=== PATIENT | female | born 1940 | race Caucasian/White ===

== ENCOUNTER 2020-02-19 08:42 | Inpatient (IN) | payer MEDICARE ==
[~2020-02-19] VITALS: Ht 165.1 cm; Wt 80.9 kg
[~2020-02-19 08:42] MED LIST: ALLO300T PO; BUDE0.5A3 NEB; BUPR150T15 PO; CLON-77 PO; FORM20VI IH; FURO-68 PO; FURO-69 PO; INDO75CA3 PO; PHEN37.599 PO; POTA20TA12 PO; POTA25TA4 PO; PRED20TA PO
[2020-02-19] MEDS ORDERED: IV NORMAL SALINE 1000ML BAG 1,000 ML IV ONE ×2 (09:30→11:45)
[2020-02-19] MEDS ORDERED: ONDANSETRON PF 4 MG/2 ML VIAL. IV ONE (09:30)
[2020-02-19] MEDS ORDERED: fentaNYL PF VIAL 100 MCG/2 ML VIAL IV ONE (09:30)
[2020-02-19 09:33] LABS: BILIRUBIN,URINE NEGATIVE (NEG); CLARITY,URINE CLEAR; COLOR,URINE YELLOW; NITRITE,URINE NEGATIVE (NEG); PH,URINE 6.5 (<5.0-8.0); PROTEIN,URINE 100 mg/dL (NEG-TRACE)
[2020-02-19 09:45] LABS: BASO % 0 % (0-3); EOS % 0 % (0-3); HEMATOCRIT 34.2 % (36.0-47.0); HEMOGLOBIN 11.1 g/dL (12.0-15.5); LYMPH # 0.9 x10^3/uL (1.0-4.8); LYMPH % 6 % (24-48); MEAN CORPUSCULAR HEMOGLOBIN 27 pg (25-35); MEAN CORPUSCULAR HGB CONC 33 g/dL (31-37); MEAN CORPUSCULAR VOLUME 84 fL (79-100); MONO # 1.1 x10^3/uL (0.0-1.1); MONO % 7 % (0-9); NEUT # 14.4 x10^3/uL (1.8-7.7); NEUT % 87 % (31-73); PLATELET COUNT 301 x10^3/uL (140-400); RED BLOOD COUNT 4.05 x10^6/uL (3.50-5.40); RED CELL DISTRIBUTION WIDTH 14.9 % (11.5-14.5); WHITE BLOOD COUNT 16.4 x10^3/uL (4.0-11.0)
[2020-02-19 09:54] LABS: BACTERIA,URINE FEW /HPF (0-FEW); RBC,URINE >40 /HPF (0-2); SQUAMOUS EPITHELIAL CELL,UR MOD /LPF
[2020-02-19 09:57] LABS: CALCIUM 9.1 mg/dL (8.5-10.1); GFR 53.6; POTASSIUM 3.5 mmol/L (3.5-5.1)
[2020-02-19 10:05] LABS: ALBUMIN 2.6 g/dL (3.4-5.0); ALBUMIN/GLOBULIN RATIO 0.5 (1.0-1.7); TOTAL BILIRUBIN 0.5 mg/dL (0.2-1.0); TOTAL PROTEIN 7.4 g/dL (6.4-8.2)
[2020-02-19] MEDS ORDERED: IOHEXOL 300 MG/ML 100ML VIAL. IV ONE (10:30)
[2020-02-19] MEDS ORDERED: CONTRAST GIVEN. MC PRN (10:30)
[2020-02-19 10:57] LABS: % LYMPHS 13 % (24-48); % MONOS 6 % (0-10); % SEGS 81 % (35-66); PLT ESTIMATE ADEQUATE (ADEQUATE)
--- NOTE | 2020-02-19 11:12 | RAD ---
PQRS Compliance Statement: One or more of the following individualized dose reduction techniques were utilized for this examination: 1. Automated exposure control 2. Adjustment of the mA and/or kV according to patient size 3. Use of iterative reconstruction technique CT abdomen/pelvis with contrast 02/19/2020 9:24 AM INDICATION: Abdominal pain COMPARISON: CT abdomen/pelvis 10/12/2013 TECHNIQUE: Multiple axial CT images of the abdomen and pelvis were obtained after the intravenous administration of 60 mL Omnipaque 300. Coronal and sagittal reformats are provided. FINDINGS: There is a 5 mm subpleural nodule at the medial left lung base (series 2, image 10). Patchy interstitial changes at the right lung base and inferior lingula may represent subsegmental atelectasis versus scarring. Heart size is within normal limits. Trace pericardial fluid may be physiologic. Coronary vascular calculations are present. Liver, spleen and pancreas are normal in appearance. Mild prominence of main pancreatic duct measuring up to 2 to 3 mm. Cholelithiasis. Indeterminate bilateral adrenal nodules are present. Left adrenal nodule measures 2.3 x 2.0 cm. Right adrenal nodule measures 1.4 x 0.9 cm. Infrarenal abdominal aortic aneurysm is identified with measurements of 4.5 x 4.4 cm. Noncalcified eccentric plaque is identified measuring 14 mm in thickness. No pathologically enlarged lymph nodes are identified in the abdomen and pelvis. Surgical clips are identified in the right groin. Kidneys are normal in appearance. No suspicious renal mass. Simple renal cortical cysts are identified in the right kidney measuring up to 10 mm. No hydronephrosis. No calculi are identified kidneys, ureters or urinary bladder. Inflammatory changes are identified involving the mid to distal sigmoid colon in a region of moderate diverticulosis. Findings are suggestive of diverticulitis. There is a peridiverticular fluid collection containing gas measuring 3.4 x 3.1 cm. This collection is identified between the left superolateral aspect of the urinary bladder, along the left lateral margin of the uterus communicating with the bowel. Peridiverticular abscess is primary consideration. Early fistula formation is possible. No gas is identified within the urinary bladder. Gas is noted within the vagina, nonspecific. This fusion of L5-S1. No suspicious osseous abnormality is identified. Appendix is normal in appearance. IMPRESSION: 1. Diverticulitis of the mid to distal sigmoid colon without peridiverticular abscess measuring 3.4 x 3.1 cm. No definite fistula to the bladder, uterus or vagina is noted. There is gas identified within the vagina which is nonspecific. Close follow-up is recommended. 2. Bilateral adrenal masses, indeterminate. Left adrenal mass measures 2.3 x 2.0 cm. Findings favor benign etiology given stability since 10/12/2013. 3. Infrarenal abdominal aortic aneurysm measuring 4.5 x 4.4 cm. Dense calcified and noncalcified atheromatous plaque is identified. Infrarenal abdominal aorta previously measured 2.8 x 2.6 cm on 10/12/2013. Electronically signed by: Ivory Peña MD (02/19/2020 11:09 AM) [facility]
[2020-02-19] MEDS ORDERED: cefTRIAXone IV Push 1 GM VIAL. IVP ONE ×2 (11:15→11:30)
--- NOTE | 2020-02-19 11:28 | PHYS DOC ---
Past Medical History Past Medical History: COPD, Diverticulitis, Other Additional Past Medical Histor: ulcers Past Surgical History: Other Additional Past Surgical Histo: right leg stent Smoking Status: Current Every Day Smoker Alcohol Use: None General Adult EDM: Chief Complaint: ABDOMINAL PAIN HPI: HPI: 79-year-old female presents with 2-day history of progressive abdominal pain. She feels like her abdomen is bloated. She states the pain is diffuse in nature. She denies any fever chills or sweats. She has had no nausea but she states the pain now is severe and unrelenting. She denies any dysuria or gross hematuria. She says she has had a history of diverticulitis in the past. [] Review of Systems: Review of Systems: Constitutional: Denies fever or chills. [] Eyes: Denies change in visual acuity. [] HENT: Denies nasal congestion or sore throat. [] Respiratory: Denies cough or shortness of breath. [] Cardiovascular: Denies chest pain or edema. [] GI: Per HPI [] : Denies dysuria. [] Musculoskeletal: Denies back pain or joint pain. [] Integument: Denies rash. [] Neurologic: Denies headache, focal weakness or sensory changes. [] Endocrine: Denies polyuria or polydipsia. [] Lymphatic: Denies swollen glands. [] Psychiatric: Denies depression or anxiety. [] Heart Score: Risk Factors: Risk Factors: DM, Current or recent (<one month) smoker, HTN, HLP, family history of CAD, obesity. Risk Scores: Score 0 - 3: 2.5% MACE over next 6 weeks - Discharge Home Score 4 - 6: 20.3% MACE over next 6 weeks - Admit for Clinical Observation Score 7 - 10: 72.7% MACE over next 6 weeks - Early Invasive Strategies Current Medications: Current Medications Medications (Trade) Dose Ordered Sig/Viola Start Time Stop Time Status Last Admin Dose Admin Ceftriaxone Sodium (Rocephin) 1 gm 1X ONCE 02/19/20 11:15 02/19/20 11:16 DC 02/19/20 11:14 1 GM Fentanyl Citrate (Fentanyl 2ml Vial) 50 mcg 1X ONCE 02/19/20 09:30 02/19/20 09:31 DC 02/19/20 09:50 50 MCG Info (CONTRAST GIVEN -- Rx MONITORING) 1 each PRN DAILY PRN 02/19/20 10:30 02/21/20 10:29 Iohexol (Omnipaque 300 Mg/ml) 75 ml 1X ONCE 02/19/20 10:30 02/19/20 10:31 DC 02/19/20 10:46 75 ML Ondansetron HCl (Zofran) 4 mg 1X ONCE 02/19/20 09:30 02/19/20 09:31 DC 02/19/20 09:49 4 MG Sodium Chloride 1,000 ml @ 1,000 mls/hr 1X ONCE 02/19/20 09:30 02/19/20 10:29 DC 02/19/20 09:48 1,000 MLS/HR Allergies: Allergies: Allergies Coded Allergies Type Severity Reaction Last Updated Verified No Known Drug Allergies 10/12/13 No Physical Exam: PE: Constitutional: Well developed, well nourished, moderate distress, non-toxic appearance. [] HENT: Normocephalic, atraumatic, bilateral external ears normal, oropharynx moist, no oral exudates, nose normal. [] Eyes: PERRLA, EOMI, conjunctiva normal, no discharge. [] Neck: Normal range of motion, no tenderness, supple, no stridor. [] Cardiovascular:Heart rate regular rhythm, no murmur [] Lungs & Thorax: Bilateral breath sounds clear to auscultation [] Abdomen: Bowel sounds normal, soft, no tenderness, no masses, no pulsatile mass es. [] Skin: Warm, dry, no erythema, no rash. [] Back: No tenderness, no CVA tenderness. [] Extremities: No tenderness, no cyanosis, no clubbing, ROM intact, no edema. [] Neurologic: Alert and oriented X 3, normal motor function, normal sensory function, no focal deficits noted. [] Psychologic: Anxious [] Current Patient Data: Labs: Laboratory Tests Test 02/19/20 09:25 02/19/20 09:30 Urine Color Yellow Urine Clarity Clear Urine pH 6.5 (<5.0-8.0) Urine Specific [place] 1.010 (1.000-1.030) Urine Protein 100 mg/dL (NEG-TRACE) Urine Glucose (UA) Negative mg/dL (NEG) Urine Ketones (Stick) Negative mg/dL (NEG) Urine Blood Large (NEG) Urine Nitrite Negative (NEG) Urine Bilirubin Negative (NEG) Urine Urobilinogen Dipstick 1.0 mg/dL (0.2 mg/dL) Urine Leukocyte Esterase Trace (NEG) Urine RBC >40 /HPF (0-2) Urine WBC 5-10 /HPF (0-4) Urine Squamous Epithelial Cells Mod /LPF Urine Bacteria Few /HPF (0-FEW) White Blood Count 16.4 x10^3/uL (4.0-11.0) H Red Blood Count 4.05 x10^6/uL (3.50-5.40) Hemoglobin 11.1 g/dL (12.0-15.5) L Hematocrit 34.2 % (36.0-47.0) L Mean Corpuscular Volume 84 fL (79-100) Mean Corpuscular Hemoglobin 27 pg (25-35) Mean Corpuscular Hemoglobin Concent 33 g/dL (31-37) Red Cell Distribution Width 14.9 % (11.5-14.5) H Platelet Count 301 x10^3/uL (140-400) Neutrophils (%) (Auto) 87 % (31-73) H Lymphocytes (%) (Auto) 6 % (24-48) L Monocytes (%) (Auto) 7 % (0-9) Eosinophils (%) (Auto) 0 % (0-3) Basophils (%) (Auto) 0 % (0-3) Neutrophils # (Auto) 14.4 x10^3/uL (1.8-7.7) H Lymphocytes # (Auto) 0.9 x10^3/uL (1.0-4.8) L Monocytes # (Auto) 1.1 x10^3/uL (0.0-1.1) Eosinophils # (Auto) 0.0 x10^3/uL (0.0-0.7) Basophils # (Auto) 0.0 x10^3/uL (0.0-0.2) Segmented Neutrophils % 81 % (35-66) H Lymphocytes % 13 % (24-48) L Monocytes % 6 % (0-10) Platelet Estimate Adequate (ADEQUATE) Sodium Level 135 mmol/L (136-145) L Potassium Level 3.5 mmol/L (3.5-5.1) Chloride Level 94 mmol/L (98-107) L Carbon Dioxide Level 33 mmol/L (21-32) H Anion Gap 8 (6-14) Blood Urea Nitrogen 11 mg/dL (7-20) Creatinine 1.0 mg/dL (0.6-1.0) Estimated GFR (Cockcroft-Gault) 53.6 BUN/Creatinine Ratio 11 (6-20) Glucose Level 94 mg/dL (70-99) Lactic Acid Level 0.8 mmol/L (0.4-2.0) Calcium Level 9.1 mg/dL (8.5-10.1) Total Bilirubin 0.5 mg/dL (0.2-1.0) Aspartate Amino Transferase (AST) 21 U/L (15-37) Alanine Aminotransferase (ALT) 19 U/L (14-59) Alkaline Phosphatase 107 U/L (46-116) Troponin I Quantitative < 0.017 ng/mL (0.000-0.055) Total Protein 7.4 g/dL (6.4-8.2) Albumin 2.6 g/dL (3.4-5.0) L Albumin/Globulin Ratio 0.5 (1.0-1.7) L Lipase 129 U/L (73-393) Laboratory Tests 02/19/20 09:30 Laboratory Tests 02/19/20 09:30 Vital Signs: Vital Signs Date Time Temp Pulse Resp B/P (MAP) Pulse Ox O2 Delivery O2 Flow Rate FiO2 02/19/20 09:50 20 95 Nasal Cannula 4.0 02/19/20 09:16 98.7 88 121/73 (89) 98.7 EKG: EKG: [] Radiology/Procedures: Radiology/Procedures: [REASON: abdominal pain PROCEDURE: CT ABD PELV W/ IV CONTRST ONLY PQRS Compliance Statement: One or more of the following individualized dose reduction techniques were utilized for this examination: 1. Automated exposure control 2. Adjustment of the mA and/or kV according to patient size 3. Use of iterative reconstruction technique CT abdomen/pelvis with contrast 02/19/2020 9:24 AM INDICATION: Abdominal pain COMPARISON: CT abdomen/pelvis 10/12/2013 TECHNIQUE: Multiple axial CT images of the abdomen and pelvis were obtained after the intravenous administration of 60 mL Omnipaque 300. Coronal and sagittal reformats are provided. FINDINGS: There is a 5 mm subpleural nodule at the medial left lung base (series 2, image 10). Patchy interstitial changes at the right lung base and inferior lingula may represent subsegmental atelectasis versus scarring. Heart size is within normal limits. Trace pericardial fluid may be physiologic. Coronary vascular calculations are present. Liver, spleen and pancreas are normal in appearance. Mild prominence of main pancreatic duct measuring up to 2 to 3 mm. Cholelithiasis. Indeterminate bilateral adrenal nodules are present. Left adrenal nodule measures 2.3 x 2.0 cm. Right adrenal nodule measures 1.4 x 0.9 cm. Infrarenal abdominal aortic aneurysm is identified with measurements of 4.5 x 4.4 cm. Noncalcified eccentric plaque is identified measuring 14 mm in thickness. No pathologically enlarged lymph nodes are identified in the abdomen and pelvis. Surgical clips are identified in the right groin. Kidneys are normal in appearance. No suspicious renal mass. Simple renal cortical cysts are identified in the right kidney measuring up to 10 mm. No hydronephrosis. No calculi are identified kidneys, ureters or urinary bladder. Inflammatory changes are identified involving the mid to distal sigmoid colon in a region of moderate diverticulosis. Findings are suggestive of diverticulitis. There is a peridiverticular fluid collection containing gas measuring 3.4 x 3.1 cm. This collection is identified between the left superolateral aspect of the urinary bladder, along the left lateral margin of the uterus communicating with the bowel. Peridiverticular abscess is primary consideration. Early fistula formation is possible. No gas is identified within the urinary bladder. Gas is noted within the vagina, nonspecific. This fusion of L5-S1. No suspicious osseous abnormality is identified. Appendix is normal in appearance. IMPRESSION: 1. Diverticulitis of the mid to distal sigmoid colon without peridiverticular abscess measuring 3.4 x 3.1 cm. No definite fistula to the bladder, uterus or vagina is noted. There is gas identified within the vagina which is nonspecific. Close follow-up is recommended. 2. Bilateral adrenal masses, indeterminate. Left adrenal mass measures 2.3 x 2.0 cm. Findings favor benign etiology given stability since 10/12/2013. 3. Infrarenal abdominal aortic aneurysm measuring 4.5 x 4.4 cm. Dense calcified and noncalcified atheromatous plaque is identified. Infrarenal abdominal aorta previously measured 2.8 x 2.6 cm on 10/12/2013.] Course & Med Decision Making: Course & Med Decision Making Pertinent Labs and Imaging studies reviewed. (See chart for details) [ED course: Evaluation reveals a 79-year-old female with abdominal pain. Her CT scan showed diverticulitis. Her urine also showed mild infection. She was given 2 g of ceftriaxone and 500 mg of Flagyl during her stay in the department. She was also given IV fentanyl IV normal saline and Zofran with improvement in her pain. Of note, her infrarenal abdominal aortic aneurysm has increased in size and is at the current threshold for intervention. Patient will need IV antibiotics and IV pain medicine in the hospital.] Dragon Disclaimer: Dragon Disclaimer: This electronic medical record was generated, in whole or in part, using a voice recognition dictation system. Departure Departure Impression: Primary Impression: Acute diverticulitis Additional Impression: Abdominal aortic aneurysm (AAA) 3.0 cm to 5.0 cm in diameter in female Disposition: 09 ADMITTED INPATIENT Admitting Physician: BILL Condition: STABLE Referrals: NON,STAFF (PCP) Justicifation of Admission Dx: Justifications for Admission: Justification of Admission Dx: Yes Comments: Acute diverticulitis JOHNNY CHANG DO Feb 19, 2020 11:28
[2020-02-19] MEDS: ENOXAPARIN 40 MG/0.4 ML SYRINGE. SQ SCH (12:06)
[2020-02-19] MEDS: clonazePAM 0.5 MG TABLET PO SCH (12:06)
[2020-02-19] MEDS: fentaNYL PF VIAL 100 MCG/2 ML VIAL IVP PRN ×4 (14:14→23:16)
[2020-02-19] MEDS ORDERED: NICOTINE POLACRILEX 2MG GUM PACKAGE of 12. BC PRN (15:15)
[2020-02-19] MEDS: NICOTINE 7MG PATCH. TD SCH (15:31)
[2020-02-19 15:45] VITALS: BP 118/57
--- NOTE | 2020-02-19 16:55 | PDOC1 ---
History and Physical Date of Admission: Date of Admission DATE: 02/19/20 TIME: 16:42 Chief Complaint: Chief Complain: Abdominal pain History of Present Illness: HPI: This is a 79-year-old female with past medical history of COPD, diverticulitis, longtime smoker who presents to the ED with 10-day worsening of her abdominal pain. Patient states that the abdominal pain is all over 10 out of 10, aching in quality, originally started about a month and a half ago but has worsened in the last 10 days. The pain radiates all over her abdomen. She states that she does have bowel movements every day and does not have any extreme straining. Denies fevers, chills, chest pain, shortness of breath, diarrhea, bloody stools, dysuria. Patient states that she has had history of diverticulitis in the past. Past Medical/Surgical History: PMH/PSH: Past Medical History: COPD, Diverticulitis Past Surgical History: right leg stent? Allergies: Allergies: Coded Allergies: No Known Drug Allergies (Unverified , 10/12/13) Family History: Family History: None Social History: Social History: Smoking Status: Half a pack smoker for 40 years Denies alcohol and drug abuse Current Medications: Current Medications Current Medications Fentanyl Citrate (Fentanyl 2ml Vial) 50 mcg 1X ONCE IV Last administered on 02/19/20at 09:50; Start 02/19/20 at 09:30; Stop 02/19/20 at 09:31; Status DC Ondansetron HCl (Zofran) 4 mg 1X ONCE IV Last administered on 02/19/20at 09:49; Start 02/19/20 at 09:30; Stop 02/19/20 at 09:31; Status DC Sodium Chloride 1,000 ml @ 1,000 mls/hr 1X ONCE IV Last administered on 02/19/20at 09:48; Start 02/19/20 at 09:30; Stop 02/19/20 at 10:29; Status DC Iohexol (Omnipaque 300 Mg/ml) 75 ml 1X ONCE IV Last administered on 02/19/20at 10:46; Start 02/19/20 at 10:30; Stop 02/19/20 at 10:31; Status DC Info (CONTRAST GIVEN -- Rx MONITORING) 1 each PRN DAILY PRN MC SEE COMMENTS; Start 02/19/20 at 10:30; Stop 02/21/20 at 10:29 Ceftriaxone Sodium (Rocephin) 1 gm 1X ONCE IVP Last administered on 02/19/20at 11:14; Start 02/19/20 at 11:15; Stop 02/19/20 at 11:16; Status DC Ceftriaxone Sodium (Rocephin) 1 gm 1X ONCE IVP Last administered on 02/19/20at 12:01; Start 02/19/20 at 11:30; Stop 02/19/20 at 11:31; Status DC Metronidazole 100 ml @ 100 mls/hr Q8HRS IV ; Start 02/19/20 at 22:00 Metronidazole 100 ml @ 100 mls/hr 1X ONCE IV Last administered on 02/19/20at 12:06; Start 02/19/20 at 11:30; Stop 02/19/20 at 12:29; Status DC Ceftriaxone Sodium (Rocephin) 1 gm Q24H IVP ; Start 02/20/20 at 12:00 Enoxaparin Sodium (Lovenox 40mg Syringe) 40 mg Q24H SQ Last administered on 02/19/20at 12:06; Start 02/19/20 at 12:00 Sodium Chloride 1,000 ml @ 100 mls/hr 1X ONCE IV Last administered on 02/19/20at 11:45; Start 02/19/20 at 11:45; Stop 02/19/20 at 21:44 Clonazepam (KlonoPIN) 0.5 mg DAILY PO Last administered on 02/19/20at 12:06; Start 02/19/20 at 12:00 Fentanyl Citrate (Fentanyl 2ml Vial) 50 mcg PRN Q2HR PRN IVP PAIN Last administered on 02/19/20at 14:14; Start 02/19/20 at 14:00 Nicotine Polacrilex (Nicorette Gum) 1 each PRN Q1HR PRN BC SMOKING CESSATION; Start 02/19/20 at 15:15 Nicotine (Nicoderm Cq 7mg) 1 patch DAILY TD Last administered on 02/19/20at 15:31; Start 02/19/20 at 15:15 Active Scripts Active Reported Potassium Chloride 20 Meq Tab.er.prt 1 Tab PO DAILY Lasix (Furosemide) 40 Mg Tablet 1 Tab PO DAILY Prednisone 20 Mg Tablet 1 Tab PO DAILY Perforomist (Formoterol Fumarate) 20 Mcg/2 Ml Vial.neb 20 Mcg IH Pulmicort (Budesonide) 0.5 Mg/2 Ml Ampul.neb 1 Vial NEB BID Clonazepam (Clonazepam) 0.5 Mg Tablet 0.5 Mg PO DAILY Allopurinol 300 Mg Tablet 300 Mg PO DAILY Adipex-P (Phentermine Hcl) 37.5 Mg Capsule 18.75 Mg PO DAILY ROS: Review of Systems Review of System REVIEW OF SYSTEMS: GENERAL: Denies weakness SKIN: No bruising, hair changes or rashes. EYES: No blurred, double or loss of vision. NOSE AND THROAT: No history of nosebleeds, hoarseness or sore throat. HEART: No history of palpitations, chest pain or shortness of breath on exertion. LUNGS: Denies cough, hemoptysis, wheezing or shortness of breath. GASTROINTESTINAL: Denies changes in appetite, nausea, vomiting, diarrhea or constipation. GENITOURINARY: No history of frequency, urgency, hesitancy or nocturia. NEUROLOGIC: Denies history of numbness, tingling, or tremor. PSYCHIATRIC: No history of panic, anxiety or depression. ENDOCRINE: No history of heat or cold intolerance, polyuria or polydipsia. EXTREMITIES: Denies joint pain, pain on walking or stiffness. Physical Exam: Vital Signs: Vital Signs Date Time Temp Pulse Resp B/P (MAP) Pulse Ox O2 Delivery O2 Flow Rate FiO2 02/19/20 14:45 92 Nasal Cannula 4.0 02/19/20 13:44 86 136/74 (94) 02/19/20 11:44 20 02/19/20 09:16 98.7 98.7 Physcial Exam: GEN: No apparent distress. Alert and oriented HEENT: Normal cephalic, atraumatic, external auditory canals are patent EYES: Extraocular muscles are intact, pupil are equally round and reactive to light and accommodation MUSCULOSKELETAL: Well developed , well nourished, good range of motion ENDOCRINE: No thyromegaly was palpated LYMPHATICS: No cervical chain or axillary nodes were noted HEMATOPOIETIC: No bruising NECK: Supple, no JVD, no thyromegaly was noted LUNGS: Clear to auscultation in all lung delgado without rhonchi or wheezing HEART: RRR, S!, S2 present. Peripheral pulses intact, no obvious murmurs noted ABDOMEN: Soft, nontender. Positive bowel sounds, no organomegaly, normal bowel sounds EXTREMITIES: Without clubbing, cyanosis, or edema. Pedal pulses intact. Negative Homans sign NEUROLOGIC: Normal speech and tone. A&O x 3, moves all extremities, no obvious focal deficits PSYCHIATRIC: Normal affect, normal mood. Stable SKIN: No ulcerations or rashes, good skin turgor, no jaundice VASCULAR: Good capillary refill, neurovascular bundle appears to be intact Labs: Labs: Laboratory Tests Test 02/19/20 09:25 02/19/20 09:30 Urine Color Yellow Urine Clarity Clear Urine pH 6.5 (<5.0-8.0) Urine Specific [place] 1.010 (1.000-1.030) Urine Protein 100 mg/dL (NEG-TRACE) Urine Glucose (UA) Negative mg/dL (NEG) Urine Ketones (Stick) Negative mg/dL (NEG) Urine Blood Large (NEG) Urine Nitrite Negative (NEG) Urine Bilirubin Negative (NEG) Urine Urobilinogen Dipstick 1.0 mg/dL (0.2 mg/dL) Urine Leukocyte Esterase Trace (NEG) Urine RBC >40 /HPF (0-2) Urine WBC 5-10 /HPF (0-4) Urine Squamous Epithelial Cells Mod /LPF Urine Bacteria Few /HPF (0-FEW) White Blood Count 16.4 x10^3/uL (4.0-11.0) Red Blood Count 4.05 x10^6/uL (3.50-5.40) Hemoglobin 11.1 g/dL (12.0-15.5) Hematocrit 34.2 % (36.0-47.0) Mean Corpuscular Volume 84 fL (79-100) Mean Corpuscular Hemoglobin 27 pg (25-35) Mean Corpuscular Hemoglobin Concent 33 g/dL (31-37) Red Cell Distribution Width 14.9 % (11.5-14.5) Platelet Count 301 x10^3/uL (140-400) Neutrophils (%) (Auto) 87 % (31-73) Lymphocytes (%) (Auto) 6 % (24-48) Monocytes (%) (Auto) 7 % (0-9) Eosinophils (%) (Auto) 0 % (0-3) Basophils (%) (Auto) 0 % (0-3) Neutrophils # (Auto) 14.4 x10^3/uL (1.8-7.7) Lymphocytes # (Auto) 0.9 x10^3/uL (1.0-4.8) Monocytes # (Auto) 1.1 x10^3/uL (0.0-1.1) Eosinophils # (Auto) 0.0 x10^3/uL (0.0-0.7) Basophils # (Auto) 0.0 x10^3/uL (0.0-0.2) Segmented Neutrophils % 81 % (35-66) Lymphocytes % 13 % (24-48) Monocytes % 6 % (0-10) Platelet Estimate Adequate (ADEQUATE) Sodium Level 135 mmol/L (136-145) Potassium Level 3.5 mmol/L (3.5-5.1) Chloride Level 94 mmol/L (98-107) Carbon Dioxide Level 33 mmol/L (21-32) Anion Gap 8 (6-14) Blood Urea Nitrogen 11 mg/dL (7-20) Creatinine 1.0 mg/dL (0.6-1.0) Estimated GFR (Cockcroft-Gault) 53.6 BUN/Creatinine Ratio 11 (6-20) Glucose Level 94 mg/dL (70-99) Lactic Acid Level 0.8 mmol/L (0.4-2.0) Calcium Level 9.1 mg/dL (8.5-10.1) Total Bilirubin 0.5 mg/dL (0.2-1.0) Aspartate Amino Transf (AST/SGOT) 21 U/L (15-37) Alanine Aminotransferase (ALT/SGPT) 19 U/L (14-59) Alkaline Phosphatase 107 U/L (46-116) Troponin I Quantitative < 0.017 ng/mL (0.000-0.055) Total Protein 7.4 g/dL (6.4-8.2) Albumin 2.6 g/dL (3.4-5.0) Albumin/Globulin Ratio 0.5 (1.0-1.7) Lipase 129 U/L (73-393) Laboratory Tests Test 02/19/20 09:25 02/19/20 09:30 Urine Color Yellow Urine Clarity Clear Urine pH 6.5 (<5.0-8.0) Urine Specific [place] 1.010 (1.000-1.030) Urine Protein 100 mg/dL (NEG-TRACE) Urine Glucose (UA) Negative mg/dL (NEG) Urine Ketones (Stick) Negative mg/dL (NEG) Urine Blood Large (NEG) Urine Nitrite Negative (NEG) Urine Bilirubin Negative (NEG) Urine Urobilinogen Dipstick 1.0 mg/dL (0.2 mg/dL) Urine Leukocyte Esterase Trace (NEG) Urine RBC >40 /HPF (0-2) Urine WBC 5-10 /HPF (0-4) Urine Squamous Epithelial Cells Mod /LPF Urine Bacteria Few /HPF (0-FEW) White Blood Count 16.4 x10^3/uL (4.0-11.0) Red Blood Count 4.05 x10^6/uL (3.50-5.40) Hemoglobin 11.1 g/dL (12.0-15.5) Hematocrit 34.2 % (36.0-47.0) Mean Corpuscular Volume 84 fL (79-100) Mean Corpuscular Hemoglobin 27 pg (25-35) Mean Corpuscular Hemoglobin Concent 33 g/dL (31-37) Red Cell Distribution Width 14.9 % (11.5-14.5) Platelet Count 301 x10^3/uL (140-400) Neutrophils (%) (Auto) 87 % (31-73) Lymphocytes (%) (Auto) 6 % (24-48) Monocytes (%) (Auto) 7 % (0-9) Eosinophils (%) (Auto) 0 % (0-3) Basophils (%) (Auto) 0 % (0-3) Neutrophils # (Auto) 14.4 x10^3/uL (1.8-7.7) Lymphocytes # (Auto) 0.9 x10^3/uL (1.0-4.8) Monocytes # (Auto) 1.1 x10^3/uL (0.0-1.1) Eosinophils # (Auto) 0.0 x10^3/uL (0.0-0.7) Basophils # (Auto) 0.0 x10^3/uL (0.0-0.2) Segmented Neutrophils % 81 % (35-66) Lymphocytes % 13 % (24-48) Monocytes % 6 % (0-10) Platelet Estimate Adequate (ADEQUATE) Sodium Level 135 mmol/L (136-145) Potassium Level 3.5 mmol/L (3.5-5.1) Chloride Level 94 mmol/L (98-107) Carbon Dioxide Level 33 mmol/L (21-32) Anion Gap 8 (6-14) Blood Urea Nitrogen 11 mg/dL (7-20) Creatinine 1.0 mg/dL (0.6-1.0) Estimated GFR (Cockcroft-Gault) 53.6 BUN/Creatinine Ratio 11 (6-20) Glucose Level 94 mg/dL (70-99) Lactic Acid Level 0.8 mmol/L (0.4-2.0) Calcium Level 9.1 mg/dL (8.5-10.1) Total Bilirubin 0.5 mg/dL (0.2-1.0) Aspartate Amino Transf (AST/SGOT) 21 U/L (15-37) Alanine Aminotransferase (ALT/SGPT) 19 U/L (14-59) Alkaline Phosphatase 107 U/L (46-116) Troponin I Quantitative < 0.017 ng/mL (0.000-0.055) Total Protein 7.4 g/dL (6.4-8.2) Albumin 2.6 g/dL (3.4-5.0) Albumin/Globulin Ratio 0.5 (1.0-1.7) Lipase 129 U/L (73-393) Images: Images CT ABD/pelvis : Impression: 1. Diverticulitis of the mid to distal sigmoid colon without peridiverticular abscess measuring 3.4 x 3.1 cm. No definite fistula to the bladder, uterus or vagina is noted. There is gas identified within the vagina which is nonspecific. Close follow-up is recommended. 2. Bilateral adrenal masses, indeterminate. Left adrenal mass measures 2.3 x 2.0 cm. Findings favor benign etiology given stability since 10/12/2013. 3. Infrarenal abdominal aortic aneurysm measuring 4.5 x 4.4 cm. Dense calcified and noncalcified atheromatous plaque is identified. Infrarenal abdominal aorta previously measured 2.8 x 2.6 cm on 10/12/2013. Assessment/Plan Assessment/Plan Sepsis due to sigmoid diverticulitis Abdominal pain secondary to acute sigmoid diverticulitis COPD Tobacco abuse Acute electrolyte derangements Severe malnutrition Admit to medicine Clear liquid diet for tonight Serial abdominal exams Continue IV fluids Continue IV ceftriaxone and Flagyl Consider surgical consult if clinical picture worsens Lovenox for DVT prophylaxis Full code Discussed with RN Dispo: Home Justicifation of Admission Dx: Justifications for Admission: Justification of Admission Dx: Yes Sepsis: Infection ANA POZO MD Feb 19, 2020 16:55
[2020-02-19] MEDS ORDERED: ASPI-630 PO (17:11)
[2020-02-19] MEDS ORDERED: POLY17PO29 PO (17:11)
[2020-02-19] MEDS ORDERED: MULT-496 PO (17:11)
[2020-02-19] MEDS ORDERED: OMEG100021 PO (17:11)
[2020-02-19 19:17] VITALS: BP 108/51
[2020-02-19 22:36] VITALS: BP 135/60
[2020-02-20 02:52] VITALS: BP 131/59
[2020-02-20] MEDS: fentaNYL PF VIAL 100 MCG/2 ML VIAL IVP PRN ×6 (03:59→20:10)
[2020-02-20 07:00] VITALS: BP 121/73
[2020-02-20] MEDS: clonazePAM 0.5 MG TABLET PO SCH (08:33)
[2020-02-20] MEDS: NICOTINE 7MG PATCH. TD SCH (08:33)
--- NOTE | 2020-02-20 10:35 | PDOC ---
PROGRESS NOTES History of Present Illness History of Present Illness Impression: 1. Diverticulitis of the mid to distal sigmoid colon peridiverticular abscess measuring 3.4 x 3.1 cm. No definite fistula to the bladder, uterus or vagina is noted. There is gas identified within the vagina which is nonspecific. Close follow-up is recommended. peridiverticular abscess measuring 3.4 x 3.1 cm 2. Bilateral adrenal masses, indeterminate. Left adrenal mass measures 2.3 x 2.0 cm. Findings favor benign etiology given stability since 10/12/2013. 3. Infrarenal abdominal aortic aneurysm measuring 4.5 x 4.4 cm. Dense calcified and noncalcified atheromatous plaque is identified. Infrarenal abdominal aorta previously measured 2.8 x 2.6 cm on 10/12/2013. Assessment/Plan Assessment/Plan Sepsis due to sigmoid diverticulitis peridiverticular abscess measuring 3.4 x 3.1 cm Abdominal pain secondary to acute sigmoid diverticulitis COPD Tobacco abuse Acute electrolyte derangements Severe protein-caloric malnutrition plan Admit to medicine Clear liquid diet Serial abdominal exams Continue IV fluids Continue IV ceftriaxone and Flagyl surgical consult Lovenox for DVT prophylaxis Full code Discussed with RN id consult GI CONSULT GEN SURGERY CONSULT d/w RN Justicifation of Admission Dx: Justicifation of Admission Dx: Justifications for Admission: Justification of Admission Dx: Yes Sepsis: Infection Vitals Vitals Vital Signs Date Time Temp Pulse Resp B/P (MAP) Pulse Ox O2 Delivery O2 Flow Rate FiO2 02/20/20 07:58 93 Nasal Cannula 5.0 02/20/20 07:00 98.1 87 18 121/73 (89) 98.1 Physical Exam Lungs: Other Labs LABS PQRS Compliance Statement: One or more of the following individualized dose reduction techniques were utilized for this examination: 1. Automated exposure control 2. Adjustment of the mA and/or kV according to patient size 3. Use of iterative reconstruction technique CT abdomen/pelvis with contrast 02/19/2020 9:24 AM INDICATION: Abdominal pain COMPARISON: CT abdomen/pelvis 10/12/2013 TECHNIQUE: Multiple axial CT images of the abdomen and pelvis were obtained after the intravenous administration of 60 mL Omnipaque 300. Coronal and sagittal reformats are provided. FINDINGS: There is a 5 mm subpleural nodule at the medial left lung base (series 2, image 10). Patchy interstitial changes at the right lung base and inferior lingula may represent subsegmental atelectasis versus scarring. Heart size is within normal limits. Trace pericardial fluid may be physiologic. Coronary vascular calculations are present. Liver, spleen and pancreas are normal in appearance. Mild prominence of main pancreatic duct measuring up to 2 to 3 mm. Cholelithiasis. Indeterminate bilateral adrenal nodules are present. Left adrenal nodule measures 2.3 x 2.0 cm. Right adrenal nodule measures 1.4 x 0.9 cm. Infrarenal abdominal aortic aneurysm is identified with measurements of 4.5 x 4.4 cm. Noncalcified eccentric plaque is identified measuring 14 mm in thickness. No pathologically enlarged lymph nodes are identified in the abdomen and pelvis. Surgical clips are identified in the right groin. Kidneys are normal in appearance. No suspicious renal mass. Simple renal cortical cysts are identified in the right kidney measuring up to 10 mm. No hydronephrosis. No calculi are identified kidneys, ureters or urinary bladder. Inflammatory changes are identified involving the mid to distal sigmoid colon in a region of moderate diverticulosis. Findings are suggestive of diverticulitis. There is a peridiverticular fluid collection containing gas measuring 3.4 x 3.1 cm. This collection is identified between the left superolateral aspect of the urinary bladder, along the left lateral margin of the uterus communicating with the bowel. Peridiverticular abscess is primary consideration. Early fistula formation is possible. No gas is identified within the urinary bladder. Gas is noted within the vagina, nonspecific. This fusion of L5-S1. No suspicious osseous abnormality is identified. Appendix is normal in appearance. IMPRESSION: 1. Diverticulitis of the mid to distal sigmoid colon without peridiverticular abscess measuring 3.4 x 3.1 cm. No definite fistula to the bladder, uterus or vagina is noted. There is gas identified within the vagina which is nonspecific. Close follow-up is recommended. 2. Bilateral adrenal masses, indeterminate. Left adrenal mass measures 2.3 x 2.0 cm. Findings favor benign etiology given stability since 10/12/2013. 3. Infrarenal abdominal aortic aneurysm measuring 4.5 x 4.4 cm. Dense calcified and noncalcified atheromatous plaque is identified. Infrarenal abdominal aorta previously measured 2.8 x 2.6 cm on 10/12/2013. Electronically signed by: Ivory Peña MD (02/19/2020 11:09 AM) [facility] Assessment and Plan Assessmemt and Plan Problems Medical Problems: (1) Abdominal aortic aneurysm (AAA) 3.0 cm to 5.0 cm in diameter in female Status: Acute (2) Acute diverticulitis Status: Acute Comment Review of Relevant I have reviewed the following items mayra (where applicable) has been applied. Labs Laboratory Tests Test 02/19/20 09:25 02/19/20 09:30 Urine Color Yellow Urine Clarity Clear Urine pH 6.5 (<5.0-8.0) Urine Specific [place] 1.010 (1.000-1.030) Urine Protein 100 mg/dL (NEG-TRACE) Urine Glucose (UA) Negative mg/dL (NEG) Urine Ketones (Stick) Negative mg/dL (NEG) Urine Blood Large (NEG) Urine Nitrite Negative (NEG) Urine Bilirubin Negative (NEG) Urine Urobilinogen Dipstick 1.0 mg/dL (0.2 mg/dL) Urine Leukocyte Esterase Trace (NEG) Urine RBC >40 /HPF (0-2) Urine WBC 5-10 /HPF (0-4) Urine Squamous Epithelial Cells Mod /LPF Urine Bacteria Few /HPF (0-FEW) White Blood Count 16.4 x10^3/uL (4.0-11.0) Red Blood Count 4.05 x10^6/uL (3.50-5.40) Hemoglobin 11.1 g/dL (12.0-15.5) Hematocrit 34.2 % (36.0-47.0) Mean Corpuscular Volume 84 fL (79-100) Mean Corpuscular Hemoglobin 27 pg (25-35) Mean Corpuscular Hemoglobin Concent 33 g/dL (31-37) Red Cell Distribution Width 14.9 % (11.5-14.5) Platelet Count 301 x10^3/uL (140-400) Neutrophils (%) (Auto) 87 % (31-73) Lymphocytes (%) (Auto) 6 % (24-48) Monocytes (%) (Auto) 7 % (0-9) Eosinophils (%) (Auto) 0 % (0-3) Basophils (%) (Auto) 0 % (0-3) Neutrophils # (Auto) 14.4 x10^3/uL (1.8-7.7) Lymphocytes # (Auto) 0.9 x10^3/uL (1.0-4.8) Monocytes # (Auto) 1.1 x10^3/uL (0.0-1.1) Eosinophils # (Auto) 0.0 x10^3/uL (0.0-0.7) Basophils # (Auto) 0.0 x10^3/uL (0.0-0.2) Segmented Neutrophils % 81 % (35-66) Lymphocytes % 13 % (24-48) Monocytes % 6 % (0-10) Platelet Estimate Adequate (ADEQUATE) Sodium Level 135 mmol/L (136-145) Potassium Level 3.5 mmol/L (3.5-5.1) Chloride Level 94 mmol/L (98-107) Carbon Dioxide Level 33 mmol/L (21-32) Anion Gap 8 (6-14) Blood Urea Nitrogen 11 mg/dL (7-20) Creatinine 1.0 mg/dL (0.6-1.0) Estimated GFR (Cockcroft-Gault) 53.6 BUN/Creatinine Ratio 11 (6-20) Glucose Level 94 mg/dL (70-99) Lactic Acid Level 0.8 mmol/L (0.4-2.0) Calcium Level 9.1 mg/dL (8.5-10.1) Total Bilirubin 0.5 mg/dL (0.2-1.0) Aspartate Amino Transf (AST/SGOT) 21 U/L (15-37) Alanine Aminotransferase (ALT/SGPT) 19 U/L (14-59) Alkaline Phosphatase 107 U/L (46-116) Troponin I Quantitative < 0.017 ng/mL (0.000-0.055) Total Protein 7.4 g/dL (6.4-8.2) Albumin 2.6 g/dL (3.4-5.0) Albumin/Globulin Ratio 0.5 (1.0-1.7) Lipase 129 U/L (73-393) Microbiology 02/19/20 Blood Culture - Preliminary, Resulted NO GROWTH AFTER 1 DAY Medications Current Medications Fentanyl Citrate (Fentanyl 2ml Vial) 50 mcg 1X ONCE IV Last administered on 02/19/20at 09:50; Start 02/19/20 at 09:30; Stop 02/19/20 at 09:31; Status DC Ondansetron HCl (Zofran) 4 mg 1X ONCE IV Last administered on 02/19/20at 09:49; Start 02/19/20 at 09:30; Stop 02/19/20 at 09:31; Status DC Sodium Chloride 1,000 ml @ 1,000 mls/hr 1X ONCE IV Last administered on 02/19/20at 09:48; Start 02/19/20 at 09:30; Stop 02/19/20 at 10:29; Status DC Iohexol (Omnipaque 300 Mg/ml) 75 ml 1X ONCE IV Last administered on 02/19/20at 10:46; Start 02/19/20 at 10:30; Stop 02/19/20 at 10:31; Status DC Info (CONTRAST GIVEN -- Rx MONITORING) 1 each PRN DAILY PRN MC SEE COMMENTS; Start 02/19/20 at 10:30; Stop 02/21/20 at 10:29 Ceftriaxone Sodium (Rocephin) 1 gm 1X ONCE IVP Last administered on 02/19/20at 11:14; Start 02/19/20 at 11:15; Stop 02/19/20 at 11:16; Status DC Ceftriaxone Sodium (Rocephin) 1 gm 1X ONCE IVP Last administered on 02/19/20at 12:01; Start 02/19/20 at 11:30; Stop 02/19/20 at 11:31; Status DC Metronidazole 100 ml @ 100 mls/hr Q8HRS IV Last administered on 02/20/20at 06:00; Start 02/19/20 at 22:00 Metronidazole 100 ml @ 100 mls/hr 1X ONCE IV Last administered on 02/19/20at 12:06; Start 02/19/20 at 11:30; Stop 02/19/20 at 12:29; Status DC Ceftriaxone Sodium (Rocephin) 1 gm Q24H IVP ; Start 02/20/20 at 12:00 Enoxaparin Sodium (Lovenox 40mg Syringe) 40 mg Q24H SQ Last administered on 02/19/20at 12:06; Start 02/19/20 at 12:00 Sodium Chloride 1,000 ml @ 100 mls/hr 1X ONCE IV Last administered on 02/19/20at 11:45; Start 02/19/20 at 11:45; Stop 02/19/20 at 21:44; Status DC Clonazepam (KlonoPIN) 0.5 mg DAILY PO Last administered on 02/20/20at 08:33; Start 02/19/20 at 12:00 Fentanyl Citrate (Fentanyl 2ml Vial) 50 mcg PRN Q2HR PRN IVP PAIN Last administered on 02/20/20at 07:28; Start 02/19/20 at 14:00 Nicotine Polacrilex (Nicorette Gum) 1 each PRN Q1HR PRN BC SMOKING CESSATION; Start 02/19/20 at 15:15 Nicotine (Nicoderm Cq 7mg) 1 patch DAILY TD Last administered on 02/20/20at 08:33; Start 02/19/20 at 15:15 Lactobacillus Rhamnosus (Culturelle) 1 cap BID PO ; Start 02/20/20 at 10:15 Active Scripts Active Reported Miralax (Polyethylene Glycol 3350) 17 Gm Powd.pack 1 Packet PO DAILY 2 Days dissolve in water Fish Oil 1,000 mg Softgel ([place]-3/Dha/Epa/Fish Oil) 1,000 Mg Capsule 1,000 Mg PO DAILY Aspirin 81 Mg Tab.chew 1 Tab PO DAILY Daily Value (Multivitamin) 1 Each Tablet 1 Tab PO DAILY 30 Days Perforomist (Formoterol Fumarate) 20 Mcg/2 Ml Vial.neb 20 Mcg IH Pulmicort (Budesonide) 0.5 Mg/2 Ml Ampul.neb 1 Vial NEB BID Clonazepam (Clonazepam) 0.5 Mg Tablet 0.5 Mg PO DAILY Vitals/I & O Vital Sign - Last 24 Hours 02/19/20 02/19/20 02/19/20 02/19/20 10:44 11:16 11:44 12:14 Pulse 90 82 88 80 Resp 20 20 20 B/P (MAP) 119/57 (77) 112/53 (72) 113/72 (86) 127/66 (86) Pulse Ox 94 95 94 97 O2 Delivery Nasal Cannula Nasal Cannula O2 Flow Rate 4.0 02/19/20 02/19/20 02/19/20 02/19/20 12:44 13:14 13:44 14:45 Pulse 88 94 86 B/P (MAP) 126/57 (80) 128/56 (80) 136/74 (94) Pulse Ox 95 95 92 92 O2 Delivery Nasal Cannula Nasal Cannula Nasal Cannula Nasal Cannula O2 Flow Rate 4.0 4.0 4.0 4.0 02/19/20 02/19/20 02/19/20 02/19/20 14:45 15:45 17:44 18:10 Temp 98.5 98.5 Pulse 96 Resp 22 B/P (MAP) 118/57 (77) Pulse Ox 90 90 90 O2 Delivery Nasal Cannula Nasal Cannula Nasal Cannula Nasal Cannula O2 Flow Rate 4.0 4.0 4.0 4.0 02/19/20 02/19/20 02/19/20 02/19/20 19:17 19:19 19:49 20:30 Temp 98.1 98.1 Pulse 96 Resp 20 20 20 B/P (MAP) 108/51 (70) Pulse Ox 90 O2 Delivery Nasal Cannula Nasal Cannula Nasal Cannula Nasal Cannula O2 Flow Rate 4.0 4.0 5.0 5.0 02/19/20 02/19/20 02/20/20 02/20/20 22:36 23:16 00:10 02:52 Temp 97.3 97.9 97.3 97.9 Pulse 104 105 Resp 20 20 20 18 B/P (MAP) 135/60 (85) 131/59 (83) Pulse Ox 92 94 93 O2 Delivery Nasal Cannula Nasal Cannula Nasal Cannula Nasal Cannula O2 Flow Rate 5.0 5.0 5.0 5.0 02/20/20 02/20/20 02/20/20 02/20/20 03:59 04:47 07:00 07:28 Temp 98.1 98.1 Pulse 87 Resp 20 20 18 B/P (MAP) 121/73 (89) Pulse Ox 92 93 91 93 O2 Delivery Nasal Cannula Nasal Cannula Nasal Cannula Nasal Cannula O2 Flow Rate 5.0 5.0 5.0 5.0 02/20/20 07:58 Pulse Ox 93 O2 Delivery Nasal Cannula O2 Flow Rate 5.0 Intake and Output 02/19/20 02/19/20 02/20/20 15:00 23:00 07:00 Intake Total 1000 ml 1000 ml Output Total 300 ml 1025 ml Balance 1000 ml -300 ml -25 ml Justicifation of Admission Dx: Justifications for Admission: Justification of Admission Dx: Yes Sepsis: Infection JAZMIN ESCALANTE MD 19, 2020 10:35
[2020-02-20 11:00] VITALS: BP 119/47
[2020-02-20] MEDS: LACTOBACILLUS RHAMNOSUS GG 1 CAPSULE. PO SCH ×2 (11:52→20:09)
[2020-02-20] MEDS ORDERED: cefTRIAXone IV Push 1 GM VIAL. IVP SCH (12:00)
--- NOTE | 2020-02-20 12:24 | PDOC ---
Infectious Disease Note Vital Sign Vital Signs Vital Signs Date Time Temp Pulse Resp B/P (MAP) Pulse Ox O2 Delivery O2 Flow Rate FiO2 02/20/20 11:53 93 Nasal Cannula 5.0 02/20/20 07:00 98.1 87 18 121/73 (89) 98.1 Labs Micro Microbiology 02/19/20 Blood Culture - Preliminary, Resulted NO GROWTH AFTER 1 DAY Objective Assessment pt seen, consult dictated Plan Plan of Care / MUKESH RAMIREZ MD Feb 20, 2020 12:24
--- NOTE | 2020-02-20 12:56 | CONS ---
DATE OF CONSULTATION: 02/20/2020 REQUESTING PHYSICIAN: Steven Madsen MD REASON FOR CONSULTATION: Diverticulitis with perforation. HISTORY OF PRESENT ILLNESS: This is a 79-year-old female with lower abdominal pain that has been going on for almost a month. The patient went to her primary care doctor and some blood work was done, but then it continued and then she did have decided to come in. The patient denies any fever, denies any problem urinating other than she feels like she is not getting enough urine. Denies any burning. Also, denies any chest pain, shortness of breath. Denies any headache or visual symptoms. PAST MEDICAL HISTORY: Positive for congestive heart failure, coronary artery disease, peripheral vascular disease, stenting in the right leg done, gastroesophageal reflux disease, diverticulosis, anxiety disorder, diabetes. SOCIAL HISTORY: Positive for smoking. No alcohol use or drug use. ALLERGIES: No known drug allergies. CURRENT MEDICATIONS: The patient is on Rocephin and Flagyl. REVIEW OF SYSTEMS: As per HPI, all other systems reviewed and are negative. PHYSICAL EXAMINATION: GENERAL: Alert, oriented female, not in distress. VITAL SIGNS: Stable, afebrile. HEENT: Both pupils are round and reacting. No conjunctival lesion, no lesion in the mouth. NECK: Supple, no JVP, no lymphadenopathy. LUNGS: Clear. HEART: S1, S2 regular. ABDOMEN: Benign. EXTREMITIES: No edema, cyanosis. SKIN: Unremarkable. NEUROLOGIC: The patient is neurologically alert, awake and appropriate. No focal neurologic deficit. LABORATORY DATA: White count is 16.4. BUN and creatinine is normal. Urinalysis showed more than 40 rbc's, 5-10 wbc's. Blood cultures so far negative. Abdominal CT showed diverticulitis of the mid to distal sigmoid colon with peridiverticular abscess measuring 3.4 x 3.1 cm. I think it is a type 0 to say without no definite fistula seen. There is gas identified within the vagina, bilateral adrenal masses and there is aortic aneurysm. IMPRESSION: 1. Diverticulitis with diverticular abscess. 2. Leukocytosis. 3. Obesity. 4. Chronic obstructive pulmonary disease. 5. Coronary artery disease. 6. Anxiety disorder. RECOMMENDATIONS: Change antibiotics to Zosyn, supportive care. Surgery to see the patient and possibly Radiology to drain the abscess if feasible. We will continue to follow. Thank you very much, Dr. Madsen, for giving me the opportunity to participate in this patient's care. MUKESH RAMIREZ MD DR: NADIRA/donavon JOB#: [id number] / [id number]
[2020-02-20] MEDS ORDERED: ALBUTEROL SULFATE 2.5 MG/3 ML NEBU. NEB PRN (13:00)
[2020-02-20] MEDS: POLYETHYLENE GLYCOL 3350 17 GM PACKET. PO SCH (14:00)
[2020-02-20] MEDS: ENOXAPARIN 40 MG/0.4 ML SYRINGE. SQ SCH (14:04)
--- NOTE | 2020-02-20 14:13 | RAD ---
CHEST AP ONLY 02/20/2020 12:54 PM INDICATION: Hypoxia COMPARISON: 11/11/2014 TECHNIQUE: Portable frontal view of the chest is provided. FINDINGS: The cardiomediastinal silhouette is similar in appearance. Surgical clips identified in the left axilla. Mild pulmonary vascular congestion. Trace of pleural effusion. Right lung is otherwise clear. No pneumothorax. No suspicious osseous abnormality. IMPRESSION: Mild interstitial edema with left trace pleural effusion. Constellation of findings could be associated with congestive heart failure. Interstitial pneumonitis may have similar appearance. Electronically signed by: Ivory Peña MD (02/20/2020 2:11 PM) [facility]
--- NOTE | 2020-02-20 14:21 | PDOC2 ---
CONSULT Date of Consult Date of Consult DATE: 02/20/20 TIME: 14:19 Reason for Consult Reason for Consult: LLQ abdominal pain/diverticular abscess Past Medical History Cardiovascular: CAD, CHF, HTN, Other Pulmonary: COPD GI: GERD Psych: Anxiety, Depression Musculoskeletal: Osteoarthritis Rheumatologic: Gout Past Surgical History Past Surgical History: Other Family History Family History: Diabetes, Heart Disease Current Problem List Problem List Problems Medical Problems: (1) Abdominal aortic aneurysm (AAA) 3.0 cm to 5.0 cm in diameter in female Status: Acute (2) Acute diverticulitis Status: Acute Current Medications Current Medications Current Medications Fentanyl Citrate (Fentanyl 2ml Vial) 50 mcg 1X ONCE IV Last administered on 02/19/20at 09:50; Start 02/19/20 at 09:30; Stop 02/19/20 at 09:31; Status DC Ondansetron HCl (Zofran) 4 mg 1X ONCE IV Last administered on 02/19/20at 09:49; Start 02/19/20 at 09:30; Stop 02/19/20 at 09:31; Status DC Sodium Chloride 1,000 ml @ 1,000 mls/hr 1X ONCE IV Last administered on 02/19/20at 09:48; Start 02/19/20 at 09:30; Stop 02/19/20 at 10:29; Status DC Iohexol (Omnipaque 300 Mg/ml) 75 ml 1X ONCE IV Last administered on 02/19/20at 10:46; Start 02/19/20 at 10:30; Stop 02/19/20 at 10:31; Status DC Info (CONTRAST GIVEN -- Rx MONITORING) 1 each PRN DAILY PRN MC SEE COMMENTS; Start 02/19/20 at 10:30; Stop 02/21/20 at 10:29 Ceftriaxone Sodium (Rocephin) 1 gm 1X ONCE IVP Last administered on 02/19/20at 11:14; Start 02/19/20 at 11:15; Stop 02/19/20 at 11:16; Status DC Ceftriaxone Sodium (Rocephin) 1 gm 1X ONCE IVP Last administered on 02/19/20at 12:01; Start 02/19/20 at 11:30; Stop 02/19/20 at 11:31; Status DC Metronidazole 100 ml @ 100 mls/hr Q8HRS IV Last administered on 02/20/20at 06:00; Start 02/19/20 at 22:00; Stop 02/20/20 at 12:24; Status DC Metronidazole 100 ml @ 100 mls/hr 1X ONCE IV Last administered on 02/19/20at 12:06; Start 02/19/20 at 11:30; Stop 02/19/20 at 12:29; Status DC Ceftriaxone Sodium (Rocephin) 1 gm Q24H IVP Last administered on 02/20/20at 11:52; Start 02/20/20 at 12:00; Stop 02/20/20 at 12:24; Status DC Enoxaparin Sodium (Lovenox 40mg Syringe) 40 mg Q24H SQ Last administered on 02/20/20at 14:04; Start 02/19/20 at 12:00 Sodium Chloride 1,000 ml @ 100 mls/hr 1X ONCE IV Last administered on 02/19/20at 11:45; Start 02/19/20 at 11:45; Stop 02/19/20 at 21:44; Status DC Clonazepam (KlonoPIN) 0.5 mg DAILY PO Last administered on 02/20/20at 08:33; Start 02/19/20 at 12:00 Fentanyl Citrate (Fentanyl 2ml Vial) 50 mcg PRN Q2HR PRN IVP PAIN Last administered on 02/20/20at 11:53; Start 02/19/20 at 14:00 Nicotine Polacrilex (Nicorette Gum) 1 each PRN Q1HR PRN BC SMOKING CESSATION; Start 02/19/20 at 15:15 Nicotine (Nicoderm Cq 7mg) 1 patch DAILY TD Last administered on 02/20/20at 08:33; Start 02/19/20 at 15:15 Lactobacillus Rhamnosus (Culturelle) 1 cap BID PO Last administered on 02/20/20at 11:52; Start 02/20/20 at 10:15 Piperacillin Sod/ Tazobactam Sod 3.375 gm/Sodium Chloride 50 ml @ 100 mls/hr Q6HRS IV ; Start 02/20/20 at 18:00 Aspirin (Aspirin Chewable) 81 mg DAILY PO ; Start 02/20/20 at 14:00 Budesonide (Pulmicort) 0.5 mg BID NEB ; Start 02/20/20 at 21:00 Polyethylene Glycol (miraLAX PACKET) 17 gm DAILY PO ; Start 02/20/20 at 14:00 Multivitamins (Thera M Plus) 1 tab DAILY PO ; Start 02/20/20 at 14:00 Fish Oil (Fish Oil) 1,000 mg DAILY PO ; Start 02/20/20 at 14:00 Albuterol Sulfate (Ventolin Neb Soln) 2.5 mg PRN Q4HRS PRN NEB SHORTNESS OF BREATH; Start 02/20/20 at 13:00 Active Scripts Active Reported Miralax (Polyethylene Glycol 3350) 17 Gm Powd.pack 1 Packet PO DAILY 2 Days dissolve in water Fish Oil 1,000 mg Softgel ([place]-3/Dha/Epa/Fish Oil) 1,000 Mg Capsule 1,000 Mg PO DAILY Aspirin 81 Mg Tab.chew 1 Tab PO DAILY Daily Value (Multivitamin) 1 Each Tablet 1 Tab PO DAILY 30 Days Perforomist (Formoterol Fumarate) 20 Mcg/2 Ml Vial.neb 20 Mcg IH Pulmicort (Budesonide) 0.5 Mg/2 Ml Ampul.neb 1 Vial NEB BID Clonazepam (Clonazepam) 0.5 Mg Tablet 0.5 Mg PO DAILY Allergies Allergies: Coded Allergies: No Known Drug Allergies (Unverified , 10/12/13) Vitals VITALS Vital Signs Date Time Temp Pulse Resp B/P (MAP) Pulse Ox O2 Delivery O2 Flow Rate FiO2 02/20/20 12:20 93 Nasal Cannula 5.0 02/20/20 11:00 97.8 57 18 119/47 (71) 97.8 Labs Labs Laboratory Tests Test 02/19/20 09:25 02/19/20 09:30 Urine Color Yellow Urine Clarity Clear Urine pH 6.5 (<5.0-8.0) Urine Specific Ennice 1.010 (1.000-1.030) Urine Protein 100 mg/dL (NEG-TRACE) Urine Glucose (UA) Negative mg/dL (NEG) Urine Ketones (Stick) Negative mg/dL (NEG) Urine Blood Large (NEG) Urine Nitrite Negative (NEG) Urine Bilirubin Negative (NEG) Urine Urobilinogen Dipstick 1.0 mg/dL (0.2 mg/dL) Urine Leukocyte Esterase Trace (NEG) Urine RBC >40 /HPF (0-2) Urine WBC 5-10 /HPF (0-4) Urine Squamous Epithelial Cells Mod /LPF Urine Bacteria Few /HPF (0-FEW) White Blood Count 16.4 x10^3/uL (4.0-11.0) Red Blood Count 4.05 x10^6/uL (3.50-5.40) Hemoglobin 11.1 g/dL (12.0-15.5) Hematocrit 34.2 % (36.0-47.0) Mean Corpuscular Volume 84 fL (79-100) Mean Corpuscular Hemoglobin 27 pg (25-35) Mean Corpuscular Hemoglobin Concent 33 g/dL (31-37) Red Cell Distribution Width 14.9 % (11.5-14.5) Platelet Count 301 x10^3/uL (140-400) Neutrophils (%) (Auto) 87 % (31-73) Lymphocytes (%) (Auto) 6 % (24-48) Monocytes (%) (Auto) 7 % (0-9) Eosinophils (%) (Auto) 0 % (0-3) Basophils (%) (Auto) 0 % (0-3) Neutrophils # (Auto) 14.4 x10^3/uL (1.8-7.7) Lymphocytes # (Auto) 0.9 x10^3/uL (1.0-4.8) Monocytes # (Auto) 1.1 x10^3/uL (0.0-1.1) Eosinophils # (Auto) 0.0 x10^3/uL (0.0-0.7) Basophils # (Auto) 0.0 x10^3/uL (0.0-0.2) Segmented Neutrophils % 81 % (35-66) Lymphocytes % 13 % (24-48) Monocytes % 6 % (0-10) Platelet Estimate Adequate (ADEQUATE) Sodium Level 135 mmol/L (136-145) Potassium Level 3.5 mmol/L (3.5-5.1) Chloride Level 94 mmol/L (98-107) Carbon Dioxide Level 33 mmol/L (21-32) Anion Gap 8 (6-14) Blood Urea Nitrogen 11 mg/dL (7-20) Creatinine 1.0 mg/dL (0.6-1.0) Estimated GFR (Cockcroft-Gault) 53.6 BUN/Creatinine Ratio 11 (6-20) Glucose Level 94 mg/dL (70-99) Lactic Acid Level 0.8 mmol/L (0.4-2.0) Calcium Level 9.1 mg/dL (8.5-10.1) Total Bilirubin 0.5 mg/dL (0.2-1.0) Aspartate Amino Transf (AST/SGOT) 21 U/L (15-37) Alanine Aminotransferase (ALT/SGPT) 19 U/L (14-59) Alkaline Phosphatase 107 U/L (46-116) Troponin I Quantitative < 0.017 ng/mL (0.000-0.055) Total Protein 7.4 g/dL (6.4-8.2) Albumin 2.6 g/dL (3.4-5.0) Albumin/Globulin Ratio 0.5 (1.0-1.7) Lipase 129 U/L (73-393) Assessment/Plan Assessment/Plan LLQ abdominal pain- most likely secondary to diverticualr abscess. Plan antibiotics surgery /radiology ocnsults for possible drainage Full note dictated LE BRYANT MD Feb 20, 2020 14:21
--- NOTE | 2020-02-20 14:37 | CONS ---
DATE OF CONSULTATION: GASTROINTESTINAL CONSULTATION REASON FOR CONSULTATION: Diverticulitis with abscess. REFERRING PHYSICIAN: Ana Carlson MD HISTORY OF PRESENT ILLNESS: A 79-year-old female with past medical history significant for tobaccoism, COPD, diverticular disease, possible peripheral vascular disease, is admitted with a 10-day course of abdominal pain. The patient states the discomfort was unrelenting. It was associated with some perineal and some blood pressure and subsequent imaging has revealed an abscess of diverticulum. With continued issues, GI consultation is requested. PAST MEDICAL HISTORY: COPD, diverticulitis, tobaccoism and peripheral vascular disease. ALLERGIES: None. MEDICATIONS: Include budesonide, piperacillin, fish oil, multivitamins, aspirin, albuterol, nicotine, fentanyl, clonazepam, Lovenox. SOCIAL HISTORY: She is a smoker and she is . FAMILY HISTORY: Noncontributory. PAST SURGICAL HISTORY: Otherwise, unremarkable. REVIEW OF SYSTEMS: Per records. PHYSICAL EXAMINATION: GENERAL: Reveals a pale female who is in mild distress. VITAL SIGNS: Temperature is 97.8, pulse 57, respiratory rate 18, blood pressure is 119/47 on 5 liters of oxygen. HEENT: Normocephalic, atraumatic head. Pupils and extraocular movements are not tested. Sclerae anicteric. NECK: Supple. LUNGS: Reveal decreased breath sounds with poor expiratory movement. CARDIOVASCULAR: S1, S2 without S3, S4 or appreciable murmur. ABDOMEN: Reveals hypoactive bowel sounds with left lower quadrant tenderness to deep palpation. EXTREMITIES: No cyanosis, clubbing or edema. LABORATORY STUDIES: Hemoglobin 11.2, hematocrit 34.0, white count 16.4, platelet count is 301,000, 87 neutrophils, 6 lymphocytes. Sodium 135, potassium 3.5, bicarbonate is 33, BUN 11, creatinine 1.0, glucose is 94. Lactic acid 0.8, calcium is 9.1, total bilirubin is 0.5, AST of 21, ALT of 18, alkaline phosphatase of 107, total protein 7.4, albumin 2.8, lipase 129. CT scan reveals the abscess measuring 3.4 x 3.1 cm, bilateral adrenal adnexal masses as well and an infrarenal abdominal aortic aneurysm measuring 4.5 x 4.4 cm. IMPRESSION AND RECOMMENDATIONS: Abdominal pain, most likely secondary to diverticular abscess. We will recommend antibiotics, gut rest. ID, surgical and IR consult for possible drainage. The patient is at increased risk with her COPD. LE BRYANT MD DR: YOANA/donavon JOB#: [id number] / [id number] ANA Dial MD
[2020-02-20 15:00] VITALS: BP 131/39
[2020-02-20] MEDS: OMEGA-3 FATTY ACIDS/FISH OIL 1,000 MG CAPSULE. PO SCH (15:29)
[2020-02-20] MEDS: MULTIVITAMIN with MINERAL TABLET. PO SCH (15:29)
[2020-02-20] MEDS: ASPIRIN CHEWABLE 81 MG TABLET. PO SCH (15:29)
[2020-02-20] MEDS: PIPERACILLIN/TAZOBACTAM 3.375 GM in IV NORMAL SALINE 50ML 50 ML IV SCH ×2 (17:46→23:47)
[2020-02-20 19:29] VITALS: BP 104/51
[2020-02-20] MEDS: BUDESONIDE 0.5 MG/2 ML NEBU. NEB SCH (21:12)
[2020-02-20 22:50] VITALS: BP 123/57
[2020-02-21 03:16] VITALS: BP 90/7
[2020-02-21] MEDS: fentaNYL PF VIAL 100 MCG/2 ML VIAL IVP PRN ×3 (04:21→13:25)
[2020-02-21] MEDS: PIPERACILLIN/TAZOBACTAM 3.375 GM in IV NORMAL SALINE 50ML 50 ML IV SCH ×4 (04:54→23:38)
[2020-02-21 06:53] LABS: BASO % 0 % (0-3); EOS % 0 % (0-3); HEMATOCRIT 27.3 % (36.0-47.0); HEMOGLOBIN 8.7 g/dL (12.0-15.5); LYMPH # 0.5 x10^3/uL (1.0-4.8); LYMPH % 5 % (24-48); MEAN CORPUSCULAR HEMOGLOBIN 28 pg (25-35); MEAN CORPUSCULAR HGB CONC 32 g/dL (31-37); MEAN CORPUSCULAR VOLUME 86 fL (79-100); MONO # 0.7 x10^3/uL (0.0-1.1); MONO % 7 % (0-9); NEUT # 9.9 x10^3/uL (1.8-7.7); NEUT % 89 % (31-73); PLATELET COUNT 209 x10^3/uL (140-400); RED BLOOD COUNT 3.18 x10^6/uL (3.50-5.40); RED CELL DISTRIBUTION WIDTH 15.1 % (11.5-14.5); WHITE BLOOD COUNT 11.1 x10^3/uL (4.0-11.0)
[2020-02-21 07:00] VITALS: BP 125/59
[2020-02-21 07:04] LABS: ALBUMIN 1.6 g/dL (3.4-5.0); ALBUMIN/GLOBULIN RATIO 0.3 (1.0-1.7); CALCIUM 6.3 mg/dL (8.5-10.1); CREATININE 1.5 mg/dL (0.6-1.0); GFR 33.6; TOTAL BILIRUBIN 0.3 mg/dL (0.2-1.0); TOTAL PROTEIN 6.4 g/dL (6.4-8.2)
[2020-02-21 07:27] LABS: POTASSIUM 2.3 mmol/L (3.5-5.1)
--- NOTE | 2020-02-21 07:53 | PDOC ---
PROGRESS NOTES History of Present Illness History of Present Illness Impression: 1. Diverticulitis of the mid to distal sigmoid colon peridiverticular abscess measuring 3.4 x 3.1 cm. No definite fistula to the bladder, uterus or vagina is noted. There is gas identified within the vagina which is nonspecific. Close follow-up is recommended. peridiverticular abscess measuring 3.4 x 3.1 cm 2. Bilateral adrenal masses, indeterminate. Left adrenal mass measures 2.3 x 2.0 cm. Findings favor benign etiology given stability since 10/12/2013. 3. Infrarenal abdominal aortic aneurysm measuring 4.5 x 4.4 cm. Dense calcified and noncalcified atheromatous plaque is identified. Infrarenal abdominal aorta previously measured 2.8 x 2.6 cm on 10/12/2013. IMPRESSION Assessment/Plan Sepsis due to sigmoid diverticulitis peridiverticular abscess measuring 3.4 x 3.1 cm Abdominal pain secondary to acute sigmoid diverticulitis COPD Tobacco abuse Acute electrolyte derangements Severe protein-caloric malnutrition SEVERE HYPERNATREMIA, HYPOKALEMIA, 02/20 plan Admit to medicine Clear liquid diet Serial abdominal exams Continue IV fluids Continue IV ceftriaxone and Flagyl surgical consult Lovenox for DVT prophylaxis Full code Discussed with RN id consult GI FOLLOWING Continue Zosyn, General surgery following send stool for cults, c diff pcr NEPHROLOGY CONSULT HYPOTONIC SALINE IV K IR for drainage neither collection is amendable to percutaneous drainage due to overlying structures. No IR intervention is recommended at current. TIME 38 MIN PT EXAM, CHART REVIEW, > 50% OF TIME SPENT WITH EXAM, CHART REVIEW, PT CARE COORDINATION Justicifation of Admission Dx: Justicifation of Admission Dx: Justifications for Admission: Justification of Admission Dx: Yes Sepsis: Infection Vitals Vitals Vital Signs Date Time Temp Pulse Resp B/P (MAP) Pulse Ox O2 Delivery O2 Flow Rate FiO2 02/21/20 07:00 98.5 78 24 125/59 (81) 93 Nasal Cannula 2.0 98.5 Physical Exam General: Alert, Oriented X3, Cooperative, No acute distress Heart: Regular rate, Normal S1, Normal S2 Lungs: Other Abdomen: Normal bowel sounds, No hepatosplenomegaly Extremities: No cyanosis, No edema Skin: No significant lesion Labs LABS Laboratory Tests Test 02/21/20 05:20 White Blood Count 11.1 x10^3/uL (4.0-11.0) Red Blood Count 3.18 x10^6/uL (3.50-5.40) Hemoglobin 8.7 g/dL (12.0-15.5) Hematocrit 27.3 % (36.0-47.0) Mean Corpuscular Volume 86 fL (79-100) Mean Corpuscular Hemoglobin 28 pg (25-35) Mean Corpuscular Hemoglobin Concent 32 g/dL (31-37) Red Cell Distribution Width 15.1 % (11.5-14.5) Platelet Count 209 x10^3/uL (140-400) Neutrophils (%) (Auto) 89 % (31-73) Lymphocytes (%) (Auto) 5 % (24-48) Monocytes (%) (Auto) 7 % (0-9) Eosinophils (%) (Auto) 0 % (0-3) Basophils (%) (Auto) 0 % (0-3) Neutrophils # (Auto) 9.9 x10^3/uL (1.8-7.7) Lymphocytes # (Auto) 0.5 x10^3/uL (1.0-4.8) Monocytes # (Auto) 0.7 x10^3/uL (0.0-1.1) Eosinophils # (Auto) 0.0 x10^3/uL (0.0-0.7) Basophils # (Auto) 0.0 x10^3/uL (0.0-0.2) Sodium Level 169 mmol/L (136-145) Potassium Level 2.3 mmol/L (3.5-5.1) Chloride Level 107 mmol/L (98-107) Carbon Dioxide Level 26 mmol/L (21-32) Anion Gap 36 (6-14) Blood Urea Nitrogen 4 mg/dL (7-20) Creatinine 1.5 mg/dL (0.6-1.0) Estimated GFR (Cockcroft-Gault) 33.6 BUN/Creatinine Ratio 3 (6-20) Glucose Level 78 mg/dL (70-99) Calcium Level 6.3 mg/dL (8.5-10.1) Total Bilirubin 0.3 mg/dL (0.2-1.0) Aspartate Amino Transf (AST/SGOT) 15 U/L (15-37) Alanine Aminotransferase (ALT/SGPT) 13 U/L (14-59) Alkaline Phosphatase 62 U/L (46-116) Total Protein 6.4 g/dL (6.4-8.2) Albumin 1.6 g/dL (3.4-5.0) Albumin/Globulin Ratio 0.3 (1.0-1.7) Assessment and Plan Assessmemt and Plan Problems Medical Problems: (1) Abdominal aortic aneurysm (AAA) 3.0 cm to 5.0 cm in diameter in female Status: Acute (2) Acute diverticulitis Status: Acute Comment Review of Relevant I have reviewed the following items mayra (where applicable) has been applied. Labs Laboratory Tests Test 02/19/20 09:25 02/19/20 09:30 02/21/20 05:20 Urine Color Yellow Urine Clarity Clear Urine pH 6.5 (<5.0-8.0) Urine Specific [place] 1.010 (1.000-1.030) Urine Protein 100 mg/dL (NEG-TRACE) Urine Glucose (UA) Negative mg/dL (NEG) Urine Ketones (Stick) Negative mg/dL (NEG) Urine Blood Large (NEG) Urine Nitrite Negative (NEG) Urine Bilirubin Negative (NEG) Urine Urobilinogen Dipstick 1.0 mg/dL (0.2 mg/dL) Urine Leukocyte Esterase Trace (NEG) Urine RBC >40 /HPF (0-2) Urine WBC 5-10 /HPF (0-4) Urine Squamous Epithelial Cells Mod /LPF Urine Bacteria Few /HPF (0-FEW) White Blood Count 16.4 x10^3/uL (4.0-11.0) 11.1 x10^3/uL (4.0-11.0) Red Blood Count 4.05 x10^6/uL (3.50-5.40) 3.18 x10^6/uL (3.50-5.40) Hemoglobin 11.1 g/dL (12.0-15.5) 8.7 g/dL (12.0-15.5) Hematocrit 34.2 % (36.0-47.0) 27.3 % (36.0-47.0) Mean Corpuscular Volume 84 fL (79-100) 86 fL (79-100) Mean Corpuscular Hemoglobin 27 pg (25-35) 28 pg (25-35) Mean Corpuscular Hemoglobin Concent 33 g/dL (31-37) 32 g/dL (31-37) Red Cell Distribution Width 14.9 % (11.5-14.5) 15.1 % (11.5-14.5) Platelet Count 301 x10^3/uL (140-400) 209 x10^3/uL (140-400) Neutrophils (%) (Auto) 87 % (31-73) 89 % (31-73) Lymphocytes (%) (Auto) 6 % (24-48) 5 % (24-48) Monocytes (%) (Auto) 7 % (0-9) 7 % (0-9) Eosinophils (%) (Auto) 0 % (0-3) 0 % (0-3) Basophils (%) (Auto) 0 % (0-3) 0 % (0-3) Neutrophils # (Auto) 14.4 x10^3/uL (1.8-7.7) 9.9 x10^3/uL (1.8-7.7) Lymphocytes # (Auto) 0.9 x10^3/uL (1.0-4.8) 0.5 x10^3/uL (1.0-4.8) Monocytes # (Auto) 1.1 x10^3/uL (0.0-1.1) 0.7 x10^3/uL (0.0-1.1) Eosinophils # (Auto) 0.0 x10^3/uL (0.0-0.7) 0.0 x10^3/uL (0.0-0.7) Basophils # (Auto) 0.0 x10^3/uL (0.0-0.2) 0.0 x10^3/uL (0.0-0.2) Segmented Neutrophils % 81 % (35-66) Lymphocytes % 13 % (24-48) Monocytes % 6 % (0-10) Platelet Estimate Adequate (ADEQUATE) Sodium Level 135 mmol/L (136-145) 169 mmol/L (136-145) Potassium Level 3.5 mmol/L (3.5-5.1) 2.3 mmol/L (3.5-5.1) Chloride Level 94 mmol/L (98-107) 107 mmol/L (98-107) Carbon Dioxide Level 33 mmol/L (21-32) 26 mmol/L (21-32) Anion Gap 8 (6-14) 36 (6-14) Blood Urea Nitrogen 11 mg/dL (7-20) 4 mg/dL (7-20) Creatinine 1.0 mg/dL (0.6-1.0) 1.5 mg/dL (0.6-1.0) Estimated GFR (Cockcroft-Gault) 53.6 33.6 BUN/Creatinine Ratio 11 (6-20) 3 (6-20) Glucose Level 94 mg/dL (70-99) 78 mg/dL (70-99) Lactic Acid Level 0.8 mmol/L (0.4-2.0) Calcium Level 9.1 mg/dL (8.5-10.1) 6.3 mg/dL (8.5-10.1) Total Bilirubin 0.5 mg/dL (0.2-1.0) 0.3 mg/dL (0.2-1.0) Aspartate Amino Transf (AST/SGOT) 21 U/L (15-37) 15 U/L (15-37) Alanine Aminotransferase (ALT/SGPT) 19 U/L (14-59) 13 U/L (14-59) Alkaline Phosphatase 107 U/L (46-116) 62 U/L (46-116) Troponin I Quantitative < 0.017 ng/mL (0.000-0.055) Total Protein 7.4 g/dL (6.4-8.2) 6.4 g/dL (6.4-8.2) Albumin 2.6 g/dL (3.4-5.0) 1.6 g/dL (3.4-5.0) Albumin/Globulin Ratio 0.5 (1.0-1.7) 0.3 (1.0-1.7) Lipase 129 U/L (73-393) Laboratory Tests Test 02/21/20 05:20 White Blood Count 11.1 x10^3/uL (4.0-11.0) Red Blood Count 3.18 x10^6/uL (3.50-5.40) Hemoglobin 8.7 g/dL (12.0-15.5) Hematocrit 27.3 % (36.0-47.0) Mean Corpuscular Volume 86 fL (79-100) Mean Corpuscular Hemoglobin 28 pg (25-35) Mean Corpuscular Hemoglobin Concent 32 g/dL (31-37) Red Cell Distribution Width 15.1 % (11.5-14.5) Platelet Count 209 x10^3/uL (140-400) Neutrophils (%) (Auto) 89 % (31-73) Lymphocytes (%) (Auto) 5 % (24-48) Monocytes (%) (Auto) 7 % (0-9) Eosinophils (%) (Auto) 0 % (0-3) Basophils (%) (Auto) 0 % (0-3) Neutrophils # (Auto) 9.9 x10^3/uL (1.8-7.7) Lymphocytes # (Auto) 0.5 x10^3/uL (1.0-4.8) Monocytes # (Auto) 0.7 x10^3/uL (0.0-1.1) Eosinophils # (Auto) 0.0 x10^3/uL (0.0-0.7) Basophils # (Auto) 0.0 x10^3/uL (0.0-0.2) Sodium Level 169 mmol/L (136-145) Potassium Level 2.3 mmol/L (3.5-5.1) Chloride Level 107 mmol/L (98-107) Carbon Dioxide Level 26 mmol/L (21-32) Anion Gap 36 (6-14) Blood Urea Nitrogen 4 mg/dL (7-20) Creatinine 1.5 mg/dL (0.6-1.0) Estimated GFR (Cockcroft-Gault) 33.6 BUN/Creatinine Ratio 3 (6-20) Glucose Level 78 mg/dL (70-99) Calcium Level 6.3 mg/dL (8.5-10.1) Total Bilirubin 0.3 mg/dL (0.2-1.0) Aspartate Amino Transf (AST/SGOT) 15 U/L (15-37) Alanine Aminotransferase (ALT/SGPT) 13 U/L (14-59) Alkaline Phosphatase 62 U/L (46-116) Total Protein 6.4 g/dL (6.4-8.2) Albumin 1.6 g/dL (3.4-5.0) Albumin/Globulin Ratio 0.3 (1.0-1.7) Microbiology 02/19/20 Blood Culture - Preliminary, Resulted NO GROWTH AFTER 1 DAY Medications Current Medications Fentanyl Citrate (Fentanyl 2ml Vial) 50 mcg 1X ONCE IV Last administered on 02/19/20at 09:50; Start 02/19/20 at 09:30; Stop 02/19/20 at 09:31; Status DC Ondansetron HCl (Zofran) 4 mg 1X ONCE IV Last administered on 02/19/20at 09:49; Start 02/19/20 at 09:30; Stop 02/19/20 at 09:31; Status DC Sodium Chloride 1,000 ml @ 1,000 mls/hr 1X ONCE IV Last administered on 02/19/20at 09:48; Start 02/19/20 at 09:30; Stop 02/19/20 at 10:29; Status DC Iohexol (Omnipaque 300 Mg/ml) 75 ml 1X ONCE IV Last administered on 02/19/20at 10:46; Start 02/19/20 at 10:30; Stop 02/19/20 at 10:31; Status DC Info (CONTRAST GIVEN -- Rx MONITORING) 1 each PRN DAILY PRN MC SEE COMMENTS; Start 02/19/20 at 10:30; Stop 02/21/20 at 10:29 Ceftriaxone Sodium (Rocephin) 1 gm 1X ONCE IVP Last administered on 02/19/20at 11:14; Start 02/19/20 at 11:15; Stop 02/19/20 at 11:16; Status DC Ceftriaxone Sodium (Rocephin) 1 gm 1X ONCE IVP Last administered on 02/19/20at 12:01; Start 02/19/20 at 11:30; Stop 02/19/20 at 11:31; Status DC Metronidazole 100 ml @ 100 mls/hr Q8HRS IV Last administered on 02/20/20at 06:00; Start 02/19/20 at 22:00; Stop 02/20/20 at 12:24; Status DC Metronidazole 100 ml @ 100 mls/hr 1X ONCE IV Last administered on 02/19/20at 12:06; Start 02/19/20 at 11:30; Stop 02/19/20 at 12:29; Status DC Ceftriaxone Sodium (Rocephin) 1 gm Q24H IVP Last administered on 02/20/20at 11:52; Start 02/20/20 at 12:00; Stop 02/20/20 at 12:24; Status DC Enoxaparin Sodium (Lovenox 40mg Syringe) 40 mg Q24H SQ Last administered on 02/20/20at 14:04; Start 02/19/20 at 12:00 Sodium Chloride 1,000 ml @ 100 mls/hr 1X ONCE IV Last administered on 02/19/20at 11:45; Start 02/19/20 at 11:45; Stop 02/19/20 at 21:44; Status DC Clonazepam (KlonoPIN) 0.5 mg DAILY PO Last administered on 02/20/20at 08:33; Start 02/19/20 at 12:00 Fentanyl Citrate (Fentanyl 2ml Vial) 50 mcg PRN Q2HR PRN IVP PAIN Last administered on 02/21/20at 04:21; Start 02/19/20 at 14:00 Nicotine Polacrilex (Nicorette Gum) 1 each PRN Q1HR PRN BC SMOKING CESSATION; Start 02/19/20 at 15:15 Nicotine (Nicoderm Cq 7mg) 1 patch DAILY TD Last administered on 02/20/20at 08:33; Start 02/19/20 at 15:15 Lactobacillus Rhamnosus (Culturelle) 1 cap BID PO Last administered on 02/20/20at 20:09; Start 02/20/20 at 10:15 Piperacillin Sod/ Tazobactam Sod 3.375 gm/Sodium Chloride 50 ml @ 100 mls/hr Q6HRS IV Last administered on 02/21/20at 04:54; Start 02/20/20 at 18:00 Aspirin (Aspirin Chewable) 81 mg DAILY PO Last administered on 02/20/20at 15:29; Start 02/20/20 at 14:00 Budesonide (Pulmicort) 0.5 mg BID NEB Last administered on 02/20/20at 21:12; Start 02/20/20 at 21:00 Polyethylene Glycol (miraLAX PACKET) 17 gm DAILY PO ; Start 02/20/20 at 14:00 Multivitamins (Thera M Plus) 1 tab DAILY PO Last administered on 02/20/20at 15:29; Start 02/20/20 at 14:00 Fish Oil (Fish Oil) 1,000 mg DAILY PO Last administered on 02/20/20at 15:29; Start 02/20/20 at 14:00 Albuterol Sulfate (Ventolin Neb Soln) 2.5 mg PRN Q4HRS PRN NEB SHORTNESS OF BREATH; Start 02/20/20 at 13:00 Potassium Chloride/Water 100 ml @ 50 mls/hr 1X ONCE IV ; Start 02/21/20 at 08:00; Stop 02/21/20 at 09:59 Potassium Chloride/Water 100 ml @ 100 mls/hr Q1H IV ; Start 02/21/20 at 10:00; Stop 02/21/20 at 10:59 Active Scripts Active Reported Miralax (Polyethylene Glycol 3350) 17 Gm Powd.pack 1 Packet PO DAILY 2 Days dissolve in water Fish Oil 1,000 mg Softgel ([place]-3/Dha/Epa/Fish Oil) 1,000 Mg Capsule 1,000 Mg PO DAILY Aspirin 81 Mg Tab.chew 1 Tab PO DAILY Daily Value (Multivitamin) 1 Each Tablet 1 Tab PO DAILY 30 Days Perforomist (Formoterol Fumarate) 20 Mcg/2 Ml Vial.neb 20 Mcg IH Pulmicort (Budesonide) 0.5 Mg/2 Ml Ampul.neb 1 Vial NEB BID Clonazepam (Clonazepam) 0.5 Mg Tablet 0.5 Mg PO DAILY Vitals/I & O Vital Sign - Last 24 Hours 02/20/20 02/20/20 02/20/20 02/20/20 07:58 08:10 11:00 11:53 Temp 97.8 97.8 Pulse 57 Resp 18 B/P (MAP) 119/47 (71) Pulse Ox 93 95 93 O2 Delivery Nasal Cannula Nasal Cannula Nasal Cannula Nasal Cannula O2 Flow Rate 5.0 5.0 5.0 5.0 02/20/20 02/20/20 02/20/20 02/20/20 12:20 15:00 15:30 16:00 Temp 97.8 97.8 Pulse 89 Resp 20 B/P (MAP) 131/39 (69) Pulse Ox 93 93 93 93 O2 Delivery Nasal Cannula Nasal Cannula Nasal Cannula Nasal Cannula O2 Flow Rate 5.0 5.0 5.0 5.0 02/20/20 02/20/20 02/20/20 02/20/20 18:10 18:14 18:44 19:29 Temp 98.3 98.3 Pulse 86 Resp 20 B/P (MAP) 104/51 (68) Pulse Ox 95 93 93 94 O2 Delivery Nasal Cannula Nasal Cannula Nasal Cannula Nasal Cannula O2 Flow Rate 4.0 5.0 5.0 4.0 02/20/20 02/20/20 02/20/20 02/20/20 19:35 20:10 20:40 21:16 Resp 20 20 Pulse Ox 94 94 O2 Delivery Nasal Cannula Nasal Cannula Nasal Cannula O2 Flow Rate 4.0 4.0 4.0 02/20/20 02/21/20 02/21/20 02/21/20 22:50 03:16 04:21 04:37 Temp 99.5 98.9 99.5 98.9 Pulse 108 94 Resp 24 18 20 20 B/P (MAP) 123/57 (79) 90/7 (34) Pulse Ox 94 90 90 90 O2 Delivery Nasal Cannula Nasal Cannula Nasal Cannula Nasal Cannula O2 Flow Rate 2.0 4.0 4.0 4.0 02/21/20 07:00 Temp 98.5 98.5 Pulse 78 Resp 24 B/P (MAP) 125/59 (81) Pulse Ox 93 O2 Delivery Nasal Cannula O2 Flow Rate 2.0 Intake and Output 02/20/20 02/20/20 02/21/20 15:00 23:00 07:00 Intake Total 600 ml 920 ml 400 ml Output Total 105 ml 450 ml Balance 600 ml 815 ml -50 ml Justicifation of Admission Dx: Justifications for Admission: Justification of Admission Dx: Yes Sepsis: Infection JAZMIN ESCALANTE MD Feb 21, 2020 07:53
[2020-02-21] MEDS ORDERED: POTASSIUM CHLORIDE 20MEQ 100 ML IV ONE (08:00)
[2020-02-21] MEDS: BUDESONIDE 0.5 MG/2 ML NEBU. NEB SCH ×2 (08:01→20:57)
[2020-02-21] MEDS: NICOTINE 7MG PATCH. TD SCH (08:06)
[2020-02-21] MEDS ORDERED: SODIUM CHLORIDE IV SCH (08:30)
[2020-02-21] MEDS ORDERED: STERILE WATER IV SCH (08:30)
[2020-02-21] MEDS: POLYETHYLENE GLYCOL 3350 17 GM PACKET. PO SCH (09:00)
[2020-02-21] MEDS: MULTIVITAMIN with MINERAL TABLET. PO SCH (09:00)
[2020-02-21] MEDS: ASPIRIN CHEWABLE 81 MG TABLET. PO SCH (09:00)
[2020-02-21] MEDS: LACTOBACILLUS RHAMNOSUS GG 1 CAPSULE. PO SCH ×2 (09:00→20:31)
[2020-02-21] MEDS: clonazePAM 0.5 MG TABLET PO SCH (09:00)
[2020-02-21] MEDS: OMEGA-3 FATTY ACIDS/FISH OIL 1,000 MG CAPSULE. PO SCH (09:00)
--- NOTE | 2020-02-21 09:07 | PDOC2 ---
[facility] 02/21/20 0907: CONSULT Date of Consult Date of Consult DATE: 02/21/20 TIME: 08:58 Reason for Consult Reason for Consult: Diverticulitis Referring Physician Referring Physician: Dr Burns Identification/Chief Complaint Chief Complaint abdominal pain Source Source: Chart review, Patient History of Present Illness Reason for Visit: 1 month history of abdominal pain, worsening over the course of time. The last 2 weeks the pain is become, severe, diffuse and not improving. Some diarrhea. Low appetite. No nausea/vomiting. Denies burning/blood in urine. However does report decrease urine output. States she believes hx of diverticulitis in past, denies any surgical needs Past Medical History Cardiovascular: CAD, CHF, HTN, Other Pulmonary: COPD GI: GERD Psych: Anxiety, Depression Musculoskeletal: Osteoarthritis Rheumatologic: Gout Past Surgical History Past Surgical History: No pertinent history Family History Family History: Diabetes, Heart Disease Social History <1 pack per day ALCOHOL: none Drugs: None Lives: with Family Current Problem List Problem List Problems Medical Problems: (1) Abdominal aortic aneurysm (AAA) 3.0 cm to 5.0 cm in diameter in female Status: Acute (2) Acute diverticulitis Status: Acute Current Medications Current Medications Current Medications Fentanyl Citrate (Fentanyl 2ml Vial) 50 mcg 1X ONCE IV Last administered on 02/19/20at 09:50; Start 02/19/20 at 09:30; Stop 02/19/20 at 09:31; Status DC Ondansetron HCl (Zofran) 4 mg 1X ONCE IV Last administered on 02/19/20at 09:49; Start 02/19/20 at 09:30; Stop 02/19/20 at 09:31; Status DC Sodium Chloride 1,000 ml @ 1,000 mls/hr 1X ONCE IV Last administered on 02/19/20at 09:48; Start 02/19/20 at 09:30; Stop 02/19/20 at 10:29; Status DC Iohexol (Omnipaque 300 Mg/ml) 75 ml 1X ONCE IV Last administered on 02/19/20at 10:46; Start 02/19/20 at 10:30; Stop 02/19/20 at 10:31; Status DC Info (CONTRAST GIVEN -- Rx MONITORING) 1 each PRN DAILY PRN MC SEE COMMENTS; Start 02/19/20 at 10:30; Stop 02/21/20 at 10:29 Ceftriaxone Sodium (Rocephin) 1 gm 1X ONCE IVP Last administered on 02/19/20at 11:14; Start 02/19/20 at 11:15; Stop 02/19/20 at 11:16; Status DC Ceftriaxone Sodium (Rocephin) 1 gm 1X ONCE IVP Last administered on 02/19/20at 12:01; Start 02/19/20 at 11:30; Stop 02/19/20 at 11:31; Status DC Metronidazole 100 ml @ 100 mls/hr Q8HRS IV Last administered on 02/20/20at 06:00; Start 02/19/20 at 22:00; Stop 02/20/20 at 12:24; Status DC Metronidazole 100 ml @ 100 mls/hr 1X ONCE IV Last administered on 02/19/20at 12:06; Start 02/19/20 at 11:30; Stop 02/19/20 at 12:29; Status DC Ceftriaxone Sodium (Rocephin) 1 gm Q24H IVP Last administered on 02/20/20at 11:52; Start 02/20/20 at 12:00; Stop 02/20/20 at 12:24; Status DC Enoxaparin Sodium (Lovenox 40mg Syringe) 40 mg Q24H SQ Last administered on 02/20/20at 14:04; Start 02/19/20 at 12:00 Sodium Chloride 1,000 ml @ 100 mls/hr 1X ONCE IV Last administered on 02/19/20at 11:45; Start 02/19/20 at 11:45; Stop 02/19/20 at 21:44; Status DC Clonazepam (KlonoPIN) 0.5 mg DAILY PO Last administered on 02/20/20at 08:33; Start 02/19/20 at 12:00 Fentanyl Citrate (Fentanyl 2ml Vial) 50 mcg PRN Q2HR PRN IVP PAIN Last administered on 02/21/20at 04:21; Start 02/19/20 at 14:00 Nicotine Polacrilex (Nicorette Gum) 1 each PRN Q1HR PRN BC SMOKING CESSATION; Start 02/19/20 at 15:15 Nicotine (Nicoderm Cq 7mg) 1 patch DAILY TD Last administered on 02/21/20at 08:06; Start 02/19/20 at 15:15 Lactobacillus Rhamnosus (Culturelle) 1 cap BID PO Last administered on 02/20/20at 20:09; Start 02/20/20 at 10:15 Piperacillin Sod/ Tazobactam Sod 3.375 gm/Sodium Chloride 50 ml @ 100 mls/hr Q6HRS IV Last administered on 02/21/20at 04:54; Start 02/20/20 at 18:00 Aspirin (Aspirin Chewable) 81 mg DAILY PO Last administered on 02/20/20at 15:29; Start 02/20/20 at 14:00 Budesonide (Pulmicort) 0.5 mg BID NEB Last administered on 02/21/20at 08:01; Start 02/20/20 at 21:00 Polyethylene Glycol (miraLAX PACKET) 17 gm DAILY PO ; Start 02/20/20 at 14:00 Multivitamins (Thera M Plus) 1 tab DAILY PO Last administered on 02/20/20at 15:29; Start 02/20/20 at 14:00 Fish Oil (Fish Oil) 1,000 mg DAILY PO Last administered on 02/20/20at 15:29; Start 02/20/20 at 14:00 Albuterol Sulfate (Ventolin Neb Soln) 2.5 mg PRN Q4HRS PRN NEB SHORTNESS OF BREATH; Start 02/20/20 at 13:00 Potassium Chloride/Water 100 ml @ 50 mls/hr 1X ONCE IV Last administered on 02/21/20at 08:05; Start 02/21/20 at 08:00; Stop 02/21/20 at 09:59 Potassium Chloride/Water 100 ml @ 100 mls/hr Q1H IV ; Start 02/21/20 at 10:00; Stop 02/21/20 at 10:59 Sodium Chloride 38.5 meq/Sterile Water 1,009.625 ml @ 75 mls/hr [id number] IV Last administered on 02/21/20at 08:54; Start 02/21/20 at 08:30 Active Scripts Active Reported Miralax (Polyethylene Glycol 3350) 17 Gm Powd.pack 1 Packet PO DAILY 2 Days dissolve in water Fish Oil 1,000 mg Softgel ([place]-3/Dha/Epa/Fish Oil) 1,000 Mg Capsule 1,000 Mg PO DAILY Aspirin 81 Mg Tab.chew 1 Tab PO DAILY Daily Value (Multivitamin) 1 Each Tablet 1 Tab PO DAILY 30 Days Perforomist (Formoterol Fumarate) 20 Mcg/2 Ml Vial.neb 20 Mcg IH Pulmicort (Budesonide) 0.5 Mg/2 Ml Ampul.neb 1 Vial NEB BID Clonazepam (Clonazepam) 0.5 Mg Tablet 0.5 Mg PO DAILY Allergies Allergies: Coded Allergies: No Known Drug Allergies (Unverified , 10/12/13) ROS General: YES: Fatigue, Malaise; No: Chills PSYCHOLOGICAL ROS: No: Anxiety, Depression Eyes: No Blurry vision, No Double vision HEENT: No: Heacaches, Sore Throat Hematological and Lymphatic: No: Bleeding Problems, Blood Clots Respiratory: YES: Shortness of breath (chronic issues ); No: Cough Cardiovascular: No Chest Pain, No Palpitations Gastrointestinal: Yes Other (see hpi) Genitourinary: No Dysuria, No Hematuria Musculoskeletal: Yes Muscular Weakness; No Joint Pain Neurological: No Confusion, No Impaired Coord/balance Skin: No Pruritus, No Rash Physical Exam General: Alert, Cooperative, No acute distress HEENT: Atraumatic, PERRLA Lungs: Other (diminished, requiring 02) Heart: Regular rate, Normal S1, Normal S2 Abdomen: Soft, Other (mild ttp llq, no guarding or peritoneal signs ) Extremities: No clubbing, No cyanosis Skin: No rashes, No breakdown Neuro: Normal speech, Sensation intact Psych/Mental Status: Mental status NL, Mood NL MUSCULOSKELETAL: No deformity, No swelling Vitals VITALS Vital Signs Date Time Temp Pulse Resp B/P (MAP) Pulse Ox O2 Delivery O2 Flow Rate FiO2 02/21/20 08:01 96 Nasal Cannula 4.0 02/21/20 07:00 98.5 78 24 125/59 (81) 98.5 Labs Labs Laboratory Tests Test 02/19/20 09:25 02/19/20 09:30 02/21/20 05:20 Urine Color Yellow Urine Clarity Clear Urine pH 6.5 (<5.0-8.0) Urine Specific [place] 1.010 (1.000-1.030) Urine Protein 100 mg/dL (NEG-TRACE) Urine Glucose (UA) Negative mg/dL (NEG) Urine Ketones (Stick) Negative mg/dL (NEG) Urine Blood Large (NEG) Urine Nitrite Negative (NEG) Urine Bilirubin Negative (NEG) Urine Urobilinogen Dipstick 1.0 mg/dL (0.2 mg/dL) Urine Leukocyte Esterase Trace (NEG) Urine RBC >40 /HPF (0-2) Urine WBC 5-10 /HPF (0-4) Urine Squamous Epithelial Cells Mod /LPF Urine Bacteria Few /HPF (0-FEW) White Blood Count 16.4 x10^3/uL (4.0-11.0) 11.1 x10^3/uL (4.0-11.0) Red Blood Count 4.05 x10^6/uL (3.50-5.40) 3.18 x10^6/uL (3.50-5.40) Hemoglobin 11.1 g/dL (12.0-15.5) 8.7 g/dL (12.0-15.5) Hematocrit 34.2 % (36.0-47.0) 27.3 % (36.0-47.0) Mean Corpuscular Volume 84 fL (79-100) 86 fL (79-100) Mean Corpuscular Hemoglobin 27 pg (25-35) 28 pg (25-35) Mean Corpuscular Hemoglobin Concent 33 g/dL (31-37) 32 g/dL (31-37) Red Cell Distribution Width 14.9 % (11.5-14.5) 15.1 % (11.5-14.5) Platelet Count 301 x10^3/uL (140-400) 209 x10^3/uL (140-400) Neutrophils (%) (Auto) 87 % (31-73) 89 % (31-73) Lymphocytes (%) (Auto) 6 % (24-48) 5 % (24-48) Monocytes (%) (Auto) 7 % (0-9) 7 % (0-9) Eosinophils (%) (Auto) 0 % (0-3) 0 % (0-3) Basophils (%) (Auto) 0 % (0-3) 0 % (0-3) Neutrophils # (Auto) 14.4 x10^3/uL (1.8-7.7) 9.9 x10^3/uL (1.8-7.7) Lymphocytes # (Auto) 0.9 x10^3/uL (1.0-4.8) 0.5 x10^3/uL (1.0-4.8) Monocytes # (Auto) 1.1 x10^3/uL (0.0-1.1) 0.7 x10^3/uL (0.0-1.1) Eosinophils # (Auto) 0.0 x10^3/uL (0.0-0.7) 0.0 x10^3/uL (0.0-0.7) Basophils # (Auto) 0.0 x10^3/uL (0.0-0.2) 0.0 x10^3/uL (0.0-0.2) Segmented Neutrophils % 81 % (35-66) Lymphocytes % 13 % (24-48) Monocytes % 6 % (0-10) Platelet Estimate Adequate (ADEQUATE) Sodium Level 135 mmol/L (136-145) 169 mmol/L (136-145) Potassium Level 3.5 mmol/L (3.5-5.1) 2.3 mmol/L (3.5-5.1) Chloride Level 94 mmol/L (98-107) 107 mmol/L (98-107) Carbon Dioxide Level 33 mmol/L (21-32) 26 mmol/L (21-32) Anion Gap 8 (6-14) 36 (6-14) Blood Urea Nitrogen 11 mg/dL (7-20) 4 mg/dL (7-20) Creatinine 1.0 mg/dL (0.6-1.0) 1.5 mg/dL (0.6-1.0) Estimated GFR (Cockcroft-Gault) 53.6 33.6 BUN/Creatinine Ratio 11 (6-20) 3 (6-20) Glucose Level 94 mg/dL (70-99) 78 mg/dL (70-99) Lactic Acid Level 0.8 mmol/L (0.4-2.0) Calcium Level 9.1 mg/dL (8.5-10.1) 6.3 mg/dL (8.5-10.1) Total Bilirubin 0.5 mg/dL (0.2-1.0) 0.3 mg/dL (0.2-1.0) Aspartate Amino Transf (AST/SGOT) 21 U/L (15-37) 15 U/L (15-37) Alanine Aminotransferase (ALT/SGPT) 19 U/L (14-59) 13 U/L (14-59) Alkaline Phosphatase 107 U/L (46-116) 62 U/L (46-116) Troponin I Quantitative < 0.017 ng/mL (0.000-0.055) Total Protein 7.4 g/dL (6.4-8.2) 6.4 g/dL (6.4-8.2) Albumin 2.6 g/dL (3.4-5.0) 1.6 g/dL (3.4-5.0) Albumin/Globulin Ratio 0.5 (1.0-1.7) 0.3 (1.0-1.7) Lipase 129 U/L (73-393) Laboratory Tests Test 02/21/20 05:20 White Blood Count 11.1 x10^3/uL (4.0-11.0) Red Blood Count 3.18 x10^6/uL (3.50-5.40) Hemoglobin 8.7 g/dL (12.0-15.5) Hematocrit 27.3 % (36.0-47.0) Mean Corpuscular Volume 86 fL (79-100) Mean Corpuscular Hemoglobin 28 pg (25-35) Mean Corpuscular Hemoglobin Concent 32 g/dL (31-37) Red Cell Distribution Width 15.1 % (11.5-14.5) Platelet Count 209 x10^3/uL (140-400) Neutrophils (%) (Auto) 89 % (31-73) Lymphocytes (%) (Auto) 5 % (24-48) Monocytes (%) (Auto) 7 % (0-9) Eosinophils (%) (Auto) 0 % (0-3) Basophils (%) (Auto) 0 % (0-3) Neutrophils # (Auto) 9.9 x10^3/uL (1.8-7.7) Lymphocytes # (Auto) 0.5 x10^3/uL (1.0-4.8) Monocytes # (Auto) 0.7 x10^3/uL (0.0-1.1) Eosinophils # (Auto) 0.0 x10^3/uL (0.0-0.7) Basophils # (Auto) 0.0 x10^3/uL (0.0-0.2) Sodium Level 169 mmol/L (136-145) Potassium Level 2.3 mmol/L (3.5-5.1) Chloride Level 107 mmol/L (98-107) Carbon Dioxide Level 26 mmol/L (21-32) Anion Gap 36 (6-14) Blood Urea Nitrogen 4 mg/dL (7-20) Creatinine 1.5 mg/dL (0.6-1.0) Estimated GFR (Cockcroft-Gault) 33.6 BUN/Creatinine Ratio 3 (6-20) Glucose Level 78 mg/dL (70-99) Calcium Level 6.3 mg/dL (8.5-10.1) Total Bilirubin 0.3 mg/dL (0.2-1.0) Aspartate Amino Transf (AST/SGOT) 15 U/L (15-37) Alanine Aminotransferase (ALT/SGPT) 13 U/L (14-59) Alkaline Phosphatase 62 U/L (46-116) Total Protein 6.4 g/dL (6.4-8.2) Albumin 1.6 g/dL (3.4-5.0) Albumin/Globulin Ratio 0.3 (1.0-1.7) Assessment/Plan Assessment/Plan diverticulitis with abscess will ask IR to eval if possible to perc drain--d/w Dr Munoz--unable to perc drain--will continue abx, bowel rest, repeat CT in a few days LE GUALLPA MD 02/21/20 1107: CONSULT Assessment/Plan Assessment/Plan Reviewed, discussed with Dr Munoz; plan as above, abx, prob FU CT in a few d ays to assess response ALLIE BENITES APRN Feb 21, 2020 09:07 LE GUALLPA MD Feb 21, 2020 11:07
--- NOTE | 2020-02-21 09:30 | PDOC ---
Infectious Disease Note Subjective: Subjective Pt complains of abdo pain and leg pain, latter chronic no n/v has diarrhea no f/c Vital Signs: Vital Signs Vital Signs Date Time Temp Pulse Resp B/P (MAP) Pulse Ox O2 Delivery O2 Flow Rate FiO2 02/21/20 09:03 96 Nasal Cannula 4.0 02/21/20 07:00 98.5 78 24 125/59 (81) 98.5 Physical Exam: PHYSICAL EXAM General alert oriented x3 no acute distress HEENT: Both pupils are round and reacting. No conjunctival lesion, no lesion in the mouth. NECK: Supple, no JVP, no lymphadenopathy. LUNGS: Clear. HEART: S1, S2 regular. ABDOMEN: Soft bowel sounds present mildly distended mild tenderness present on deep palpation EXTREMITIES: No edema, cyanosis. SKIN: Unremarkable. NEUROLOGIC: No focal neurologic deficit. Medications: Inpatient Meds: Current Medications Medications (Trade) Dose Ordered Sig/Viola Start Time Stop Time Status Last Admin Dose Admin Albuterol Sulfate (Ventolin Neb Soln) 2.5 mg PRN Q4HRS PRN 02/20/20 13:00 Aspirin (Aspirin Chewable) 81 mg DAILY 02/20/20 14:00 02/20/20 15:29 81 MG Budesonide (Pulmicort) 0.5 mg BID 02/20/20 21:00 02/21/20 08:01 0.5 MG Ceftriaxone Sodium (Rocephin) 1 gm Q24H 02/20/20 12:00 02/20/20 12:24 DC 02/20/20 11:52 1 GM Clonazepam (KlonoPIN) 0.5 mg DAILY 02/19/20 12:00 02/20/20 08:33 0.5 MG Enoxaparin Sodium (Lovenox 40mg Syringe) 40 mg Q24H 02/19/20 12:00 02/20/20 14:04 40 MG Fentanyl Citrate (Fentanyl 2ml Vial) 50 mcg PRN Q2HR PRN 02/19/20 14:00 02/21/20 09:03 50 MCG Fish Oil (Fish Oil) 1,000 mg DAILY 02/20/20 14:00 02/20/20 15:29 1,000 MG Info (CONTRAST GIVEN -- Rx MONITORING) 1 each PRN DAILY PRN 02/19/20 10:30 02/21/20 10:29 Iohexol (Omnipaque 300 Mg/ml) 75 ml 1X ONCE 02/19/20 10:30 02/19/20 10:31 DC 02/19/20 10:46 75 ML Lactobacillus Rhamnosus (Culturelle) 1 cap BID 02/20/20 10:15 02/20/20 20:09 1 CAP Metronidazole 100 ml @ 100 mls/hr 1X ONCE 02/19/20 11:30 02/19/20 12:29 DC 02/19/20 12:06 100 MLS/HR Multivitamins (Thera M Plus) 1 tab DAILY 02/20/20 14:00 02/20/20 15:29 1 TAB Nicotine (Nicoderm Cq 7mg) 1 patch DAILY 02/19/20 15:15 02/21/20 08:06 1 PATCH Nicotine Polacrilex (Nicorette Gum) 1 each PRN Q1HR PRN 02/19/20 15:15 Ondansetron HCl (Zofran) 4 mg 1X ONCE 02/19/20 09:30 02/19/20 09:31 DC 02/19/20 09:49 4 MG Piperacillin Sod/ Tazobactam Sod 3.375 gm/Sodium Chloride 50 ml @ 100 mls/hr Q6HRS 02/20/20 18:00 02/21/20 04:54 100 MLS/HR Polyethylene Glycol (miraLAX PACKET) 17 gm DAILY 02/20/20 14:00 Potassium Chloride/Water 100 ml @ 100 mls/hr Q1H 02/21/20 10:00 02/21/20 10:59 Sodium Chloride 38.5 meq/Sterile Water 1,009.625 ml @ 75 mls/hr [id number] 02/21/20 08:30 02/21/20 08:54 75 MLS/HR Labs: Lab Laboratory Tests Test 02/21/20 05:20 White Blood Count 11.1 x10^3/uL (4.0-11.0) Red Blood Count 3.18 x10^6/uL (3.50-5.40) Hemoglobin 8.7 g/dL (12.0-15.5) Hematocrit 27.3 % (36.0-47.0) Mean Corpuscular Volume 86 fL (79-100) Mean Corpuscular Hemoglobin 28 pg (25-35) Mean Corpuscular Hemoglobin Concent 32 g/dL (31-37) Red Cell Distribution Width 15.1 % (11.5-14.5) Platelet Count 209 x10^3/uL (140-400) Neutrophils (%) (Auto) 89 % (31-73) Lymphocytes (%) (Auto) 5 % (24-48) Monocytes (%) (Auto) 7 % (0-9) Eosinophils (%) (Auto) 0 % (0-3) Basophils (%) (Auto) 0 % (0-3) Neutrophils # (Auto) 9.9 x10^3/uL (1.8-7.7) Lymphocytes # (Auto) 0.5 x10^3/uL (1.0-4.8) Monocytes # (Auto) 0.7 x10^3/uL (0.0-1.1) Eosinophils # (Auto) 0.0 x10^3/uL (0.0-0.7) Basophils # (Auto) 0.0 x10^3/uL (0.0-0.2) Sodium Level 169 mmol/L (136-145) Potassium Level 2.3 mmol/L (3.5-5.1) Chloride Level 107 mmol/L (98-107) Carbon Dioxide Level 26 mmol/L (21-32) Anion Gap 36 (6-14) Blood Urea Nitrogen 4 mg/dL (7-20) Creatinine 1.5 mg/dL (0.6-1.0) Estimated GFR (Cockcroft-Gault) 33.6 BUN/Creatinine Ratio 3 (6-20) Glucose Level 78 mg/dL (70-99) Calcium Level 6.3 mg/dL (8.5-10.1) Total Bilirubin 0.3 mg/dL (0.2-1.0) Aspartate Amino Transf (AST/SGOT) 15 U/L (15-37) Alanine Aminotransferase (ALT/SGPT) 13 U/L (14-59) Alkaline Phosphatase 62 U/L (46-116) Total Protein 6.4 g/dL (6.4-8.2) Albumin 1.6 g/dL (3.4-5.0) Albumin/Globulin Ratio 0.3 (1.0-1.7) Objective: Assessment: 1. Diverticulitis with diverticular abscess. 2. Leukocytosis. 3. Obesity. 4. Chronic obstructive pulmonary disease. 5. Coronary artery disease. 6. Anxiety disorder. Plan: Plan of Care Continue Zosyn, supportive care. General surgery following send stool for cults, c diff pcr Awaiting IR for drainage Sent fluid for cultures Follow-up labs and cultures d/w ALISSA Cochran MD Feb 21, 2020 09:30
--- NOTE | 2020-02-21 09:38 | PDOC ---
Provider Note Provider Note IR CT Reviewed. There are at least 2 small diverticular abscesses in the pelvis. One measuring approximately 3 cm between the bladder and uterus. a smaller adjacent to the rectosigmoid colon. Other punctate areas of air are seen. Unfortunately neither collection is amendable to percutaneous drainage due to overlying structures. No IR intervention is recommended at current. Justicifation of Admission Dx: Justifications for Admission: Justification of Admission Dx: Yes Sepsis: Infection REGINALOD GLOVER MD Feb 21, 2020 09:38
[2020-02-21] MEDS ORDERED: POTASSIUM CHLORIDE 10MEQ 100 ML IV SCH (10:00)
[2020-02-21 10:39] VITALS: BP 138/49
[2020-02-21] MEDS: ENOXAPARIN 40 MG/0.4 ML SYRINGE. SQ SCH (11:32)
--- NOTE | 2020-02-21 12:12 | PDOC ---
Subjective: Subjective: Doesn't feel good. Pain all over abdomen but mostly left-sided. Objective: Objective: D/w nurse - wonders about resuming clears, says sending stool sample w/ watery diarrhea. Reviewed IR note - There are at least 2 small diverticular abscesses in the pelvis. One measuring approximately 3 cm between the bladder and uterus. a smaller adjacent to the rectosigmoid colon. Other punctate areas of air are seen. Unfortunately neither collection is amendable to percutaneous drainage due to overlying structures. No IR intervention is recommended at current. Vital Signs: Vital Signs Date Time Temp Pulse Resp B/P (MAP) Pulse Ox O2 Delivery O2 Flow Rate FiO2 02/21/20 10:39 97.7 87 24 138/49 (78) 94 Nasal Cannula 2.0 97.7 Labs: Laboratory Tests Test 02/21/20 05:20 White Blood Count 11.1 x10^3/uL Red Blood Count 3.18 x10^6/uL Hemoglobin 8.7 g/dL Hematocrit 27.3 % Mean Corpuscular Volume 86 fL Mean Corpuscular Hemoglobin 28 pg Mean Corpuscular Hemoglobin Concent 32 g/dL Red Cell Distribution Width 15.1 % Platelet Count 209 x10^3/uL Neutrophils (%) (Auto) 89 % Lymphocytes (%) (Auto) 5 % Monocytes (%) (Auto) 7 % Eosinophils (%) (Auto) 0 % Basophils (%) (Auto) 0 % Neutrophils # (Auto) 9.9 x10^3/uL Lymphocytes # (Auto) 0.5 x10^3/uL Monocytes # (Auto) 0.7 x10^3/uL Eosinophils # (Auto) 0.0 x10^3/uL Basophils # (Auto) 0.0 x10^3/uL Sodium Level 169 mmol/L Potassium Level 2.3 mmol/L Chloride Level 107 mmol/L Carbon Dioxide Level 26 mmol/L Anion Gap 36 Blood Urea Nitrogen 4 mg/dL Creatinine 1.5 mg/dL Estimated GFR (Cockcroft-Gault) 33.6 BUN/Creatinine Ratio 3 Glucose Level 78 mg/dL Calcium Level 6.3 mg/dL Total Bilirubin 0.3 mg/dL Aspartate Amino Transf (AST/SGOT) 15 U/L Alanine Aminotransferase (ALT/SGPT) 13 U/L Alkaline Phosphatase 62 U/L Total Protein 6.4 g/dL Albumin 1.6 g/dL Albumin/Globulin Ratio 0.3 BLOOD CULTURE Preliminary NO GROWTH AFTER 2 DAYS URINE CULTURE Final Final Three or more organisms isolated. Results consistent with colonization or contamination during the collection process. Recollection recommended using a method to minimize contamination. An ID and Sensitivity will be performed when one organism is predominant and a likely pathogen on 02/21/20 at 0924 Imaging: CT A/P IMPRESSION: 1. Diverticulitis of the mid to distal sigmoid colon without peridiverticular abscess measuring 3.4 x 3.1 cm. No definite fistula to the bladder, uterus or vagina is noted. There is gas identified within thevagina which is nonspecific. Close follow-up is recommended. 2. Bilateral adrenal masses, indeterminate. Left adrenal mass measures 2.3x 2.0 cm. Findings favor benign etiology given stability since 10/12/2013. 3. Infrarenal abdominal aortic aneurysm measuring 4.5 x 4.4 cm. Dense calcified and noncalcified atheromatous plaque is identified. Infrarenal abdominal aorta previously measured 2.8 x 2.6 cm on 10/12/2013. PE: GEN: uncomfortable LUNGS: clear, NC 2L HEART: RRR ABD: distended, left-sided and periumbilical discomfort NEURO/PSYCH: A & O 3 A/P: Diverticulitis w/ abscesses Anemia ESTER, hypernatremia, hypokalemia - per primary -- Plans for bowel rest w/ interval CT in a few days. Continue per surgery and ID. Anemia parameters for completeness, empiric acid-safety instructor, await stool tests. Justicifation of Admission Dx: Justifications for Admission: Justification of Admission Dx: Yes Sepsis: Infection ANASTASIA MAHER Feb 21, 2020 12:12
--- NOTE | 2020-02-21 13:04 | NUR ---
SS following for discharge planning. SS reviewed pt chart and discussed with pt RN. Pt is from home and is currently requiring oxygen. Per RN, pt has abscess and is on IV Zosyn. SS will continue to follow for discharge planning.
[2020-02-21] MEDS: PANTOPRAZOLE IV PUSH 40 MG VIAL. IVP SCH (13:32)
[2020-02-21 14:45] VITALS: BP 133/56
--- NOTE | 2020-02-21 15:09 | PDOC2 ---
CONSULT Date of Consult Date of Consult DATE: 02/21/20 TIME: 15:04 Reason for Consult Reason for Consult: ESTER AND ELECTROLYTE PROBLEMS Referring Physician Referring Physician: SÁNCHEZ Identification/Chief Complaint Chief Complaint ABD PAIN Source Source: Chart review, Patient History of Present Illness Reason for Visit: THIS IS A 79 YR OLD WITH ABD PAIN FOR ABOUT A MONTH. NOTED TO HAVE PELVIC DIVERTICULAR ABSCESS. HAS NOT BEEN EATING OR DRINKING WELL. ON ADMIT CR OF 1.5 WITH NA OF 139 AND K OF 2.3. NO CKD REPORTED. DENIED ANY HX. NO NEPHROTOXINS NOTED HEMODYNAMICALLY SHE IS STABLE CURRENLTY. UNABLE TO EAT AT THIS TIME Past Medical History Cardiovascular: CAD, CHF, HTN, Other Pulmonary: COPD GI: GERD Psych: Anxiety, Depression Musculoskeletal: Osteoarthritis Rheumatologic: Gout Renal/: No pertinent hx Past Surgical History Past Surgical History: No pertinent history Family History Family History: Diabetes, Heart Disease Social History <1 pack per day ALCOHOL: none Drugs: None Lives: with Family Current Problem List Problem List Problems Medical Problems: (1) Abdominal aortic aneurysm (AAA) 3.0 cm to 5.0 cm in diameter in female Status: Acute (2) Acute diverticulitis Status: Acute Current Medications Current Medications Current Medications Fentanyl Citrate (Fentanyl 2ml Vial) 50 mcg 1X ONCE IV Last administered on 02/19/20at 09:50; Start 02/19/20 at 09:30; Stop 02/19/20 at 09:31; Status DC Ondansetron HCl (Zofran) 4 mg 1X ONCE IV Last administered on 02/19/20at 09:49; Start 02/19/20 at 09:30; Stop 02/19/20 at 09:31; Status DC Sodium Chloride 1,000 ml @ 1,000 mls/hr 1X ONCE IV Last administered on 02/19/20at 09:48; Start 02/19/20 at 09:30; Stop 02/19/20 at 10:29; Status DC Iohexol (Omnipaque 300 Mg/ml) 75 ml 1X ONCE IV Last administered on 02/19/20at 10:46; Start 02/19/20 at 10:30; Stop 02/19/20 at 10:31; Status DC Info (CONTRAST GIVEN -- Rx MONITORING) 1 each PRN DAILY PRN MC SEE COMMENTS; Start 02/19/20 at 10:30; Stop 02/21/20 at 10:29; Status DC Ceftriaxone Sodium (Rocephin) 1 gm 1X ONCE IVP Last administered on 02/19/20at 11:14; Start 02/19/20 at 11:15; Stop 02/19/20 at 11:16; Status DC Ceftriaxone Sodium (Rocephin) 1 gm 1X ONCE IVP Last administered on 02/19/20at 12:01; Start 02/19/20 at 11:30; Stop 02/19/20 at 11:31; Status DC Metronidazole 100 ml @ 100 mls/hr Q8HRS IV Last administered on 02/20/20at 06:00; Start 02/19/20 at 22:00; Stop 02/20/20 at 12:24; Status DC Metronidazole 100 ml @ 100 mls/hr 1X ONCE IV Last administered on 02/19/20at 12:06; Start 02/19/20 at 11:30; Stop 02/19/20 at 12:29; Status DC Ceftriaxone Sodium (Rocephin) 1 gm Q24H IVP Last administered on 02/20/20at 11:52; Start 02/20/20 at 12:00; Stop 02/20/20 at 12:24; Status DC Enoxaparin Sodium (Lovenox 40mg Syringe) 40 mg Q24H SQ Last administered on 02/21/20at 11:32; Start 02/19/20 at 12:00 Sodium Chloride 1,000 ml @ 100 mls/hr 1X ONCE IV Last administered on 02/19/20at 11:45; Start 02/19/20 at 11:45; Stop 02/19/20 at 21:44; Status DC Clonazepam (KlonoPIN) 0.5 mg DAILY PO Last administered on 02/20/20at 08:33; Start 02/19/20 at 12:00 Fentanyl Citrate (Fentanyl 2ml Vial) 50 mcg PRN Q2HR PRN IVP PAIN Last administered on 02/21/20at 13:25; Start 02/19/20 at 14:00 Nicotine Polacrilex (Nicorette Gum) 1 each PRN Q1HR PRN BC SMOKING CESSATION; Start 02/19/20 at 15:15 Nicotine (Nicoderm Cq 7mg) 1 patch DAILY TD Last administered on 02/21/20at 08:06; Start 02/19/20 at 15:15 Lactobacillus Rhamnosus (Culturelle) 1 cap BID PO Last administered on 02/20/20at 20:09; Start 02/20/20 at 10:15 Piperacillin Sod/ Tazobactam Sod 3.375 gm/Sodium Chloride 50 ml @ 100 mls/hr Q6HRS IV Last administered on 02/21/20at 13:32; Start 02/20/20 at 18:00 Aspirin (Aspirin Chewable) 81 mg DAILY PO Last administered on 02/20/20at 15:29; Start 02/20/20 at 14:00 Budesonide (Pulmicort) 0.5 mg BID NEB Last administered on 02/21/20 08:01; S tart 02/20/20 at 21:00 Polyethylene Glycol (miraLAX PACKET) 17 gm DAILY PO ; Start 02/20/20 at 14:00 Multivitamins (Thera M Plus) 1 tab DAILY PO Last administered on 02/20/20at 15:29; Start 02/20/20 at 14:00 Fish Oil (Fish Oil) 1,000 mg DAILY PO Last administered on 02/20/20at 15:29; Start 02/20/20 at 14:00 Albuterol Sulfate (Ventolin Neb Soln) 2.5 mg PRN Q4HRS PRN NEB SHORTNESS OF BREATH; Start 02/20/20 at 13:00 Potassium Chloride/Water 100 ml @ 50 mls/hr 1X ONCE IV Last administered on 02/21/20at 08:05; Start 02/21/20 at 08:00; Stop 02/21/20 at 09:59; Status DC Potassium Chloride/Water 100 ml @ 100 mls/hr Q1H IV Last administered on 02/21/20at 11:34; Start 02/21/20 at 10:00; Stop 02/21/20 at 10:59; Status DC Sodium Chloride 38.5 meq/Sterile Water 1,009.625 ml @ 75 mls/hr [id number] IV Last administered on 02/21/20at 08:54; Start 02/21/20 at 08:30 Pantoprazole Sodium (PROTONIX VIAL for IV PUSH) 40 mg DAILYAC IVP Last administered on 02/21/20at 13:32; Start 02/21/20 at 12:30 Hydromorphone HCl (Dilaudid) 0.75 mg PRN Q4HRS PRN IVP PAIN; Start 02/21/20 at 13:30 Active Scripts Active Reported Miralax (Polyethylene Glycol 3350) 17 Gm Powd.pack 1 Packet PO DAILY 2 Days dissolve in water Fish Oil 1,000 mg Softgel (Garden-3/Dha/Epa/Fish Oil) 1,000 Mg Capsule 1,000 Mg PO DAILY Aspirin 81 Mg Tab.chew 1 Tab PO DAILY Daily Value (Multivitamin) 1 Each Tablet 1 Tab PO DAILY 30 Days Perforomist (Formoterol Fumarate) 20 Mcg/2 Ml Vial.neb 20 Mcg IH Pulmicort (Budesonide) 0.5 Mg/2 Ml Ampul.neb 1 Vial NEB BID Clonazepam (Clonazepam) 0.5 Mg Tablet 0.5 Mg PO DAILY Allergies Allergies: Coded Allergies: No Known Drug Allergies (Unverified , 10/12/13) ROS General: YES: Fatigue, Malaise, Appetite PSYCHOLOGICAL ROS: YES: Anxiety Eyes: Yes Decreased vision HEENT: YES: [place] ALLERGY AND IMMUNOLOGY: YES: Seasonal Allergies Respiratory: YES: Cough Gastrointestinal: Yes Nausea, Yes Vomiting, Yes Abdominal Pain Genitourinary: YES Incontinence Musculoskeletal: Yes Muscular Weakness Neurological: Yes Weakness Skin: Yes Dry Skin Physical Exam General: Alert, Oriented X3, Cooperative, No acute distress HEENT: Atraumatic Lungs: Clear to auscultation Heart: Regular rate Abdomen: Normal bowel sounds, Other (DIFFUSELY TENDER LQ) Extremities: No clubbing Skin: No rashes, No breakdown Neuro: Normal speech MUSCULOSKELETAL: No joint tenderness, No deformity Vitals VITALS Vital Signs Date Time Temp Pulse Resp B/P (MAP) Pulse Ox O2 Delivery O2 Flow Rate FiO2 02/21/20 14:45 97.8 89 24 133/56 (81) 97 Nasal Cannula 2.0 97.8 Labs Labs Laboratory Tests Test 02/21/20 05:20 White Blood Count 11.1 x10^3/uL (4.0-11.0) Red Blood Count 3.18 x10^6/uL (3.50-5.40) Hemoglobin 8.7 g/dL (12.0-15.5) Hematocrit 27.3 % (36.0-47.0) Mean Corpuscular Volume 86 fL (79-100) Mean Corpuscular Hemoglobin 28 pg (25-35) Mean Corpuscular Hemoglobin Concent 32 g/dL (31-37) Red Cell Distribution Width 15.1 % (11.5-14.5) Platelet Count 209 x10^3/uL (140-400) Neutrophils (%) (Auto) 89 % (31-73) Lymphocytes (%) (Auto) 5 % (24-48) Monocytes (%) (Auto) 7 % (0-9) Eosinophils (%) (Auto) 0 % (0-3) Basophils (%) (Auto) 0 % (0-3) Neutrophils # (Auto) 9.9 x10^3/uL (1.8-7.7) Lymphocytes # (Auto) 0.5 x10^3/uL (1.0-4.8) Monocytes # (Auto) 0.7 x10^3/uL (0.0-1.1) Eosinophils # (Auto) 0.0 x10^3/uL (0.0-0.7) Basophils # (Auto) 0.0 x10^3/uL (0.0-0.2) Sodium Level 169 mmol/L (136-145) Potassium Level 2.3 mmol/L (3.5-5.1) Chloride Level 107 mmol/L (98-107) Carbon Dioxide Level 26 mmol/L (21-32) Anion Gap 36 (6-14) Blood Urea Nitrogen 4 mg/dL (7-20) Creatinine 1.5 mg/dL (0.6-1.0) Estimated GFR (Cockcroft-Gault) 33.6 BUN/Creatinine Ratio 3 (6-20) Glucose Level 78 mg/dL (70-99) Calcium Level 6.3 mg/dL (8.5-10.1) Iron Level 13 ug/dL (50-170) Total Iron Binding Capacity 121 ug/dL (250-450) Iron Saturation 11 % (15-34) Total Bilirubin 0.3 mg/dL (0.2-1.0) Aspartate Amino Transf (AST/SGOT) 15 U/L (15-37) Alanine Aminotransferase (ALT/SGPT) 13 U/L (14-59) Alkaline Phosphatase 62 U/L (46-116) Total Protein 6.4 g/dL (6.4-8.2) Albumin 1.6 g/dL (3.4-5.0) Albumin/Globulin Ratio 0.3 (1.0-1.7) Laboratory Tests Test 02/21/20 05:20 White Blood Count 11.1 x10^3/uL (4.0-11.0) Red Blood Count 3.18 x10^6/uL (3.50-5.40) Hemoglobin 8.7 g/dL (12.0-15.5) Hematocrit 27.3 % (36.0-47.0) Mean Corpuscular Volume 86 fL (79-100) Mean Corpuscular Hemoglobin 28 pg (25-35) Mean Corpuscular Hemoglobin Concent 32 g/dL (31-37) Red Cell Distribution Width 15.1 % (11.5-14.5) Platelet Count 209 x10^3/uL (140-400) Neutrophils (%) (Auto) 89 % (31-73) Lymphocytes (%) (Auto) 5 % (24-48) Monocytes (%) (Auto) 7 % (0-9) Eosinophils (%) (Auto) 0 % (0-3) Basophils (%) (Auto) 0 % (0-3) Neutrophils # (Auto) 9.9 x10^3/uL (1.8-7.7) Lymphocytes # (Auto) 0.5 x10^3/uL (1.0-4.8) Monocytes # (Auto) 0.7 x10^3/uL (0.0-1.1) Eosinophils # (Auto) 0.0 x10^3/uL (0.0-0.7) Basophils # (Auto) 0.0 x10^3/uL (0.0-0.2) Sodium Level 169 mmol/L (136-145) Potassium Level 2.3 mmol/L (3.5-5.1) Chloride Level 107 mmol/L (98-107) Carbon Dioxide Level 26 mmol/L (21-32) Anion Gap 36 (6-14) Blood Urea Nitrogen 4 mg/dL (7-20) Creatinine 1.5 mg/dL (0.6-1.0) Estimated GFR (Cockcroft-Gault) 33.6 BUN/Creatinine Ratio 3 (6-20) Glucose Level 78 mg/dL (70-99) Calcium Level 6.3 mg/dL (8.5-10.1) Iron Level 13 ug/dL (50-170) Total Iron Binding Capacity 121 ug/dL (250-450) Iron Saturation 11 % (15-34) Total Bilirubin 0.3 mg/dL (0.2-1.0) Aspartate Amino Transf (AST/SGOT) 15 U/L (15-37) Alanine Aminotransferase (ALT/SGPT) 13 U/L (14-59) Alkaline Phosphatase 62 U/L (46-116) Total Protein 6.4 g/dL (6.4-8.2) Albumin 1.6 g/dL (3.4-5.0) Albumin/Globulin Ratio 0.3 (1.0-1.7) Assessment/Plan Assessment/Plan IMP DEHYDRATION ESTER LOW K HYPERNATREMIA DIVERTICULAR ABSCESS PLAN HYDRATION REPLACE K PROCALAMINE FOR NOW ANTIBIOTICS WILL FOLLOW HERSON RODRIGUEZ MD Feb 21, 2020 15:08
[2020-02-21] MEDS: AMINO AC 3%/ELECTROLYTE/GLYCER 1,000 ML IV SCH (16:28)
[2020-02-21] MEDS: HYDROmorphone 2 MG/ML VIAL IVP PRN ×2 (16:29→22:45)
[2020-02-21 19:15] LABS: CALCIUM 9.2 mg/dL (8.5-10.1); CREATININE 1.1 mg/dL (0.6-1.0); POTASSIUM 3.5 mmol/L (3.5-5.1)
[2020-02-21 19:25] VITALS: BP 124/56
[2020-02-21 23:10] VITALS: BP 139/56
[2020-02-22] MEDS: fentaNYL PF VIAL 100 MCG/2 ML VIAL IVP PRN ×3 (02:15→21:03)
[2020-02-22 03:45] VITALS: BP 95/47
[2020-02-22] MEDS: HYDROmorphone 2 MG/ML VIAL IVP PRN (04:35)
--- NOTE | 2020-02-22 04:44 | EKG ---
[facility] [address] [place] [id number] Test Date: 2020-02-19 Test Time: 09:18:50 Pat Name: ANDREW GARCIA Department: Room: Gender: F Protection Consultant: : 1940 Requested By: JOHNNY CHANG Order Number: [id number] Reading MD: Measurements Intervals Dawson Rate: 93 P: IN: QRS: 51 QRSD: 80 T: 50 QT: 320 QTc: 400 Interpretive Statements IRREGULAR RHYTHM, NO P-WAVE FOUND VENTRICULAR PREMATURE COMPLEX(ES) ABNORMAL ECG RI6.01 No previous ECG available for comparison
[2020-02-22] MEDS: AMINO AC 3%/ELECTROLYTE/GLYCER 1,000 ML IV SCH ×2 (05:30→13:30)
[2020-02-22] MEDS: PIPERACILLIN/TAZOBACTAM 3.375 GM in IV NORMAL SALINE 50ML 50 ML IV SCH ×4 (05:30→23:49)
[2020-02-22 07:00] VITALS: BP 116/40
[2020-02-22] MEDS: PANTOPRAZOLE IV PUSH 40 MG VIAL. IVP SCH (07:30)
[2020-02-22] MEDS: ASPIRIN CHEWABLE 81 MG TABLET. PO SCH (07:57)
[2020-02-22] MEDS: LACTOBACILLUS RHAMNOSUS GG 1 CAPSULE. PO SCH ×2 (07:57→21:00)
[2020-02-22] MEDS: MULTIVITAMIN with MINERAL TABLET. PO SCH (07:58)
[2020-02-22] MEDS: POLYETHYLENE GLYCOL 3350 17 GM PACKET. PO SCH (07:58)
[2020-02-22] MEDS: OMEGA-3 FATTY ACIDS/FISH OIL 1,000 MG CAPSULE. PO SCH (07:58)
[2020-02-22] MEDS: clonazePAM 0.5 MG TABLET PO SCH (07:58)
[2020-02-22] MEDS: BUDESONIDE 0.5 MG/2 ML NEBU. NEB SCH ×2 (07:59→19:25)
[2020-02-22] MEDS: NICOTINE 7MG PATCH. TD SCH (08:05)
[2020-02-22 08:09] LABS: BASO % 0 % (0-3); EOS % 0 % (0-3); HEMATOCRIT 33.8 % (36.0-47.0); HEMOGLOBIN 10.6 g/dL (12.0-15.5); LYMPH # 0.8 x10^3/uL (1.0-4.8); LYMPH % 8 % (24-48); MEAN CORPUSCULAR HEMOGLOBIN 27 pg (25-35); MEAN CORPUSCULAR HGB CONC 31 g/dL (31-37); MEAN CORPUSCULAR VOLUME 87 fL (79-100); MONO # 0.6 x10^3/uL (0.0-1.1); MONO % 7 % (0-9); NEUT # 8.2 x10^3/uL (1.8-7.7); NEUT % 85 % (31-73); PLATELET COUNT 275 x10^3/uL (140-400); RED CELL DISTRIBUTION WIDTH 15.8 % (11.5-14.5); WHITE BLOOD COUNT 9.7 x10^3/uL (4.0-11.0)
--- NOTE | 2020-02-22 08:14 | PDOC ---
PROGRESS NOTES History of Present Illness History of Present Illness Impression: 1. Diverticulitis of the mid to distal sigmoid colon peridiverticular abscess measuring 3.4 x 3.1 cm. No definite fistula to the bladder, uterus or vagina is noted. There is gas identified within the vagina which is nonspecific. Close follow-up is recommended. peridiverticular abscess measuring 3.4 x 3.1 cm 2. Bilateral adrenal masses, indeterminate. Left adrenal mass measures 2.3 x 2.0 cm. Findings favor benign etiology given stability since 10/12/2013. 3. Infrarenal abdominal aortic aneurysm measuring 4.5 x 4.4 cm. Dense calcified and noncalcified atheromatous plaque is identified. Infrarenal abdominal aorta previously measured 2.8 x 2.6 cm on 10/12/2013. IMPRESSION pvd Sepsis due to sigmoid diverticulitis peridiverticular abscess measuring 3.4 x 3.1 cm Abdominal pain secondary to acute sigmoid diverticulitis COPD Tobacco abuse Acute electrolyte derangements Severe protein-caloric malnutrition SEVERE HYPERNATREMIA, HYPOKALEMIA, 02/20 plan Admit to medicine Clear liquid diet Serial abdominal exams Continue IV fluids Continue IV ceftriaxone and Flagyl surgical consult Lovenox for DVT prophylaxis Full code Discussed with RN id consult GI FOLLOWING Continue Zosyn, General surgery following send stool for cults, c diff pcr NEPHROLOGY CONSULT HYPOTONIC SALINE IV K IR for drainage neither collection is amendable to percutaneous drainage due to overlying structures. No IR intervention is recommended at current. TIME CONSULT DR GLOVER pic ct angiography of lower ext D/W DR GLOVER BY PHONE 02/21 38 MIN PT EXAM, CHART REVIEW, > 50% OF TIME SPENT WITH EXAM, CHART REVIEW, PT CARE COORDINATION Justicifation of Admission Dx: Justicifation of Admission Dx: Justifications for Admission: Justification of Admission Dx: Yes Sepsis: Infection Vitals Vitals Vital Signs Date Time Temp Pulse Resp B/P (MAP) Pulse Ox O2 Delivery O2 Flow Rate FiO2 02/22/20 08:00 95 Nasal Cannula 4.0 02/22/20 05:00 16 02/22/20 03:45 97.9 85 95/47 (63) 97.9 Physical Exam Physical Exam General alert oriented x3 no acute distress HEENT: Both pupils are round and reacting. No conjunctival lesion, no lesion in the mouth. NECK: Supple, no JVP, no lymphadenopathy. LUNGS: Clear. HEART: S1, S2 regular. ABDOMEN: Soft bowel sounds present mildly distended mild tenderness present on deep palpation EXTREMITIES: No edema, cyanosis. SKIN: Unremarkable. NEUROLOGIC: No focal neurologic deficit. General: Alert, Oriented X3, Cooperative, No acute distress Heart: Regular rate Lungs: Clear, Other Abdomen: Normal bowel sounds, No tenderness, Other (DIFFUSELY TENDER LQ) Extremities: No clubbing Skin: No rashes, No breakdown Labs LABS Laboratory Tests Test 02/21/20 12:15 02/21/20 18:25 02/22/20 07:30 Stool Campylobacter PCR Negative (NEGATIVE) Stool E. coli Shiga Toxins (PCR) Negative (NEGATIVE) Stool Salmonella PCR Negative (NEGATIVE) Stool Shigella PCR Negative (NEGATIVE) Sodium Level 147 mmol/L (136-145) Potassium Level 3.5 mmol/L (3.5-5.1) Chloride Level 106 mmol/L (98-107) Carbon Dioxide Level 30 mmol/L (21-32) Anion Gap 11 (6-14) Blood Urea Nitrogen 6 mg/dL (7-20) Creatinine 1.1 mg/dL (0.6-1.0) Estimated GFR (Cockcroft-Gault) 48.0 Glucose Level 76 mg/dL (70-99) Calcium Level 9.2 mg/dL (8.5-10.1) White Blood Count 9.7 x10^3/uL (4.0-11.0) Red Blood Count 3.90 x10^6/uL (3.50-5.40) Hemoglobin 10.6 g/dL (12.0-15.5) Hematocrit 33.8 % (36.0-47.0) Mean Corpuscular Volume 87 fL (79-100) Mean Corpuscular Hemoglobin 27 pg (25-35) Mean Corpuscular Hemoglobin Concent 31 g/dL (31-37) Red Cell Distribution Width 15.8 % (11.5-14.5) Platelet Count 275 x10^3/uL (140-400) Neutrophils (%) (Auto) 85 % (31-73) Lymphocytes (%) (Auto) 8 % (24-48) Monocytes (%) (Auto) 7 % (0-9) Eosinophils (%) (Auto) 0 % (0-3) Basophils (%) (Auto) 0 % (0-3) Neutrophils # (Auto) 8.2 x10^3/uL (1.8-7.7) Lymphocytes # (Auto) 0.8 x10^3/uL (1.0-4.8) Monocytes # (Auto) 0.6 x10^3/uL (0.0-1.1) Eosinophils # (Auto) 0.0 x10^3/uL (0.0-0.7) Basophils # (Auto) 0.0 x10^3/uL (0.0-0.2) Assessment and Plan Assessmemt and Plan Problems Medical Problems: (1) Abdominal aortic aneurysm (AAA) 3.0 cm to 5.0 cm in diameter in female Status: Acute (2) Acute diverticulitis Status: Acute Comment Review of Relevant I have reviewed the following items mayra (where applicable) has been applied. Labs Laboratory Tests Test 02/21/20 05:20 02/21/20 12:15 02/21/20 18:25 02/22/20 07:30 White Blood Count 11.1 x10^3/uL (4.0-11.0) 9.7 x10^3/uL (4.0-11.0) Red Blood Count 3.18 x10^6/uL (3.50-5.40) 3.90 x10^6/uL (3.50-5.40) Hemoglobin 8.7 g/dL (12.0-15.5) 10.6 g/dL (12.0-15.5) Hematocrit 27.3 % (36.0-47.0) 33.8 % (36.0-47.0) Mean Corpuscular Volume 86 fL (79-100) 87 fL (79-100) Mean Corpuscular Hemoglobin 28 pg (25-35) 27 pg (25-35) Mean Corpuscular Hemoglobin Concent 32 g/dL (31-37) 31 g/dL (31-37) Red Cell Distribution Width 15.1 % (11.5-14.5) 15.8 % (11.5-14.5) Platelet Count 209 x10^3/uL (140-400) 275 x10^3/uL (140-400) Neutrophils (%) (Auto) 89 % (31-73) 85 % (31-73) Lymphocytes (%) (Auto) 5 % (24-48) 8 % (24-48) Monocytes (%) (Auto) 7 % (0-9) 7 % (0-9) Eosinophils (%) (Auto) 0 % (0-3) 0 % (0-3) Basophils (%) (Auto) 0 % (0-3) 0 % (0-3) Neutrophils # (Auto) 9.9 x10^3/uL (1.8-7.7) 8.2 x10^3/uL (1.8-7.7) Lymphocytes # (Auto) 0.5 x10^3/uL (1.0-4.8) 0.8 x10^3/uL (1.0-4.8) Monocytes # (Auto) 0.7 x10^3/uL (0.0-1.1) 0.6 x10^3/uL (0.0-1.1) Eosinophils # (Auto) 0.0 x10^3/uL (0.0-0.7) 0.0 x10^3/uL (0.0-0.7) Basophils # (Auto) 0.0 x10^3/uL (0.0-0.2) 0.0 x10^3/uL (0.0-0.2) Sodium Level 169 mmol/L (136-145) 147 mmol/L (136-145) Potassium Level 2.3 mmol/L (3.5-5.1) 3.5 mmol/L (3.5-5.1) Chloride Level 107 mmol/L (98-107) 106 mmol/L (98-107) Carbon Dioxide Level 26 mmol/L (21-32) 30 mmol/L (21-32) Anion Gap 36 (6-14) 11 (6-14) Blood Urea Nitrogen 4 mg/dL (7-20) 6 mg/dL (7-20) Creatinine 1.5 mg/dL (0.6-1.0) 1.1 mg/dL (0.6-1.0) Estimated GFR (Cockcroft-Gault) 33.6 48.0 BUN/Creatinine Ratio 3 (6-20) Glucose Level 78 mg/dL (70-99) 76 mg/dL (70-99) Calcium Level 6.3 mg/dL (8.5-10.1) 9.2 mg/dL (8.5-10.1) Iron Level 13 ug/dL (50-170) Total Iron Binding Capacity 121 ug/dL (250-450) Iron Saturation 11 % (15-34) Total Bilirubin 0.3 mg/dL (0.2-1.0) Aspartate Amino Transf (AST/SGOT) 15 U/L (15-37) Alanine Aminotransferase (ALT/SGPT) 13 U/L (14-59) Alkaline Phosphatase 62 U/L (46-116) Total Protein 6.4 g/dL (6.4-8.2) Albumin 1.6 g/dL (3.4-5.0) Albumin/Globulin Ratio 0.3 (1.0-1.7) Stool Campylobacter PCR Negative (NEGATIVE) Stool E. coli Shiga Toxins (PCR) Negative (NEGATIVE) Stool Salmonella PCR Negative (NEGATIVE) Stool Shigella PCR Negative (NEGATIVE) Laboratory Tests Test 02/21/20 12:15 02/21/20 18:25 02/22/20 07:30 Stool Campylobacter PCR Negative (NEGATIVE) Stool E. coli Shiga Toxins (PCR) Negative (NEGATIVE) Stool Salmonella PCR Negative (NEGATIVE) Stool Shigella PCR Negative (NEGATIVE) Sodium Level 147 mmol/L (136-145) Potassium Level 3.5 mmol/L (3.5-5.1) Chloride Level 106 mmol/L (98-107) Carbon Dioxide Level 30 mmol/L (21-32) Anion Gap 11 (6-14) Blood Urea Nitrogen 6 mg/dL (7-20) Creatinine 1.1 mg/dL (0.6-1.0) Estimated GFR (Cockcroft-Gault) 48.0 Glucose Level 76 mg/dL (70-99) Calcium Level 9.2 mg/dL (8.5-10.1) White Blood Count 9.7 x10^3/uL (4.0-11.0) Red Blood Count 3.90 x10^6/uL (3.50-5.40) Hemoglobin 10.6 g/dL (12.0-15.5) Hematocrit 33.8 % (36.0-47.0) Mean Corpuscular Volume 87 fL (79-100) Mean Corpuscular Hemoglobin 27 pg (25-35) Mean Corpuscular Hemoglobin Concent 31 g/dL (31-37) Red Cell Distribution Width 15.8 % (11.5-14.5) Platelet Count 275 x10^3/uL (140-400) Neutrophils (%) (Auto) 85 % (31-73) Lymphocytes (%) (Auto) 8 % (24-48) Monocytes (%) (Auto) 7 % (0-9) Eosinophils (%) (Auto) 0 % (0-3) Basophils (%) (Auto) 0 % (0-3) Neutrophils # (Auto) 8.2 x10^3/uL (1.8-7.7) Lymphocytes # (Auto) 0.8 x10^3/uL (1.0-4.8) Monocytes # (Auto) 0.6 x10^3/uL (0.0-1.1) Eosinophils # (Auto) 0.0 x10^3/uL (0.0-0.7) Basophils # (Auto) 0.0 x10^3/uL (0.0-0.2) Microbiology 02/19/20 Urine Culture - Final, Complete 02/19/20 Blood Culture - Preliminary, Resulted NO GROWTH AFTER 2 DAYS Medications Current Medications Fentanyl Citrate (Fentanyl 2ml Vial) 50 mcg 1X ONCE IV Last administered on 02/19/20at 09:50; Start 02/19/20 at 09:30; Stop 02/19/20 at 09:31; Status DC Ondansetron HCl (Zofran) 4 mg 1X ONCE IV Last administered on 02/19/20at 09:49; Start 02/19/20 at 09:30; Stop 02/19/20 at 09:31; Status DC Sodium Chloride 1,000 ml @ 1,000 mls/hr 1X ONCE IV Last administered on 02/19/20at 09:48; Start 02/19/20 at 09:30; Stop 02/19/20 at 10:29; Status DC Iohexol (Omnipaque 300 Mg/ml) 75 ml 1X ONCE IV Last administered on 02/19/20at 10:46; Start 02/19/20 at 10:30; Stop 02/19/20 at 10:31; Status DC Info (CONTRAST GIVEN -- Rx MONITORING) 1 each PRN DAILY PRN MC SEE COMMENTS; Start 02/19/20 at 10:30; Stop 02/21/20 at 10:29; Status DC Ceftriaxone Sodium (Rocephin) 1 gm 1X ONCE IVP Last administered on 02/19/20at 11:14; Start 02/19/20 at 11:15; Stop 02/19/20 at 11:16; Status DC Ceftriaxone Sodium (Rocephin) 1 gm 1X ONCE IVP Last administered on 02/19/20at 12:01; Start 02/19/20 at 11:30; Stop 02/19/20 at 11:31; Status DC Metronidazole 100 ml @ 100 mls/hr Q8HRS IV Last administered on 02/20/20at 06:00; Start 02/19/20 at 22:00; Stop 02/20/20 at 12:24; Status DC Metronidazole 100 ml @ 100 mls/hr 1X ONCE IV Last administered on 02/19/20at 12:06; Start 02/19/20 at 11:30; Stop 02/19/20 at 12:29; Status DC Ceftriaxone Sodium (Rocephin) 1 gm Q24H IVP Last administered on 02/20/20at 11:52; Start 02/20/20 at 12:00; Stop 02/20/20 at 12:24; Status DC Enoxaparin Sodium (Lovenox 40mg Syringe) 40 mg Q24H SQ Last administered on 02/21/20at 11:32; Start 02/19/20 at 12:00 Sodium Chloride 1,000 ml @ 100 mls/hr 1X ONCE IV Last administered on 02/19/20at 11:45; Start 02/19/20 at 11:45; Stop 02/19/20 at 21:44; Status DC Clonazepam (KlonoPIN) 0.5 mg DAILY PO Last administered on 02/20/20at 08:33; Start 02/19/20 at 12:00 Fentanyl Citrate (Fentanyl 2ml Vial) 50 mcg PRN Q2HR PRN IVP PAIN Last administered on 02/22/20at 02:15; Start 02/19/20 at 14:00 Nicotine Polacrilex (Nicorette Gum) 1 each PRN Q1HR PRN BC SMOKING CESSATION; Start 02/19/20 at 15:15 Nicotine (Nicoderm Cq 7mg) 1 patch DAILY TD Last administered on 02/22/20at 08:05; Start 02/19/20 at 15:15 Lactobacillus Rhamnosus (Culturelle) 1 cap BID PO Last administered on 02/20/20at 20:09; Start 02/20/20 at 10:15 Piperacillin Sod/ Tazobactam Sod 3.375 gm/Sodium Chloride 50 ml @ 100 mls/hr Q6HRS IV Last administered on 02/22/20at 05:30; Start 02/20/20 at 18:00 Aspirin (Aspirin Chewable) 81 mg DAILY PO Last administered on 02/20/20at 15:29; Start 02/20/20 at 14:00 Budesonide (Pulmicort) 0.5 mg BID NEB Last administered on 02/22/20at 07:59; Start 02/20/20 at 21:00 Polyethylene Glycol (miraLAX PACKET) 17 gm DAILY PO ; Start 02/20/20 at 14:00 Multivitamins (Thera M Plus) 1 tab DAILY PO Last administered on 02/20/20at 15:29; Start 02/20/20 at 14:00 Fish Oil (Fish Oil) 1,000 mg DAILY PO Last administered on 02/20/20at 15:29; Start 02/20/20 at 14:00 Albuterol Sulfate (Ventolin Neb Soln) 2.5 mg PRN Q4HRS PRN NEB SHORTNESS OF BREATH; Start 02/20/20 at 13:00 Potassium Chloride/Water 100 ml @ 50 mls/hr 1X ONCE IV Last administered on 02/21/20at 08:05; Start 02/21/20 at 08:00; Stop 02/21/20 at 09:59; Status DC Potassium Chloride/Water 100 ml @ 100 mls/hr Q1H IV Last administered on 02/21/20at 11:34; Start 02/21/20 at 10:00; Stop 02/21/20 at 10:59; Status DC Sodium Chloride 38.5 meq/Sterile Water 1,009.625 ml @ 75 mls/hr [id number] IV Last administered on 02/21/20at 08:54; Start 02/21/20 at 08:30; Stop 02/21/20 at 15:21; Status DC Pantoprazole Sodium (PROTONIX VIAL for IV PUSH) 40 mg DAILYAC IVP Last administered on 02/21/20at 13:32; Start 02/21/20 at 12:30 Hydromorphone HCl (Dilaudid) 0.75 mg PRN Q4HRS PRN IVP PAIN Last administered on 02/22/20at 04:35; Start 02/21/20 at 13:30 Amino Acids/ Glycerin/ Electrolytes 1,000 ml @ 80 mls/hr [id number] IV Last administered on 02/22/20at 05:30; Start 02/21/20 at 16:00 Active Scripts Active Reported Miralax (Polyethylene Glycol 3350) 17 Gm Powd.pack 1 Packet PO DAILY 2 Days dissolve in water Fish Oil 1,000 mg Softgel (Twining-3/Dha/Epa/Fish Oil) 1,000 Mg Capsule 1,000 Mg PO DAILY Aspirin 81 Mg Tab.chew 1 Tab PO DAILY Daily Value (Multivitamin) 1 Each Tablet 1 Tab PO DAILY 30 Days Perforomist (Formoterol Fumarate) 20 Mcg/2 Ml Vial.neb 20 Mcg IH Pulmicort (Budesonide) 0.5 Mg/2 Ml Ampul.neb 1 Vial NEB BID Clonazepam (Clonazepam) 0.5 Mg Tablet 0.5 Mg PO DAILY Vitals/I & O Vital Sign - Last 24 Hours 02/21/20 02/21/20 02/21/20 02/21/20 08:20 09:03 09:30 10:39 Temp 97.7 97.7 Pulse 87 Resp 24 B/P (MAP) 138/49 (78) Pulse Ox 96 94 94 O2 Delivery Nasal Cannula Nasal Cannula Nasal Cannula Nasal Cannula O2 Flow Rate 4.0 4.0 2.0 2.0 02/21/20 02/21/20 02/21/20 02/21/20 13:25 14:45 19:15 19:25 Temp 97.8 97.7 97.8 97.7 Pulse 89 101 Resp 24 22 B/P (MAP) 133/56 (81) 124/56 (78) Pulse Ox 94 97 96 O2 Delivery Nasal Cannula Nasal Cannula Nasal Cannula Nasal Cannula O2 Flow Rate 4.0 2.0 4.0 2.0 02/21/20 02/21/20 02/21/20 02/21/20 20:58 22:45 23:10 23:15 Temp 97.8 97.8 Pulse 98 Resp 16 20 16 B/P (MAP) 139/56 (83) Pulse Ox 94 94 94 O2 Delivery Nasal Cannula Nasal Cannula Nasal Cannula Nasal Cannula O2 Flow Rate 4.0 4.0 2.0 4.0 02/22/20 02/22/20 02/22/20 02/22/20 02:15 02:45 03:45 04:35 Temp 97.9 97.9 Pulse 85 Resp 19 16 20 17 B/P (MAP) 95/47 (63) Pulse Ox 94 93 O2 Delivery Nasal Cannula Nasal Cannula Nasal Cannula Nasal Cannula O2 Flow Rate 4.0 2.0 4.0 02/22/20 02/22/20 05:00 08:00 Resp 16 Pulse Ox 93 95 O2 Delivery Nasal Cannula Nasal Cannula O2 Flow Rate 4.0 4.0 Intake and Output 02/21/20 02/21/20 02/22/20 15:00 23:00 07:00 Intake Total 0 ml 110 ml 1160 ml Output Total 200 ml 500 ml Balance 0 ml -90 ml 660 ml Justicifation of Admission Dx: Justifications for Admission: Justification of Admission Dx: Yes Sepsis: Infection JAZMIN ESCALANTE MD Feb 22, 2020 08:14
[2020-02-22 08:29] LABS: ALBUMIN 2.3 g/dL (3.4-5.0); ALBUMIN/GLOBULIN RATIO 0.5 (1.0-1.7); CALCIUM 9.3 mg/dL (8.5-10.1); GFR 53.6; POTASSIUM 3.5 mmol/L (3.5-5.1); TOTAL BILIRUBIN 0.3 mg/dL (0.2-1.0); TOTAL PROTEIN 6.9 g/dL (6.4-8.2)
[2020-02-22 08:32] LABS: MAGNESIUM 2.1 mg/dL (1.8-2.4); PHOSPHORUS 4.9 mg/dL (2.6-4.7)
--- NOTE | 2020-02-22 09:19 | PDOC ---
Infectious Disease Note Subjective: Subjective Patient states feels a little better Abdominal pain has improved somewhat no n/v Small liquid stool no f/c Vital Signs: Vital Signs Vital Signs Date Time Temp Pulse Resp B/P (MAP) Pulse Ox O2 Delivery O2 Flow Rate FiO2 02/22/20 08:00 95 Nasal Cannula 4.0 02/22/20 07:00 98.6 79 16 116/40 (65) 98.6 Physical Exam: PHYSICAL EXAM General alert oriented x3 no acute distress HEENT: Both pupils are round and reacting. No conjunctival lesion, no lesion in the mouth. NECK: Supple, no JVP, no lymphadenopathy. LUNGS: Clear. HEART: S1, S2 regular. ABDOMEN: Soft bowel sounds present mildly distended mild tenderness present on deep palpation EXTREMITIES: No edema, cyanosis. SKIN: Unremarkable. NEUROLOGIC: No focal neurologic deficit. Medications: Inpatient Meds: Current Medications Medications (Trade) Dose Ordered Sig/Viola Start Time Stop Time Status Last Admin Dose Admin Albuterol Sulfate (Ventolin Neb Soln) 2.5 mg PRN Q4HRS PRN 02/20/20 13:00 Amino Acids/ Glycerin/ Electrolytes 1,000 ml @ 80 mls/hr [id number] 02/21/20 16:00 02/22/20 05:30 80 MLS/HR Aspirin (Aspirin Chewable) 81 mg DAILY 02/20/20 14:00 02/20/20 15:29 81 MG Budesonide (Pulmicort) 0.5 mg BID 02/20/20 21:00 02/22/20 07:59 0.5 MG Ceftriaxone Sodium (Rocephin) 1 gm Q24H 02/20/20 12:00 02/20/20 12:24 DC 02/20/20 11:52 1 GM Clonazepam (KlonoPIN) 0.5 mg DAILY 02/19/20 12:00 02/20/20 08:33 0.5 MG Enoxaparin Sodium (Lovenox 40mg Syringe) 40 mg Q24H 02/19/20 12:00 02/21/20 11:32 40 MG Fentanyl Citrate (Fentanyl 2ml Vial) 50 mcg PRN Q2HR PRN 02/19/20 14:00 02/22/20 02:15 50 MCG Fish Oil (Fish Oil) 1,000 mg DAILY 02/20/20 14:00 02/20/20 15:29 1,000 MG Hydromorphone HCl (Dilaudid) 0.75 mg PRN Q4HRS PRN 02/21/20 13:30 02/22/20 04:35 0.75 MG Info (CONTRAST GIVEN -- Rx MONITORING) 1 each PRN DAILY PRN 02/19/20 10:30 02/21/20 10:29 DC Iohexol (Omnipaque 300 Mg/ml) 75 ml 1X ONCE 02/19/20 10:30 02/19/20 10:31 DC 02/19/20 10:46 75 ML Lactobacillus Rhamnosus (Culturelle) 1 cap BID 02/20/20 10:15 02/20/20 20:09 1 CAP Metronidazole 100 ml @ 100 mls/hr 1X ONCE 02/19/20 11:30 02/19/20 12:29 DC 02/19/20 12:06 100 MLS/HR Multivitamins (Thera M Plus) 1 tab DAILY 02/20/20 14:00 02/20/20 15:29 1 TAB Nicotine (Nicoderm Cq 7mg) 1 patch DAILY 02/19/20 15:15 02/22/20 08:05 1 PATCH Nicotine Polacrilex (Nicorette Gum) 1 each PRN Q1HR PRN 02/19/20 15:15 Ondansetron HCl (Zofran) 4 mg 1X ONCE 02/19/20 09:30 02/19/20 09:31 DC 02/19/20 09:49 4 MG Pantoprazole Sodium (PROTONIX VIAL for IV PUSH) 40 mg DAILYAC 02/21/20 12:30 02/21/20 13:32 40 MG Piperacillin Sod/ Tazobactam Sod 3.375 gm/Sodium Chloride 50 ml @ 100 mls/hr Q6HRS 02/20/20 18:00 02/22/20 05:30 100 MLS/HR Polyethylene Glycol (miraLAX PACKET) 17 gm DAILY 02/20/20 14:00 Potassium Chloride/Water 100 ml @ 100 mls/hr Q1H 02/21/20 10:00 02/21/20 10:59 DC 02/21/20 11:34 100 MLS/HR Sodium Chloride 38.5 meq/Sterile Water 1,009.625 ml @ 75 mls/hr [id number] 02/21/20 08:30 02/21/20 15:21 DC 02/21/20 08:54 75 MLS/HR Labs: Lab Laboratory Tests Test 02/21/20 12:15 02/21/20 18:25 02/22/20 07:30 Stool Campylobacter PCR Negative (NEGATIVE) Stool E. coli Shiga Toxins (PCR) Negative (NEGATIVE) Stool Salmonella PCR Negative (NEGATIVE) Stool Shigella PCR Negative (NEGATIVE) Sodium Level 147 mmol/L (136-145) 149 mmol/L (136-145) Potassium Level 3.5 mmol/L (3.5-5.1) 3.5 mmol/L (3.5-5.1) Chloride Level 106 mmol/L (98-107) 108 mmol/L (98-107) Carbon Dioxide Level 30 mmol/L (21-32) 35 mmol/L (21-32) Anion Gap 11 (6-14) 6 (6-14) Blood Urea Nitrogen 6 mg/dL (7-20) 9 mg/dL (7-20) Creatinine 1.1 mg/dL (0.6-1.0) 1.0 mg/dL (0.6-1.0) Estimated GFR (Cockcroft-Gault) 48.0 53.6 Glucose Level 76 mg/dL (70-99) 100 mg/dL (70-99) Calcium Level 9.2 mg/dL (8.5-10.1) 9.3 mg/dL (8.5-10.1) White Blood Count 9.7 x10^3/uL (4.0-11.0) Red Blood Count 3.90 x10^6/uL (3.50-5.40) Hemoglobin 10.6 g/dL (12.0-15.5) Hematocrit 33.8 % (36.0-47.0) Mean Corpuscular Volume 87 fL (79-100) Mean Corpuscular Hemoglobin 27 pg (25-35) Mean Corpuscular Hemoglobin Concent 31 g/dL (31-37) Red Cell Distribution Width 15.8 % (11.5-14.5) Platelet Count 275 x10^3/uL (140-400) Neutrophils (%) (Auto) 85 % (31-73) Lymphocytes (%) (Auto) 8 % (24-48) Monocytes (%) (Auto) 7 % (0-9) Eosinophils (%) (Auto) 0 % (0-3) Basophils (%) (Auto) 0 % (0-3) Neutrophils # (Auto) 8.2 x10^3/uL (1.8-7.7) Lymphocytes # (Auto) 0.8 x10^3/uL (1.0-4.8) Monocytes # (Auto) 0.6 x10^3/uL (0.0-1.1) Eosinophils # (Auto) 0.0 x10^3/uL (0.0-0.7) Basophils # (Auto) 0.0 x10^3/uL (0.0-0.2) BUN/Creatinine Ratio 9 (6-20) Phosphorus Level 4.9 mg/dL (2.6-4.7) Magnesium Level 2.1 mg/dL (1.8-2.4) Total Bilirubin 0.3 mg/dL (0.2-1.0) Aspartate Amino Transf (AST/SGOT) 15 U/L (15-37) Alanine Aminotransferase (ALT/SGPT) 15 U/L (14-59) Alkaline Phosphatase 89 U/L (46-116) Total Protein 6.9 g/dL (6.4-8.2) Albumin 2.3 g/dL (3.4-5.0) Albumin/Globulin Ratio 0.5 (1.0-1.7) Objective: Assessment: 1. Diverticulitis with diverticular abscess. GI panel negative 2. Leukocytosis. 3. Obesity. 4. Chronic obstructive pulmonary disease. 5. Coronary artery disease. 6. Anxiety disorder. Plan: Plan of Care Continue Zosyn, supportive care. General surgery following send stool for cults, c diff pcr Per IR intra-abdominal fluid collection is not amendable to percutaneous drainage due to overlying structures Follow-up labs and cultures d/w ALISSA Cochran MD Feb 22, 2020 09:19
--- NOTE | 2020-02-22 09:41 | PDOC ---
Subjective: Subjective: Getting up to use restroom - nurse says diarrhea ongoing. Maybe a little less pain. Objective: Vital Signs: Vital Signs Date Time Temp Pulse Resp B/P (MAP) Pulse Ox O2 Delivery O2 Flow Rate FiO2 02/22/20 08:00 95 Nasal Cannula 4.0 02/22/20 07:00 98.6 79 16 116/40 (65) 98.6 Labs: Laboratory Tests Test 02/21/20 12:15 02/21/20 18:25 02/22/20 07:30 Stool Campylobacter PCR Negative Stool E. coli Shiga Toxins (PCR) Negative Stool Salmonella PCR Negative Stool Shigella PCR Negative Sodium Level 147 mmol/L 149 mmol/L Potassium Level 3.5 mmol/L 3.5 mmol/L Chloride Level 106 mmol/L 108 mmol/L Carbon Dioxide Level 30 mmol/L 35 mmol/L Anion Gap 11 6 Blood Urea Nitrogen 6 mg/dL 9 mg/dL Creatinine 1.1 mg/dL 1.0 mg/dL Estimated GFR (Cockcroft-Gault) 48.0 53.6 Glucose Level 76 mg/dL 100 mg/dL Calcium Level 9.2 mg/dL 9.3 mg/dL White Blood Count 9.7 x10^3/uL Red Blood Count 3.90 x10^6/uL Hemoglobin 10.6 g/dL Hematocrit 33.8 % Mean Corpuscular Volume 87 fL Mean Corpuscular Hemoglobin 27 pg Mean Corpuscular Hemoglobin Concent 31 g/dL Red Cell Distribution Width 15.8 % Platelet Count 275 x10^3/uL Neutrophils (%) (Auto) 85 % Lymphocytes (%) (Auto) 8 % Monocytes (%) (Auto) 7 % Eosinophils (%) (Auto) 0 % Basophils (%) (Auto) 0 % Neutrophils # (Auto) 8.2 x10^3/uL Lymphocytes # (Auto) 0.8 x10^3/uL Monocytes # (Auto) 0.6 x10^3/uL Eosinophils # (Auto) 0.0 x10^3/uL Basophils # (Auto) 0.0 x10^3/uL BUN/Creatinine Ratio 9 Phosphorus Level 4.9 mg/dL Magnesium Level 2.1 mg/dL Total Bilirubin 0.3 mg/dL Aspartate Amino Transf (AST/SGOT) 15 U/L Alanine Aminotransferase (ALT/SGPT) 15 U/L Alkaline Phosphatase 89 U/L Total Protein 6.9 g/dL Albumin 2.3 g/dL Albumin/Globulin Ratio 0.5 FECAL WBC,GRAM STAIN Final WBCS MANY PE: GEN: NAD LUNGS: NC 4L HEART: RR ABD: some distention NEURO/PSYCH: A & O 3 A/P: Diverticulitis w/ abscesses - ID and surgery following, IR drain not an option Diarrhea - stool tests as above, C Diff pending -- Continue support. Justicifation of Admission Dx: Justifications for Admission: Justification of Admission Dx: Yes Sepsis: Infection ANASTASIA MAHER Feb 22, 2020 09:41
[2020-02-22] MEDS ORDERED: LIDOCAINE WITH 8.4% SOD BICARB 3 ML DISP.SYRIN. ONE ×2 (10:32→11:50)
[2020-02-22 11:00] VITALS: BP 127/71
[2020-02-22] MEDS ORDERED: LIDOCAINE WITH 8.4% SOD BICARB 3 ML DISP.SYRIN. INJ ONE (11:15)
--- NOTE | 2020-02-22 11:32 | PDOC ---
Renal-Progress Notes Subjective Notes Notes NO NEW COMPLAINTS History of Present Illness Hx of present illness STABLE Vitals Vitals Vital Signs Date Time Temp Pulse Resp B/P (MAP) Pulse Ox O2 Delivery O2 Flow Rate FiO2 02/22/20 08:00 95 Nasal Cannula 4.0 02/22/20 07:00 98.6 79 16 116/40 (65) 98.6 Weight Weight [ ] I.O. Intake and Output Intake and Output 02/22/20 07:00 Intake Total 1270 ml Output Total 700 ml Balance 570 ml Intake Oral 120 ml IV Total 1150 ml Output Urine Total 200 ml Urine/Stool Mix 500 ml # Voids 4 # Bowel Movements 8 Labs Labs Laboratory Tests Test 02/21/20 12:15 02/21/20 18:25 02/22/20 07:30 Stool Campylobacter PCR Negative (NEGATIVE) Stool E. coli Shiga Toxins (PCR) Negative (NEGATIVE) Stool Salmonella PCR Negative (NEGATIVE) Stool Shigella PCR Negative (NEGATIVE) Sodium Level 147 mmol/L (136-145) 149 mmol/L (136-145) Potassium Level 3.5 mmol/L (3.5-5.1) 3.5 mmol/L (3.5-5.1) Chloride Level 106 mmol/L (98-107) 108 mmol/L (98-107) Carbon Dioxide Level 30 mmol/L (21-32) 35 mmol/L (21-32) Anion Gap 11 (6-14) 6 (6-14) Blood Urea Nitrogen 6 mg/dL (7-20) 9 mg/dL (7-20) Creatinine 1.1 mg/dL (0.6-1.0) 1.0 mg/dL (0.6-1.0) Estimated GFR (Cockcroft-Gault) 48.0 53.6 Glucose Level 76 mg/dL (70-99) 100 mg/dL (70-99) Calcium Level 9.2 mg/dL (8.5-10.1) 9.3 mg/dL (8.5-10.1) White Blood Count 9.7 x10^3/uL (4.0-11.0) Red Blood Count 3.90 x10^6/uL (3.50-5.40) Hemoglobin 10.6 g/dL (12.0-15.5) Hematocrit 33.8 % (36.0-47.0) Mean Corpuscular Volume 87 fL (79-100) Mean Corpuscular Hemoglobin 27 pg (25-35) Mean Corpuscular Hemoglobin Concent 31 g/dL (31-37) Red Cell Distribution Width 15.8 % (11.5-14.5) Platelet Count 275 x10^3/uL (140-400) Neutrophils (%) (Auto) 85 % (31-73) Lymphocytes (%) (Auto) 8 % (24-48) Monocytes (%) (Auto) 7 % (0-9) Eosinophils (%) (Auto) 0 % (0-3) Basophils (%) (Auto) 0 % (0-3) Neutrophils # (Auto) 8.2 x10^3/uL (1.8-7.7) Lymphocytes # (Auto) 0.8 x10^3/uL (1.0-4.8) Monocytes # (Auto) 0.6 x10^3/uL (0.0-1.1) Eosinophils # (Auto) 0.0 x10^3/uL (0.0-0.7) Basophils # (Auto) 0.0 x10^3/uL (0.0-0.2) BUN/Creatinine Ratio 9 (6-20) Phosphorus Level 4.9 mg/dL (2.6-4.7) Magnesium Level 2.1 mg/dL (1.8-2.4) Total Bilirubin 0.3 mg/dL (0.2-1.0) Aspartate Amino Transf (AST/SGOT) 15 U/L (15-37) Alanine Aminotransferase (ALT/SGPT) 15 U/L (14-59) Alkaline Phosphatase 89 U/L (46-116) Total Protein 6.9 g/dL (6.4-8.2) Albumin 2.3 g/dL (3.4-5.0) Albumin/Globulin Ratio 0.5 (1.0-1.7) Micro Micro Microbiology 02/21/20 Fecal Leukocyte Stain - Final, Complete 02/19/20 Urine Culture - Final, Complete 02/19/20 Blood Culture - Preliminary, Resulted NO GROWTH AFTER 3 DAYS Review of Systems Constitutional: yes: weakness, alert, oriented Ears/Nose/Throat: Yes: no symptom reported Eyes: Yes: no symptom reported Pulmonary: Yes no symptom reported Cardiovascular: Yes no symptom reported Gastrointestional: Yes: nausea Genitourinary: Yes: no symptom reported Musculoskeletal: Yes: muscle stiffness Skin: Yes no symptom reported Psychiatric/Neurological: Yes: no symptom reported Endocrine: Yes: no symptom reported Physical Exam General Appearance: no apparent distress Skin: warm Heart: S1S2 Abdomen: soft Genitourinary: bladder flat Neurology: alert Musculoskeletal: Osteoarthritis Assessment Assessment IMP DEHYDRATION ESTER - IMPROVING LOW K-BETTER HYPERNATREMIA-IMPROVING DIVERTICULAR ABSCESS PLAN HYDRATION REPLACE K PROCALAMINE FOR NOW ANTIBIOTICS WILL FOLLOW HERSON RODRIGUEZ MD Feb 22, 2020 11:32
--- NOTE | 2020-02-22 11:35 | PDOC ---
ALLIE BENITES BRIMMING MACHINE OPERATOR 02/22/20 1135: SURGICAL PROGRESS NOTE Subjective down for PICC c diff pending wbc normal will FU on pt Vital Signs Vital Signs Date Time Temp Pulse Resp B/P (MAP) Pulse Ox O2 Delivery O2 Flow Rate FiO2 02/22/20 08:00 95 Nasal Cannula 4.0 02/22/20 07:00 98.6 79 16 116/40 (65) 98.6 I&O Intake and Output 02/22/20 07:00 Intake Total 1270 ml Output Total 700 ml Balance 570 ml Intake Oral 120 ml IV Total 1150 ml Output Urine Total 200 ml Urine/Stool Mix 500 ml # Voids 4 # Bowel Movements 8 Labs Laboratory Tests Test 02/21/20 05:20 02/21/20 12:15 02/21/20 18:25 02/22/20 07:30 White Blood Count 11.1 x10^3/uL (4.0-11.0) 9.7 x10^3/uL (4.0-11.0) Red Blood Count 3.18 x10^6/uL (3.50-5.40) 3.90 x10^6/uL (3.50-5.40) Hemoglobin 8.7 g/dL (12.0-15.5) 10.6 g/dL (12.0-15.5) Hematocrit 27.3 % (36.0-47.0) 33.8 % (36.0-47.0) Mean Corpuscular Volume 86 fL (79-100) 87 fL (79-100) Mean Corpuscular Hemoglobin 28 pg (25-35) 27 pg (25-35) Mean Corpuscular Hemoglobin Concent 32 g/dL (31-37) 31 g/dL (31-37) Red Cell Distribution Width 15.1 % (11.5-14.5) 15.8 % (11.5-14.5) Platelet Count 209 x10^3/uL (140-400) 275 x10^3/uL (140-400) Neutrophils (%) (Auto) 89 % (31-73) 85 % (31-73) Lymphocytes (%) (Auto) 5 % (24-48) 8 % (24-48) Monocytes (%) (Auto) 7 % (0-9) 7 % (0-9) Eosinophils (%) (Auto) 0 % (0-3) 0 % (0-3) Basophils (%) (Auto) 0 % (0-3) 0 % (0-3) Neutrophils # (Auto) 9.9 x10^3/uL (1.8-7.7) 8.2 x10^3/uL (1.8-7.7) Lymphocytes # (Auto) 0.5 x10^3/uL (1.0-4.8) 0.8 x10^3/uL (1.0-4.8) Monocytes # (Auto) 0.7 x10^3/uL (0.0-1.1) 0.6 x10^3/uL (0.0-1.1) Eosinophils # (Auto) 0.0 x10^3/uL (0.0-0.7) 0.0 x10^3/uL (0.0-0.7) Basophils # (Auto) 0.0 x10^3/uL (0.0-0.2) 0.0 x10^3/uL (0.0-0.2) Sodium Level 169 mmol/L (136-145) 147 mmol/L (136-145) 149 mmol/L (136-145) Potassium Level 2.3 mmol/L (3.5-5.1) 3.5 mmol/L (3.5-5.1) 3.5 mmol/L (3.5-5.1) Chloride Level 107 mmol/L (98-107) 106 mmol/L (98-107) 108 mmol/L (98-107) Carbon Dioxide Level 26 mmol/L (21-32) 30 mmol/L (21-32) 35 mmol/L (21-32) Anion Gap 36 (6-14) 11 (6-14) 6 (6-14) Blood Urea Nitrogen 4 mg/dL (7-20) 6 mg/dL (7-20) 9 mg/dL (7-20) Creatinine 1.5 mg/dL (0.6-1.0) 1.1 mg/dL (0.6-1.0) 1.0 mg/dL (0.6-1.0) Estimated GFR (Cockcroft-Gault) 33.6 48.0 53.6 BUN/Creatinine Ratio 3 (6-20) 9 (6-20) Glucose Level 78 mg/dL (70-99) 76 mg/dL (70-99) 100 mg/dL (70-99) Calcium Level 6.3 mg/dL (8.5-10.1) 9.2 mg/dL (8.5-10.1) 9.3 mg/dL (8.5-10.1) Iron Level 13 ug/dL (50-170) Total Iron Binding Capacity 121 ug/dL (250-450) Iron Saturation 11 % (15-34) Total Bilirubin 0.3 mg/dL (0.2-1.0) 0.3 mg/dL (0.2-1.0) Aspartate Amino Transf (AST/SGOT) 15 U/L (15-37) 15 U/L (15-37) Alanine Aminotransferase (ALT/SGPT) 13 U/L (14-59) 15 U/L (14-59) Alkaline Phosphatase 62 U/L (46-116) 89 U/L (46-116) Total Protein 6.4 g/dL (6.4-8.2) 6.9 g/dL (6.4-8.2) Albumin 1.6 g/dL (3.4-5.0) 2.3 g/dL (3.4-5.0) Albumin/Globulin Ratio 0.3 (1.0-1.7) 0.5 (1.0-1.7) Vitamin B12 Level 1599 pg/mL (247-911) Stool Campylobacter PCR Negative (NEGATIVE) Stool E. coli Shiga Toxins (PCR) Negative (NEGATIVE) Stool Salmonella PCR Negative (NEGATIVE) Stool Shigella PCR Negative (NEGATIVE) Phosphorus Level 4.9 mg/dL (2.6-4.7) Magnesium Level 2.1 mg/dL (1.8-2.4) Laboratory Tests Test 02/21/20 12:15 02/21/20 18:25 02/22/20 07:30 Stool Campylobacter PCR Negative (NEGATIVE) Stool E. coli Shiga Toxins (PCR) Negative (NEGATIVE) Stool Salmonella PCR Negative (NEGATIVE) Stool Shigella PCR Negative (NEGATIVE) Sodium Level 147 mmol/L (136-145) 149 mmol/L (136-145) Potassium Level 3.5 mmol/L (3.5-5.1) 3.5 mmol/L (3.5-5.1) Chloride Level 106 mmol/L (98-107) 108 mmol/L (98-107) Carbon Dioxide Level 30 mmol/L (21-32) 35 mmol/L (21-32) Anion Gap 11 (6-14) 6 (6-14) Blood Urea Nitrogen 6 mg/dL (7-20) 9 mg/dL (7-20) Creatinine 1.1 mg/dL (0.6-1.0) 1.0 mg/dL (0.6-1.0) Estimated GFR (Cockcroft-Gault) 48.0 53.6 Glucose Level 76 mg/dL (70-99) 100 mg/dL (70-99) Calcium Level 9.2 mg/dL (8.5-10.1) 9.3 mg/dL (8.5-10.1) White Blood Count 9.7 x10^3/uL (4.0-11.0) Red Blood Count 3.90 x10^6/uL (3.50-5.40) Hemoglobin 10.6 g/dL (12.0-15.5) Hematocrit 33.8 % (36.0-47.0) Mean Corpuscular Volume 87 fL (79-100) Mean Corpuscular Hemoglobin 27 pg (25-35) Mean Corpuscular Hemoglobin Concent 31 g/dL (31-37) Red Cell Distribution Width 15.8 % (11.5-14.5) Platelet Count 275 x10^3/uL (140-400) Neutrophils (%) (Auto) 85 % (31-73) Lymphocytes (%) (Auto) 8 % (24-48) Monocytes (%) (Auto) 7 % (0-9) Eosinophils (%) (Auto) 0 % (0-3) Basophils (%) (Auto) 0 % (0-3) Neutrophils # (Auto) 8.2 x10^3/uL (1.8-7.7) Lymphocytes # (Auto) 0.8 x10^3/uL (1.0-4.8) Monocytes # (Auto) 0.6 x10^3/uL (0.0-1.1) Eosinophils # (Auto) 0.0 x10^3/uL (0.0-0.7) Basophils # (Auto) 0.0 x10^3/uL (0.0-0.2) BUN/Creatinine Ratio 9 (6-20) Phosphorus Level 4.9 mg/dL (2.6-4.7) Magnesium Level 2.1 mg/dL (1.8-2.4) Total Bilirubin 0.3 mg/dL (0.2-1.0) Aspartate Amino Transf (AST/SGOT) 15 U/L (15-37) Alanine Aminotransferase (ALT/SGPT) 15 U/L (14-59) Alkaline Phosphatase 89 U/L (46-116) Total Protein 6.9 g/dL (6.4-8.2) Albumin 2.3 g/dL (3.4-5.0) Albumin/Globulin Ratio 0.5 (1.0-1.7) Problem List Problems Medical Problems: (1) Abdominal aortic aneurysm (AAA) 3.0 cm to 5.0 cm in diameter in female Status: Acute (2) Acute diverticulitis Status: Acute Justicifation of Admission Dx: Justifications for Admission: Justification of Admission Dx: Yes Sepsis: Infection LE GUALLPA MD 02/22/20 1249: SURGICAL PROGRESS NOTE Assessment/Plan Agree with above ALLIE BENITES BRIMMING MACHINE OPERATOR Feb 22, 2020 11:35 LE GUALLPA MD Feb 22, 2020 12:49
--- NOTE | 2020-02-22 11:49 | PDOC ---
Provider Note Provider Note IR NOTE Picc line placed, per request. During procedure patient noted severe RLE pain, which sounds like ischemic rest pain, resolved with hanging RLE over the edge of the bed. This is chronic. She has Hx of fem-pop bypass on the right. Recent CT abd/pel shows 4.[address] from 2013 shows ectasia to 2.9 cm. A brief exam of the foot shows blue discoloration of 2-5 right toes, and relative coolness with respect to contralateral side. I could not palpate a pulse. No acute neuro or motor issues, per patient. Given AAA may be source of emboli, ie blue toe syndrome, and in this female patient with enlarging AAA she may be candidate for repair. The status of her RLE fem pop bypass is unknown. Will order CTA w/runoff for further eval. Recommend vascular surgical consultation. Justicifation of Admission Dx: Justifications for Admission: Justification of Admission Dx: Yes Sepsis: Infection REGINALDO GLOVER MD Feb 22, 2020 11:49
[2020-02-22] MEDS ORDERED: IOHEXOL 350 MG/ML 100 ML VIAL. IV ONE (12:15)
[2020-02-22] MEDS ORDERED: CONTRAST GIVEN. MC PRN (12:30)
--- NOTE | 2020-02-22 13:27 | RAD ---
Exam: Fluoroscopic and ultrasound guided right percutaneous inserted central venous catheter placement 02/22/2020 11:23 AM .Indication: MULTIPLE ABX Technique: Informed oral and written consent were obtained. The right upper extremity was prepped and draped using sterile barrier technique. All elements of maximal sterile barrier technique including the use of a cap, mask, sterile gown, sterile gloves, large sterile sheet, appropriate hand hygiene, and 2% chlorhexidine for cutaneous antisepsis (or acceptable alternative antiseptic per current guidelines) were followed for this procedure.. Real-time ultrasound demonstrated a patent right basilic vein which was prepped and draped in usual sterile fashion. 1% lidocaine used for local anesthesia. Using real-time ultrasound guidance the access needle percutaneously punctured the selected right basilic vein. Reference ultrasound images were saved to the medical record. A guidewire was advanced through the needle to the cavoatrial junction, and a peel-away sheath placed. The catheter was cut to length and inserted through the peel-away sheath such that its tip is at the cavoatrial junction. The wire and sheath were removed, and the catheter secured in place, and a sterile dressing was applied. Catheter was found to flush and aspirate normally. No immediate complications are identified. FLUORO TIME 0.3 minutes DOSE AREA PRODUCT: 1 Gycm2 Impression: Ultrasound and fluoroscopically guided placement of a right upper extremity PICC line.
--- NOTE | 2020-02-22 14:49 | RAD ---
EXAM: CTA abdomen, pelvis and lower extremities with and without contrast. HISTORY: Cold right lower extremity, blue toes, abdominal aortic aneurysm, right femoral-popliteal bypass. TECHNIQUE: CTA of the abdomen, pelvis and lower extremity as well as performed before and after the intravenous administration of iodinated contrast. Three-dimensional reconstructions were also performed. One or more of the following individualized dose reduction techniques were utilized for this examination: 1. Automated exposure control. 2. Adjustment of the mA and/or kV according to patient size. 3. Use of iterative reconstruction technique. COMPARISON: 02/19/2020. FINDINGS: Bone windows reveal no suspicious lesions. 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 There is mild atelectasis or scarring in the bases. There are atherosclerotic calcifications of the coronary arteries. A 2.4 x 2.2 cm nodule in the left adrenal gland is indeterminate by CT criteria but stable chronically. A small right adrenal nodule is less well seen currently in the setting of motion artifact. There is mild to moderate cortical scarring along the right kidney. The left kidney is unremarkable. The liver, gallbladder, spleen and kidneys are unremarkable. A small fluid collection superior to the uterine fundus along the posterior dome of the bladder contains gas and is consistent with an abscess. It measures 2.7 x 2.4 cm and is not clearly changed. There is mild stranding within the surrounding fat. The sigmoid colon there is mild wall thickening and moderate diverticulosis. There is extensive gas within the bladder. The appendix is not inflamed. There is no small bowel obstruction. There are no pathologically enlarged lymph nodes. There are moderate atherosclerotic calcifications at the origins of the celiac axis and superior mesenteric artery with only mild luminal narrowing. The inferior mesenteric artery is patent. There are 2 left renal arteries. There are moderate atherosclerotic calcifications throughout the renal arteries bilaterally with only mild luminal narrowing. An infrarenal abdominal aortic aneurysm measures 4.2 x 4.2 cm. The right common iliac artery is ectatic at 1.7 cm. The left measures 1.4 cm. There is no stenosis bilaterally. Both external iliac arteries are mildly diseased without significant stenosis. The internal iliac systems are moderately diseased without significant stenosis. The common femoral arteries are mildly diseased bilaterally but patent. A right femoral-popliteal bypass graft is patent. The right [place] superficial femoral artery is occluded. The left superficial femoral artery is also occluded. The right popliteal artery is moderately stenotic proximally but patent more distally. The left popliteal artery reconstitutes in its midportion. The anterior tibial arteries are patent bilaterally and supply the dorsalis pedis arteries. The left tibioperoneal trunk occludes just done its origin. The left posterior tibial and peroneal arteries reconstitute and remain patent to the ankle. The right posterior tibial artery occludes proximally and faintly reconstitutes distally. The right peroneal artery occludes in its midportion and reconstitutes more distally. IMPRESSION: 1. Occlusion of both superficial femoral arteries. A right common femoral to popliteal artery graft is patent. The right popliteal artery is moderately stenotic proximally but patent more distally. The left popliteal artery reconstitutes in its midportion. 2. The anterior tibial arteries are the main runoff vessel bilaterally. The posterior tibial and peroneal arteries occlude proximally bilaterally, with distal reconstitution on the left greater than right. 3. 4.2 cm infrarenal abdominal aortic aneurysm. 1.7 cm right common iliac aneurysm. 4. Stable 2.7 cm fluid collection along the dome of the bladder consistent with a small diverticular abscess. 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 5. Chronically stable bilateral adrenal nodules are most likely benign adenomas. Electronically signed by: Susan Burrell MD (02/22/2020 2:46 PM) [id number]
[2020-02-22] MEDS: ENOXAPARIN 40 MG/0.4 ML SYRINGE. SQ SCH (14:53)
--- NOTE | 2020-02-22 14:58 | NUR ---
SS following up with discharge planning. SS reviewed pt chart and discussed with pt RN. Pt currently requiring oxygen. Pt on IV Zosyn and PPN. Pt had PICC placed today. SS will continue to follow for discharge planning.
[2020-02-22 15:00] VITALS: BP 115/41
--- NOTE | 2020-02-22 16:09 | PDOC2 ---
CONSULT Date of Consult Date of Consult DATE: 02/22/20 TIME: 16:01 Reason for Consult Reason for Consult: Right third, fourth, and fifth toe cyanosis History of Present Illness Reason for Visit: Is a 79-year-old female who is well-known to the vascular surgery service who underwent a right femoral to below-knee popliteal artery bypass by Dr. Liang in the past. Patient continues to smoke a half a pack per day despite severe advanced COPD. She was admitted for management of a sigmoid colon microperforation from diverticulitis. She underwent a PICC line placement today. We were called due to concern of discoloration of her toes and pain in her foot. When I discussed this with her, she has no significant pain at rest. She does have claudication symptoms which is chronic however she does not ambulate a significant distance due to her advanced COPD. Patient has a known infrarenal abdominal aortic aneurysm. Past Medical History Cardiovascular: CAD, CHF, HTN, Other Pulmonary: COPD GI: GERD Psych: Anxiety, Depression Musculoskeletal: Osteoarthritis Rheumatologic: Gout Renal/: No pertinent hx Past Surgical History Past Surgical History: Other (Right femoral to below-knee popliteal artery bypass), No pertinent history Family History Family History: Coronary Artery Disease, Diabetes, Heart Disease Social History <1 pack per day ALCOHOL: none Drugs: None Lives: with Family Current Problem List Problem List Problems Medical Problems: (1) Abdominal aortic aneurysm (AAA) 3.0 cm to 5.0 cm in diameter in female Status: Acute (2) Acute diverticulitis Status: Acute Current Medications Current Medications Current Medications Fentanyl Citrate (Fentanyl 2ml Vial) 50 mcg 1X ONCE IV Last administered on 02/19/20at 09:50; Start 02/19/20 at 09:30; Stop 02/19/20 at 09:31; Status DC Ondansetron HCl (Zofran) 4 mg 1X ONCE IV Last administered on 02/19/20at 09:49; Start 02/19/20 at 09:30; Stop 02/19/20 at 09:31; Status DC Sodium Chloride 1,000 ml @ 1,000 mls/hr 1X ONCE IV Last administered on 02/19/20at 09:48; Start 02/19/20 at 09:30; Stop 02/19/20 at 10:29; Status DC Iohexol (Omnipaque 300 Mg/ml) 75 ml 1X ONCE IV Last administered on 02/19/20at 10:46; Start 02/19/20 at 10:30; Stop 02/19/20 at 10:31; Status DC Info (CONTRAST GIVEN -- Rx MONITORING) 1 each PRN DAILY PRN MC SEE COMMENTS; Start 02/19/20 at 10:30; Stop 02/21/20 at 10:29; Status DC Ceftriaxone Sodium (Rocephin) 1 gm 1X ONCE IVP Last administered on 02/19/20at 11:14; Start 02/19/20 at 11:15; Stop 02/19/20 at 11:16; Status DC Ceftriaxone Sodium (Rocephin) 1 gm 1X ONCE IVP Last administered on 02/19/20at 12:01; Start 02/19/20 at 11:30; Stop 02/19/20 at 11:31; Status DC Metronidazole 100 ml @ 100 mls/hr Q8HRS IV Last administered on 02/20/20at 06:00; Start 02/19/20 at 22:00; Stop 02/20/20 at 12:24; Status DC Metronidazole 100 ml @ 100 mls/hr 1X ONCE IV Last administered on 02/19/20at 12:06; Start 02/19/20 at 11:30; Stop 02/19/20 at 12:29; Status DC Ceftriaxone Sodium (Rocephin) 1 gm Q24H IVP Last administered on 02/20/20at 11:52; Start 02/20/20 at 12:00; Stop 02/20/20 at 12:24; Status DC Enoxaparin Sodium (Lovenox 40mg Syringe) 40 mg Q24H SQ Last administered on 02/22/20at 14:53; Start 02/19/20 at 12:00 Sodium Chloride 1,000 ml @ 100 mls/hr 1X ONCE IV Last administered on 02/19/20at 11:45; Start 02/19/20 at 11:45; Stop 02/19/20 at 21:44; Status DC Clonazepam (KlonoPIN) 0.5 mg DAILY PO Last administered on 02/20/20at 08:33; Start 02/19/20 at 12:00 Fentanyl Citrate (Fentanyl 2ml Vial) 50 mcg PRN Q2HR PRN IVP PAIN Last administered on 02/22/20at 13:51; Start 02/19/20 at 14:00 Nicotine Polacrilex (Nicorette Gum) 1 each PRN Q1HR PRN BC SMOKING CESSATION; Start 02/19/20 at 15:15 Nicotine (Nicoderm Cq 7mg) 1 patch DAILY TD Last administered on 02/22/20at 08:05; Start 02/19/20 at 15:15 Lactobacillus Rhamnosus (Culturelle) 1 cap BID PO Last administered on 02/20/20at 20:09; Start 02/20/20 at 10:15 Piperacillin Sod/ Tazobactam Sod 3.375 gm/Sodium Chloride 50 ml @ 100 mls/hr Q6HRS IV Last administered on 02/22/20 13:56; Start 02/20/20 at 18:00 Aspirin (Aspirin Chewable) 81 mg DAILY PO Last administered on 02/20/20at 15:29; Start 02/20/20 at 14:00 Budesonide (Pulmicort) 0.5 mg BID NEB Last administered on 02/22/20at 07:59; Start 02/20/20 at 21:00 Polyethylene Glycol (miraLAX PACKET) 17 gm DAILY PO ; Start 02/20/20 at 14:00 Multivitamins (Thera M Plus) 1 tab DAILY PO Last administered on 02/20/20at 15:29; Start 02/20/20 at 14:00 Fish Oil (Fish Oil) 1,000 mg DAILY PO Last administered on 02/20/20at 15:29; Start 02/20/20 at 14:00 Albuterol Sulfate (Ventolin Neb Soln) 2.5 mg PRN Q4HRS PRN NEB SHORTNESS OF BREATH; Start 02/20/20 at 13:00 Potassium Chloride/Water 100 ml @ 50 mls/hr 1X ONCE IV Last administered on 02/21/20at 08:05; Start 02/21/20 at 08:00; Stop 02/21/20 at 09:59; Status DC Potassium Chloride/Water 100 ml @ 100 mls/hr Q1H IV Last administered on 02/21/20at 11:34; Start 02/21/20 at 10:00; Stop 02/21/20 at 10:59; Status DC Sodium Chloride 38.5 meq/Sterile Water 1,009.625 ml @ 75 mls/hr [id number] IV Last administered on 02/21/20at 08:54; Start 02/21/20 at 08:30; Stop 02/21/20 at 15:21; Status DC Pantoprazole Sodium (PROTONIX VIAL for IV PUSH) 40 mg DAILYAC IVP Last administered on 02/21/20at 13:32; Start 02/21/20 at 12:30 Hydromorphone HCl (Dilaudid) 0.75 mg PRN Q4HRS PRN IVP PAIN Last administered on 02/22/20at 04:35; Start 02/21/20 at 13:30 Amino Acids/ Glycerin/ Electrolytes 1,000 ml @ 80 mls/hr [id number] IV Last administered on 02/22/20at 13:30; Start 02/21/20 at 16:00 Lidocaine HCl (Buffered Lidocaine 1%) 3 ml STK-MED ONCE .ROUTE ; Start 02/22/20 at 10:32; Stop 02/22/20 at 10:32; Status DC Lidocaine HCl (Buffered Lidocaine 1%) 3 ml 1X ONCE INJ Last administered on 02/22/20at 11:17; Start 02/22/20 at 11:15; Stop 02/22/20 at 11:16; Status DC Lidocaine HCl (Buffered Lidocaine 1%) 3 ml STK-MED ONCE .ROUTE ; Start 02/22/20 at 11:50; Stop 02/22/20 at 11:51; Status DC Iohexol (Omnipaque 350 Mg/ml) 90 ml 1X ONCE IV Last administered on 02/22/20at 12:15; Start 02/22/20 at 12:15; Stop 02/22/20 at 12:16; Status DC Info (CONTRAST GIVEN -- Rx MONITORING) 1 each PRN DAILY PRN MC SEE COMMENTS; Start 02/22/20 at 12:30; Stop 02/24/20 at 12:29 Active Scripts Active Reported Miralax (Polyethylene Glycol 3350) 17 Gm Powd.pack 1 Packet PO DAILY 2 Days dissolve in water Fish Oil 1,000 mg Softgel ([place]-3/Dha/Epa/Fish Oil) 1,000 Mg Capsule 1,000 Mg PO DAILY Aspirin 81 Mg Tab.chew 1 Tab PO DAILY Daily Value (Multivitamin) 1 Each Tablet 1 Tab PO DAILY 30 Days Perforomist (Formoterol Fumarate) 20 Mcg/2 Ml Vial.neb 20 Mcg IH Pulmicort (Budesonide) 0.5 Mg/2 Ml Ampul.neb 1 Vial NEB BID Clonazepam (Clonazepam) 0.5 Mg Tablet 0.5 Mg PO DAILY Allergies Allergies: Coded Allergies: No Known Drug Allergies (Unverified , 10/12/13) ROS Respiratory: YES: Cough, Shortness of breath, SOB with excertion Gastrointestinal: Yes Abdominal Pain Physical Exam General: Alert, Oriented X3, Cooperative HEENT: PERRLA, EOMI, Mucous membr. moist/pink Lungs: Normal air movement, Other (Coarse upper respiratory breath sounds with diminished lung sounds diffusely) Heart: Normal S1, Normal S2 Abdomen: Soft, Other (Mild left lower quadrant abdominal tenderness, no peritoneal signs) Extremities: Other (Palpable bypass graft pulse in the right lower extremity at the level of the knee, intact dorsalis pedis Doppler signal on the right, monophasic posterior tibial Doppler signal on the left,) Skin: Other (Mild cyanosis of the plantar surface of the right second, third, fourth, and fifth toes without tissue loss) Neuro: Normal speech, Strength at 5/5 X4 ext, Sensation intact, Cranial nerves 3-12 NL Psych/Mental Status: Mental status NL, Mood NL MUSCULOSKELETAL: No muscular tenderness noted, Full range of motion without pain Vitals VITALS Vital Signs Date Time Temp Pulse Resp B/P (MAP) Pulse Ox O2 Delivery O2 Flow Rate FiO2 02/22/20 15:00 97.4 18 115/41 (65) 96 Nasal Cannula 4.0 97.4 02/22/20 14:21 20 Labs Labs Laboratory Tests Test 02/21/20 05:20 02/21/20 12:15 02/21/20 18:25 02/22/20 07:30 White Blood Count 11.1 x10^3/uL (4.0-11.0) 9.7 x10^3/uL (4.0-11.0) Red Blood Count 3.18 x10^6/uL (3.50-5.40) 3.90 x10^6/uL (3.50-5.40) Hemoglobin 8.7 g/dL (12.0-15.5) 10.6 g/dL (12.0-15.5) Hematocrit 27.3 % (36.0-47.0) 33.8 % (36.0-47.0) Mean Corpuscular Volume 86 fL (79-100) 87 fL (79-100) Mean Corpuscular Hemoglobin 28 pg (25-35) 27 pg (25-35) Mean Corpuscular Hemoglobin Concent 32 g/dL (31-37) 31 g/dL (31-37) Red Cell Distribution Width 15.1 % (11.5-14.5) 15.8 % (11.5-14.5) Platelet Count 209 x10^3/uL (140-400) 275 x10^3/uL (140-400) Neutrophils (%) (Auto) 89 % (31-73) 85 % (31-73) Lymphocytes (%) (Auto) 5 % (24-48) 8 % (24-48) Monocytes (%) (Auto) 7 % (0-9) 7 % (0-9) Eosinophils (%) (Auto) 0 % (0-3) 0 % (0-3) Basophils (%) (Auto) 0 % (0-3) 0 % (0-3) Neutrophils # (Auto) 9.9 x10^3/uL (1.8-7.7) 8.2 x10^3/uL (1.8-7.7) Lymphocytes # (Auto) 0.5 x10^3/uL (1.0-4.8) 0.8 x10^3/uL (1.0-4.8) Monocytes # (Auto) 0.7 x10^3/uL (0.0-1.1) 0.6 x10^3/uL (0.0-1.1) Eosinophils # (Auto) 0.0 x10^3/uL (0.0-0.7) 0.0 x10^3/uL (0.0-0.7) Basophils # (Auto) 0.0 x10^3/uL (0.0-0.2) 0.0 x10^3/uL (0.0-0.2) Sodium Level 169 mmol/L (136-145) 147 mmol/L (136-145) 149 mmol/L (136-145) Potassium Level 2.3 mmol/L (3.5-5.1) 3.5 mmol/L (3.5-5.1) 3.5 mmol/L (3.5-5.1) Chloride Level 107 mmol/L (98-107) 106 mmol/L (98-107) 108 mmol/L (98-107) Carbon Dioxide Level 26 mmol/L (21-32) 30 mmol/L (21-32) 35 mmol/L (21-32) Anion Gap 36 (6-14) 11 (6-14) 6 (6-14) Blood Urea Nitrogen 4 mg/dL (7-20) 6 mg/dL (7-20) 9 mg/dL (7-20) Creatinine 1.5 mg/dL (0.6-1.0) 1.1 mg/dL (0.6-1.0) 1.0 mg/dL (0.6-1.0) Estimated GFR (Cockcroft-Gault) 33.6 48.0 53.6 BUN/Creatinine Ratio 3 (6-20) 9 (6-20) Glucose Level 78 mg/dL (70-99) 76 mg/dL (70-99) 100 mg/dL (70-99) Calcium Level 6.3 mg/dL (8.5-10.1) 9.2 mg/dL (8.5-10.1) 9.3 mg/dL (8.5-10.1) Iron Level 13 ug/dL (50-170) Total Iron Binding Capacity 121 ug/dL (250-450) Iron Saturation 11 % (15-34) Total Bilirubin 0.3 mg/dL (0.2-1.0) 0.3 mg/dL (0.2-1.0) Aspartate Amino Transf (AST/SGOT) 15 U/L (15-37) 15 U/L (15-37) Alanine Aminotransferase (ALT/SGPT) 13 U/L (14-59) 15 U/L (14-59) Alkaline Phosphatase 62 U/L (46-116) 89 U/L (46-116) Total Protein 6.4 g/dL (6.4-8.2) 6.9 g/dL (6.4-8.2) Albumin 1.6 g/dL (3.4-5.0) 2.3 g/dL (3.4-5.0) Albumin/Globulin Ratio 0.3 (1.0-1.7) 0.5 (1.0-1.7) Vitamin B12 Level 1599 pg/mL (247-911) Stool Campylobacter PCR Negative (NEGATIVE) Stool E. coli Shiga Toxins (PCR) Negative (NEGATIVE) Stool Salmonella PCR Negative (NEGATIVE) Stool Shigella PCR Negative (NEGATIVE) Phosphorus Level 4.9 mg/dL (2.6-4.7) Magnesium Level 2.1 mg/dL (1.8-2.4) Laboratory Tests Test 02/21/20 18:25 02/22/20 07:30 Sodium Level 147 mmol/L (136-145) 149 mmol/L (136-145) Potassium Level 3.5 mmol/L (3.5-5.1) 3.5 mmol/L (3.5-5.1) Chloride Level 106 mmol/L (98-107) 108 mmol/L (98-107) Carbon Dioxide Level 30 mmol/L (21-32) 35 mmol/L (21-32) Anion Gap 11 (6-14) 6 (6-14) Blood Urea Nitrogen 6 mg/dL (7-20) 9 mg/dL (7-20) Creatinine 1.1 mg/dL (0.6-1.0) 1.0 mg/dL (0.6-1.0) Estimated GFR (Cockcroft-Gault) 48.0 53.6 Glucose Level 76 mg/dL (70-99) 100 mg/dL (70-99) Calcium Level 9.2 mg/dL (8.5-10.1) 9.3 mg/dL (8.5-10.1) White Blood Count 9.7 x10^3/uL (4.0-11.0) Red Blood Count 3.90 x10^6/uL (3.50-5.40) Hemoglobin 10.6 g/dL (12.0-15.5) Hematocrit 33.8 % (36.0-47.0) Mean Corpuscular Volume 87 fL (79-100) Mean Corpuscular Hemoglobin 27 pg (25-35) Mean Corpuscular Hemoglobin Concent 31 g/dL (31-37) Red Cell Distribution Width 15.8 % (11.5-14.5) Platelet Count 275 x10^3/uL (140-400) Neutrophils (%) (Auto) 85 % (31-73) Lymphocytes (%) (Auto) 8 % (24-48) Monocytes (%) (Auto) 7 % (0-9) Eosinophils (%) (Auto) 0 % (0-3) Basophils (%) (Auto) 0 % (0-3) Neutrophils # (Auto) 8.2 x10^3/uL (1.8-7.7) Lymphocytes # (Auto) 0.8 x10^3/uL (1.0-4.8) Monocytes # (Auto) 0.6 x10^3/uL (0.0-1.1) Eosinophils # (Auto) 0.0 x10^3/uL (0.0-0.7) Basophils # (Auto) 0.0 x10^3/uL (0.0-0.2) BUN/Creatinine Ratio 9 (6-20) Phosphorus Level 4.9 mg/dL (2.6-4.7) Magnesium Level 2.1 mg/dL (1.8-2.4) Total Bilirubin 0.3 mg/dL (0.2-1.0) Aspartate Amino Transf (AST/SGOT) 15 U/L (15-37) Alanine Aminotransferase (ALT/SGPT) 15 U/L (14-59) Alkaline Phosphatase 89 U/L (46-116) Total Protein 6.9 g/dL (6.4-8.2) Albumin 2.3 g/dL (3.4-5.0) Albumin/Globulin Ratio 0.5 (1.0-1.7) Assessment/Plan Assessment/Plan Advanced peripheral arterial disease--patient's right lower extremity bypass graft is patent. She does have a high-grade stenosis at the distal anastomosis based on the CT angiogram that I reviewed today. I discussed the case with Dr. vega who also reviewed the images. I recommended an angiogram and consideration of balloon angioplasty of the distal anastomosis to maintain bypass graft patency. She is chronically collateralized on the left and having no symptoms of rest pain in either lower extremity. The patient is agreeable to this plan. She will be n.p.o. after midnight tonight for the procedure tomorrow. 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 She clearly is very unrealistic in regards to her health and abe ecially smoking cessation. She understands that if she continues to smoke, she is at markedly high risk of limb loss, heart attack, stroke, aneurysm rupture and expansion and . Asymptomatic infrarenal abdominal aortic aneurysm--patient's aneurysm measures 4.2 cm and is stable. There is no active treatment indicated for her aneurysm at this time. It is not related to the patient's abdominal pain. Van Hernandez DO, FACS, RPVI VAN HERNANDEZ DO Feb 22, 2020 16:09
[2020-02-22 19:00] VITALS: BP 138/72
[2020-02-22 23:00] VITALS: BP 135/64
[2020-02-23] MEDS: fentaNYL PF VIAL 100 MCG/2 ML VIAL IVP PRN ×2 (00:17→17:06)
[2020-02-23] MEDS: AMINO AC 3%/ELECTROLYTE/GLYCER 1,000 ML IV SCH ×2 (02:23→16:40)
[2020-02-23 02:34] VITALS: BP 139/88
[2020-02-23 04:48] LABS: CALCIUM 9.6 mg/dL (8.5-10.1); GFR 53.6; MAGNESIUM 2.1 mg/dL (1.8-2.4); POTASSIUM 3.2 mmol/L (3.5-5.1)
[2020-02-23] MEDS: PIPERACILLIN/TAZOBACTAM 3.375 GM in IV NORMAL SALINE 50ML 50 ML IV SCH ×4 (05:08→23:13)
[2020-02-23 07:00] VITALS: BP 142/49
[2020-02-23] MEDS: BUDESONIDE 0.5 MG/2 ML NEBU. NEB SCH ×2 (07:48→20:04)
[2020-02-23] MEDS: LACTOBACILLUS RHAMNOSUS GG 1 CAPSULE. PO SCH ×2 (09:00→21:00)
[2020-02-23] MEDS: POLYETHYLENE GLYCOL 3350 17 GM PACKET. PO SCH (09:00)
[2020-02-23] MEDS: clonazePAM 0.5 MG TABLET PO SCH (09:00)
[2020-02-23] MEDS: OMEGA-3 FATTY ACIDS/FISH OIL 1,000 MG CAPSULE. PO SCH (09:00)
[2020-02-23] MEDS: ASPIRIN CHEWABLE 81 MG TABLET. PO SCH (09:00)
[2020-02-23] MEDS: MULTIVITAMIN with MINERAL TABLET. PO SCH (09:00)
--- NOTE | 2020-02-23 09:12 | PDOC ---
PROGRESS NOTES Chief Complaint Chief Complaint Impression: 1. Diverticulitis of the mid to distal sigmoid colon peridiverticular abscess measuring 3.4 x 3.1 cm. No definite fistula to the bladder, uterus or vagina is noted. There is gas identified within the vagina which is nonspecific. Close follow-up is recommended. peridiverticular abscess measuring 3.4 x 3.1 cm 2. Bilateral adrenal masses, indeterminate. Left adrenal mass measures 2.3 x 2.0 cm. Findings favor benign etiology given stability since 10/12/2013. 3. Infrarenal abdominal aortic aneurysm measuring 4.5 x 4.4 cm. Dense calcified and noncalcified atheromatous plaque is identified. Infrarenal abdominal aorta previously measured 2.8 x 2.6 cm on 10/12/2013 pvd Sepsis due to sigmoid diverticulitis resolved peridiverticular abscess measuring 3.4 x 3.1 cm Abdominal pain secondary to acute sigmoid diverticulitis COPD Tobacco abuse Acute electrolyte derangements Severe protein-caloric malnutrition SEVERE HYPERNATREMIA, HYPOKALEMIA, 02/20 Right third, fourth, and fifth toe cyanosis Advanced peripheral arterial disease--patient's right lower extremity bypass graft is patent. She does have a high-grade stenosis at the distal anastomosis based on the CT angiogram plan Angiogram with stent placement today NPO Serial abdominal exams Continue IV fluids adn prolcalamine surgical consult greatly appreciated Lovenox for DVT prophylaxis Full code Discussed with RN id consult GI FOLLOWING Continue Zosyn, General surgery following send stool for cults, c diff pcr NEPHROLOGY CONSULT HYPOTONIC SALINE IV K IR for drainage neither collection is amendable to percutaneous drainage due to overlying structures. No IR intervention is recommended at current. TIME picc ct angiography of lower ext D/W DR GLOVER BY PHONE 02/21 History of Present Illness History of Present Illness Patient wanting water at the present time. Patient is going to go for an angiogram later in the day currently n.p.o. No acute events reported overnight, case discussed with nursing staff patient in no acute distress no complaints during my visit Vitals Vitals Vital Signs Date Time Temp Pulse Resp B/P (MAP) Pulse Ox O2 Delivery O2 Flow Rate FiO2 02/23/20 07:49 96 Nasal Cannula 4.0 02/23/20 02:34 98.1 77 20 139/88 (105) 98.1 Physical Exam Physical Exam General alert oriented x3 no acute distress HEENT: Both pupils are round and reacting. No conjunctival lesion, no lesion in the mouth. NECK: Supple, no JVP, no lymphadenopathy. LUNGS: Clear. HEART: S1, S2 regular. ABDOMEN: Soft bowel sounds present mildly distended mild tenderness present on deep palpation EXTREMITIES: No edema, cyanosis. SKIN: Unremarkable. NEUROLOGIC: No focal neurologic deficit. General: Alert, Oriented X3, Cooperative Heart: Normal S1, Normal S2 Lungs: Clear, Other Abdomen: Soft, Other (Mild left lower quadrant abdominal tenderness, no peritoneal signs) Extremities: Other (Palpable bypass graft pulse in the right lower extremity at the level of the knee, intact dorsalis pedis Doppler signal on the right, monophasic posterior tibial Doppler signal on the left,) Skin: Other (Mild cyanosis of the plantar surface of the right second, third, fourth, and fifth toes without tissue loss) Labs LABS Laboratory Tests Test 02/23/20 04:25 Sodium Level 155 mmol/L (136-145) Potassium Level 3.2 mmol/L (3.5-5.1) Chloride Level 113 mmol/L (98-107) Carbon Dioxide Level 35 mmol/L (21-32) Anion Gap 7 (6-14) Blood Urea Nitrogen 10 mg/dL (7-20) Creatinine 1.0 mg/dL (0.6-1.0) Estimated GFR (Cockcroft-Gault) 53.6 Glucose Level 115 mg/dL (70-99) Calcium Level 9.6 mg/dL (8.5-10.1) Magnesium Level 2.1 mg/dL (1.8-2.4) Assessment and Plan Assessmemt and Plan Problems Medical Problems: (1) Abdominal aortic aneurysm (AAA) 3.0 cm to 5.0 cm in diameter in female Status: Acute (2) Acute diverticulitis Status: Acute Comment Review of Relevant I have reviewed the following items mayra (where applicable) has been applied. Labs Laboratory Tests Test 02/21/20 12:15 02/21/20 18:25 02/22/20 07:30 02/23/20 04:25 Stool Campylobacter PCR Negative (NEGATIVE) Stool E. coli Shiga Toxins (PCR) Negative (NEGATIVE) Stool Salmonella PCR Negative (NEGATIVE) Stool Shigella PCR Negative (NEGATIVE) Sodium Level 147 mmol/L (136-145) 149 mmol/L (136-145) 155 mmol/L (136-145) Potassium Level 3.5 mmol/L (3.5-5.1) 3.5 mmol/L (3.5-5.1) 3.2 mmol/L (3.5-5.1) Chloride Level 106 mmol/L (98-107) 108 mmol/L (98-107) 113 mmol/L (98-107) Carbon Dioxide Level 30 mmol/L (21-32) 35 mmol/L (21-32) 35 mmol/L (21-32) Anion Gap 11 (6-14) 6 (6-14) 7 (6-14) Blood Urea Nitrogen 6 mg/dL (7-20) 9 mg/dL (7-20) 10 mg/dL (7-20) Creatinine 1.1 mg/dL (0.6-1.0) 1.0 mg/dL (0.6-1.0) 1.0 mg/dL (0.6-1.0) Estimated GFR (Cockcroft-Gault) 48.0 53.6 53.6 Glucose Level 76 mg/dL (70-99) 100 mg/dL (70-99) 115 mg/dL (70-99) Calcium Level 9.2 mg/dL (8.5-10.1) 9.3 mg/dL (8.5-10.1) 9.6 mg/dL (8.5-10.1) White Blood Count 9.7 x10^3/uL (4.0-11.0) Red Blood Count 3.90 x10^6/uL (3.50-5.40) Hemoglobin 10.6 g/dL (12.0-15.5) Hematocrit 33.8 % (36.0-47.0) Mean Corpuscular Volume 87 fL (79-100) Mean Corpuscular Hemoglobin 27 pg (25-35) Mean Corpuscular Hemoglobin Concent 31 g/dL (31-37) Red Cell Distribution Width 15.8 % (11.5-14.5) Platelet Count 275 x10^3/uL (140-400) Neutrophils (%) (Auto) 85 % (31-73) Lymphocytes (%) (Auto) 8 % (24-48) Monocytes (%) (Auto) 7 % (0-9) Eosinophils (%) (Auto) 0 % (0-3) Basophils (%) (Auto) 0 % (0-3) Neutrophils # (Auto) 8.2 x10^3/uL (1.8-7.7) Lymphocytes # (Auto) 0.8 x10^3/uL (1.0-4.8) Monocytes # (Auto) 0.6 x10^3/uL (0.0-1.1) Eosinophils # (Auto) 0.0 x10^3/uL (0.0-0.7) Basophils # (Auto) 0.0 x10^3/uL (0.0-0.2) BUN/Creatinine Ratio 9 (6-20) Phosphorus Level 4.9 mg/dL (2.6-4.7) Magnesium Level 2.1 mg/dL (1.8-2.4) 2.1 mg/dL (1.8-2.4) Total Bilirubin 0.3 mg/dL (0.2-1.0) Aspartate Amino Transf (AST/SGOT) 15 U/L (15-37) Alanine Aminotransferase (ALT/SGPT) 15 U/L (14-59) Alkaline Phosphatase 89 U/L (46-116) Total Protein 6.9 g/dL (6.4-8.2) Albumin 2.3 g/dL (3.4-5.0) Albumin/Globulin Ratio 0.5 (1.0-1.7) Laboratory Tests Test 02/23/20 04:25 Sodium Level 155 mmol/L (136-145) Potassium Level 3.2 mmol/L (3.5-5.1) Chloride Level 113 mmol/L (98-107) Carbon Dioxide Level 35 mmol/L (21-32) Anion Gap 7 (6-14) Blood Urea Nitrogen 10 mg/dL (7-20) Creatinine 1.0 mg/dL (0.6-1.0) Estimated GFR (Cockcroft-Gault) 53.6 Glucose Level 115 mg/dL (70-99) Calcium Level 9.6 mg/dL (8.5-10.1) Magnesium Level 2.1 mg/dL (1.8-2.4) Microbiology 02/21/20 Fecal Leukocyte Stain - Final, Complete 02/19/20 Urine Culture - Final, Complete 02/19/20 Blood Culture - Preliminary, Resulted NO GROWTH AFTER 3 DAYS Medications Current Medications Fentanyl Citrate (Fentanyl 2ml Vial) 50 mcg 1X ONCE IV Last administered on 02/19/20at 09:50; Start 02/19/20 at 09:30; Stop 02/19/20 at 09:31; Status DC Ondansetron HCl (Zofran) 4 mg 1X ONCE IV Last administered on 02/19/20at 09:49; Start 02/19/20 at 09:30; Stop 02/19/20 at 09:31; Status DC Sodium Chloride 1,000 ml @ 1,000 mls/hr 1X ONCE IV Last administered on 02/19/20at 09:48; Start 02/19/20 at 09:30; Stop 02/19/20 at 10:29; Status DC Iohexol (Omnipaque 300 Mg/ml) 75 ml 1X ONCE IV Last administered on 02/19/20at 10:46; Start 02/19/20 at 10:30; Stop 02/19/20 at 10:31; Status DC Info (CONTRAST GIVEN -- Rx MONITORING) 1 each PRN DAILY PRN MC SEE COMMENTS; Start 02/19/20 at 10:30; Stop 02/21/20 at 10:29; Status DC Ceftriaxone Sodium (Rocephin) 1 gm 1X ONCE IVP Last administered on 02/19/20at 11:14; Start 02/19/20 at 11:15; Stop 02/19/20 at 11:16; Status DC Ceftriaxone Sodium (Rocephin) 1 gm 1X ONCE IVP Last administered on 02/19/20at 12:01; Start 02/19/20 at 11:30; Stop 02/19/20 at 11:31; Status DC Metronidazole 100 ml @ 100 mls/hr Q8HRS IV Last administered on 02/20/20at 06:00; Start 02/19/20 at 22:00; Stop 02/20/20 at 12:24; Status DC Metronidazole 100 ml @ 100 mls/hr 1X ONCE IV Last administered on 02/19/20at 12:06; Start 02/19/20 at 11:30; Stop 02/19/20 at 12:29; Status DC Ceftriaxone Sodium (Rocephin) 1 gm Q24H IVP Last administered on 02/20/20at 11:52; Start 02/20/20 at 12:00; Stop 02/20/20 at 12:24; Status DC Enoxaparin Sodium (Lovenox 40mg Syringe) 40 mg Q24H SQ Last administered on 02/22/20at 14:53; Start 02/19/20 at 12:00 Sodium Chloride 1,000 ml @ 100 mls/hr 1X ONCE IV Last administered on 02/19/20at 11:45; Start 02/19/20 at 11:45; Stop 02/19/20 at 21:44; Status DC Clonazepam (KlonoPIN) 0.5 mg DAILY PO Last administered on 02/20/20at 08:33; Start 02/19/20 at 12:00 Fentanyl Citrate (Fentanyl 2ml Vial) 50 mcg PRN Q2HR PRN IVP PAIN, 1ST CHOICE Last administered on 02/23/20at 00:17; Start 02/19/20 at 14:00 Nicotine Polacrilex (Nicorette Gum) 1 each PRN Q1HR PRN BC SMOKING CESSATION; Start 02/19/20 at 15:15 Nicotine (Nicoderm Cq 7mg) 1 patch DAILY TD Last administered on 02/22/20at 08:05; Start 02/19/20 at 15:15 Lactobacillus Rhamnosus (Culturelle) 1 cap BID PO Last administered on 02/20/20at 20:09; Start 02/20/20 at 10:15 Piperacillin Sod/ Tazobactam Sod 3.375 gm/Sodium Chloride 50 ml @ 100 mls/hr Q6HRS IV Last administered on 02/23/20at 05:08; Start 02/20/20 at 18:00 Aspirin (Aspirin Chewable) 81 mg DAILY PO Last administered on 02/20/20at 15:29; Start 02/20/20 at 14:00 Budesonide (Pulmicort) 0.5 mg BID NEB Last administered on 02/23/20at 07:48; Start 02/20/20 at 21:00 Polyethylene Glycol (miraLAX PACKET) 17 gm DAILY PO ; Start 02/20/20 at 14:00 Multivitamins (Thera M Plus) 1 tab DAILY PO Last administered on 02/20/20 15:29; Start 02/20/20 at 14:00 Fish Oil (Fish Oil) 1,000 mg DAILY PO Last administered on 02/20/20at 15:29; Start 02/20/20 at 14:00 Albuterol Sulfate (Ventolin Neb Soln) 2.5 mg PRN Q4HRS PRN NEB SHORTNESS OF BREATH; Start 02/20/20 at 13:00 Potassium Chloride/Water 100 ml @ 50 mls/hr 1X ONCE IV Last administered on 02/21/20at 08:05; Start 02/21/20 at 08:00; Stop 02/21/20 at 09:59; Status DC Potassium Chloride/Water 100 ml @ 100 mls/hr Q1H IV Last administered on 02/21/20 11:34; Start 02/21/20 at 10:00; Stop 02/21/20 at 10:59; Status DC Sodium Chloride 38.5 meq/Sterile Water 1,009.625 ml @ 75 mls/hr [id number] IV Last administered on 02/21/20at 08:54; Start 02/21/20 at 08:30; Stop 02/21/20 at 15:21; Status DC Pantoprazole Sodium (PROTONIX VIAL for IV PUSH) 40 mg DAILYAC IVP Last administered on 02/21/20 13:32; Start 02/21/20 at 12:30 Hydromorphone HCl (Dilaudid) 0.75 mg PRN Q4HRS PRN IVP PAIN, 2ND CHOICE Last administered on 02/22/20at 04:35; Start 02/21/20 at 13:30 Amino Acids/ Glycerin/ Electrolytes 1,000 ml @ 80 mls/hr [id number] IV Last administered on 02/23/20at 02:23; Start 02/21/20 at 16:00 Lidocaine HCl (Buffered Lidocaine 1%) 3 ml STK-MED ONCE .ROUTE ; Start 02/22/20 at 10:32; Stop 02/22/20 at 10:32; Status DC Lidocaine HCl (Buffered Lidocaine 1%) 3 ml 1X ONCE INJ Last administered on 02/22/20at 11:17; Start 02/22/20 at 11:15; Stop 02/22/20 at 11:16; Status DC Lidocaine HCl (Buffered Lidocaine 1%) 3 ml STK-MED ONCE .ROUTE ; Start 02/22/20 at 11:50; Stop 02/22/20 at 11:51; Status DC Iohexol (Omnipaque 350 Mg/ml) 90 ml 1X ONCE IV Last administered on 02/22/20at 12:15; Start 02/22/20 at 12:15; Stop 02/22/20 at 12:16; Status DC Info (CONTRAST GIVEN -- Rx MONITORING) 1 each PRN DAILY PRN MC SEE COMMENTS; Start 02/22/20 at 12:30; Stop 02/24/20 at 12:29 Active Scripts Active Reported Miralax (Polyethylene Glycol 3350) 17 Gm Powd.pack 1 Packet PO DAILY 2 Days dissolve in water Fish Oil 1,000 mg Softgel ([place]-3/Dha/Epa/Fish Oil) 1,000 Mg Capsule 1,000 Mg PO DAILY Aspirin 81 Mg Tab.chew 1 Tab PO DAILY Daily Value (Multivitamin) 1 Each Tablet 1 Tab PO DAILY 30 Days Perforomist (Formoterol Fumarate) 20 Mcg/2 Ml Vial.neb 20 Mcg IH Pulmicort (Budesonide) 0.5 Mg/2 Ml Ampul.neb 1 Vial NEB BID Clonazepam (Clonazepam) 0.5 Mg Tablet 0.5 Mg PO DAILY Vitals/I & O Vital Sign - Last 24 Hours 02/22/20 02/22/20 02/22/20 02/22/20 11:00 13:51 14:21 15:00 Temp 97.4 97.4 97.4 97.4 Pulse 90 18 Resp 18 20 20 B/P (MAP) 127/71 (89) 115/41 (65) Pulse Ox 96 96 96 96 O2 Delivery Nasal Cannula Nasal Cannula Nasal Cannula Nasal Cannula O2 Flow Rate 4.0 4.0 4.0 4.0 02/22/20 02/22/20 02/22/20 02/22/20 19:00 19:25 20:00 21:03 Temp 97.6 97.6 Pulse 101 Resp 20 B/P (MAP) 138/72 (94) Pulse Ox 92 93 93 O2 Delivery Nasal Cannula Nasal Cannula Nasal Cannula Nasal Cannula O2 Flow Rate 4.0 4.0 4.0 4.0 02/22/20 02/22/20 02/23/20 02/23/20 21:33 23:00 00:17 00:47 Temp 97.5 97.5 Pulse 94 Resp 18 18 20 20 B/P (MAP) 135/64 (87) Pulse Ox 93 96 96 96 O2 Delivery Nasal Cannula Nasal Cannula Nasal Cannula Nasal Cannula O2 Flow Rate 4.0 4.0 4.0 4.0 02/23/20 02/23/20 02:34 07:49 Temp 98.1 98.1 Pulse 77 Resp 20 B/P (MAP) 139/88 (105) Pulse Ox 95 96 O2 Delivery Nasal Cannula Nasal Cannula O2 Flow Rate 4.0 4.0 Intake and Output 02/22/20 02/22/20 02/23/20 15:00 23:00 07:00 Intake Total 800 ml 0 ml 1050 ml Output Total 120 ml 600 ml 1100 ml Balance 680 ml -600 ml -50 ml Justicifation of Admission Dx: Justifications for Admission: Justification of Admission Dx: Yes Sepsis: Infection CHAYA RUBIO MD Feb 23, 2020 09:12
[2020-02-23] MEDS: PANTOPRAZOLE IV PUSH 40 MG VIAL. IVP SCH (09:43)
[2020-02-23] MEDS: NICOTINE 7MG PATCH. TD SCH (09:44)
--- NOTE | 2020-02-23 09:56 | PDOC ---
Subjective: Subjective: Thirsty. Seems forgetful, maybe confused. Less abdominal pain. I asked about foot - she doesn't say much. Objective: Objective: Several calls from nurse yesterday - somehow had a tray of clear liquids delivered for lunch, repeatedly asked to eat/drink - Dr. Burns recommends NPO w/ green mouth swabs, previous surgery recs for bowel rest. Reviewed chart and d/w nurse - plans for angiogram today. Vital Signs: Vital Signs Date Time Temp Pulse Resp B/P (MAP) Pulse Ox O2 Delivery O2 Flow Rate FiO2 02/23/20 07:49 96 Nasal Cannula 4.0 02/23/20 02:34 98.1 77 20 139/88 (105) 98.1 Labs: Laboratory Tests Test 02/23/20 04:25 Sodium Level 155 mmol/L Potassium Level 3.2 mmol/L Chloride Level 113 mmol/L Carbon Dioxide Level 35 mmol/L Anion Gap 7 Blood Urea Nitrogen 10 mg/dL Creatinine 1.0 mg/dL Estimated GFR (Cockcroft-Gault) 53.6 Glucose Level 115 mg/dL Calcium Level 9.6 mg/dL Magnesium Level 2.1 mg/dL PE: GEN: NAD in chair w/ mouth swabs LUNGS: diminished 4L NC HEART: RRR ABD: NABS, ?less distended, seems non-tender today EXTREM: mild cyanosis right toes NEURO/PSYCH: A & O 3 A/P: Diverticulitis w/ abscesses Hypernatremia Diarrhea - stool cx neg, C Diff pending PAD, AAA -- Await angiogram. She doesn't seem to grasp rationale behind NPO recs, defer to surgery. Justicifation of Admission Dx: Justifications for Admission: Justification of Admission Dx: Yes Sepsis: Infection ANASTASIA MAHER Feb 23, 2020 09:56
--- NOTE | 2020-02-23 09:58 | PDOC ---
Infectious Disease Note Subjective: Subjective Patient states feels a little better Abdominal pain has improved somewhat no n/v/f Continues to have leg pain Vital Signs: Vital Signs Vital Signs Date Time Temp Pulse Resp B/P (MAP) Pulse Ox O2 Delivery O2 Flow Rate FiO2 02/23/20 07:49 96 Nasal Cannula 4.0 02/23/20 02:34 98.1 77 20 139/88 (105) 98.1 Physical Exam: PHYSICAL EXAM General alert oriented x3 no acute distress HEENT: Both pupils are round and reacting. No conjunctival lesion, no lesion in the mouth. NECK: Supple, no JVP, no lymphadenopathy. LUNGS: Clear. HEART: S1, S2 regular. ABDOMEN: Soft bowel sounds present mildly distended mild tenderness present on deep palpation EXTREMITIES: No edema, cyanosis. Dry skin SKIN: Unremarkable. NEUROLOGIC: No focal neurologic deficit. Medications: Inpatient Meds: Current Medications Medications (Trade) Dose Ordered Sig/Viola Start Time Stop Time Status Last Admin Dose Admin Albuterol Sulfate (Ventolin Neb Soln) 2.5 mg PRN Q4HRS PRN 02/20/20 13:00 Amino Acids/ Glycerin/ Electrolytes 1,000 ml @ 80 mls/hr [id number] 02/21/20 16:00 02/23/20 02:23 80 MLS/HR Aspirin (Aspirin Chewable) 81 mg DAILY 02/20/20 14:00 02/20/20 15:29 81 MG Budesonide (Pulmicort) 0.5 mg BID 02/20/20 21:00 02/23/20 07:48 0.5 MG Ceftriaxone Sodium (Rocephin) 1 gm Q24H 02/20/20 12:00 02/20/20 12:24 DC 02/20/20 11:52 1 GM Clonazepam (KlonoPIN) 0.5 mg DAILY 02/19/20 12:00 02/20/20 08:33 0.5 MG Enoxaparin Sodium (Lovenox 40mg Syringe) 40 mg Q24H 02/19/20 12:00 02/22/20 14:53 40 MG Fentanyl Citrate (Fentanyl 2ml Vial) 50 mcg PRN Q2HR PRN 02/19/20 14:00 02/23/20 00:17 50 MCG Fish Oil (Fish Oil) 1,000 mg DAILY 02/20/20 14:00 02/20/20 15:29 1,000 MG Hydromorphone HCl (Dilaudid) 0.75 mg PRN Q4HRS PRN 02/21/20 13:30 02/22/20 04:35 0.75 MG Info (CONTRAST GIVEN -- Rx MONITORING) 1 each PRN DAILY PRN 02/22/20 12:30 02/24/20 12:29 Iohexol (Omnipaque 300 Mg/ml) 75 ml 1X ONCE 02/19/20 10:30 02/19/20 10:31 DC 02/19/20 10:46 75 ML Iohexol (Omnipaque 350 Mg/ml) 90 ml 1X ONCE 02/22/20 12:15 02/22/20 12:16 DC 02/22/20 12:15 90 ML Lactobacillus Rhamnosus (Culturelle) 1 cap BID 02/20/20 10:15 02/20/20 20:09 1 CAP Lidocaine HCl (Buffered Lidocaine 1%) 3 ml STK-MED ONCE 02/22/20 11:50 02/22/20 11:51 DC Metronidazole 100 ml @ 100 mls/hr 1X ONCE 02/19/20 11:30 02/19/20 12:29 DC 02/19/20 12:06 100 MLS/HR Multivitamins (Thera M Plus) 1 tab DAILY 02/20/20 14:00 02/20/20 15:29 1 TAB Nicotine (Nicoderm Cq 7mg) 1 patch DAILY 02/19/20 15:15 02/23/20 09:44 1 PATCH Nicotine Polacrilex (Nicorette Gum) 1 each PRN Q1HR PRN 02/19/20 15:15 Ondansetron HCl (Zofran) 4 mg 1X ONCE 02/19/20 09:30 02/19/20 09:31 DC 02/19/20 09:49 4 MG Pantoprazole Sodium (PROTONIX VIAL for IV PUSH) 40 mg DAILYAC 02/21/20 12:30 02/23/20 09:43 40 MG Piperacillin Sod/ Tazobactam Sod 3.375 gm/Sodium Chloride 50 ml @ 100 mls/hr Q6HRS 02/20/20 18:00 02/23/20 05:08 100 MLS/HR Polyethylene Glycol (miraLAX PACKET) 17 gm DAILY 02/20/20 14:00 7/22/20 09:56 DC Potassium Chloride/Water 100 ml @ 100 mls/hr Q1H 02/21/20 10:00 02/21/20 10:59 DC 02/21/20 11:34 100 MLS/HR Sodium Chloride 38.5 meq/Sterile Water 1,009.625 ml @ 75 mls/hr [id number] 02/21/20 08:30 02/21/20 15:21 DC 02/21/20 08:54 75 MLS/HR Labs: Lab Laboratory Tests Test 02/23/20 04:25 Sodium Level 155 mmol/L (136-145) Potassium Level 3.2 mmol/L (3.5-5.1) Chloride Level 113 mmol/L (98-107) Carbon Dioxide Level 35 mmol/L (21-32) Anion Gap 7 (6-14) Blood Urea Nitrogen 10 mg/dL (7-20) Creatinine 1.0 mg/dL (0.6-1.0) Estimated GFR (Cockcroft-Gault) 53.6 Glucose Level 115 mg/dL (70-99) Calcium Level 9.6 mg/dL (8.5-10.1) Magnesium Level 2.1 mg/dL (1.8-2.4) Objective: Assessment: 1. Diverticulitis with diverticular abscess.not amenable per IR for drainage GI panel negative 2. Leukocytosis. 3. Obesity. 4. Chronic obstructive pulmonary disease. 5. Coronary artery disease. 6. Severe PAD 7. 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 Plan: Plan of Care Continue Zosyn, supportive care. Vascular and general surgery following Follow-up labs and cultures d/w ALISSA Cochran MD Feb 23, 2020 09:58
[2020-02-23 11:00] VITALS: BP 173/62
--- NOTE | 2020-02-23 11:14 | PDOC ---
Renal-Progress Notes Subjective Notes Notes NO NEW COMPLAINTS History of Present Illness Hx of present illness STABLE Vitals Vitals Vital Signs Date Time Temp Pulse Resp B/P (MAP) Pulse Ox O2 Delivery O2 Flow Rate FiO2 02/23/20 07:49 96 Nasal Cannula 4.0 02/23/20 07:00 97.5 86 18 142/49 (80) 97.5 Weight Weight [ ] I.O. Intake and Output Intake and Output 02/23/20 07:00 Intake Total 1850 ml Output Total 1820 ml Balance 30 ml Intake Oral 750 ml IV Total 1100 ml Output Urine Total 1820 ml # Bowel Movements 2 Labs Labs Laboratory Tests Test 02/23/20 04:25 Sodium Level 155 mmol/L (136-145) Potassium Level 3.2 mmol/L (3.5-5.1) Chloride Level 113 mmol/L (98-107) Carbon Dioxide Level 35 mmol/L (21-32) Anion Gap 7 (6-14) Blood Urea Nitrogen 10 mg/dL (7-20) Creatinine 1.0 mg/dL (0.6-1.0) Estimated GFR (Cockcroft-Gault) 53.6 Glucose Level 115 mg/dL (70-99) Calcium Level 9.6 mg/dL (8.5-10.1) Magnesium Level 2.1 mg/dL (1.8-2.4) Micro Micro Microbiology 02/21/20 Fecal Leukocyte Stain - Final, Complete 02/19/20 Urine Culture - Final, Complete 02/19/20 Blood Culture - Preliminary, Resulted NO GROWTH AFTER 4 DAYS Review of Systems Constitutional: yes: weakness, alert, oriented Ears/Nose/Throat: Yes: no symptom reported Eyes: Yes: no symptom reported Pulmonary: Yes no symptom reported Cardiovascular: Yes no symptom reported Gastrointestional: Yes: nausea Genitourinary: Yes: no symptom reported Musculoskeletal: Yes: muscle stiffness Skin: Yes no symptom reported Psychiatric/Neurological: Yes: no symptom reported Endocrine: Yes: no symptom reported Physical Exam General Appearance: no apparent distress Skin: warm Heart: S1S2 Abdomen: soft Genitourinary: bladder flat Neurology: alert Musculoskeletal: Osteoarthritis Assessment Assessment IMP DEHYDRATION ESTER - IMPROVING LOW K-BETTER HYPERNATREMIA-IMPROVING DIVERTICULAR ABSCESS PLAN HYDRATION REPLACE K PROCALAMINE FOR NOW ANTIBIOTICS WILL FOLLOW HERSON RODRIGUEZ MD Feb 23, 2020 11:14
--- NOTE | 2020-02-23 11:19 | PDOC ---
PROGRESS NOTES Subjective Subjective the pain has improved some Objective Objective Vital Signs Date Time Temp Pulse Resp B/P (MAP) Pulse Ox O2 Delivery O2 Flow Rate FiO2 02/23/20 07:49 96 Nasal Cannula 4.0 02/23/20 07:00 97.5 86 18 142/49 (80) 97.5 Intake and Output 02/23/20 07:00 Intake Total 1850 ml Output Total 1820 ml Balance 30 ml Intake Oral 750 ml IV Total 1100 ml Output Urine Total 1820 ml # Bowel Movements 2 Physical Exam Abdomen: Soft (mildly tender LLQ) Heart: Regular rate General: Alert, Oriented X3 HEENT: Atraumatic Neuro: Normal speech Assessment Assessment Problems Medical Problems: (1) Abdominal aortic aneurysm (AAA) 3.0 cm to 5.0 cm in diameter in female Status: Acute (2) Acute diverticulitis Status: Acute Plan Plan of Care Diverticular abscess, ?vesicular fistula; continue abx/bowel rest; vascular following; no surgical plans at this time Comment Review of Relevant I have reviewed the following items mayra (where applicable) has been applied. Labs Laboratory Tests Test 02/21/20 12:15 02/21/20 18:25 02/22/20 07:30 02/23/20 04:25 Stool Campylobacter PCR Negative (NEGATIVE) Stool E. coli Shiga Toxins (PCR) Negative (NEGATIVE) Stool Salmonella PCR Negative (NEGATIVE) Stool Shigella PCR Negative (NEGATIVE) Sodium Level 147 mmol/L (136-145) 149 mmol/L (136-145) 155 mmol/L (136-145) Potassium Level 3.5 mmol/L (3.5-5.1) 3.5 mmol/L (3.5-5.1) 3.2 mmol/L (3.5-5.1) Chloride Level 106 mmol/L (98-107) 108 mmol/L (98-107) 113 mmol/L (98-107) Carbon Dioxide Level 30 mmol/L (21-32) 35 mmol/L (21-32) 35 mmol/L (21-32) Anion Gap 11 (6-14) 6 (6-14) 7 (6-14) Blood Urea Nitrogen 6 mg/dL (7-20) 9 mg/dL (7-20) 10 mg/dL (7-20) Creatinine 1.1 mg/dL (0.6-1.0) 1.0 mg/dL (0.6-1.0) 1.0 mg/dL (0.6-1.0) Estimated GFR (Cockcroft-Gault) 48.0 53.6 53.6 Glucose Level 76 mg/dL (70-99) 100 mg/dL (70-99) 115 mg/dL (70-99) Calcium Level 9.2 mg/dL (8.5-10.1) 9.3 mg/dL (8.5-10.1) 9.6 mg/dL (8.5-10.1) White Blood Count 9.7 x10^3/uL (4.0-11.0) Red Blood Count 3.90 x10^6/uL (3.50-5.40) Hemoglobin 10.6 g/dL (12.0-15.5) Hematocrit 33.8 % (36.0-47.0) Mean Corpuscular Volume 87 fL (79-100) Mean Corpuscular Hemoglobin 27 pg (25-35) Mean Corpuscular Hemoglobin Concent 31 g/dL (31-37) Red Cell Distribution Width 15.8 % (11.5-14.5) Platelet Count 275 x10^3/uL (140-400) Neutrophils (%) (Auto) 85 % (31-73) Lymphocytes (%) (Auto) 8 % (24-48) Monocytes (%) (Auto) 7 % (0-9) Eosinophils (%) (Auto) 0 % (0-3) Basophils (%) (Auto) 0 % (0-3) Neutrophils # (Auto) 8.2 x10^3/uL (1.8-7.7) Lymphocytes # (Auto) 0.8 x10^3/uL (1.0-4.8) Monocytes # (Auto) 0.6 x10^3/uL (0.0-1.1) Eosinophils # (Auto) 0.0 x10^3/uL (0.0-0.7) Basophils # (Auto) 0.0 x10^3/uL (0.0-0.2) BUN/Creatinine Ratio 9 (6-20) Phosphorus Level 4.9 mg/dL (2.6-4.7) Magnesium Level 2.1 mg/dL (1.8-2.4) 2.1 mg/dL (1.8-2.4) Total Bilirubin 0.3 mg/dL (0.2-1.0) Aspartate Amino Transf (AST/SGOT) 15 U/L (15-37) Alanine Aminotransferase (ALT/SGPT) 15 U/L (14-59) Alkaline Phosphatase 89 U/L (46-116) Total Protein 6.9 g/dL (6.4-8.2) Albumin 2.3 g/dL (3.4-5.0) Albumin/Globulin Ratio 0.5 (1.0-1.7) Laboratory Tests Test 02/23/20 04:25 Sodium Level 155 mmol/L (136-145) Potassium Level 3.2 mmol/L (3.5-5.1) Chloride Level 113 mmol/L (98-107) Carbon Dioxide Level 35 mmol/L (21-32) Anion Gap 7 (6-14) Blood Urea Nitrogen 10 mg/dL (7-20) Creatinine 1.0 mg/dL (0.6-1.0) Estimated GFR (Cockcroft-Gault) 53.6 Glucose Level 115 mg/dL (70-99) Calcium Level 9.6 mg/dL (8.5-10.1) Magnesium Level 2.1 mg/dL (1.8-2.4) Microbiology 02/21/20 Fecal Leukocyte Stain - Final, Complete 02/19/20 Urine Culture - Final, Complete 02/19/20 Blood Culture - Preliminary, Resulted NO GROWTH AFTER 4 DAYS Medications Current Medications Fentanyl Citrate (Fentanyl 2ml Vial) 50 mcg 1X ONCE IV Last administered on 02/19/20at 09:50; Start 02/19/20 at 09:30; Stop 02/19/20 at 09:31; Status DC Ondansetron HCl (Zofran) 4 mg 1X ONCE IV Last administered on 02/19/20at 09:49; Start 02/19/20 at 09:30; Stop 02/19/20 at 09:31; Status DC Sodium Chloride 1,000 ml @ 1,000 mls/hr 1X ONCE IV Last administered on 02/19/20at 09:48; Start 02/19/20 at 09:30; Stop 02/19/20 at 10:29; Status DC Iohexol (Omnipaque 300 Mg/ml) 75 ml 1X ONCE IV Last administered on 02/19/20at 10:46; Start 02/19/20 at 10:30; Stop 02/19/20 at 10:31; Status DC Info (CONTRAST GIVEN -- Rx MONITORING) 1 each PRN DAILY PRN MC SEE COMMENTS; Start 02/19/20 at 10:30; Stop 02/21/20 at 10:29; Status DC Ceftriaxone Sodium (Rocephin) 1 gm 1X ONCE IVP Last administered on 02/19/20at 11:14; Start 02/19/20 at 11:15; Stop 02/19/20 at 11:16; Status DC Ceftriaxone Sodium (Rocephin) 1 gm 1X ONCE IVP Last administered on 02/19/20at 12:01; Start 02/19/20 at 11:30; Stop 02/19/20 at 11:31; Status DC Metronidazole 100 ml @ 100 mls/hr Q8HRS IV Last administered on 02/20/20at 06:00; Start 02/19/20 at 22:00; Stop 02/20/20 at 12:24; Status DC Metronidazole 100 ml @ 100 mls/hr 1X ONCE IV Last administered on 02/19/20at 12:06; Start 02/19/20 at 11:30; Stop 02/19/20 at 12:29; Status DC Ceftriaxone Sodium (Rocephin) 1 gm Q24H IVP Last administered on 02/20/20at 11:52; Start 02/20/20 at 12:00; Stop 02/20/20 at 12:24; Status DC Enoxaparin Sodium (Lovenox 40mg Syringe) 40 mg Q24H SQ Last administered on 02/22/20at 14:53; Start 02/19/20 at 12:00 Sodium Chloride 1,000 ml @ 100 mls/hr 1X ONCE IV Last administered on 02/19/20at 11:45; Start 02/19/20 at 11:45; Stop 02/19/20 at 21:44; Status DC Clonazepam (KlonoPIN) 0.5 mg DAILY PO Last administered on 02/20/20at 08:33; Start 02/19/20 at 12:00 Fentanyl Citrate (Fentanyl 2ml Vial) 50 mcg PRN Q2HR PRN IVP PAIN, 1ST CHOICE Last administered on 02/23/20at 00:17; Start 02/19/20 at 14:00 Nicotine Polacrilex (Nicorette Gum) 1 each PRN Q1HR PRN BC SMOKING CESSATION; Start 02/19/20 at 15:15 Nicotine (Nicoderm Cq 7mg) 1 patch DAILY TD Last administered on 02/23/20at 09:44; Start 02/19/20 at 15:15 Lactobacillus Rhamnosus (Culturelle) 1 cap BID PO Last administered on 02/20/20at 20:09; Start 02/20/20 at 10:15 Piperacillin Sod/ Tazobactam Sod 3.375 gm/Sodium Chloride 50 ml @ 100 mls/hr Q6HRS IV Last administered on 02/23/20at 05:08; Start 02/20/20 at 18:00 Aspirin (Aspirin Chewable) 81 mg DAILY PO Last administered on 02/20/20at 15:29; Start 02/20/20 at 14:00 Budesonide (Pulmicort) 0.5 mg BID NEB Last administered on 02/23/20at 07:48; Start 02/20/20 at 21:00 Polyethylene Glycol (miraLAX PACKET) 17 gm DAILY PO ; Start 02/20/20 at 14:00; Stop 02/23/20 at 09:56; Status DC Multivitamins (Thera M Plus) 1 tab DAILY PO Last administered on 02/20/20at 15:29; Start 02/20/20 at 14:00 Fish Oil (Fish Oil) 1,000 mg DAILY PO Last administered on 02/20/20at 15:29; Start 02/20/20 at 14:00 Albuterol Sulfate (Ventolin Neb Soln) 2.5 mg PRN Q4HRS PRN NEB SHORTNESS OF BREATH; Start 02/20/20 at 13:00 Potassium Chloride/Water 100 ml @ 50 mls/hr 1X ONCE IV Last administered on 02/21/20at 08:05; Start 02/21/20 at 08:00; Stop 02/21/20 at 09:59; Status DC Potassium Chloride/Water 100 ml @ 100 mls/hr Q1H IV Last administered on 02/21/20at 11:34; Start 02/21/20 at 10:00; Stop 02/21/20 at 10:59; Status DC Sodium Chloride 38.5 meq/Sterile Water 1,009.625 ml @ 75 mls/hr [id number] IV Last administered on 02/21/20at 08:54; Start 02/21/20 at 08:30; Stop 02/21/20 at 15:21; Status DC Pantoprazole Sodium (PROTONIX VIAL for IV PUSH) 40 mg DAILYAC IVP Last administered on 02/23/20at 09:43; Start 02/21/20 at 12:30 Hydromorphone HCl (Dilaudid) 0.75 mg PRN Q4HRS PRN IVP PAIN, 2ND CHOICE Last administered on 02/22/20at 04:35; Start 02/21/20 at 13:30 Amino Acids/ Glycerin/ Electrolytes 1,000 ml @ 80 mls/hr [id number] IV Last administered on 02/23/20at 02:23; Start 02/21/20 at 16:00 Lidocaine HCl (Buffered Lidocaine 1%) 3 ml STK-MED ONCE .ROUTE ; Start 02/22/20 at 10:32; Stop 02/22/20 at 10:32; Status DC Lidocaine HCl (Buffered Lidocaine 1%) 3 ml 1X ONCE INJ Last administered on 02/22/20at 11:17; Start 02/22/20 at 11:15; Stop 02/22/20 at 11:16; Status DC Lidocaine HCl (Buffered Lidocaine 1%) 3 ml STK-MED ONCE .ROUTE ; Start 02/22/20 at 11:50; Stop 02/22/20 at 11:51; Status DC Iohexol (Omnipaque 350 Mg/ml) 90 ml 1X ONCE IV Last administered on 02/22/20at 12:15; Start 02/22/20 at 12:15; Stop 02/22/20 at 12:16; Status DC Info (CONTRAST GIVEN -- Rx MONITORING) 1 each PRN DAILY PRN MC SEE COMMENTS; Start 02/22/20 at 12:30; Stop 02/24/20 at 12:29 Active Scripts Active Reported Miralax (Polyethylene Glycol 3350) 17 Gm Powd.pack 1 Packet PO DAILY 2 Days dissolve in water Fish Oil 1,000 mg Softgel ([place]-3/Dha/Epa/Fish Oil) 1,000 Mg Capsule 1,000 Mg PO DAILY Aspirin 81 Mg Tab.chew 1 Tab PO DAILY Daily Value (Multivitamin) 1 Each Tablet 1 Tab PO DAILY 30 Days Perforomist (Formoterol Fumarate) 20 Mcg/2 Ml Vial.neb 20 Mcg IH Pulmicort (Budesonide) 0.5 Mg/2 Ml Ampul.neb 1 Vial NEB BID Clonazepam (Clonazepam) 0.5 Mg Tablet 0.5 Mg PO DAILY Vitals/I & O Vital Sign - Last 24 Hours 02/22/20 02/22/20 02/22/20 02/22/20 13:51 14:21 15:00 19:00 Temp 97.4 97.6 97.4 97.6 Pulse 18 101 Resp 20 20 B/P (MAP) 115/41 (65) 138/72 (94) Pulse Ox 96 96 96 92 O2 Delivery Nasal Cannula Nasal Cannula Nasal Cannula Nasal Cannula O2 Flow Rate 4.0 4.0 4.0 4.0 02/22/20 02/22/20 02/22/20 02/22/20 19:25 20:00 21:03 21:33 Resp 20 18 Pulse Ox 93 93 93 O2 Delivery Nasal Cannula Nasal Cannula Nasal Cannula Nasal Cannula O2 Flow Rate 4.0 4.0 4.0 4.0 02/22/20 02/23/20 02/23/20 02/23/20 23:00 00:17 00:47 02:34 Temp 97.5 98.1 97.5 98.1 Pulse 94 77 Resp 18 20 20 20 B/P (MAP) 135/64 (87) 139/88 (105) Pulse Ox 96 96 96 95 O2 Delivery Nasal Cannula Nasal Cannula Nasal Cannula Nasal Cannula O2 Flow Rate 4.0 4.0 4.0 4.0 02/23/20 02/23/20 07:00 07:49 Temp 97.5 97.5 Pulse 86 Resp 18 B/P (MAP) 142/49 (80) Pulse Ox 91 96 O2 Delivery Nasal Cannula Nasal Cannula O2 Flow Rate 4.0 4.0 Intake and Output 02/22/20 02/22/20 02/23/20 15:00 23:00 07:00 Intake Total 800 ml 0 ml 1050 ml Output Total 120 ml 600 ml 1100 ml Balance 680 ml -600 ml -50 ml Justicifation of Admission Dx: Justifications for Admission: Justification of Admission Dx: Yes Sepsis: Infection LE GUALLPA MD Feb 23, 2020 11:18
[2020-02-23] MEDS: POTASSIUM CHLORIDE 20MEQ 100 ML IV SCH ×2 (12:04→13:22)
[2020-02-23] MEDS: ENOXAPARIN 40 MG/0.4 ML SYRINGE. SQ SCH (12:05)
--- NOTE | 2020-02-23 13:47 | NUR ---
SS following up with discharge planning. SS reviewed pt chart and discussed with pt RN. Pt is currently requiring oxygen and on IV Zosyn. Per RN, pt has occlusion of femoral arteries. Procedure scheduled tomorrow, 02/24/2020, with IR. SS will continue to follow for discharge planning.
--- NOTE | 2020-02-23 14:13 | PDOC ---
PROGRESS NOTES Subjective Subjective Patient seen and examined in room, complains she is "thirsty". Denies any foot pain Objective Objective Vital Signs Date Time Temp Pulse Resp B/P (MAP) Pulse Ox O2 Delivery O2 Flow Rate FiO2 02/23/20 11:00 97.5 94 16 173/62 (99) 98 Room Air 97.5 02/23/20 08:15 4.0 Intake and Output 02/23/20 07:00 Intake Total 1850 ml Output Total 1820 ml Balance 30 ml Intake Oral 750 ml IV Total 1100 ml Output Urine Total 1820 ml # Bowel Movements 2 Physical Exam Physical Exam Awake and alert HRR Non-labored respirations Right foot with mild dusky appearance involving plantar surface of toes and foot. Assessment Assessment Problems Medical Problems: (1) Abdominal aortic aneurysm (AAA) 3.0 cm to 5.0 cm in diameter in female Status: Acute (2) Acute diverticulitis Status: Acute Plan Plan of Care Advanced peripheral arterial disease--patient's right lower extremity bypass graft is patent. She does have a high-grade stenosis at the distal anastomosis based on the CT angiogram. CT reviewed by Dr. Fernández, recommend an angiogram and consideration of balloon angioplasty of the distal anastomosis to maintain bypass graft patency. She is chronically collateralized on the left and having no symptoms of rest pain in either lower extremity. The patient is agreeable to this plan. She will be n.p.o. after midnight tonight for the procedure tomorrow. 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 She clearly is very unrealistic in regards to her health and especially smoking cessation. She understands that if she continues to smoke, she is at markedly high risk of limb loss, heart attack, stroke, aneurysm rupture and expansion and . Asymptomatic infrarenal abdominal aortic aneurysm--patient's aneurysm measures 4.2 cm and is stable. There is no active treatment indicated for her aneurysm at this time. It is not related to the patient's abdominal pain. Comment Review of Relevant I have reviewed the following items mayra (where applicable) has been applied. Labs Laboratory Tests Test 02/21/20 18:25 02/22/20 07:30 02/23/20 04:25 Sodium Level 147 mmol/L (136-145) 149 mmol/L (136-145) 155 mmol/L (136-145) Potassium Level 3.5 mmol/L (3.5-5.1) 3.5 mmol/L (3.5-5.1) 3.2 mmol/L (3.5-5.1) Chloride Level 106 mmol/L (98-107) 108 mmol/L (98-107) 113 mmol/L (98-107) Carbon Dioxide Level 30 mmol/L (21-32) 35 mmol/L (21-32) 35 mmol/L (21-32) Anion Gap 11 (6-14) 6 (6-14) 7 (6-14) Blood Urea Nitrogen 6 mg/dL (7-20) 9 mg/dL (7-20) 10 mg/dL (7-20) Creatinine 1.1 mg/dL (0.6-1.0) 1.0 mg/dL (0.6-1.0) 1.0 mg/dL (0.6-1.0) Estimated GFR (Cockcroft-Gault) 48.0 53.6 53.6 Glucose Level 76 mg/dL (70-99) 100 mg/dL (70-99) 115 mg/dL (70-99) Calcium Level 9.2 mg/dL (8.5-10.1) 9.3 mg/dL (8.5-10.1) 9.6 mg/dL (8.5-10.1) White Blood Count 9.7 x10^3/uL (4.0-11.0) Red Blood Count 3.90 x10^6/uL (3.50-5.40) Hemoglobin 10.6 g/dL (12.0-15.5) Hematocrit 33.8 % (36.0-47.0) Mean Corpuscular Volume 87 fL (79-100) Mean Corpuscular Hemoglobin 27 pg (25-35) Mean Corpuscular Hemoglobin Concent 31 g/dL (31-37) Red Cell Distribution Width 15.8 % (11.5-14.5) Platelet Count 275 x10^3/uL (140-400) Neutrophils (%) (Auto) 85 % (31-73) Lymphocytes (%) (Auto) 8 % (24-48) Monocytes (%) (Auto) 7 % (0-9) Eosinophils (%) (Auto) 0 % (0-3) Basophils (%) (Auto) 0 % (0-3) Neutrophils # (Auto) 8.2 x10^3/uL (1.8-7.7) Lymphocytes # (Auto) 0.8 x10^3/uL (1.0-4.8) Monocytes # (Auto) 0.6 x10^3/uL (0.0-1.1) Eosinophils # (Auto) 0.0 x10^3/uL (0.0-0.7) Basophils # (Auto) 0.0 x10^3/uL (0.0-0.2) BUN/Creatinine Ratio 9 (6-20) Phosphorus Level 4.9 mg/dL (2.6-4.7) Magnesium Level 2.1 mg/dL (1.8-2.4) 2.1 mg/dL (1.8-2.4) Total Bilirubin 0.3 mg/dL (0.2-1.0) Aspartate Amino Transf (AST/SGOT) 15 U/L (15-37) Alanine Aminotransferase (ALT/SGPT) 15 U/L (14-59) Alkaline Phosphatase 89 U/L (46-116) Total Protein 6.9 g/dL (6.4-8.2) Albumin 2.3 g/dL (3.4-5.0) Albumin/Globulin Ratio 0.5 (1.0-1.7) Laboratory Tests Test 02/23/20 04:25 Sodium Level 155 mmol/L (136-145) Potassium Level 3.2 mmol/L (3.5-5.1) Chloride Level 113 mmol/L (98-107) Carbon Dioxide Level 35 mmol/L (21-32) Anion Gap 7 (6-14) Blood Urea Nitrogen 10 mg/dL (7-20) Creatinine 1.0 mg/dL (0.6-1.0) Estimated GFR (Cockcroft-Gault) 53.6 Glucose Level 115 mg/dL (70-99) Calcium Level 9.6 mg/dL (8.5-10.1) Magnesium Level 2.1 mg/dL (1.8-2.4) Microbiology 02/21/20 Fecal Leukocyte Stain - Final, Complete 02/19/20 Urine Culture - Final, Complete 02/19/20 Blood Culture - Preliminary, Resulted NO GROWTH AFTER 4 DAYS Medications Current Medications Fentanyl Citrate (Fentanyl 2ml Vial) 50 mcg 1X ONCE IV Last administered on 02/19/20at 09:50; Start 02/19/20 at 09:30; Stop 02/19/20 at 09:31; Status DC Ondansetron HCl (Zofran) 4 mg 1X ONCE IV Last administered on 02/19/20at 09:49; Start 02/19/20 at 09:30; Stop 02/19/20 at 09:31; Status DC Sodium Chloride 1,000 ml @ 1,000 mls/hr 1X ONCE IV Last administered on 02/19/20at 09:48; Start 02/19/20 at 09:30; Stop 02/19/20 at 10:29; Status DC Iohexol (Omnipaque 300 Mg/ml) 75 ml 1X ONCE IV Last administered on 02/19/20at 10:46; Start 02/19/20 at 10:30; Stop 02/19/20 at 10:31; Status DC Info (CONTRAST GIVEN -- Rx MONITORING) 1 each PRN DAILY PRN MC SEE COMMENTS; Start 02/19/20 at 10:30; Stop 02/21/20 at 10:29; Status DC Ceftriaxone Sodium (Rocephin) 1 gm 1X ONCE IVP Last administered on 02/19/20at 11:14; Start 02/19/20 at 11:15; Stop 02/19/20 at 11:16; Status DC Ceftriaxone Sodium (Rocephin) 1 gm 1X ONCE IVP Last administered on 02/19/20at 12:01; Start 02/19/20 at 11:30; Stop 02/19/20 at 11:31; Status DC Metronidazole 100 ml @ 100 mls/hr Q8HRS IV Last administered on 02/20/20at 06:00; Start 02/19/20 at 22:00; Stop 02/20/20 at 12:24; Status DC Metronidazole 100 ml @ 100 mls/hr 1X ONCE IV Last administered on 02/19/20at 12:06; Start 02/19/20 at 11:30; Stop 02/19/20 at 12:29; Status DC Ceftriaxone Sodium (Rocephin) 1 gm Q24H IVP Last administered on 02/20/20at 11:52; Start 02/20/20 at 12:00; Stop 02/20/20 at 12:24; Status DC Enoxaparin Sodium (Lovenox 40mg Syringe) 40 mg Q24H SQ Last administered on 02/23/20at 12:05; Start 02/19/20 at 12:00 Sodium Chloride 1,000 ml @ 100 mls/hr 1X ONCE IV Last administered on 02/19/20at 11:45; Start 02/19/20 at 11:45; Stop 02/19/20 at 21:44; Status DC Clonazepam (KlonoPIN) 0.5 mg DAILY PO Last administered on 02/20/20at 08:33; Start 02/19/20 at 12:00 Fentanyl Citrate (Fentanyl 2ml Vial) 50 mcg PRN Q2HR PRN IVP PAIN, 1ST CHOICE Last administered on 02/23/20at 00:17; Start 02/19/20 at 14:00 Nicotine Polacrilex (Nicorette Gum) 1 each PRN Q1HR PRN BC SMOKING CESSATION; Start 02/19/20 at 15:15 Nicotine (Nicoderm Cq 7mg) 1 patch DAILY TD Last administered on 02/23/20at 09:44; Start 02/19/20 at 15:15 Lactobacillus Rhamnosus (Culturelle) 1 cap BID PO Last administered on 02/20/20at 20:09; Start 02/20/20 at 10:15 Piperacillin Sod/ Tazobactam Sod 3.375 gm/Sodium Chloride 50 ml @ 100 mls/hr Q6HRS IV Last administered on 02/23/20at 12:03; Start 02/20/20 at 18:00 Aspirin (Aspirin Chewable) 81 mg DAILY PO Last administered on 02/20/20at 15:29; Start 02/20/20 at 14:00 Budesonide (Pulmicort) 0.5 mg BID NEB Last administered on 02/23/20at 07:48; Start 02/20/20 at 21:00 Polyethylene Glycol (miraLAX PACKET) 17 gm DAILY PO ; Start 02/20/20 at 14:00; Stop 02/23/20 at 09:56; Status DC Multivitamins (Thera M Plus) 1 tab DAILY PO Last administered on 02/20/20at 15:29; Start 02/20/20 at 14:00 Fish Oil (Fish Oil) 1,000 mg DAILY PO Last administered on 02/20/20at 15:29; Start 02/20/20 at 14:00 Albuterol Sulfate (Ventolin Neb Soln) 2.5 mg PRN Q4HRS PRN NEB SHORTNESS OF BREATH; Start 02/20/20 at 13:00 Potassium Chloride/Water 100 ml @ 50 mls/hr 1X ONCE IV Last administered on 02/21/20at 08:05; Start 02/21/20 at 08:00; Stop 02/21/20 at 09:59; Status DC Potassium Chloride/Water 100 ml @ 100 mls/hr Q1H IV Last administered on 02/21/20at 11:34; Start 02/21/20 at 10:00; Stop 02/21/20 at 10:59; Status DC Sodium Chloride 38.5 meq/Sterile Water 1,009.625 ml @ 75 mls/hr [id number] IV Last administered on 02/21/20at 08:54; Start 02/21/20 at 08:30; Stop 02/21/20 at 15:21; Status DC Pantoprazole Sodium (PROTONIX VIAL for IV PUSH) 40 mg DAILYAC IVP Last administered on 02/23/20at 09:43; Start 02/21/20 at 12:30 Hydromorphone HCl (Dilaudid) 0.75 mg PRN Q4HRS PRN IVP PAIN, 2ND CHOICE Last administered on 02/22/20at 04:35; Start 02/21/20 at 13:30 Amino Acids/ Glycerin/ Electrolytes 1,000 ml @ 100 mls/hr Q10H IV Last administered on 02/23/20at 02:23; Start 02/21/20 at 16:00 Lidocaine HCl (Buffered Lidocaine 1%) 3 ml STK-MED ONCE .ROUTE ; Start 02/22/20 at 10:32; Stop 02/22/20 at 10:32; Status DC Lidocaine HCl (Buffered Lidocaine 1%) 3 ml 1X ONCE INJ Last administered on 02/22/20at 11:17; Start 02/22/20 at 11:15; Stop 02/22/20 at 11:16; Status DC Lidocaine HCl (Buffered Lidocaine 1%) 3 ml STK-MED ONCE .ROUTE ; Start 02/22/20 at 11:50; Stop 02/22/20 at 11:51; Status DC Iohexol (Omnipaque 350 Mg/ml) 90 ml 1X ONCE IV Last administered on 02/22/20at 12:15; Start 02/22/20 at 12:15; Stop 02/22/20 at 12:16; Status DC Info (CONTRAST GIVEN -- Rx MONITORING) 1 each PRN DAILY PRN MC SEE COMMENTS; Start 02/22/20 at 12:30; Stop 02/24/20 at 12:29 Potassium Chloride/Water 100 ml @ 100 mls/hr Q1H IV Last administered on 02/23/20at 13:22; Start 02/23/20 at 11:30; Stop 02/23/20 at 13:29; Status DC Active Scripts Active Reported Miralax (Polyethylene Glycol 3350) 17 Gm Powd.pack 1 Packet PO DAILY 2 Days dissolve in water Fish Oil 1,000 mg Softgel ([place]-3/Dha/Epa/Fish Oil) 1,000 Mg Capsule 1,000 Mg PO DAILY Aspirin 81 Mg Tab.chew 1 Tab PO DAILY Daily Value (Multivitamin) 1 Each Tablet 1 Tab PO DAILY 30 Days Perforomist (Formoterol Fumarate) 20 Mcg/2 Ml Vial.neb 20 Mcg IH Pulmicort (Budesonide) 0.5 Mg/2 Ml Ampul.neb 1 Vial NEB BID Clonazepam (Clonazepam) 0.5 Mg Tablet 0.5 Mg PO DAILY Vitals/I & O Vital Sign - Last 24 Hours 02/22/20 02/22/20 02/22/20 02/22/20 14:21 15:00 19:00 19:25 Temp 97.4 97.6 97.4 97.6 Pulse 18 101 Resp 20 B/P (MAP) 115/41 (65) 138/72 (94) Pulse Ox 96 96 92 93 O2 Delivery Nasal Cannula Nasal Cannula Nasal Cannula Nasal Cannula O2 Flow Rate 4.0 4.0 4.0 4.0 02/22/20 02/22/20 02/22/20 02/22/20 20:00 21:03 21:33 23:00 Temp 97.5 97.5 Pulse 94 Resp 20 18 18 B/P (MAP) 135/64 (87) Pulse Ox 93 93 96 O2 Delivery Nasal Cannula Nasal Cannula Nasal Cannula Nasal Cannula O2 Flow Rate 4.0 4.0 4.0 4.0 02/23/20 02/23/20 02/23/20 02/23/20 00:17 00:47 02:34 07:00 Temp 98.1 97.5 98.1 97.5 Pulse 77 86 Resp 18 B/P (MAP) 139/88 (105) 142/49 (80) Pulse Ox 96 96 95 91 O2 Delivery Nasal Cannula Nasal Cannula Nasal Cannula Nasal Cannula O2 Flow Rate 4.0 4.0 4.0 4.0 02/23/20 02/23/20 02/23/20 07:49 08:15 11:00 Temp 97.5 97.5 Pulse 94 Resp 16 B/P (MAP) 173/62 (99) Pulse Ox 96 98 O2 Delivery Nasal Cannula Nasal Cannula Room Air O2 Flow Rate 4.0 4.0 Intake and Output 02/22/20 02/22/20 02/23/20 15:00 23:00 07:00 Intake Total 800 ml 0 ml 1050 ml Output Total 120 ml 600 ml 1100 ml Balance 680 ml -600 ml -50 ml Justicifation of Admission Dx: Justifications for Admission: Justification of Admission Dx: Yes Sepsis: Infection [facility] Feb 23, 2020 14:13
[2020-02-23 14:24] LABS: PROTHROMBIN TIME PATIENT 15.4 SEC (11.7-14.0)
[2020-02-23 15:00] VITALS: BP 174/67
[2020-02-23 19:00] VITALS: BP 176/86
--- NOTE | 2020-02-23 19:22 | NUR ---
Sitting in chair. Very upset she can not have "something to drink". Does not understand the need to rest bowl. States she is "just going to go home". Argues that "the doctor said I could drink". Orders in place for strict NPO. Continue to give patient moistened mouth swabs. Also instructed to use call light prior to ambulating as she is a fall risk. Patient is non-compliant with instructions. Bed alarm and chair alarms in place. Call light is at hand.
[2020-02-23 23:00] VITALS: BP 165/95
[2020-02-24] MEDS: AMINO AC 3%/ELECTROLYTE/GLYCER 1,000 ML IV SCH ×3 (01:56→23:17)
[2020-02-24 03:34] VITALS: BP 186/84
[2020-02-24] MEDS: PIPERACILLIN/TAZOBACTAM 3.375 GM in IV NORMAL SALINE 50ML 50 ML IV SCH ×4 (05:03→23:17)
[2020-02-24 06:13] LABS: CALCIUM 9.5 mg/dL (8.5-10.1); GFR 53.6; MAGNESIUM 2.1 mg/dL (1.8-2.4); POTASSIUM 3.5 mmol/L (3.5-5.1)
[2020-02-24 07:00] VITALS: BP 153/87
[2020-02-24] MEDS: BUDESONIDE 0.5 MG/2 ML NEBU. NEB SCH ×2 (07:20→20:28)
--- NOTE | 2020-02-24 07:49 | NUR ---
IP: Pt is C.diff + requiring contact plus precautions using brown sign.
[2020-02-24] MEDS: ASPIRIN CHEWABLE 81 MG TABLET. PO SCH (07:54)
[2020-02-24] MEDS: MULTIVITAMIN with MINERAL TABLET. PO SCH (07:55)
[2020-02-24] MEDS: OMEGA-3 FATTY ACIDS/FISH OIL 1,000 MG CAPSULE. PO SCH (07:55)
[2020-02-24] MEDS: LACTOBACILLUS RHAMNOSUS GG 1 CAPSULE. PO SCH ×2 (07:55→21:26)
[2020-02-24] MEDS: clonazePAM 0.5 MG TABLET PO SCH (07:55)
[2020-02-24] MEDS: PANTOPRAZOLE IV PUSH 40 MG VIAL. IVP SCH (09:02)
[2020-02-24] MEDS: NICOTINE 7MG PATCH. TD SCH (09:04)
[2020-02-24] MEDS: IV DEXTROSE 5 %-0.2 % NACL 1,000 ML IV SCH ×2 (09:05→16:02)
--- NOTE | 2020-02-24 09:09 | PDOC ---
Infectious Disease Note Subjective: Subjective Patient is requesting for water Abdominal pain comes and goes mainly in llq no n/v/f Vital Signs: Vital Signs Vital Signs Date Time Temp Pulse Resp B/P (MAP) Pulse Ox O2 Delivery O2 Flow Rate FiO2 02/24/20 07:21 Nasal Cannula 4.0 02/24/20 07:00 97.9 101 19 153/87 (109) 91 97.9 Physical Exam: PHYSICAL EXAM General alert oriented x3 no acute distress HEENT: Both pupils are round and reacting. No conjunctival lesion, no lesion in the mouth. NECK: Supple, no JVP, no lymphadenopathy. LUNGS: Clear. HEART: S1, S2 regular. ABDOMEN: Soft bowel sounds present mildly distended mild tenderness present on deep palpation EXTREMITIES: No edema, cyanosis. Dry skin SKIN: Unremarkable. NEUROLOGIC: No focal neurologic deficit. Medications: Inpatient Meds: Current Medications Medications (Trade) Dose Ordered Sig/Viola Start Time Stop Time Status Last Admin Dose Admin Albuterol Sulfate (Ventolin Neb Soln) 2.5 mg PRN Q4HRS PRN 02/20/20 13:00 Amino Acids/ Glycerin/ Electrolytes 1,000 ml @ 100 mls/hr Q10H 02/21/20 16:00 02/24/20 01:56 100 MLS/HR Aspirin (Aspirin Chewable) 81 mg DAILY 02/20/20 14:00 02/20/20 15:29 81 MG Budesonide (Pulmicort) 0.5 mg BID 02/20/20 21:00 02/24/20 07:20 0.5 MG Ceftriaxone Sodium (Rocephin) 1 gm Q24H 02/20/20 12:00 02/20/20 12:24 DC 02/20/20 11:52 1 GM Clonazepam (KlonoPIN) 0.5 mg DAILY 02/19/20 12:00 02/20/20 08:33 0.5 MG Dextrose/Sodium Chloride 1,000 ml @ 125 mls/hr Q8H 02/24/20 06:45 02/24/20 09:05 125 MLS/HR Enoxaparin Sodium (Lovenox 40mg Syringe) 40 mg Q24H 02/19/20 12:00 02/23/20 12:05 40 MG Fentanyl Citrate (Fentanyl 2ml Vial) 50 mcg PRN Q2HR PRN 02/19/20 14:00 02/23/20 17:06 50 MCG Fish Oil (Fish Oil) 1,000 mg DAILY 02/20/20 14:00 02/20/20 15:29 1,000 MG Hydromorphone HCl (Dilaudid) 0.75 mg PRN Q4HRS PRN 02/21/20 13:30 02/22/20 04:35 0.75 MG Info (CONTRAST GIVEN -- Rx MONITORING) 1 each PRN DAILY PRN 02/22/20 12:30 02/24/20 12:29 Iohexol (Omnipaque 300 Mg/ml) 75 ml 1X ONCE 02/19/20 10:30 02/19/20 10:31 DC 02/19/20 10:46 75 ML Iohexol (Omnipaque 350 Mg/ml) 90 ml 1X ONCE 02/22/20 12:15 02/22/20 12:16 DC 02/22/20 12:15 90 ML Lactobacillus Rhamnosus (Culturelle) 1 cap BID 02/20/20 10:15 02/20/20 20:09 1 CAP Lidocaine HCl (Buffered Lidocaine 1%) 3 ml STK-MED ONCE 02/22/20 11:50 02/22/20 11:51 DC Metronidazole 100 ml @ 100 mls/hr 1X ONCE 02/19/20 11:30 02/19/20 12:29 DC 02/19/20 12:06 100 MLS/HR Multivitamins (Thera M Plus) 1 tab DAILY 02/20/20 14:00 02/20/20 15:29 1 TAB Nicotine (Nicoderm Cq 7mg) 1 patch DAILY 02/19/20 15:15 02/24/20 09:04 1 PATCH Nicotine Polacrilex (Nicorette Gum) 1 each PRN Q1HR PRN 02/19/20 15:15 Ondansetron HCl (Zofran) 4 mg 1X ONCE 02/19/20 09:30 02/19/20 09:31 DC 02/19/20 09:49 4 MG Pantoprazole Sodium (PROTONIX VIAL for IV PUSH) 40 mg DAILYAC 02/21/20 12:30 02/24/20 09:02 40 MG Piperacillin Sod/ Tazobactam Sod 3.375 gm/Sodium Chloride 50 ml @ 100 mls/hr Q6HRS 02/20/20 18:00 02/24/20 05:03 100 MLS/HR Polyethylene Glycol (miraLAX PACKET) 17 gm DAILY 02/20/20 14:00 02/23/20 09:56 DC Potassium Chloride/Water 100 ml @ 100 mls/hr Q1H 02/23/20 11:30 02/23/20 13:29 DC 02/23/20 13:22 100 MLS/HR Sodium Chloride 38.5 meq/Sterile Water 1,009.625 ml @ 75 mls/hr [id number] 02/21/20 08:30 02/21/20 15:21 DC 02/21/20 08:54 75 MLS/HR Labs: Lab Laboratory Tests Test 02/23/20 14:06 02/24/20 05:30 Prothrombin Time 15.4 SEC (11.7-14.0) Prothromb Time International Ratio 1.3 (0.8-1.1) Activated Partial Thromboplast Time 30 SEC (24-38) Sodium Level 161 mmol/L (136-145) Potassium Level 3.5 mmol/L (3.5-5.1) Chloride Level 119 mmol/L (98-107) Carbon Dioxide Level 37 mmol/L (21-32) Anion Gap 5 (6-14) Blood Urea Nitrogen 14 mg/dL (7-20) Creatinine 1.0 mg/dL (0.6-1.0) Estimated GFR (Cockcroft-Gault) 53.6 Glucose Level 114 mg/dL (70-99) Calcium Level 9.5 mg/dL (8.5-10.1) Magnesium Level 2.1 mg/dL (1.8-2.4) Objective: Assessment: 1. Diverticulitis with diverticular abscess.not amenable per IR for drainage GI panel negative 2. Leukocytosis. 3. Obesity. 4. Chronic obstructive pulmonary disease. 5. Coronary artery disease. 6. Severe PAD 7. Hypernatremia 8. 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 Plan: Plan of Care Continue Zosyn, awaiting angiogram this am supportive care. Vascular and general surgery following Follow-up labs and cultures d/w ALISSA Cochran MD Feb 24, 2020 09:09
[2020-02-24 10:27] VITALS: BP 145/82
--- NOTE | 2020-02-24 11:02 | PDOC ---
Subjective: Subjective: Abdomen and feet hurt. Diarrhea ongoing. Thirsty, doesn't understand why she can't have water. Says the hospital told her she'd be better off at home. Tells me I'm "hostile" and asks if I have relationship problems. Nurse present for our discussion. Objective: Objective: Again received calls from nurse yesterday re: diet. Again advised NPO as also advised by surgery. On PPN. RLE angio ordered for tomorrow. Vital Signs: Vital Signs Date Time Temp Pulse Resp B/P (MAP) Pulse Ox O2 Delivery O2 Flow Rate FiO2 02/24/20 10:27 98.0 104 19 145/82 (103) 92 Nasal Cannula 4.0 98.0 Labs: Laboratory Tests Test 02/23/20 14:06 02/24/20 05:30 Prothrombin Time 15.4 SEC Prothromb Time International Ratio 1.3 Activated Partial Thromboplast Time 30 SEC Sodium Level 161 mmol/L Potassium Level 3.5 mmol/L Chloride Level 119 mmol/L Carbon Dioxide Level 37 mmol/L Anion Gap 5 Blood Urea Nitrogen 14 mg/dL Creatinine 1.0 mg/dL Estimated GFR (Cockcroft-Gault) 53.6 Glucose Level 114 mg/dL Calcium Level 9.5 mg/dL Magnesium Level 2.1 mg/dL BLOOD CULTURE Final NO GROWTH AFTER 5 DAYS Imaging: CTA 02/21 IMPRESSION: 1. Occlusion of both superficial femoral arteries. A right common femoral to popliteal artery graft is patent. The right popliteal artery is moderately stenotic proximally but patent more distally. The left popliteal artery reconstitutes in its midportion. 2. The anterior tibial arteries are the main runoff vessel bilaterally. The posterior tibial and peroneal arteries occlude proximally bilaterally,with distal reconstitution on the left greater than right. 3. 4.2 cm infrarenal abdominal aortic aneurysm. 1.7 cm right common iliac aneurysm. 4. Stable 2.7 cm fluid collection along the dome of the bladder consistent with a small diverticular abscess. 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 5. Chronically stable bilateral adrenal nodules are most likely benign adenomas. PE: GEN: up in chair LUNGS: diminished HEART: mildly tachycardic ABD: soft NEURO/PSYCH: A & O 3, not too friendly today A/P: Diverticulitis w/ abscesses, ?colovesical fistula C Diff PAD, AAA -- Significant time spent throughout admission w/ patient and nurses re: demands to drink. ID following... ?needs PO vanco w/ +C Diff - will d/w Dr. Burns. Justicifation of Admission Dx: Justifications for Admission: Justification of Admission Dx: Yes Sepsis: Infection ANASTASIA MAHER Feb 24, 2020 11:02
[2020-02-24] MEDS: ENOXAPARIN 40 MG/0.4 ML SYRINGE. SQ SCH (11:09)
[2020-02-24] MEDS: fentaNYL PF VIAL 100 MCG/2 ML VIAL IVP PRN (11:11)
--- NOTE | 2020-02-24 11:27 | NUR ---
SS following up with discharge planning. SS reviewed pt chart and discussed with pt RN. Pt is currently requiring oxygen. Pt on PPN and IV Zosyn. CDIFF positive. Pt having Angiogram today. SS will continue to follow for discharge planning.
--- NOTE | 2020-02-24 11:57 | PDOC ---
Renal-Progress Notes Subjective Notes Notes NO NEW COMPLAINTS History of Present Illness Hx of present illness NO CHANGE Vitals Vitals Vital Signs Date Time Temp Pulse Resp B/P (MAP) Pulse Ox O2 Delivery O2 Flow Rate FiO2 02/24/20 11:11 18 Nasal Cannula 4.0 02/24/20 10:27 98.0 104 145/82 (103) 92 98.0 Weight Weight [ ] I.O. Intake and Output Intake and Output 02/24/20 07:00 Intake Total 1100 ml Output Total 2300 ml Balance -1200 ml Intake Oral 0 ml IV Total 1100 ml Output Urine Total 1700 ml Urine/Stool Mix 600 ml # Bowel Movements 3 Labs Labs Laboratory Tests Test 02/23/20 14:06 02/24/20 05:30 Prothrombin Time 15.4 SEC (11.7-14.0) Prothromb Time International Ratio 1.3 (0.8-1.1) Activated Partial Thromboplast Time 30 SEC (24-38) Sodium Level 161 mmol/L (136-145) Potassium Level 3.5 mmol/L (3.5-5.1) Chloride Level 119 mmol/L (98-107) Carbon Dioxide Level 37 mmol/L (21-32) Anion Gap 5 (6-14) Blood Urea Nitrogen 14 mg/dL (7-20) Creatinine 1.0 mg/dL (0.6-1.0) Estimated GFR (Cockcroft-Gault) 53.6 Glucose Level 114 mg/dL (70-99) Calcium Level 9.5 mg/dL (8.5-10.1) Magnesium Level 2.1 mg/dL (1.8-2.4) Micro Micro Microbiology 02/21/20 Fecal Leukocyte Stain - Final, Complete 02/19/20 Urine Culture - Final, Complete 02/19/20 Blood Culture - Final, Complete NO GROWTH AFTER 5 DAYS Review of Systems Constitutional: yes: weakness, alert, oriented Ears/Nose/Throat: Yes: no symptom reported Eyes: Yes: no symptom reported Pulmonary: Yes no symptom reported Cardiovascular: Yes no symptom reported Gastrointestional: Yes: nausea Genitourinary: Yes: no symptom reported Musculoskeletal: Yes: muscle stiffness Skin: Yes no symptom reported Psychiatric/Neurological: Yes: no symptom reported Endocrine: Yes: no symptom reported Physical Exam General Appearance: no apparent distress Skin: warm Heart: S1S2 Abdomen: soft Genitourinary: bladder flat Neurology: alert Musculoskeletal: Osteoarthritis Assessment Assessment IMP DEHYDRATION ESTER - IMPROVING LOW K-BETTER HYPERNATREMIA DIVERTICULAR ABSCESS PLAN HYDRATION WITH D5W REPLACE K PROCALAMINE FOR NOW ANTIBIOTICS WILL FOLLOW HERSON RODRIGUEZ MD Feb 24, 2020 11:57
[2020-02-24] MEDS: VANCOMYCIN 125 MG/2.5 ML ORAL SOLUTION. PO SCH ×3 (13:48→21:26)
--- NOTE | 2020-02-24 14:03 | PDOC ---
ALLIE BENITES CRAWLER DRAGLINE OPERATOR 02/24/20 1403: SURGICAL PROGRESS NOTE Subjective some abdominal pain no emesis Vital Signs Vital Signs Date Time Temp Pulse Resp B/P (MAP) Pulse Ox O2 Delivery O2 Flow Rate FiO2 02/24/20 11:41 18 Nasal Cannula 4.0 02/24/20 10:27 98.0 104 145/82 (103) 92 98.0 I&O Intake and Output 02/24/20 07:00 Intake Total 1100 ml Output Total 2300 ml Balance -1200 ml Intake Oral 0 ml IV Total 1100 ml Output Urine Total 1700 ml Urine/Stool Mix 600 ml # Bowel Movements 3 General: Alert, Oriented X3, Cooperative Abdomen: Soft, Other (ttp right abomen ) Labs Laboratory Tests Test 02/23/20 04:25 02/23/20 14:06 02/24/20 05:30 Sodium Level 155 mmol/L (136-145) 161 mmol/L (136-145) Potassium Level 3.2 mmol/L (3.5-5.1) 3.5 mmol/L (3.5-5.1) Chloride Level 113 mmol/L (98-107) 119 mmol/L (98-107) Carbon Dioxide Level 35 mmol/L (21-32) 37 mmol/L (21-32) Anion Gap 7 (6-14) 5 (6-14) Blood Urea Nitrogen 10 mg/dL (7-20) 14 mg/dL (7-20) Creatinine 1.0 mg/dL (0.6-1.0) 1.0 mg/dL (0.6-1.0) Estimated GFR (Cockcroft-Gault) 53.6 53.6 Glucose Level 115 mg/dL (70-99) 114 mg/dL (70-99) Calcium Level 9.6 mg/dL (8.5-10.1) 9.5 mg/dL (8.5-10.1) Magnesium Level 2.1 mg/dL (1.8-2.4) 2.1 mg/dL (1.8-2.4) Prothrombin Time 15.4 SEC (11.7-14.0) Prothromb Time International Ratio 1.3 (0.8-1.1) Activated Partial Thromboplast Time 30 SEC (24-38) Laboratory Tests Test 02/23/20 14:06 02/24/20 05:30 Prothrombin Time 15.4 SEC (11.7-14.0) Prothromb Time International Ratio 1.3 (0.8-1.1) Activated Partial Thromboplast Time 30 SEC (24-38) Sodium Level 161 mmol/L (136-145) Potassium Level 3.5 mmol/L (3.5-5.1) Chloride Level 119 mmol/L (98-107) Carbon Dioxide Level 37 mmol/L (21-32) Anion Gap 5 (6-14) Blood Urea Nitrogen 14 mg/dL (7-20) Creatinine 1.0 mg/dL (0.6-1.0) Estimated GFR (Cockcroft-Gault) 53.6 Glucose Level 114 mg/dL (70-99) Calcium Level 9.5 mg/dL (8.5-10.1) Magnesium Level 2.1 mg/dL (1.8-2.4) Problem List Problems Medical Problems: (1) Abdominal aortic aneurysm (AAA) 3.0 cm to 5.0 cm in diameter in female Status: Acute (2) Acute diverticulitis Status: Acute Assessment/Plan can trial clears cdiff treatment tic/abscess treatment, possible fistula Justicifation of Admission Dx: Justifications for Admission: Justification of Admission Dx: Yes Sepsis: Infection LE GUALLPA MD 02/24/20 1650: SURGICAL PROGRESS NOTE Assessment/Plan Will try some clears; cdiff now noted; recommend abx treatment at this time; if fistula present would ultimately need surgery combined with urology; however would want to complete Cdiff tx prior ALLIE BENITES APRN Feb 24, 2020 14:03 LE GUALLPA MD Feb 24, 2020 16:50
--- NOTE | 2020-02-24 14:13 | PDOC ---
PROGRESS NOTES Chief Complaint Chief Complaint Impression: 1. Diverticulitis of the mid to distal sigmoid colon peridiverticular abscess measuring 3.4 x 3.1 cm. No definite fistula to the bladder, uterus or vagina is noted. There is gas identified within the vagina which is nonspecific. Close follow-up is recommended. peridiverticular abscess measuring 3.4 x 3.1 cm 2. Bilateral adrenal masses, indeterminate. Left adrenal mass measures 2.3 x 2.0 cm. Findings favor benign etiology given stability since 10/12/2013. 3. Infrarenal abdominal aortic aneurysm measuring 4.5 x 4.4 cm. Dense calcified and noncalcified atheromatous plaque is identified. Infrarenal abdominal aorta previously measured 2.8 x 2.6 cm on 10/12/2013 pvd Sepsis due to sigmoid diverticulitis resolved peridiverticular abscess measuring 3.4 x 3.1 cm Abdominal pain secondary to acute sigmoid diverticulitis COPD Tobacco abuse Acute electrolyte derangements Severe protein-caloric malnutrition SEVERE HYPERNATREMIA secondary to dehydration HYPOKALEMIA, 02/20 Right third, fourth, and fifth toe cyanosis Advanced peripheral arterial disease--patient's right lower extremity bypass graft is patent. She does have a high-grade stenosis at the distal anastomosis based on the CT angiogram plan Angiogram with stent placement today NPO we will request evaluation by our instructor adjunct surgical technician hopefully get approved for clear liquid diet. Patient seems to be about 5 L behind D5 quarter normal saline will be started on the patient in order to address her hyper natremia Labs in the a.m. Serial abdominal exams Continue IV fluids adn prolcalamine surgical consult greatly appreciated Lovenox for DVT prophylaxis Full code Discussed with RN id consult GI FOLLOWING Continue Zosyn, General surgery following send stool for cults, c diff pcr NEPHROLOGY CONSULT HYPOTONIC SALINE IV K IR for drainage neither collection is amendable to percutaneous drainage due to overlying structures. No IR intervention is recommended at current. TIME picc ct angiography of lower ext D/W DR GLOVER BY PHONE 02/21 History of Present Illness History of Present Illness Patient wanting water at the present time. Patient is going to go for an angiogram later in the day currently n.p.o. No acute events reported overnight, case discussed with nursing staff patient in no acute distress no complaints during my visit Vitals Vitals Vital Signs Date Time Temp Pulse Resp B/P (MAP) Pulse Ox O2 Delivery O2 Flow Rate FiO2 02/24/20 11:41 18 Nasal Cannula 4.0 02/24/20 10:27 98.0 104 145/82 (103) 92 98.0 Physical Exam Physical Exam General alert oriented x3 no acute distress HEENT: Both pupils are round and reacting. No conjunctival lesion, no lesion in the mouth. NECK: Supple, no JVP, no lymphadenopathy. LUNGS: Clear. HEART: S1, S2 regular. ABDOMEN: Soft bowel sounds present mildly distended mild tenderness present on deep palpation EXTREMITIES: No edema, cyanosis. Dry skin SKIN: Unremarkable. NEUROLOGIC: No focal neurologic deficit. General: Alert, Oriented X3, Cooperative Heart: Regular rate Lungs: Clear, Other Abdomen: Soft, Other (ttp right abomen ) Extremities: Other (Palpable bypass graft pulse in the right lower extremity at the level of the knee, intact dorsalis pedis Doppler signal on the right, monophasic posterior tibial Doppler signal on the left,) Skin: Other (Mild cyanosis of the plantar surface of the right second, third, fourth, and fifth toes without tissue loss) Labs LABS Laboratory Tests Test 02/24/20 05:30 Sodium Level 161 mmol/L (136-145) Potassium Level 3.5 mmol/L (3.5-5.1) Chloride Level 119 mmol/L (98-107) Carbon Dioxide Level 37 mmol/L (21-32) Anion Gap 5 (6-14) Blood Urea Nitrogen 14 mg/dL (7-20) Creatinine 1.0 mg/dL (0.6-1.0) Estimated GFR (Cockcroft-Gault) 53.6 Glucose Level 114 mg/dL (70-99) Calcium Level 9.5 mg/dL (8.5-10.1) Magnesium Level 2.1 mg/dL (1.8-2.4) Assessment and Plan Assessmemt and Plan Problems Medical Problems: (1) Abdominal aortic aneurysm (AAA) 3.0 cm to 5.0 cm in diameter in female Status: Acute (2) Acute diverticulitis Status: Acute Comment Review of Relevant I have reviewed the following items mayra (where applicable) has been applied. Labs Laboratory Tests Test 02/23/20 04:25 02/23/20 14:06 02/24/20 05:30 Sodium Level 155 mmol/L (136-145) 161 mmol/L (136-145) Potassium Level 3.2 mmol/L (3.5-5.1) 3.5 mmol/L (3.5-5.1) Chloride Level 113 mmol/L (98-107) 119 mmol/L (98-107) Carbon Dioxide Level 35 mmol/L (21-32) 37 mmol/L (21-32) Anion Gap 7 (6-14) 5 (6-14) Blood Urea Nitrogen 10 mg/dL (7-20) 14 mg/dL (7-20) Creatinine 1.0 mg/dL (0.6-1.0) 1.0 mg/dL (0.6-1.0) Estimated GFR (Cockcroft-Gault) 53.6 53.6 Glucose Level 115 mg/dL (70-99) 114 mg/dL (70-99) Calcium Level 9.6 mg/dL (8.5-10.1) 9.5 mg/dL (8.5-10.1) Magnesium Level 2.1 mg/dL (1.8-2.4) 2.1 mg/dL (1.8-2.4) Prothrombin Time 15.4 SEC (11.7-14.0) Prothromb Time International Ratio 1.3 (0.8-1.1) Activated Partial Thromboplast Time 30 SEC (24-38) Laboratory Tests Test 02/24/20 05:30 Sodium Level 161 mmol/L (136-145) Potassium Level 3.5 mmol/L (3.5-5.1) Chloride Level 119 mmol/L (98-107) Carbon Dioxide Level 37 mmol/L (21-32) Anion Gap 5 (6-14) Blood Urea Nitrogen 14 mg/dL (7-20) Creatinine 1.0 mg/dL (0.6-1.0) Estimated GFR (Cockcroft-Gault) 53.6 Glucose Level 114 mg/dL (70-99) Calcium Level 9.5 mg/dL (8.5-10.1) Magnesium Level 2.1 mg/dL (1.8-2.4) Microbiology 02/21/20 Fecal Leukocyte Stain - Final, Complete 02/19/20 Urine Culture - Final, Complete 02/19/20 Blood Culture - Final, Complete NO GROWTH AFTER 5 DAYS Medications Current Medications Fentanyl Citrate (Fentanyl 2ml Vial) 50 mcg 1X ONCE IV Last administered on 02/19/20at 09:50; Start 02/19/20 at 09:30; Stop 02/19/20 at 09:31; Status DC Ondansetron HCl (Zofran) 4 mg 1X ONCE IV Last administered on 02/19/20at 09:49; Start 02/19/20 at 09:30; Stop 02/19/20 at 09:31; Status DC Sodium Chloride 1,000 ml @ 1,000 mls/hr 1X ONCE IV Last administered on 02/19/20at 09:48; Start 02/19/20 at 09:30; Stop 02/19/20 at 10:29; Status DC Iohexol (Omnipaque 300 Mg/ml) 75 ml 1X ONCE IV Last administered on 02/19/20at 10:46; Start 02/19/20 at 10:30; Stop 02/19/20 at 10:31; Status DC Info (CONTRAST GIVEN -- Rx MONITORING) 1 each PRN DAILY PRN MC SEE COMMENTS; Start 02/19/20 at 10:30; Stop 02/21/20 at 10:29; Status DC Ceftriaxone Sodium (Rocephin) 1 gm 1X ONCE IVP Last administered on 02/19/20at 11:14; Start 02/19/20 at 11:15; Stop 02/19/20 at 11:16; Status DC Ceftriaxone Sodium (Rocephin) 1 gm 1X ONCE IVP Last administered on 02/19/20at 12:01; Start 02/19/20 at 11:30; Stop 02/19/20 at 11:31; Status DC Metronidazole 100 ml @ 100 mls/hr Q8HRS IV Last administered on 02/20/20at 06:00; Start 02/19/20 at 22:00; Stop 02/20/20 at 12:24; Status DC Metronidazole 100 ml @ 100 mls/hr 1X ONCE IV Last administered on 02/19/20at 12:06; Start 02/19/20 at 11:30; Stop 02/19/20 at 12:29; Status DC Ceftriaxone Sodium (Rocephin) 1 gm Q24H IVP Last administered on 02/20/20 11:52; Start 02/20/20 at 12:00; Stop 02/20/20 at 12:24; Status DC Enoxaparin Sodium (Lovenox 40mg Syringe) 40 mg Q24H SQ Last administered on 02/23/20at 12:05; Start 02/19/20 at 12:00 Sodium Chloride 1,000 ml @ 100 mls/hr 1X ONCE IV Last administered on 02/19/20at 11:45; Start 02/19/20 at 11:45; Stop 02/19/20 at 21:44; Status DC Clonazepam (KlonoPIN) 0.5 mg DAILY PO Last administered on 02/20/20at 08:33; Start 02/19/20 at 12:00 Fentanyl Citrate (Fentanyl 2ml Vial) 50 mcg PRN Q2HR PRN IVP PAIN, 1ST CHOICE Last administered on 02/24/20at 11:11; Start 02/19/20 at 14:00 Nicotine Polacrilex (Nicorette Gum) 1 each PRN Q1HR PRN BC SMOKING CESSATION; Start 02/19/20 at 15:15 Nicotine (Nicoderm Cq 7mg) 1 patch DAILY TD Last administered on 02/24/20 09:04; Start 02/19/20 at 15:15 Lactobacillus Rhamnosus (Culturelle) 1 cap BID PO Last administered on 02/20/20at 20:09; Start 02/20/20 at 10:15 Piperacillin Sod/ Tazobactam Sod 3.375 gm/Sodium Chloride 50 ml @ 100 mls/hr Q6HRS IV Last administered on 02/24/20at 11:11; Start 02/20/20 at 18:00 Aspirin (Aspirin Chewable) 81 mg DAILY PO Last administered on 02/20/20at 15:29; Start 02/20/20 at 14:00 Budesonide (Pulmicort) 0.5 mg BID NEB Last administered on 02/24/20at 07:20; Start 02/20/20 at 21:00 Polyethylene Glycol (miraLAX PACKET) 17 gm DAILY PO ; Start 02/20/20 at 14:00; Stop 02/23/20 at 09:56; Status DC Multivitamins (Thera M Plus) 1 tab DAILY PO Last administered on 02/20/20at 15:29; Start 02/20/20 at 14:00 Fish Oil (Fish Oil) 1,000 mg DAILY PO Last administered on 02/20/20at 15:29; Start 02/20/20 at 14:00 Albuterol Sulfate (Ventolin Neb Soln) 2.5 mg PRN Q4HRS PRN NEB SHORTNESS OF BREATH; Start 02/20/20 at 13:00 Potassium Chloride/Water 100 ml @ 50 mls/hr 1X ONCE IV Last administered on 02/21/20at 08:05; Start 02/21/20 at 08:00; Stop 02/21/20 at 09:59; Status DC Potassium Chloride/Water 100 ml @ 100 mls/hr Q1H IV Last administered on 02/21/20 11:34; Start 02/21/20 at 10:00; Stop 02/21/20 at 10:59; Status DC Sodium Chloride 38.5 meq/Sterile Water 1,009.625 ml @ 75 mls/hr [id number] IV Last administered on 02/21/20at 08:54; Start 02/21/20 at 08:30; Stop 02/21/20 at 15:21; Status DC Pantoprazole Sodium (PROTONIX VIAL for IV PUSH) 40 mg DAILYAC IVP Last administered on 02/24/20 09:02; Start 02/21/20 at 12:30 Hydromorphone HCl (Dilaudid) 0.75 mg PRN Q4HRS PRN IVP PAIN, 2ND CHOICE Last administered on 02/22/20at 04:35; Start 02/21/20 at 13:30 Amino Acids/ Glycerin/ Electrolytes 1,000 ml @ 100 mls/hr Q10H IV Last administered on 02/24/20at 11:09; Start 02/21/20 at 16:00 Lidocaine HCl (Buffered Lidocaine 1%) 3 ml STK-MED ONCE .ROUTE ; Start 02/22/20 at 10:32; Stop 02/22/20 at 10:32; Status DC Lidocaine HCl (Buffered Lidocaine 1%) 3 ml 1X ONCE INJ Last administered on 02/22/20at 11:17; Start 02/22/20 at 11:15; Stop 02/22/20 at 11:16; Status DC Lidocaine HCl (Buffered Lidocaine 1%) 3 ml STK-MED ONCE .ROUTE ; Start 02/22/20 at 11:50; Stop 02/22/20 at 11:51; Status DC Iohexol (Omnipaque 350 Mg/ml) 90 ml 1X ONCE IV Last administered on 02/22/20at 12:15; Start 02/22/20 at 12:15; Stop 02/22/20 at 12:16; Status DC Info (CONTRAST GIVEN -- Rx MONITORING) 1 each PRN DAILY PRN MC SEE COMMENTS; Start 02/22/20 at 12:30; Stop 02/24/20 at 12:29; Status DC Potassium Chloride/Water 100 ml @ 100 mls/hr Q1H IV Last administered on 02/23/20at 13:22; Start 02/23/20 at 11:30; Stop 02/23/20 at 13:29; Status DC Dextrose/Sodium Chloride 1,000 ml @ 125 mls/hr Q8H IV Last administered on 02/24/20at 09:05; Start 02/24/20 at 06:45 Vancomycin HCl (Vancomycin Oral Solution) 125 mg [id number] PO Last administered on 02/24/20at 13:48; Start 02/24/20 at 13:00 Active Scripts Active Reported Miralax (Polyethylene Glycol 3350) 17 Gm Powd.pack 1 Packet PO DAILY 2 Days dissolve in water Fish Oil 1,000 mg Softgel (Kathryn-3/Dha/Epa/Fish Oil) 1,000 Mg Capsule 1,000 Mg PO DAILY Aspirin 81 Mg Tab.chew 1 Tab PO DAILY Daily Value (Multivitamin) 1 Each Tablet 1 Tab PO DAILY 30 Days Perforomist (Formoterol Fumarate) 20 Mcg/2 Ml Vial.neb 20 Mcg IH Pulmicort (Budesonide) 0.5 Mg/2 Ml Ampul.neb 1 Vial NEB BID Clonazepam (Clonazepam) 0.5 Mg Tablet 0.5 Mg PO DAILY Vitals/I & O Vital Sign - Last 24 Hours 02/23/20 02/23/20 02/23/20 02/23/20 15:00 17:06 17:39 19:00 Temp 96.4 97.4 96.4 97.4 Pulse 92 75 Resp 16 16 18 B/P (MAP) 174/67 (102) 176/86 (116) Pulse Ox 88 95 O2 Delivery Nasal Cannula Nasal Cannula Room Air Nasal Cannula O2 Flow Rate 4.0 4.0 4.0 4.0 02/23/20 02/23/20 02/23/20 02/24/20 19:57 20:05 23:00 03:34 Temp 97.5 97.5 97.5 97.5 Pulse 99 96 Resp 20 B/P (MAP) 165/95 (118) 186/84 (118) Pulse Ox 96 95 O2 Delivery Nasal Cannula Nasal Cannula Nasal Cannula Nasal Cannula O2 Flow Rate 4.0 4.0 4.0 4.0 02/24/20 02/24/20 02/24/20 02/24/20 07:00 07:21 08:30 10:27 Temp 97.9 98.0 97.9 98.0 Pulse 101 104 Resp B/P (MAP) 153/87 (109) 145/82 (103) Pulse Ox 91 92 O2 Delivery Nasal Cannula Nasal Cannula Nasal Cannula Nasal Cannula O2 Flow Rate 4.0 4.0 4.0 4.0 02/24/20 02/24/20 11:11 11:41 Resp 18 18 O2 Delivery Nasal Cannula Nasal Cannula O2 Flow Rate 4.0 4.0 Intake and Output 02/23/20 02/23/20 02/24/20 15:00 23:00 07:00 Intake Total 0 ml 1100 ml Output Total 350 ml 1050 ml 900 ml Balance -350 ml -1050 ml 200 ml Justicifation of Admission Dx: Justifications for Admission: Justification of Admission Dx: Yes Sepsis: Infection CHAYA RUBIO MD Feb 24, 2020 14:13
[2020-02-24 14:34] VITALS: BP 135/72
[2020-02-24 19:00] VITALS: BP 142/63
[2020-02-24 23:30] VITALS: BP 135/64
[2020-02-25] VITALS (13 sets, daily range): BP systolic 110–170; BP diastolic 46–78
[2020-02-25] MEDS: IV DEXTROSE 5 %-0.2 % NACL 1,000 ML IV SCH ×4 (00:10→23:18)
[2020-02-25] MEDS: PIPERACILLIN/TAZOBACTAM 3.375 GM in IV NORMAL SALINE 50ML 50 ML IV SCH ×4 (05:05→23:17)
[2020-02-25 06:51] LABS: CALCIUM 8.8 mg/dL (8.5-10.1); CREATININE 1.1 mg/dL (0.6-1.0); POTASSIUM 3.6 mmol/L (3.5-5.1)
[2020-02-25] MEDS: VANCOMYCIN 125 MG/2.5 ML ORAL SOLUTION. PO SCH ×4 (07:24→20:59)
[2020-02-25] MEDS ORDERED: fentaNYL PF VIAL 100 MCG/2 ML VIAL ONE ×2 (08:01→09:50)
[2020-02-25] MEDS ORDERED: MIDAZOLAM HCL/PF 2 MG/2 ML VIAL. ONE ×2 (08:01→09:50)
[2020-02-25] MEDS ORDERED: HEPARIN for IV BOLUS 10,000 UNIT/10 ML VIAL. ONE (08:01)
[2020-02-25] MEDS ORDERED: LIDOCAINE WITH 8.4% SOD BICARB 3 ML DISP.SYRIN. ONE (08:03)
[2020-02-25] MEDS ORDERED: IODIXANOL 320 MG/ML 100 ML VIAL. ONE (08:03)
[2020-02-25] MEDS ORDERED: HEPARIN for ARTERIAL LINE 1,500 ML ONE (08:03)
--- NOTE | 2020-02-25 08:03 | PDOC ---
Infectious Disease Note Subjective: Subjective Patient without complaints Abdominal pain comes and goes mainly in llq no n/v/f Continues to have loose bowel movement Vital Signs: Vital Signs Vital Signs Date Time Temp Pulse Resp B/P (MAP) Pulse Ox O2 Delivery O2 Flow Rate FiO2 02/25/20 03:00 97.5 94 20 170/78 (108) 95 Nasal Cannula 4.0 97.5 Physical Exam: PHYSICAL EXAM General alert oriented x3 no acute distress HEENT: Both pupils are round and reacting. No conjunctival lesion, no lesion in the mouth. NECK: Supple, no JVP, no lymphadenopathy. LUNGS: Clear. HEART: S1, S2 regular. ABDOMEN: Soft bowel sounds present mildly distended mild tenderness present on deep palpation EXTREMITIES: No edema, cyanosis. Dry skin SKIN: Unremarkable. NEUROLOGIC: No focal neurologic deficit. Medications: Inpatient Meds: Current Medications Medications (Trade) Dose Ordered Sig/Viola Start Time Stop Time Status Last Admin Dose Admin Albuterol Sulfate (Ventolin Neb Soln) 2.5 mg PRN Q4HRS PRN 02/20/20 13:00 Amino Acids/ Glycerin/ Electrolytes 1,000 ml @ 100 mls/hr Q10H 02/21/20 16:00 02/24/20 23:17 100 MLS/HR Aspirin (Aspirin Chewable) 81 mg DAILY 02/20/20 14:00 02/20/20 15:29 81 MG Budesonide (Pulmicort) 0.5 mg BID 02/20/20 21:00 02/24/20 20:28 0.5 MG Ceftriaxone Sodium (Rocephin) 1 gm Q24H 02/20/20 12:00 02/20/20 12:24 DC 02/20/20 11:52 1 GM Clonazepam (KlonoPIN) 0.5 mg DAILY 02/19/20 12:00 02/20/20 08:33 0.5 MG Dextrose/Sodium Chloride 1,000 ml @ 125 mls/hr Q8H 02/24/20 06:45 02/25/20 06:35 125 MLS/HR Enoxaparin Sodium (Lovenox 40mg Syringe) 40 mg Q24H 02/19/20 12:00 02/23/20 12:05 40 MG Fentanyl Citrate (Fentanyl 2ml Vial) 50 mcg PRN Q2HR PRN 02/19/20 14:00 02/24/20 11:11 50 MCG Fish Oil (Fish Oil) 1,000 mg DAILY 02/20/20 14:00 02/20/20 15:29 1,000 MG Hydromorphone HCl (Dilaudid) 0.75 mg PRN Q4HRS PRN 02/21/20 13:30 02/22/20 04:35 0.75 MG Info (CONTRAST GIVEN -- Rx MONITORING) 1 each PRN DAILY PRN 02/22/20 12:30 02/24/20 12:29 DC Iohexol (Omnipaque 300 Mg/ml) 75 ml 1X ONCE 02/19/20 10:30 02/19/20 10:31 DC 02/19/20 10:46 75 ML Iohexol (Omnipaque 350 Mg/ml) 90 ml 1X ONCE 02/22/20 12:15 02/22/20 12:16 DC 02/22/20 12:15 90 ML Lactobacillus Rhamnosus (Culturelle) 1 cap BID 02/20/20 10:15 02/24/20 21:26 1 CAP Lidocaine HCl (Buffered Lidocaine 1%) 3 ml STK-MED ONCE 02/22/20 11:50 02/22/20 11:51 DC Metronidazole 100 ml @ 100 mls/hr 1X ONCE 02/19/20 11:30 02/19/20 12:29 DC 02/19/20 12:06 100 MLS/HR Multivitamins (Thera M Plus) 1 tab DAILY 02/20/20 14:00 02/20/20 15:29 1 TAB Nicotine (Nicoderm Cq 7mg) 1 patch DAILY 02/19/20 15:15 02/24/20 09:04 1 PATCH Nicotine Polacrilex (Nicorette Gum) 1 each PRN Q1HR PRN 02/19/20 15:15 Ondansetron HCl (Zofran) 4 mg 1X ONCE 02/19/20 09:30 02/19/20 09:31 DC 02/19/20 09:49 4 MG Pantoprazole Sodium (PROTONIX VIAL for IV PUSH) 40 mg DAILYAC 02/21/20 12:30 02/24/20 09:02 40 MG Piperacillin Sod/ Tazobactam Sod 3.375 gm/Sodium Chloride 50 ml @ 100 mls/hr Q6HRS 02/20/20 18:00 02/25/20 05:05 100 MLS/HR Polyethylene Glycol (miraLAX PACKET) 17 gm DAILY 02/20/20 14:00 02/23/20 09:56 DC Potassium Chloride/Water 100 ml @ 100 mls/hr Q1H 02/23/20 11:30 02/23/20 13:29 DC 02/23/20 13:22 100 MLS/HR Sodium Chloride 38.5 meq/Sterile Water 1,009.625 ml @ 75 mls/hr [id number] 02/21/20 08:30 02/21/20 15:21 DC 02/21/20 08:54 75 MLS/HR Vancomycin HCl (Vancomycin Oral Solution) 125 mg [id number] 02/24/20 13:00 02/24/20 21:26 125 MG Labs: Lab Laboratory Tests Test 02/25/20 06:30 Sodium Level 157 mmol/L (136-145) Potassium Level 3.6 mmol/L (3.5-5.1) Chloride Level 116 mmol/L (98-107) Carbon Dioxide Level 37 mmol/L (21-32) Anion Gap 4 (6-14) Blood Urea Nitrogen 15 mg/dL (7-20) Creatinine 1.1 mg/dL (0.6-1.0) Estimated GFR (Cockcroft-Gault) 48.0 Glucose Level 127 mg/dL (70-99) Calcium Level 8.8 mg/dL (8.5-10.1) Objective: Assessment: 1. Diverticulitis with diverticular abscess.not amenable per IR for drainage GI panel negative 2. Leukocytosis. 3. Obesity. 4. Chronic obstructive pulmonary disease. 5. Coronary artery disease. 6. Severe PAD 7. Hypernatremia 8. 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 10. C. difficile positive 11. Hypernatremia 12. Severe protein calorie malnutrition Plan: Plan of Care Continue Zosyn, Continue p.o. vancomycin awaiting angiogram this am supportive care. Vascular and general surgery following Follow-up labs and cultures d/w ALISSA Cochran MD Feb 25, 2020 08:03
[2020-02-25] MEDS: BUDESONIDE 0.5 MG/2 ML NEBU. NEB SCH ×2 (08:27→19:12)
[2020-02-25] MEDS: AMINO AC 3%/ELECTROLYTE/GLYCER 1,000 ML IV SCH ×2 (08:39→15:04)
--- NOTE | 2020-02-25 09:21 | PDOC ---
Objective: Objective: D/w nurse - out for imaging. Was advanced to clear liquids yesterday but didn't eat much. Diarrhea might be better. D/w Dr. Em. Vital Signs: Vital Signs Date Time Temp Pulse Resp B/P (MAP) Pulse Ox O2 Delivery O2 Flow Rate FiO2 02/25/20 03:00 97.5 94 20 170/78 (108) 95 Nasal Cannula 4.0 97.5 Labs: Laboratory Tests Test 02/25/20 06:30 Sodium Level 157 mmol/L Potassium Level 3.6 mmol/L Chloride Level 116 mmol/L Carbon Dioxide Level 37 mmol/L Anion Gap 4 Blood Urea Nitrogen 15 mg/dL Creatinine 1.1 mg/dL Estimated GFR (Cockcroft-Gault) 48.0 Glucose Level 127 mg/dL Calcium Level 8.8 mg/dL Imaging: Abd angiography 02/24 pending PE: out of room A/P: Diverticulitis w/ abscesses, ?colovesical fistula - on clears per surgery C Diff - on PO vanco PAD, AAA -- Await imaging. Defer diet to surgery. Continue vanco. Justicifation of Admission Dx: Justifications for Admission: Justification of Admission Dx: Yes Sepsis: Infection ANASTASIA MAHER Feb 25, 2020 09:21
[2020-02-25] MEDS ORDERED: MIDAZOLAM HCL/PF 2 MG/2 ML VIAL. IV ONE (10:15)
[2020-02-25] MEDS ORDERED: HEPARIN for IV BOLUS 10,000 UNIT/10 ML VIAL. IART ONE (10:15)
[2020-02-25] MEDS ORDERED: fentaNYL PF VIAL 100 MCG/2 ML VIAL IV ONE (10:15)
[2020-02-25] MEDS ORDERED: LIDOCAINE WITH 8.4% SOD BICARB 3 ML DISP.SYRIN. IJ ONE (10:15)
[2020-02-25] MEDS ORDERED: IODIXANOL 320 MG/ML 100 ML VIAL. IART ONE (10:15)
[2020-02-25] MEDS ORDERED: CONTRAST GIVEN. MC PRN (10:30)
[2020-02-25] MEDS: ENOXAPARIN 40 MG/0.4 ML SYRINGE. SQ SCH (11:23)
--- NOTE | 2020-02-25 11:28 | PDOC ---
PROGRESS NOTES Subjective Subjective Patient seen and examine in room. No complaints. She has just returned from Angiogram. Objective Objective Vital Signs Date Time Temp Pulse Resp B/P (MAP) Pulse Ox O2 Delivery O2 Flow Rate FiO2 02/25/20 10:19 92 16 99 Nasal Cannula 4.0 02/25/20 03:00 97.5 170/78 (108) 97.5 Intake and Output 02/25/20 07:00 Intake Total 4040 ml Output Total 1200 ml Balance 2840 ml Intake Oral 940 ml IV Total 3100 ml Output Urine Total 800 ml Urine/Stool Mix 400 ml # Voids 2 # Bowel Movements 2 Physical Exam Physical Exam Awake and alert HRR Left femoral access site dry and intact, no hematoma or swelling Bilateral feet warm, mild discoloration plantar surface right 3-5 toes, skin intact, left foot mild discoloration plantar surface of toes. Assessment Assessment Problems Medical Problems: (1) Abdominal aortic aneurysm (AAA) 3.0 cm to 5.0 cm in diameter in female Status: Acute (2) Acute diverticulitis Status: Acute Plan Plan of Care Advanced peripheral arterial disease--patient's right lower extremity bypass graft is patent. Angiogram reviewed by Dr. Pawel Narayanan right AT. Continue neurovascular checks. Continue protective measures. 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 She clearly is very unrealistic in regards to her health and especially smoking cessation. She understands that if she continues to smoke, she is at markedly high risk of limb loss, heart attack, stroke, aneurysm rupture and expansion and . Asymptomatic infrarenal abdominal aortic aneurysm--patient's aneurysm measures 4.2 cm and is stable. There is no active treatment indicated for her aneurysm at this time. It is not related to the patient's abdominal pain. Comment Review of Relevant I have reviewed the following items mayra (where applicable) has been applied. Labs Laboratory Tests Test 02/23/20 14:06 02/24/20 05:30 02/25/20 06:30 Prothrombin Time 15.4 SEC (11.7-14.0) Prothromb Time International Ratio 1.3 (0.8-1.1) Activated Partial Thromboplast Time 30 SEC (24-38) Sodium Level 161 mmol/L (136-145) 157 mmol/L (136-145) Potassium Level 3.5 mmol/L (3.5-5.1) 3.6 mmol/L (3.5-5.1) Chloride Level 119 mmol/L (98-107) 116 mmol/L (98-107) Carbon Dioxide Level 37 mmol/L (21-32) 37 mmol/L (21-32) Anion Gap 5 (6-14) 4 (6-14) Blood Urea Nitrogen 14 mg/dL (7-20) 15 mg/dL (7-20) Creatinine 1.0 mg/dL (0.6-1.0) 1.1 mg/dL (0.6-1.0) Estimated GFR (Cockcroft-Gault) 53.6 48.0 Glucose Level 114 mg/dL (70-99) 127 mg/dL (70-99) Calcium Level 9.5 mg/dL (8.5-10.1) 8.8 mg/dL (8.5-10.1) Magnesium Level 2.1 mg/dL (1.8-2.4) Laboratory Tests Test 02/25/20 06:30 Sodium Level 157 mmol/L (136-145) Potassium Level 3.6 mmol/L (3.5-5.1) Chloride Level 116 mmol/L (98-107) Carbon Dioxide Level 37 mmol/L (21-32) Anion Gap 4 (6-14) Blood Urea Nitrogen 15 mg/dL (7-20) Creatinine 1.1 mg/dL (0.6-1.0) Estimated GFR (Cockcroft-Gault) 48.0 Glucose Level 127 mg/dL (70-99) Calcium Level 8.8 mg/dL (8.5-10.1) Microbiology 02/21/20 Fecal Leukocyte Stain - Final, Complete 02/19/20 Urine Culture - Final, Complete 02/19/20 Blood Culture - Final, Complete NO GROWTH AFTER 5 DAYS Medications Current Medications Fentanyl Citrate (Fentanyl 2ml Vial) 50 mcg 1X ONCE IV Last administered on 02/19/20at 09:50; Start 02/19/20 at 09:30; Stop 02/19/20 at 09:31; Status DC Ondansetron HCl (Zofran) 4 mg 1X ONCE IV Last administered on 02/19/20at 09:49; Start 02/19/20 at 09:30; Stop 02/19/20 at 09:31; Status DC Sodium Chloride 1,000 ml @ 1,000 mls/hr 1X ONCE IV Last administered on 02/19/20at 09:48; Start 02/19/20 at 09:30; Stop 02/19/20 at 10:29; Status DC Iohexol (Omnipaque 300 Mg/ml) 75 ml 1X ONCE IV Last administered on 02/19/20at 10:46; Start 02/19/20 at 10:30; Stop 02/19/20 at 10:31; Status DC Info (CONTRAST GIVEN -- Rx MONITORING) 1 each PRN DAILY PRN MC SEE COMMENTS; Start 02/19/20 at 10:30; Stop 02/21/20 at 10:29; Status DC Ceftriaxone Sodium (Rocephin) 1 gm 1X ONCE IVP Last administered on 02/19/20at 11:14; Start 02/19/20 at 11:15; Stop 02/19/20 at 11:16; Status DC Ceftriaxone Sodium (Rocephin) 1 gm 1X ONCE IVP Last administered on 02/19/20at 12:01; Start 02/19/20 at 11:30; Stop 02/19/20 at 11:31; Status DC Metronidazole 100 ml @ 100 mls/hr Q8HRS IV Last administered on 02/20/20at 06:00; Start 02/19/20 at 22:00; Stop 02/20/20 at 12:24; Status DC Metronidazole 100 ml @ 100 mls/hr 1X ONCE IV Last administered on 02/19/20at 12:06; Start 02/19/20 at 11:30; Stop 02/19/20 at 12:29; Status DC Ceftriaxone Sodium (Rocephin) 1 gm Q24H IVP Last administered on 02/20/20at 11:52; Start 02/20/20 at 12:00; Stop 02/20/20 at 12:24; Status DC Enoxaparin Sodium (Lovenox 40mg Syringe) 40 mg Q24H SQ Last administered on 02/23/20at 12:05; Start 02/19/20 at 12:00 Sodium Chloride 1,000 ml @ 100 mls/hr 1X ONCE IV Last administered on 02/19/20at 11:45; Start 02/19/20 at 11:45; Stop 02/19/20 at 21:44; Status DC Clonazepam (KlonoPIN) 0.5 mg DAILY PO Last administered on 02/20/20at 08:33; Start 02/19/20 at 12:00 Fentanyl Citrate (Fentanyl 2ml Vial) 50 mcg PRN Q2HR PRN IVP PAIN, 1ST CHOICE Last administered on 02/24/20at 11:11; Start 02/19/20 at 14:00 Nicotine Polacrilex (Nicorette Gum) 1 each PRN Q1HR PRN BC SMOKING CESSATION; Start 02/19/20 at 15:15 Nicotine (Nicoderm Cq 7mg) 1 patch DAILY TD Last administered on 02/24/20at 09:04; Start 02/19/20 at 15:15 Lactobacillus Rhamnosus (Culturelle) 1 cap BID PO Last administered on 02/24/20at 21:26; Start 02/20/20 at 10:15 Piperacillin Sod/ Tazobactam Sod 3.375 gm/Sodium Chloride 50 ml @ 100 mls/hr Q6HRS IV Last administered on 02/25/20at 05:05; Start 02/20/20 at 18:00 Aspirin (Aspirin Chewable) 81 mg DAILY PO Last administered on 02/20/20at 15:29; Start 02/20/20 at 14:00 Budesonide (Pulmicort) 0.5 mg BID NEB Last administered on 02/24/20at 20:28; Start 02/20/20 at 21:00 Polyethylene Glycol (miraLAX PACKET) 17 gm DAILY PO ; Start 02/20/20 at 14:00; Stop 02/23/20 at 09:56; Status DC Multivitamins (Thera M Plus) 1 tab DAILY PO Last administered on 02/20/20at 15:29; Start 02/20/20 at 14:00 Fish Oil (Fish Oil) 1,000 mg DAILY PO Last administered on 02/20/20at 15:29; Start 02/20/20 at 14:00 Albuterol Sulfate (Ventolin Neb Soln) 2.5 mg PRN Q4HRS PRN NEB SHORTNESS OF BREATH; Start 02/20/20 at 13:00 Potassium Chloride/Water 100 ml @ 50 mls/hr 1X ONCE IV Last administered on 02/21/20at 08:05; Start 02/21/20 at 08:00; Stop 02/21/20 at 09:59; Status DC Potassium Chloride/Water 100 ml @ 100 mls/hr Q1H IV Last administered on 02/21/20at 11:34; Start 02/21/20 at 10:00; Stop 02/21/20 at 10:59; Status DC Sodium Chloride 38.5 meq/Sterile Water 1,009.625 ml @ 75 mls/hr [id number] IV Last administered on 02/21/20at 08:54; Start 02/21/20 at 08:30; Stop 02/21/20 at 15:21; Status DC Pantoprazole Sodium (PROTONIX VIAL for IV PUSH) 40 mg DAILYAC IVP Last administered on 02/24/20at 09:02; Start 02/21/20 at 12:30; Stop 02/25/20 at 09:22; Status DC Hydromorphone HCl (Dilaudid) 0.75 mg PRN Q4HRS PRN IVP PAIN, 2ND CHOICE Last administered on 02/22/20at 04:35; Start 02/21/20 at 13:30 Amino Acids/ Glycerin/ Electrolytes 1,000 ml @ 100 mls/hr Q10H IV Last administered on 02/24/20at 23:17; Start 02/21/20 at 16:00 Lidocaine HCl (Buffered Lidocaine 1%) 3 ml STK-MED ONCE .ROUTE ; Start 02/22/20 at 10:32; Stop 02/22/20 at 10:32; Status DC Lidocaine HCl (Buffered Lidocaine 1%) 3 ml 1X ONCE INJ Last administered on 02/22/20at 11:17; Start 02/22/20 at 11:15; Stop 02/22/20 at 11:16; Status DC Lidocaine HCl (Buffered Lidocaine 1%) 3 ml STK-MED ONCE .ROUTE ; Start 02/22/20 at 11:50; Stop 02/22/20 at 11:51; Status DC Iohexol (Omnipaque 350 Mg/ml) 90 ml 1X ONCE IV Last administered on 02/22/20at 12:15; Start 02/22/20 at 12:15; Stop 02/22/20 at 12:16; Status DC Info (CONTRAST GIVEN -- Rx MONITORING) 1 each PRN DAILY PRN MC SEE COMMENTS; Start 02/22/20 at 12:30; Stop 02/24/20 at 12:29; Status DC Potassium Chloride/Water 100 ml @ 100 mls/hr Q1H IV Last administered on 02/23/20at 13:22; Start 02/23/20 at 11:30; Stop 02/23/20 at 13:29; Status DC Dextrose/Sodium Chloride 1,000 ml @ 125 mls/hr Q8H IV Last administered on 02/25/20at 06:35; Start 02/24/20 at 06:45 Vancomycin HCl (Vancomycin Oral Solution) 125 mg [id number] PO Last administered on 02/24/20at 21:26; Start 02/24/20 at 13:00 Midazolam HCl (Versed) 2 mg STK-MED ONCE .ROUTE ; Start 02/25/20 at 08:01; Stop 02/25/20 at 08:02; Status DC Fentanyl Citrate (Fentanyl 2ml Vial) 100 mcg STK-MED ONCE .ROUTE ; Start 02/25/20 at 08:01; Stop 02/25/20 at 08:02; Status DC Heparin Sodium (Porcine) (Heparin Sodium) 10,000 unit STK-MED ONCE .ROUTE ; Start 02/25/20 at 08:01; Stop 02/25/20 at 08:02; Status DC Lidocaine HCl (Buffered Lidocaine 1%) 3 ml STK-MED ONCE .ROUTE ; Start 02/25/20 at 08:03; Stop 02/25/20 at 08:03; Status DC Iodixanol (Visipaque 320) 100 ml STK-MED ONCE .ROUTE ; Start 02/25/20 at 08:03; Stop 02/25/20 at 08:03; Status DC Heparin Sodium/ Sodium Chloride 1,500 ml @ As Directed STK-MED ONCE .ROUTE ; Start 02/25/20 at 08:03; Stop 02/25/20 at 08:04; Status DC Pantoprazole Sodium (Protonix) 40 mg DAILYAC PO ; Start 02/25/20 at 10:00 Midazolam HCl (Versed) 2 mg STK-MED ONCE .ROUTE ; Start 02/25/20 at 09:50; Stop 02/25/20 at 09:51; Status DC Fentanyl Citrate (Fentanyl 2ml Vial) 100 mcg STK-MED ONCE .ROUTE ; Start 02/25/20 at 09:50; Stop 7/24/20 at 09:51; Status DC Heparin Sodium (Porcine) (Heparin Sodium) 5,000 unit 1X ONCE IART Last administered on 02/25/20at 10:15; Start 02/25/20 at 10:15; Stop 02/25/20 at 10:21; Status DC Heparin Sodium/ Sodium Chloride (HEPARIN for ARTERIAL LINE FLUSH) 1,000 unit 1X ONCE IART Last administered on 02/25/20at 10:15; Start 02/25/20 at 10:15; Stop 02/25/20 at 10:21; Status DC Lidocaine HCl (Buffered Lidocaine 1%) 3 ml 1X ONCE IJ Last administered on 02/25/20at 10:15; Start 02/25/20 at 10:15; Stop 02/25/20 at 10:22; Status DC Midazolam HCl (Versed) 2.5 mg 1X ONCE IV Last administered on 02/25/20at 10:15; Start 02/25/20 at 10:15; Stop 02/25/20 at 10:22; Status DC Fentanyl Citrate (Fentanyl 2ml Vial) 125 mcg 1X ONCE IV Last administered on 02/25/20at 10:15; Start 02/25/20 at 10:15; Stop 02/25/20 at 10:21; Status DC Iodixanol (Visipaque 320) 40 ml 1X ONCE IART Last administered on 02/25/20at 10:15; Start 02/25/20 at 10:15; Stop 02/25/20 at 10:22; Status DC Info (CONTRAST GIVEN -- Rx MONITORING) 1 each PRN DAILY PRN MC SEE COMMENTS; Start 02/25/20 at 10:30; Stop 02/27/20 at 10:29 Clopidogrel Bisulfate (Plavix) 75 mg DAILYWBKFT PO ; Start 02/26/20 at 08:00 Clopidogrel Bisulfate (Plavix) 300 mg 1X ONCE PO ; Start 02/25/20 at 12:00; Stop 02/25/20 at 12:01 Active Scripts Active Reported Miralax (Polyethylene Glycol 3350) 17 Gm Powd.pack 1 Packet PO DAILY 2 Days dissolve in water Fish Oil 1,000 mg Softgel ([place]-3/Dha/Epa/Fish Oil) 1,000 Mg Capsule 1,000 Mg PO DAILY Aspirin 81 Mg Tab.chew 1 Tab PO DAILY Daily Value (Multivitamin) 1 Each Tablet 1 Tab PO DAILY 30 Days Perforomist (Formoterol Fumarate) 20 Mcg/2 Ml Vial.neb 20 Mcg IH Pulmicort (Budesonide) 0.5 Mg/2 Ml Ampul.neb 1 Vial NEB BID Clonazepam (Clonazepam) 0.5 Mg Tablet 0.5 Mg PO DAILY Vitals/I & O Vital Sign - Last 24 Hours 02/24/20 02/24/20 02/24/20 02/24/20 11:41 14:34 19:00 20:04 Temp 97.6 97.5 97.6 97.5 Pulse 96 86 Resp 18 20 20 B/P (MAP) 135/72 (93) 142/63 (89) Pulse Ox 92 95 O2 Delivery Nasal Cannula Nasal Cannula Nasal Cannula Nasal Cannula O2 Flow Rate 4.0 4.0 4.0 4.0 02/24/20 02/24/20 02/25/20 02/25/20 20:28 23:30 03:00 07:40 Temp 97.5 97.5 97.5 97.5 Pulse 88 94 Resp 20 20 B/P (MAP) 135/64 (87) 170/78 (108) Pulse Ox 98 95 O2 Delivery Nasal Cannula Nasal Cannula Nasal Cannula Nasal Cannula O2 Flow Rate 4.0 4.0 4.0 4.0 02/25/20 10:19 Pulse 92 Resp 16 Pulse Ox 99 O2 Delivery Nasal Cannula O2 Flow Rate 4.0 Intake and Output 02/24/20 02/24/20 02/25/20 15:00 23:00 07:00 Intake Total 0 ml 700 ml 3340 ml Output Total 200 ml 1000 ml Balance 0 ml 500 ml 2340 ml Justicifation of Admission Dx: Justifications for Admission: Justification of Admission Dx: Yes Sepsis: Infection LOUIS HENDERSON PHOTOGRAPHY MANAGER Feb 25, 2020 11:28
--- NOTE | 2020-02-25 11:31 | PDOC ---
Renal-Progress Notes Subjective Notes Notes NO NEW COMPLAINTS History of Present Illness Hx of present illness NO CHANGES Vitals Vitals Vital Signs Date Time Temp Pulse Resp B/P (MAP) Pulse Ox O2 Delivery O2 Flow Rate FiO2 02/25/20 10:19 92 16 99 Nasal Cannula 4.0 02/25/20 03:00 97.5 170/78 (108) 97.5 Weight Weight [ ] I.O. Intake and Output Intake and Output 02/25/20 07:00 Intake Total 4040 ml Output Total 1200 ml Balance 2840 ml Intake Oral 940 ml IV Total 3100 ml Output Urine Total 800 ml Urine/Stool Mix 400 ml # Voids 2 # Bowel Movements 2 Labs Labs Laboratory Tests Test 02/25/20 06:30 Sodium Level 157 mmol/L (136-145) Potassium Level 3.6 mmol/L (3.5-5.1) Chloride Level 116 mmol/L (98-107) Carbon Dioxide Level 37 mmol/L (21-32) Anion Gap 4 (6-14) Blood Urea Nitrogen 15 mg/dL (-20) Creatinine 1.1 mg/dL (0.6-1.0) Estimated GFR (Cockcroft-Gault) 48.0 Glucose Level 127 mg/dL (70-99) Calcium Level 8.8 mg/dL (8.5-10.1) Micro Micro Microbiology 02/21/20 Fecal Leukocyte Stain - Final, Complete 02/19/20 Urine Culture - Final, Complete 02/19/20 Blood Culture - Final, Complete NO GROWTH AFTER 5 DAYS Review of Systems Constitutional: yes: weakness, alert, oriented Ears/Nose/Throat: Yes: no symptom reported Eyes: Yes: no symptom reported Pulmonary: Yes no symptom reported Cardiovascular: Yes no symptom reported Gastrointestional: Yes: nausea Genitourinary: Yes: no symptom reported Musculoskeletal: Yes: muscle stiffness Skin: Yes no symptom reported Psychiatric/Neurological: Yes: no symptom reported Endocrine: Yes: no symptom reported Physical Exam General Appearance: no apparent distress Skin: warm Heart: S1S2 Abdomen: soft Genitourinary: bladder flat Neurology: alert Musculoskeletal: Osteoarthritis Assessment Assessment IMP DEHYDRATION ESTER - IMPROVING-CR DOWN TO 1.1 LOW K-BETTER HYPERNATREMIA-IMPROVING DIVERTICULAR ABSCESS PLAN HYDRATION WITH D5W REPLACE K PROCALAMINE FOR NOW ANTIBIOTICS WILL FOLLOW HERSON RODRIGUEZ MD Feb 25, 2020 11:31
[2020-02-25] MEDS: NICOTINE 7MG PATCH. TD SCH (11:34)
[2020-02-25] MEDS ORDERED: CLOPIDOGREL BISULFATE 75 MG TABLET PO ONE (12:00)
--- NOTE | 2020-02-25 12:22 | RAD ---
02/25/2020 10:14 AM Procedure: 1.Right lower extremity angiography 2. Angioplasty of the right anterior tibial artery 3. Angioplasty of the popliteal artery, and at the anastomosis of the right lower extremity femoropopliteal bypass graft Clinical Indication: Right lower extremity angiogram. Blue toe syndrome. Right lower extremity rest pain. Discussion: The procedure was explained in its entirety to the patient or the patients designated senior sales representative by a member of the treatment team, including a discussion of the risks, benefits and commonly accepted alternatives to the procedure, as well as the expected consequences of no therapy whatsoever. Discussion of the risks included, but was not limited to, those that are most frequent and those that are rare but possibly severe or life-threatening, as well as the possibility of unforeseen complications. All elements of maximal sterile barrier technique including the use of a cap, mask, sterile gown, sterile gloves, large sterile sheet, appropriate hand hygiene, and 2% chlorhexidine for cutaneous antisepsis (or acceptable alternative antiseptic per current guidelines) were followed for this procedure. The left groin was prepped and draped as described. Ultrasound evaluation demonstrates patent common femoral artery. 1% lidocaine was administered for local anesthesia. Under direct ultrasound guidance left common femoral artery was accessed using micropuncture technique. Reference ultrasound images were saved the medical record. An Omni flush catheter was used to cross the aortic bifurcation. The catheter was delivered to the right external iliac artery. Right lower extremity angiography was performed. The common femoral artery is patent. There is a right femoropopliteal bypass graft. The [place] SFA is occluded. The profunda artery is patent. There is a moderate to high-grade narrowing at the distal anastomosis just above the adductor canal. Stenosis extends into the [id number] popliteal artery. Below the knee popliteal artery artery is patent. 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 The peroneal artery is small but patent. Multifocal high-grade narrowings the right anterior tibial artery are seen which is the dominant blood supply to the foot. Another over sheath was placed. Angioplasty of the anterior tibial tibial artery was performed up to 2 mm in significantly improved morphology and flow. Angioplasty of the distal bypass anastomosis [id number] popliteal artery was performed with a 5 mm balloon, again with improved morphology and flow. She's were removed. Angiography of the access site demonstrates the common femoral puncture amenable to closure device use. Chronic SFA occlusion again noted. A minx device was deployed. Hemostasis was achieved. Sterile dressings were applied. No immediate complications were identified. Total fluoroscopy time: 14.1 min Dose area product: 57 Gycm2 The procedures performed under conscious sedation including continuous cardiopulmonary monitoring via dedicated sedation nurse. [id number] sedation time: 90 Impression: 1. Moderate to high-grade stenosis distal bypass anastomosis extending of the [id number] popliteal artery treated with balloon angioplasty 2. Multiple high-grade stenoses of the right anterior tibial artery treated with balloon angioplasty. There is two-vessel runoff now with a patent anterior tibial artery, and small patent peroneal artery. 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
[2020-02-25] MEDS: clonazePAM 0.5 MG TABLET PO SCH (12:45)
[2020-02-25] MEDS: PANTOPRAZOLE 40 MG TABLET.DR. PO SCH (12:45)
[2020-02-25] MEDS: OMEGA-3 FATTY ACIDS/FISH OIL 1,000 MG CAPSULE. PO SCH (12:45)
--- NOTE | 2020-02-25 12:45 | PDOC ---
ALLIE BENITES SHELLFISH DREDGE OPERATOR 02/25/20 1245: SURGICAL PROGRESS NOTE Subjective resting asking about some water back from angio Vital Signs Vital Signs Date Time Temp Pulse Resp B/P (MAP) Pulse Ox O2 Delivery O2 Flow Rate FiO2 02/25/20 11:00 97.5 88 18 133/57 (82) 92 Nasal Cannula 4.0 97.5 I&O Intake and Output 02/25/20 07:00 Intake Total 4040 ml Output Total 1200 ml Balance 2840 ml Intake Oral 940 ml IV Total 3100 ml Output Urine Total 800 ml Urine/Stool Mix 400 ml # Voids 2 # Bowel Movements 2 General: Alert, Oriented X3, Cooperative Abdomen: Soft, Other (mild ttp lower abdomen, no guarding) Labs Laboratory Tests Test 02/23/20 14:06 02/24/20 05:30 02/25/20 06:30 Prothrombin Time 15.4 SEC (11.7-14.0) Prothromb Time International Ratio 1.3 (0.8-1.1) Activated Partial Thromboplast Time 30 SEC (24-38) Sodium Level 161 mmol/L (136-145) 157 mmol/L (136-145) Potassium Level 3.5 mmol/L (3.5-5.1) 3.6 mmol/L (3.5-5.1) Chloride Level 119 mmol/L (98-107) 116 mmol/L (98-107) Carbon Dioxide Level 37 mmol/L (21-32) 37 mmol/L (21-32) Anion Gap 5 (6-14) 4 (6-14) Blood Urea Nitrogen 14 mg/dL (7-20) 15 mg/dL (7-20) Creatinine 1.0 mg/dL (0.6-1.0) 1.1 mg/dL (0.6-1.0) Estimated GFR (Cockcroft-Gault) 53.6 48.0 Glucose Level 114 mg/dL (70-99) 127 mg/dL (70-99) Calcium Level 9.5 mg/dL (8.5-10.1) 8.8 mg/dL (8.5-10.1) Magnesium Level 2.1 mg/dL (1.8-2.4) Laboratory Tests Test 02/25/20 06:30 Sodium Level 157 mmol/L (136-145) Potassium Level 3.6 mmol/L (3.5-5.1) Chloride Level 116 mmol/L (98-107) Carbon Dioxide Level 37 mmol/L (21-32) Anion Gap 4 (6-14) Blood Urea Nitrogen 15 mg/dL (7-20) Creatinine 1.1 mg/dL (0.6-1.0) Estimated GFR (Cockcroft-Gault) 48.0 Glucose Level 127 mg/dL (70-99) Calcium Level 8.8 mg/dL (8.5-10.1) Problem List Problems Medical Problems: (1) Abdominal aortic aneurysm (AAA) 3.0 cm to 5.0 cm in diameter in female Status: Acute (2) Acute diverticulitis Status: Acute Assessment/Plan c diff tx, clears, abx Justicifation of Admission Dx: Justifications for Admission: Justification of Admission Dx: Yes Sepsis: Infection LE GUALLPA MD 02/25/20 1343: SURGICAL PROGRESS NOTE Assessment/Plan Agree with above ALLIE BENITES APRN Feb 25, 2020 12:45 LE GUALLPA MD Feb 25, 2020 13:43
[2020-02-25] MEDS: LACTOBACILLUS RHAMNOSUS GG 1 CAPSULE. PO SCH ×2 (12:49→20:59)
[2020-02-25] MEDS: MULTIVITAMIN with MINERAL TABLET. PO SCH (12:49)
[2020-02-25] MEDS: ASPIRIN CHEWABLE 81 MG TABLET. PO SCH (12:49)
--- NOTE | 2020-02-25 14:35 | PDOC ---
PROGRESS NOTES Chief Complaint Chief Complaint Impression: 1. Diverticulitis of the mid to distal sigmoid colon peridiverticular abscess measuring 3.4 x 3.1 cm. No definite fistula to the bladder, uterus or vagina is noted. There is gas identified within the vagina which is nonspecific. Close follow-up is recommended. peridiverticular abscess measuring 3.4 x 3.1 cm 2. Bilateral adrenal masses, indeterminate. Left adrenal mass measures 2.3 x 2.0 cm. Findings favor benign etiology given stability since 10/12/2013. 3. Infrarenal abdominal aortic aneurysm measuring 4.5 x 4.4 cm. Dense calcified and noncalcified atheromatous plaque is identified. Infrarenal abdominal aorta previously measured 2.8 x 2.6 cm on 10/12/2013 pvd Sepsis due to sigmoid diverticulitis resolved peridiverticular abscess measuring 3.4 x 3.1 cm Abdominal pain secondary to acute sigmoid diverticulitis COPD Tobacco abuse Acute electrolyte derangements Severe protein-caloric malnutrition SEVERE HYPERNATREMIA secondary to dehydration HYPOKALEMIA, 02/20 Right third, fourth, and fifth toe cyanosis Advanced peripheral arterial disease--patient's right lower extremity bypass graft is patent. She does have a high-grade stenosis at the distal anastomosis based on the CT angiogram plan Angiogram with stent placement today Clear liquid diet. Patient seems to be about 5 L behind D5 quarter normal saline will be started on the patient in order to address her hyper natremia Labs in the a.m. Serial abdominal exams Continue IV fluids adn prolcalamine surgical consult greatly appreciated Lovenox for DVT prophylaxis Full code Discussed with RN id consult GI FOLLOWING Continue Zosyn, General surgery following NEPHROLOGY CONSULT HYPOTONIC SALINE IV K IR for drainage neither collection is amendable to percutaneous drainage due to overlying structures. No IR intervention is recommended at current. picc History of Present Illness History of Present Illness Patient wanting water at the present time. Patient is going to go for an angiogram later in the day currently n.p.o. No acute events reported overnight, case discussed with nursing staff patient in no acute distress no complaints during my visit Vitals Vitals Vital Signs Date Time Temp Pulse Resp B/P (MAP) Pulse Ox O2 Delivery O2 Flow Rate FiO2 02/25/20 11:00 97.5 88 18 133/57 (82) 92 Nasal Cannula 4.0 97.5 Physical Exam Physical Exam General alert oriented x3 no acute distress HEENT: Both pupils are round and reacting. No conjunctival lesion, no lesion in the mouth. NECK: Supple, no JVP, no lymphadenopathy. LUNGS: Clear. HEART: S1, S2 regular. ABDOMEN: Soft bowel sounds present mildly distended mild tenderness present on deep palpation EXTREMITIES: No edema, cyanosis. Dry skin SKIN: Unremarkable. NEUROLOGIC: No focal neurologic deficit. General: Alert, Oriented X3, Cooperative Heart: Regular rate Lungs: Clear, Other Abdomen: Soft, Other (mild ttp lower abdomen, no guarding) Extremities: Other (Palpable bypass graft pulse in the right lower extremity at the level of the knee, intact dorsalis pedis Doppler signal on the right, mon ophasic posterior tibial Doppler signal on the left,) Skin: Other (Mild cyanosis of the plantar surface of the right second, third, fourth, and fifth toes without tissue loss) Labs LABS Laboratory Tests Test 02/25/20 06:30 Sodium Level 157 mmol/L (136-145) Potassium Level 3.6 mmol/L (3.5-5.1) Chloride Level 116 mmol/L (98-107) Carbon Dioxide Level 37 mmol/L (21-32) Anion Gap 4 (6-14) Blood Urea Nitrogen 15 mg/dL (7-20) Creatinine 1.1 mg/dL (0.6-1.0) Estimated GFR (Cockcroft-Gault) 48.0 Glucose Level 127 mg/dL (70-99) Calcium Level 8.8 mg/dL (8.5-10.1) Assessment and Plan Assessmemt and Plan Problems Medical Problems: (1) Abdominal aortic aneurysm (AAA) 3.0 cm to 5.0 cm in diameter in female Status: Acute (2) Acute diverticulitis Status: Acute Comment Review of Relevant I have reviewed the following items mayra (where applicable) has been applied. Labs Laboratory Tests Test 02/24/20 05:30 02/25/20 06:30 Sodium Level 161 mmol/L (136-145) 157 mmol/L (136-145) Potassium Level 3.5 mmol/L (3.5-5.1) 3.6 mmol/L (3.5-5.1) Chloride Level 119 mmol/L (98-107) 116 mmol/L (98-107) Carbon Dioxide Level 37 mmol/L (21-32) 37 mmol/L (21-32) Anion Gap 5 (6-14) 4 (6-14) Blood Urea Nitrogen 14 mg/dL (7-20) 15 mg/dL (7-20) Creatinine 1.0 mg/dL (0.6-1.0) 1.1 mg/dL (0.6-1.0) Estimated GFR (Cockcroft-Gault) 53.6 48.0 Glucose Level 114 mg/dL (70-99) 127 mg/dL (70-99) Calcium Level 9.5 mg/dL (8.5-10.1) 8.8 mg/dL (8.5-10.1) Magnesium Level 2.1 mg/dL (1.8-2.4) Laboratory Tests Test 02/25/20 06:30 Sodium Level 157 mmol/L (136-145) Potassium Level 3.6 mmol/L (3.5-5.1) Chloride Level 116 mmol/L (98-107) Carbon Dioxide Level 37 mmol/L (21-32) Anion Gap 4 (6-14) Blood Urea Nitrogen 15 mg/dL (7-20) Creatinine 1.1 mg/dL (0.6-1.0) Estimated GFR (Cockcroft-Gault) 48.0 Glucose Level 127 mg/dL (70-99) Calcium Level 8.8 mg/dL (8.5-10.1) Microbiology 02/21/20 Fecal Leukocyte Stain - Final, Complete 02/19/20 Urine Culture - Final, Complete 02/19/20 Blood Culture - Final, Complete NO GROWTH AFTER 5 DAYS Medications Current Medications Fentanyl Citrate (Fentanyl 2ml Vial) 50 mcg 1X ONCE IV Last administered on 02/19/20at 09:50; Start 02/19/20 at 09:30; Stop 02/19/20 at 09:31; Status DC Ondansetron HCl (Zofran) 4 mg 1X ONCE IV Last administered on 02/19/20at 09:49; Start 02/19/20 at 09:30; Stop 02/19/20 at 09:31; Status DC Sodium Chloride 1,000 ml @ 1,000 mls/hr 1X ONCE IV Last administered on 02/19/20at 09:48; Start 02/19/20 at 09:30; Stop 02/19/20 at 10:29; Status DC Iohexol (Omnipaque 300 Mg/ml) 75 ml 1X ONCE IV Last administered on 02/19/20at 10:46; Start 02/19/20 at 10:30; Stop 02/19/20 at 10:31; Status DC Info (CONTRAST GIVEN -- Rx MONITORING) 1 each PRN DAILY PRN MC SEE COMMENTS; Start 02/19/20 at 10:30; Stop 02/21/20 at 10:29; Status DC Ceftriaxone Sodium (Rocephin) 1 gm 1X ONCE IVP Last administered on 02/19/20at 11:14; Start 02/19/20 at 11:15; Stop 02/19/20 at 11:16; Status DC Ceftriaxone Sodium (Rocephin) 1 gm 1X ONCE IVP Last administered on 02/19/20at 12:01; Start 02/19/20 at 11:30; Stop 02/19/20 at 11:31; Status DC Metronidazole 100 ml @ 100 mls/hr Q8HRS IV Last administered on 02/20/20at 06:00; Start 02/19/20 at 22:00; Stop 02/20/20 at 12:24; Status DC Metronidazole 100 ml @ 100 mls/hr 1X ONCE IV Last administered on 02/19/20at 12:06; Start 02/19/20 at 11:30; Stop 02/19/20 at 12:29; Status DC Ceftriaxone Sodium (Rocephin) 1 gm Q24H IVP Last administered on 02/20/20at 11:52; Start 02/20/20 at 12:00; Stop 02/20/20 at 12:24; Status DC Enoxaparin Sodium (Lovenox 40mg Syringe) 40 mg Q24H SQ Last administered on 02/23/20at 12:05; Start 02/19/20 at 12:00 Sodium Chloride 1,000 ml @ 100 mls/hr 1X ONCE IV Last administered on 02/19/20at 11:45; Start 02/19/20 at 11:45; Stop 02/19/20 at 21:44; Status DC Clonazepam (KlonoPIN) 0.5 mg DAILY PO Last administered on 02/25/20 12:45; Start 02/19/20 at 12:00 Fentanyl Citrate (Fentanyl 2ml Vial) 50 mcg PRN Q2HR PRN IVP PAIN, 1ST CHOICE Last administered on 02/24/20 11:11; Start 02/19/20 at 14:00 Nicotine Polacrilex (Nicorette Gum) 1 each PRN Q1HR PRN BC SMOKING CESSATION; Start 02/19/20 at 15:15 Nicotine (Nicoderm Cq 7mg) 1 patch DAILY TD Last administered on 02/25/20 11:34; Start 02/19/20 at 15:15 Lactobacillus Rhamnosus (Culturelle) 1 cap BID PO Last administered on 02/25/20 12:49; Start 02/20/20 at 10:15 Piperacillin Sod/ Tazobactam Sod 3.375 gm/Sodium Chloride 50 ml @ 100 mls/hr Q6HRS IV Last administered on 02/25/20 11:33; Start 02/20/20 at 18:00 Aspirin (Aspirin Chewable) 81 mg DAILY PO Last administered on 02/25/20 12:49; Start 02/20/20 at 14:00 Budesonide (Pulmicort) 0.5 mg BID NEB Last administered on 02/24/20 20:28; Start 02/20/20 at 21:00 Polyethylene Glycol (miraLAX PACKET) 17 gm DAILY PO ; Start 02/20/20 at 14:00; Stop 02/23/20 at 09:56; Status DC Multivitamins (Thera M Plus) 1 tab DAILY PO Last administered on 02/25/20 12:49; Start 02/20/20 at 14:00 Fish Oil (Fish Oil) 1,000 mg DAILY PO Last administered on 02/25/20 12:45; Start 02/20/20 at 14:00 Albuterol Sulfate (Ventolin Neb Soln) 2.5 mg PRN Q4HRS PRN NEB SHORTNESS OF BREATH; Start 02/20/20 at 13:00 Potassium Chloride/Water 100 ml @ 50 mls/hr 1X ONCE IV Last administered on 02/21/20at 08:05; Start 02/21/20 at 08:00; Stop 02/21/20 at 09:59; Status DC Potassium Chloride/Water 100 ml @ 100 mls/hr Q1H IV Last administered on 02/21/20at 11:34; Start 02/21/20 at 10:00; Stop 02/21/20 at 10:59; Status DC Sodium Chloride 38.5 meq/Sterile Water 1,009.625 ml @ 75 mls/hr [id number] IV Last administered on 02/21/20at 08:54; Start 02/21/20 at 08:30; Stop 02/21/20 at 15:21 ; Status DC Pantoprazole Sodium (PROTONIX VIAL for IV PUSH) 40 mg DAILYAC IVP Last administered on 02/24/20at 09:02; Start 02/21/20 at 12:30; Stop 02/25/20 at 09:22; Status DC Hydromorphone HCl (Dilaudid) 0.75 mg PRN Q4HRS PRN IVP PAIN, 2ND CHOICE Last administered on 02/22/20at 04:35; Start 02/21/20 at 13:30 Amino Acids/ Glycerin/ Electrolytes 1,000 ml @ 100 mls/hr Q10H IV Last administered on 02/24/20at 23:17; Start 02/21/20 at 16:00 Lidocaine HCl (Buffered Lidocaine 1%) 3 ml STK-MED ONCE .ROUTE ; Start 02/22/20 at 10:32; Stop 02/22/20 at 10:32; Status DC Lidocaine HCl (Buffered Lidocaine 1%) 3 ml 1X ONCE INJ Last administered on 02/22/20at 11:17; Start 02/22/20 at 11:15; Stop 02/22/20 at 11:16; Status DC Lidocaine HCl (Buffered Lidocaine 1%) 3 ml STK-MED ONCE .ROUTE ; Start 02/22/20 at 11:50; Stop 02/22/20 at 11:51; Status DC Iohexol (Omnipaque 350 Mg/ml) 90 ml 1X ONCE IV Last administered on 02/22/20at 12:15; Start 02/22/20 at 12:15; Stop 02/22/20 at 12:16; Status DC Info (CONTRAST GIVEN -- Rx MONITORING) 1 each PRN DAILY PRN MC SEE COMMENTS; Start 02/22/20 at 12:30; Stop 02/24/20 at 12:29; Status DC Potassium Chloride/Water 100 ml @ 100 mls/hr Q1H IV Last administered on 02/23/20at 13:22; Start 02/23/20 at 11:30; Stop 02/23/20 at 13:29; Status DC Dextrose/Sodium Chloride 1,000 ml @ 125 mls/hr Q8H IV Last administered on 02/25/20at 06:35; Start 02/24/20 at 06:45 Vancomycin HCl (Vancomycin Oral Solution) 125 mg [id number] PO Last administered on 02/25/20at 12:49; Start 02/24/20 at 13:00 Midazolam HCl (Versed) 2 mg STK-MED ONCE .ROUTE ; Start 02/25/20 at 08:01; Stop 02/25/20 at 08:02; Status DC Fentanyl Citrate (Fentanyl 2ml Vial) 100 mcg STK-MED ONCE .ROUTE ; Start 02/25/20 at 08:01; Stop 02/25/20 at 08:02; Status DC Heparin Sodium (Porcine) (Heparin Sodium) 10,000 unit STK-MED ONCE .ROUTE ; Start 02/25/20 at 08:01; Stop 02/25/20 at 08:02; Status DC Lidocaine HCl (Buffered Lidocaine 1%) 3 ml STK-MED ONCE .ROUTE ; Start 02/25/20 at 08:03; Stop 02/25/20 at 08:03; Status DC Iodixanol (Visipaque 320) 100 ml STK-MED ONCE .ROUTE ; Start 02/25/20 at 08:03; Stop 02/25/20 at 08:03; Status DC Heparin Sodium/ Sodium Chloride 1,500 ml @ As Directed STK-MED ONCE .ROUTE ; Start 02/25/20 at 08:03; Stop 02/25/20 at 08:04; Status DC Pantoprazole Sodium (Protonix) 40 mg DAILYAC PO Last administered on 02/25/20at 12:45; Start 02/25/20 at 10:00 Midazolam HCl (Versed) 2 mg STK-MED ONCE .ROUTE ; Start 02/25/20 at 09:50; Stop 02/25/20 at 09:51; Status DC Fentanyl Citrate (Fentanyl 2ml Vial) 100 mcg STK-MED ONCE .ROUTE ; Start 02/25/20 at 09:50; Stop 02/25/20 at 09:51; Status DC Heparin Sodium (Porcine) (Heparin Sodium) 5,000 unit 1X ONCE IART Last administered on 02/25/20at 10:15; Start 02/25/20 at 10:15; Stop 02/25/20 at 10:21; Status DC Heparin Sodium/ Sodium Chloride (HEPARIN for ARTERIAL LINE FLUSH) 1,000 unit 1X ONCE IART Last administered on 02/25/20at 10:15; Start 02/25/20 at 10:15; Stop 02/25/20 at 10:21; Status DC Lidocaine HCl (Buffered Lidocaine 1%) 3 ml 1X ONCE IJ Last administered on 02/25/20at 10:15; Start 02/25/20 at 10:15; Stop 02/25/20 at 10:22; Status DC Midazolam HCl (Versed) 2.5 mg 1X ONCE IV Last administered on 02/25/20at 10:15; Start 02/25/20 at 10:15; Stop 02/25/20 at 10:22; Status DC Fentanyl Citrate (Fentanyl 2ml Vial) 125 mcg 1X ONCE IV Last administered on 02/25/20at 10:15; Start 02/25/20 at 10:15; Stop 02/25/20 at 10:21; Status DC Iodixanol (Visipaque 320) 40 ml 1X ONCE IART Last administered on 02/25/20at 10:15; Start 02/25/20 at 10:15; Stop 02/25/20 at 10:22; Status DC Info (CONTRAST GIVEN -- Rx MONITORING) 1 each PRN DAILY PRN MC SEE COMMENTS; Start 02/25/20 at 10:30; Stop 02/27/20 at 10:29 Clopidogrel Bisulfate (Plavix) 75 mg DAILYWBKFT PO ; Start 02/26/20 at 08:00 Clopidogrel Bisulfate (Plavix) 300 mg 1X ONCE PO Last administered on 02/25/20at 12:49; Start 02/25/20 at 12:00; Stop 02/25/20 at 12:01; Status DC Active Scripts Active Reported Miralax (Polyethylene Glycol 3350) 17 Gm Powd.pack 1 Packet PO DAILY 2 Days dissolve in water Fish Oil 1,000 mg Softgel ([place]-3/Dha/Epa/Fish Oil) 1,000 Mg Capsule 1,000 Mg PO DAILY Aspirin 81 Mg Tab.chew 1 Tab PO DAILY Daily Value (Multivitamin) 1 Each Tablet 1 Tab PO DAILY 30 Days Perforomist (Formoterol Fumarate) 20 Mcg/2 Ml Vial.neb 20 Mcg IH Pulmicort (Budesonide) 0.5 Mg/2 Ml Ampul.neb 1 Vial NEB BID Clonazepam (Clonazepam) 0.5 Mg Tablet 0.5 Mg PO DAILY Vitals/I & O Vital Sign - Last 24 Hours 02/24/20 02/24/20 02/24/20 02/24/20 14:34 19:00 20:04 20:28 Temp 97.6 97.5 97.6 97.5 Pulse 96 86 Resp 20 20 B/P (MAP) 135/72 (93) 142/63 (89) Pulse Ox 92 95 O2 Delivery Nasal Cannula Nasal Cannula Nasal Cannula Nasal Cannula O2 Flow Rate 4.0 4.0 4.0 4.0 02/24/20 02/25/20 02/25/20 02/25/20 23:30 03:00 07:40 10:19 Temp 97.5 97.5 97.5 97.5 Pulse 88 94 92 Resp 20 20 16 B/P (MAP) 135/64 (87) 170/78 (108) Pulse Ox 98 95 99 O2 Delivery Nasal Cannula Nasal Cannula Nasal Cannula Nasal Cannula O2 Flow Rate 4.0 4.0 4.0 4.0 02/25/20 11:00 Temp 97.5 97.5 Pulse 88 Resp 18 B/P (MAP) 133/57 (82) Pulse Ox 92 O2 Delivery Nasal Cannula O2 Flow Rate 4.0 Intake and Output 02/24/20 02/24/20 02/25/20 15:00 23:00 07:00 Intake Total 0 ml 700 ml 3340 ml Output Total 200 ml 1000 ml Balance 0 ml 500 ml 2340 ml Justicifation of Admission Dx: Justifications for Admission: Justification of Admission Dx: Yes Sepsis: Infection CHAYA RUBIO MD Feb 25, 2020 14:35
[2020-02-26] VITALS (7 sets, daily range): BP systolic 99–151; BP diastolic 46–73
[2020-02-26] MEDS: fentaNYL PF VIAL 100 MCG/2 ML VIAL IVP PRN (01:10)
[2020-02-26] MEDS: AMINO AC 3%/ELECTROLYTE/GLYCER 1,000 ML IV SCH ×3 (01:49→23:18)
[2020-02-26] MEDS: ALPRAZolam 0.25 MG TABLET PO PRN (05:13)
[2020-02-26] MEDS: PIPERACILLIN/TAZOBACTAM 3.375 GM in IV NORMAL SALINE 50ML 50 ML IV SCH ×4 (06:10→23:36)
--- NOTE | 2020-02-26 06:25 | NUR ---
At this time, this RN was in the room, helping patient transfer to the bedside commode within arms reach of patient. Pt lost her balance after standing and started to lean over, pt was unable to regain balance and had to be assisted to the floor. Primary RN Le was notified. Pt did not appear to sustain any injury, she denies pain or injury after fall. Pt helped back up to standing position with 2 staff assist and is resting comfortably in bed.
[2020-02-26 07:12] LABS: CALCIUM 7.9 mg/dL (8.5-10.1); CREATININE 1.1 mg/dL (0.6-1.0); MAGNESIUM 1.9 mg/dL (1.8-2.4); PHOSPHORUS 4.5 mg/dL (2.6-4.7); POTASSIUM 3.5 mmol/L (3.5-5.1)
[2020-02-26] MEDS: BUDESONIDE 0.5 MG/2 ML NEBU. NEB SCH ×2 (07:58→19:48)
--- NOTE | 2020-02-26 08:20 | PDOC ---
Infectious Disease Note Subjective: Subjective Patient without complaints no n/v/f/d Vital Signs: Vital Signs Vital Signs Date Time Temp Pulse Resp B/P (MAP) Pulse Ox O2 Delivery O2 Flow Rate FiO2 02/26/20 07:59 97 Nasal Cannula 3.0 02/26/20 06:30 98.0 95 20 130/65 (86) 98.0 Physical Exam: PHYSICAL EXAM General alert oriented x3 no acute distress HEENT: Both pupils are round and reacting. No conjunctival lesion, no lesion in the mouth. NECK: Supple, no JVP, no lymphadenopathy. LUNGS: Clear. HEART: S1, S2 regular. ABDOMEN: Soft bowel sounds present mildly distended mild tenderness present on deep palpation EXTREMITIES: No edema, cyanosis. Dry skin SKIN: Unremarkable. NEUROLOGIC: No focal neurologic deficit. Medications: Inpatient Meds: Current Medications Medications (Trade) Dose Ordered Sig/Viola Start Time Stop Time Status Last Admin Dose Admin Albuterol Sulfate (Ventolin Neb Soln) 2.5 mg PRN Q4HRS PRN 02/20/20 13:00 Alprazolam (Xanax) 0.25 mg PRN Q8HRS PRN 02/26/20 05:00 02/26/20 05:13 0.25 MG Amino Acids/ Glycerin/ Electrolytes 1,000 ml @ 100 mls/hr Q10H 02/21/20 16:00 02/26/20 01:49 100 MLS/HR Aspirin (Aspirin Chewable) 81 mg DAILY 02/20/20 14:00 02/25/20 12:49 81 MG Budesonide (Pulmicort) 0.5 mg BID 02/20/20 21:00 02/26/20 07:58 0.5 MG Ceftriaxone Sodium (Rocephin) 1 gm Q24H 02/20/20 12:00 02/20/20 12:24 DC 02/20/20 11:52 1 GM Clonazepam (KlonoPIN) 0.5 mg DAILY 02/19/20 12:00 02/25/20 12:45 0.5 MG Clopidogrel Bisulfate (Plavix) 300 mg 1X ONCE 02/25/20 12:00 02/25/20 12:01 DC 02/25/20 12:49 300 MG Dextrose/Sodium Chloride 1,000 ml @ 125 mls/hr Q8H 02/24/20 06:45 02/26/20 06:42 DC 02/25/20 23:18 125 MLS/HR Enoxaparin Sodium (Lovenox 40mg Syringe) 40 mg Q24H 02/19/20 12:00 02/23/20 12:05 40 MG Fentanyl Citrate (Fentanyl 2ml Vial) 125 mcg 1X ONCE 02/25/20 10:15 02/25/20 10:21 DC 02/25/20 10:15 125 MCG Fish Oil (Fish Oil) 1,000 mg DAILY 02/20/20 14:00 02/25/20 12:45 1,000 MG Heparin Sodium (Porcine) (Heparin Sodium) 5,000 unit 1X ONCE 02/25/20 10:15 02/25/20 10:21 DC 02/25/20 10:15 5,000 UNIT Heparin Sodium/ Sodium Chloride (HEPARIN for ARTERIAL LINE FLUSH) 1,000 unit 1X ONCE 02/25/20 10:15 02/25/20 10:21 DC 02/25/20 10:15 1,000 UNIT Hydromorphone HCl (Dilaudid) 0.75 mg PRN Q4HRS PRN 02/21/20 13:30 02/22/20 04:35 0.75 MG Info (CONTRAST GIVEN -- Rx MONITORING) 1 each PRN DAILY PRN 02/25/20 10:30 02/27/20 10:29 Iodixanol (Visipaque 320) 40 ml 1X ONCE 02/25/20 10:15 02/25/20 10:22 DC 02/25/20 10:15 40 ML Iohexol (Omnipaque 300 Mg/ml) 75 ml 1X ONCE 02/19/20 10:30 02/19/20 10:31 DC 02/19/20 10:46 75 ML Iohexol (Omnipaque 350 Mg/ml) 90 ml 1X ONCE 02/22/20 12:15 02/22/20 12:16 DC 02/22/20 12:15 90 ML Lactobacillus Rhamnosus (Culturelle) 1 cap BID 02/20/20 10:15 02/25/20 20:59 1 CAP Lidocaine HCl (Buffered Lidocaine 1%) 3 ml 1X ONCE 02/25/20 10:15 02/25/20 10:22 DC 02/25/20 10:15 3 ML Metronidazole 100 ml @ 100 mls/hr 1X ONCE 02/19/20 11:30 02/19/20 12:29 DC 02/19/20 12:06 100 MLS/HR Midazolam HCl (Versed) 2.5 mg 1X ONCE 02/25/20 10:15 02/25/20 10:22 DC 02/25/20 10:15 2.5 MG Multivitamins (Thera M Plus) 1 tab DAILY 02/20/20 14:00 02/25/20 12:49 1 TAB Nicotine (Nicoderm Cq 7mg) 1 patch DAILY 02/19/20 15:15 02/25/20 11:34 1 PATCH Nicotine Polacrilex (Nicorette Gum) 1 each PRN Q1HR PRN 02/19/20 15:15 Ondansetron HCl (Zofran) 4 mg 1X ONCE 02/19/20 09:30 02/19/20 09:31 DC 02/19/20 09:49 4 MG Pantoprazole Sodium (PROTONIX VIAL for IV PUSH) 40 mg DAILYAC 02/21/20 12:30 02/25/20 09:22 DC 02/24/20 09:02 40 MG Pantoprazole Sodium (Protonix) 40 mg DAILYAC 02/25/20 10:00 02/25/20 12:45 40 MG Piperacillin Sod/ Tazobactam Sod 3.375 gm/Sodium Chloride 50 ml @ 100 mls/hr Q6HRS 02/20/20 18:00 02/26/20 06:10 100 MLS/HR Polyethylene Glycol (miraLAX PACKET) 17 gm DAILY 02/20/20 14:00 02/23/20 09:56 DC Potassium Chloride/Water 100 ml @ 100 mls/hr Q1H 02/23/20 11:30 02/23/20 13:29 DC 02/23/20 13:22 100 MLS/HR Sodium Chloride 38.5 meq/Sterile Water 1,009.625 ml @ 75 mls/hr [id number] 02/21/20 08:30 02/21/20 15:21 DC 02/21/20 08:54 75 MLS/HR Vancomycin HCl (Vancomycin Oral Solution) 125 mg [id number] 02/24/20 13:00 02/25/20 20:59 125 MG Labs: Lab Laboratory Tests Test 02/26/20 06:50 Sodium Level 146 mmol/L (136-145) Potassium Level 3.5 mmol/L (3.5-5.1) Chloride Level 108 mmol/L (98-107) Carbon Dioxide Level 35 mmol/L (21-32) Anion Gap 3 (6-14) Blood Urea Nitrogen 13 mg/dL (7-20) Creatinine 1.1 mg/dL (0.6-1.0) Estimated GFR (Cockcroft-Gault) 48.0 Glucose Level 115 mg/dL (70-99) Calcium Level 7.9 mg/dL (8.5-10.1) Phosphorus Level 4.5 mg/dL (2.6-4.7) Magnesium Level 1.9 mg/dL (1.8-2.4) Objective: Assessment: 1. Diverticulitis with diverticular abscess.not amenable per IR for drainage GI panel negative, C. difficile positive 2. Leukocytosis. Resolved 3. Obesity. 4. Chronic obstructive pulmonary disease. 5. Coronary artery disease. 6. Severe PAD status post angioplasty 7. Hypernatremia improving 8. 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 10. C. difficile positive 11. Hypernatremia 12. Severe protein calorie malnutrition Plan: Plan of Care Continue Zosyn for now Awaiting clear liquids well Continue p.o. vancomycin Follow-up labs and cultures supportive care. d/w ALISSA Cochran MD Feb 26, 2020 08:20
[2020-02-26] MEDS: clonazePAM 0.5 MG TABLET PO SCH (08:45)
[2020-02-26] MEDS: CLOPIDOGREL BISULFATE 75 MG TABLET PO SCH (08:45)
[2020-02-26] MEDS: LACTOBACILLUS RHAMNOSUS GG 1 CAPSULE. PO SCH ×2 (08:45→20:59)
[2020-02-26] MEDS: MULTIVITAMIN with MINERAL TABLET. PO SCH (08:45)
[2020-02-26] MEDS: PANTOPRAZOLE 40 MG TABLET.DR. PO SCH (08:45)
[2020-02-26] MEDS: OMEGA-3 FATTY ACIDS/FISH OIL 1,000 MG CAPSULE. PO SCH (08:45)
[2020-02-26] MEDS: NICOTINE 7MG PATCH. TD SCH (08:46)
[2020-02-26] MEDS: ASPIRIN CHEWABLE 81 MG TABLET. PO SCH (08:46)
[2020-02-26] MEDS: VANCOMYCIN 125 MG/2.5 ML ORAL SOLUTION. PO SCH ×4 (08:46→20:59)
--- NOTE | 2020-02-26 09:13 | NUR ---
Patient moved to [id number] which is closer to the nurse's station at 0910, belongings with patient.
--- NOTE | 2020-02-26 09:17 | PDOC ---
SURGICAL PROGRESS NOTE Subjective Patient doing well tolerating diet has had bowel movements Vital Signs Vital Signs Date Time Temp Pulse Resp B/P (MAP) Pulse Ox O2 Delivery O2 Flow Rate FiO2 02/26/20 07:59 97 Nasal Cannula 3.0 02/26/20 07:00 97.5 88 20 121/52 (75) 97.5 I&O Intake and Output 02/26/20 07:00 Intake Total 3750 ml Balance 3750 ml Intake Oral 1700 ml IV Total 2050 ml # Voids 7 # Bowel Movements 2 PATIENT HAS A OKEEFE: No General: Alert, Oriented X3, Cooperative, No acute distress Abdomen: Normal bowel sounds, Soft, No tenderness Labs Laboratory Tests Test 02/25/20 06:30 02/26/20 06:50 Sodium Level 157 mmol/L (136-145) 146 mmol/L (136-145) Potassium Level 3.6 mmol/L (3.5-5.1) 3.5 mmol/L (3.5-5.1) Chloride Level 116 mmol/L (98-107) 108 mmol/L (98-107) Carbon Dioxide Level 37 mmol/L (21-32) 35 mmol/L (21-32) Anion Gap 4 (6-14) 3 (6-14) Blood Urea Nitrogen 15 mg/dL (7-20) 13 mg/dL (7-20) Creatinine 1.1 mg/dL (0.6-1.0) 1.1 mg/dL (0.6-1.0) Estimated GFR (Cockcroft-Gault) 48.0 48.0 Glucose Level 127 mg/dL (70-99) 115 mg/dL (70-99) Calcium Level 8.8 mg/dL (8.5-10.1) 7.9 mg/dL (8.5-10.1) Phosphorus Level 4.5 mg/dL (2.6-4.7) Magnesium Level 1.9 mg/dL (1.8-2.4) Laboratory Tests Test 02/26/20 06:50 Sodium Level 146 mmol/L (136-145) Potassium Level 3.5 mmol/L (3.5-5.1) Chloride Level 108 mmol/L (98-107) Carbon Dioxide Level 35 mmol/L (21-32) Anion Gap 3 (6-14) Blood Urea Nitrogen 13 mg/dL (7-20) Creatinine 1.1 mg/dL (0.6-1.0) Estimated GFR (Cockcroft-Gault) 48.0 Glucose Level 115 mg/dL (70-99) Calcium Level 7.9 mg/dL (8.5-10.1) Phosphorus Level 4.5 mg/dL (2.6-4.7) Magnesium Level 1.9 mg/dL (1.8-2.4) Problem List Problems Medical Problems: (1) Abdominal aortic aneurysm (AAA) 3.0 cm to 5.0 cm in diameter in female Status: Acute (2) Acute diverticulitis Status: Acute Assessment/Plan Diverticulitis, normal white count No surgical plans at this time continue medical therapy Justicifation of Admission Dx: Justifications for Admission: Justification of Admission Dx: Yes Sepsis: Infection JAZMIN CURRAN MD Feb 26, 2020 09:17
--- NOTE | 2020-02-26 09:20 | PDOC ---
PROGRESS NOTES Chief Complaint Chief Complaint Impression: 1. Diverticulitis of the mid to distal sigmoid colon peridiverticular abscess measuring 3.4 x 3.1 cm. No definite fistula to the bladder, uterus or vagina is noted. There is gas identified within the vagina which is nonspecific. Close follow-up is recommended. peridiverticular abscess measuring 3.4 x 3.1 cm 2. Bilateral adrenal masses, indeterminate. Left adrenal mass measures 2.3 x 2.0 cm. Findings favor benign etiology given stability since 10/12/2013. 3. Infrarenal abdominal aortic aneurysm measuring 4.5 x 4.4 cm. Dense calcified and noncalcified atheromatous plaque is identified. Infrarenal abdominal aorta previously measured 2.8 x 2.6 cm on 10/12/2013 pvd Sepsis due to sigmoid diverticulitis resolved peridiverticular abscess measuring 3.4 x 3.1 cm Abdominal pain secondary to acute sigmoid diverticulitis COPD Tobacco abuse Acute electrolyte derangements Severe protein-caloric malnutrition SEVERE HYPERNATREMIA secondary to dehydration HYPOKALEMIA, 02/20 Right third, fourth, and fifth toe cyanosis Advanced peripheral arterial disease--patient's right lower extremity bypass graft is patent. She does have a high-grade stenosis at the distal anastomosis based on the CT angiogram. s/p angiography with the following results: Impression: 1. Moderate to high-grade stenosis distal bypass anastomosis extending of the [id number] popliteal artery treated with balloon angioplasty 2. Multiple high-grade stenoses of the right anterior tibial artery treated with balloon angioplasty. There is two-vessel runoff now with a patent anterior tibial artery, and small patent peroneal artery. 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 plan Follow urine output which seems improved, Patient electrlytes better, labs improved, still having diarrhea will replace electrolytes as needed Clear liquid diet. will advance as recommended by consultants Labs in the a.m. Serial abdominal exams Continue procalamine until improved oral intake. surgical consult greatly appreciated Lovenox for DVT prophylaxis Full code Discussed with RN id consult GI FOLLOWING Continue Zosyn, General surgery following NEPHROLOGY CONSULT IV K as needed IR for drainage neither collection is amendable to percutaneous drainage due to overlying structures. No IR intervention is recommended at current. picc History of Present Illness History of Present Illness Still having diarrhea but seems improved, patient with no other complaints, not very hungry. Vitals Vitals Vital Signs Date Time Temp Pulse Resp B/P (MAP) Pulse Ox O2 Delivery O2 Flow Rate FiO2 02/26/20 07:59 97 Nasal Cannula 3.0 02/26/20 07:00 97.5 88 20 121/52 (75) 97.5 Physical Exam Physical Exam General alert oriented x3 no acute distress HEENT: Both pupils are round and reacting. No conjunctival lesion, no lesion in the mouth. NECK: Supple, no JVP, no lymphadenopathy. LUNGS: Clear. HEART: S1, S2 regular. ABDOMEN: Soft bowel sounds present mildly distended mild tenderness present on deep palpation EXTREMITIES: No edema, cyanosis. Dry skin SKIN: Unremarkable. NEUROLOGIC: No focal neurologic deficit. General: Alert, Oriented X3, Cooperative Heart: Regular rate Lungs: Clear, Other Abdomen: Soft, Other (mild ttp lower abdomen, no guarding) Extremities: Other (Palpable bypass graft pulse in the right lower extremity at the level of the knee, intact dorsalis pedis Doppler signal on the right, monophasic posterior tibial Doppler signal on the left,) Skin: Other (Mild cyanosis of the plantar surface of the right second, third, fourth, and fifth toes without tissue loss) Labs LABS Laboratory Tests Test 02/26/20 06:50 Sodium Level 146 mmol/L (136-145) Potassium Level 3.5 mmol/L (3.5-5.1) Chloride Level 108 mmol/L (98-107) Carbon Dioxide Level 35 mmol/L (21-32) Anion Gap 3 (6-14) Blood Urea Nitrogen 13 mg/dL (7-20) Creatinine 1.1 mg/dL (0.6-1.0) Estimated GFR (Cockcroft-Gault) 48.0 Glucose Level 115 mg/dL (70-99) Calcium Level 7.9 mg/dL (8.5-10.1) Phosphorus Level 4.5 mg/dL (2.6-4.7) Magnesium Level 1.9 mg/dL (1.8-2.4) Assessment and Plan Assessmemt and Plan Problems Medical Problems: (1) Abdominal aortic aneurysm (AAA) 3.0 cm to 5.0 cm in diameter in female Status: Acute (2) Acute diverticulitis Status: Acute Comment Review of Relevant I have reviewed the following items mayra (where applicable) has been applied. Labs Laboratory Tests Test 02/25/20 06:30 02/26/20 06:50 Sodium Level 157 mmol/L (136-145) 146 mmol/L (136-145) Potassium Level 3.6 mmol/L (3.5-5.1) 3.5 mmol/L (3.5-5.1) Chloride Level 116 mmol/L (98-107) 108 mmol/L (98-107) Carbon Dioxide Level 37 mmol/L (21-32) 35 mmol/L (21-32) Anion Gap 4 (6-14) 3 (6-14) Blood Urea Nitrogen 15 mg/dL (7-20) 13 mg/dL (7-20) Creatinine 1.1 mg/dL (0.6-1.0) 1.1 mg/dL (0.6-1.0) Estimated GFR (Cockcroft-Gault) 48.0 48.0 Glucose Level 127 mg/dL (70-99) 115 mg/dL (70-99) Calcium Level 8.8 mg/dL (8.5-10.1) 7.9 mg/dL (8.5-10.1) Phosphorus Level 4.5 mg/dL (2.6-4.7) Magnesium Level 1.9 mg/dL (1.8-2.4) Laboratory Tests Test 02/26/20 06:50 Sodium Level 146 mmol/L (136-145) Potassium Level 3.5 mmol/L (3.5-5.1) Chloride Level 108 mmol/L (98-107) Carbon Dioxide Level 35 mmol/L (21-32) Anion Gap 3 (6-14) Blood Urea Nitrogen 13 mg/dL (7-20) Creatinine 1.1 mg/dL (0.6-1.0) Estimated GFR (Cockcroft-Gault) 48.0 Glucose Level 115 mg/dL (70-99) Calcium Level 7.9 mg/dL (8.5-10.1) Phosphorus Level 4.5 mg/dL (2.6-4.7) Magnesium Level 1.9 mg/dL (1.8-2.4) Microbiology 02/21/20 Fecal Leukocyte Stain - Final, Complete 02/19/20 Urine Culture - Final, Complete 02/19/20 Blood Culture - Final, Complete NO GROWTH AFTER 5 DAYS Medications Current Medications Fentanyl Citrate (Fentanyl 2ml Vial) 50 mcg 1X ONCE IV Last administered on 02/19/20at 09:50; Start 02/19/20 at 09:30; Stop 02/19/20 at 09:31; Status DC Ondansetron HCl (Zofran) 4 mg 1X ONCE IV Last administered on 02/19/20at 09:49; Start 02/19/20 at 09:30; Stop 02/19/20 at 09:31; Status DC Sodium Chloride 1,000 ml @ 1,000 mls/hr 1X ONCE IV Last administered on 02/19/20at 09:48; Start 02/19/20 at 09:30; Stop 02/19/20 at 10:29; Status DC Iohexol (Omnipaque 300 Mg/ml) 75 ml 1X ONCE IV Last administered on 02/19/20at 10:46; Start 02/19/20 at 10:30; Stop 02/19/20 at 10:31; Status DC Info (CONTRAST GIVEN -- Rx MONITORING) 1 each PRN DAILY PRN MC SEE COMMENTS; Start 02/19/20 at 10:30; Stop 02/21/20 at 10:29; Status DC Ceftriaxone Sodium (Rocephin) 1 gm 1X ONCE IVP Last administered on 02/19/20at 11:14; Start 02/19/20 at 11:15; Stop 02/19/20 at 11:16; Status DC Ceftriaxone Sodium (Rocephin) 1 gm 1X ONCE IVP Last administered on 02/19/20at 12:01; Start 02/19/20 at 11:30; Stop 02/19/20 at 11:31; Status DC Metronidazole 100 ml @ 100 mls/hr Q8HRS IV Last administered on 02/20/20at 06:00; Start 02/19/20 at 22:00; Stop 02/20/20 at 12:24; Status DC Metronidazole 100 ml @ 100 mls/hr 1X ONCE IV Last administered on 02/19/20at 12:06; Start 02/19/20 at 11:30; Stop 02/19/20 at 12:29; Status DC Ceftriaxone Sodium (Rocephin) 1 gm Q24H IVP Last administered on 02/20/20at 11:52; Start 02/20/20 at 12:00; Stop 02/20/20 at 12:24; Status DC Enoxaparin Sodium (Lovenox 40mg Syringe) 40 mg Q24H SQ Last administered on 02/23/20at 12:05; Start 02/19/20 at 12:00 Sodium Chloride 1,000 ml @ 100 mls/hr 1X ONCE IV Last administered on 02/19/20at 11:45; Start 02/19/20 at 11:45; Stop 02/19/20 at 21:44; Status DC Clonazepam (KlonoPIN) 0.5 mg DAILY PO Last administered on 02/26/20 08:45; Start 02/19/20 at 12:00 Fentanyl Citrate (Fentanyl 2ml Vial) 50 mcg PRN Q2HR PRN IVP PAIN, 1ST CHOICE Last administered on 02/26/20 01:10; Start 02/19/20 at 14:00 Nicotine Polacrilex (Nicorette Gum) 1 each PRN Q1HR PRN BC SMOKING CESSATION; Start 02/19/20 at 15:15 Nicotine (Nicoderm Cq 7mg) 1 patch DAILY TD Last administered on 02/26/20 08:46; Start 02/19/20 at 15:15 Lactobacillus Rhamnosus (Culturelle) 1 cap BID PO Last administered on 02/26/20 08:45; Start 02/20/20 at 10:15 Piperacillin Sod/ Tazobactam Sod 3.375 gm/Sodium Chloride 50 ml @ 100 mls/hr Q6HRS IV Last administered on 02/26/20at 06:10; Start 02/20/20 at 18:00 Aspirin (Aspirin Chewable) 81 mg DAILY PO Last administered on 02/26/20 08:46; Start 02/20/20 at 14:00 Budesonide (Pulmicort) 0.5 mg BID NEB Last administered on 02/26/20 07:58; Start 02/20/20 at 21:00 Polyethylene Glycol (miraLAX PACKET) 17 gm DAILY PO ; Start 02/20/20 at 14:00; Stop 02/23/20 at 09:56; Status DC Multivitamins (Thera M Plus) 1 tab DAILY PO Last administered on 7/25/20at 08:45; Start 02/20/20 at 14:00 Fish Oil (Fish Oil) 1,000 mg DAILY PO Last administered on 02/26/20at 08:45; Start 02/20/20 at 14:00 Albuterol Sulfate (Ventolin Neb Soln) 2.5 mg PRN Q4HRS PRN NEB SHORTNESS OF BREATH; Start 02/20/20 at 13:00 Potassium Chloride/Water 100 ml @ 50 mls/hr 1X ONCE IV Last administered on 02/21/20at 08:05; Start 02/21/20 at 08:00; Stop 02/21/20 at 09:59; Status DC Potassium Chloride/Water 100 ml @ 100 mls/hr Q1H IV Last administered on 02/21/20at 11:34; Start 02/21/20 at 10:00; Stop 02/21/20 at 10:59; Status DC Sodium Chloride 38.5 meq/Sterile Water 1,009.625 ml @ 75 mls/hr [id number] IV Last administered on 02/21/20at 08:54; Start 02/21/20 at 08:30; Stop 02/21/20 at 15:21; Status DC Pantoprazole Sodium (PROTONIX VIAL for IV PUSH) 40 mg DAILYAC IVP Last admi nistered on 02/24/20at 09:02; Start 02/21/20 at 12:30; Stop 02/25/20 at 09:22; Status DC Hydromorphone HCl (Dilaudid) 0.75 mg PRN Q4HRS PRN IVP PAIN, 2ND CHOICE Last administered on 02/22/20at 04:35; Start 02/21/20 at 13:30 Amino Acids/ Glycerin/ Electrolytes 1,000 ml @ 100 mls/hr Q10H IV Last administered on 02/26/20at 01:49; Start 02/21/20 at 16:00 Lidocaine HCl (Buffered Lidocaine 1%) 3 ml STK-MED ONCE .ROUTE ; Start 02/22/20 at 10:32; Stop 02/22/20 at 10:32; Status DC Lidocaine HCl (Buffered Lidocaine 1%) 3 ml 1X ONCE INJ Last administered on 02/22/20at 11:17; Start 02/22/20 at 11:15; Stop 02/22/20 at 11:16; Status DC Lidocaine HCl (Buffered Lidocaine 1%) 3 ml STK-MED ONCE .ROUTE ; Start 02/22/20 at 11:50; Stop 02/22/20 at 11:51; Status DC Iohexol (Omnipaque 350 Mg/ml) 90 ml 1X ONCE IV Last administered on 02/22/20at 12:15; Start 02/22/20 at 12:15; Stop 02/22/20 at 12:16; Status DC Info (CONTRAST GIVEN -- Rx MONITORING) 1 each PRN DAILY PRN MC SEE COMMENTS; Start 02/22/20 at 12:30; Stop 02/24/20 at 12:29; Status DC Potassium Chloride/Water 100 ml @ 100 mls/hr Q1H IV Last administered on 02/23/20at 13:22; Start 02/23/20 at 11:30; Stop 02/23/20 at 13:29; Status DC Dextrose/Sodium Chloride 1,000 ml @ 125 mls/hr Q8H IV Last administered on 02/25/20at 23:18; Start 02/24/20 at 06:45; Stop 02/26/20 at 06:42; Status DC Vancomycin HCl (Vancomycin Oral Solution) 125 mg [id number] PO Last administered on 02/26/20at 08:46; Start 02/24/20 at 13:00 Midazolam HCl (Versed) 2 mg STK-MED ONCE .ROUTE ; Start 02/25/20 at 08:01; Stop 02/25/20 at 08:02; Status DC Fentanyl Citrate (Fentanyl 2ml Vial) 100 mcg STK-MED ONCE .ROUTE ; Start 02/25/20 at 08:01; Stop 02/25/20 at 08:02; Status DC Heparin Sodium (Porcine) (Heparin Sodium) 10,000 unit STK-MED ONCE .ROUTE ; Start 02/25/20 at 08:01; Stop 02/25/20 at 08:02; Status DC Lidocaine HCl (Buffered Lidocaine 1%) 3 ml STK-MED ONCE .ROUTE ; Start 02/25/20 at 08:03; Stop 02/25/20 at 08:03; Status DC Iodixanol (Visipaque 320) 100 ml STK-MED ONCE .ROUTE ; Start 02/25/20 at 08:03; Stop 02/25/20 at 08:03; Status DC Heparin Sodium/ Sodium Chloride 1,500 ml @ As Directed STK-MED ONCE .ROUTE ; Start 02/25/20 at 08:03; Stop 02/25/20 at 08:04; Status DC Pantoprazole Sodium (Protonix) 40 mg DAILYAC PO Last administered on 02/26/20at 08:45; Start 02/25/20 at 10:00 Midazolam HCl (Versed) 2 mg STK-MED ONCE .ROUTE ; Start 02/25/20 at 09:50; Stop 02/25/20 at 09:51; Status DC Fentanyl Citrate (Fentanyl 2ml Vial) 100 mcg STK-MED ONCE .ROUTE ; Start 02/25/20 at 09:50; Stop 02/25/20 at 09:51; Status DC Heparin Sodium (Porcine) (Heparin Sodium) 5,000 unit 1X ONCE IART Last administered on 02/25/20at 10:15; Start 02/25/20 at 10:15; Stop 02/25/20 at 10:21; Status DC Heparin Sodium/ Sodium Chloride (HEPARIN for ARTERIAL LINE FLUSH) 1,000 unit 1X ONCE IART Last administered on 02/25/20at 10:15; Start 02/25/20 at 10:15; Stop 02/25/20 at 10:21; Status DC Lidocaine HCl (Buffered Lidocaine 1%) 3 ml 1X ONCE IJ Last administered on 02/25/20at 10:15; Start 02/25/20 at 10:15; Stop 02/25/20 at 10:22; Status DC Midazolam HCl (Versed) 2.5 mg 1X ONCE IV Last administered on 02/25/20at 10:15; Start 02/25/20 at 10:15; Stop 02/25/20 at 10:22; Status DC Fentanyl Citrate (Fentanyl 2ml Vial) 125 mcg 1X ONCE IV Last administered on 02/25/20at 10:15; Start 02/25/20 at 10:15; Stop 02/25/20 at 10:21; Status DC Iodixanol (Visipaque 320) 40 ml 1X ONCE IART Last administered on 02/25/20at 10:15; Start 02/25/20 at 10:15; Stop 02/25/20 at 10:22; Status DC Info (CONTRAST GIVEN -- Rx MONITORING) 1 each PRN DAILY PRN MC SEE COMMENTS; Start 02/25/20 at 10:30; Stop 02/27/20 at 10:29 Clopidogrel Bisulfate (Plavix) 75 mg [id number] PO Last administered on 02/26/20at 08:45; Start 02/26/20 at 08:00 Clopidogrel Bisulfate (Plavix) 300 mg 1X ONCE PO Last administered on 02/24at 12:49; Start 02/25/20 at 12:00; Stop 02/25/20 at 12:01; Status DC Alprazolam (Xanax) 0.25 mg PRN Q8HRS PRN PO ANXIETY / AGITATION Last administered on 02/26/20at 05:13; Start 02/26/20 at 05:00 Active Scripts Active Reported Miralax (Polyethylene Glycol 3350) 17 Gm Powd.pack 1 Packet PO DAILY 2 Days dissolve in water Fish Oil 1,000 mg Softgel ([place]-3/Dha/Epa/Fish Oil) 1,000 Mg Capsule 1,000 Mg PO DAILY Aspirin 81 Mg Tab.chew 1 Tab PO DAILY Daily Value (Multivitamin) 1 Each Tablet 1 Tab PO DAILY 30 Days Perforomist (Formoterol Fumarate) 20 Mcg/2 Ml Vial.neb 20 Mcg IH Pulmicort (Budesonide) 0.5 Mg/2 Ml Ampul.neb 1 Vial NEB BID Clonazepam (Clonazepam) 0.5 Mg Tablet 0.5 Mg PO DAILY Vitals/I & O Vital Sign - Last 24 Hours 02/25/20 02/25/20 02/25/20 02/25/20 10:19 10:43 10:45 11:00 Pulse 92 87 88 Resp 16 18 19 B/P (MAP) 133/57 (82) 141/46 (77) Pulse Ox 99 91 95 O2 Delivery Nasal Cannula Nasal Cannula Nasal Cannula Nasal Cannula O2 Flow Rate 4.0 4.0 4.0 4.0 02/25/20 02/25/20 02/25/20 02/25/20 11:00 11:15 11:30 11:43 Temp 97.5 97.5 Pulse 88 85 88 89 Resp 18 18 18 18 B/P (MAP) 133/57 (82) 138/47 (77) 132/59 (83) 141/60 (87) Pulse Ox 92 95 95 95 O2 Delivery Nasal Cannula Nasal Cannula Nasal Cannula Nasal Cannula O2 Flow Rate 4.0 4.0 4.0 4.0 02/25/20 02/25/20 02/25/20 02/25/20 12:15 12:45 13:45 14:46 Temp 97.2 97.2 Pulse 99 99 93 93 Resp 18 18 18 18 B/P (MAP) 139/64 (89) 129/57 (81) 137/57 (83) 110/65 (80) Pulse Ox 91 90 97 97 O2 Delivery Nasal Cannula Nasal Cannula Nasal Cannula Nasal Cannula O2 Flow Rate 4.0 4.0 4.0 4.0 02/25/20 02/25/20 02/25/20 02/25/20 19:00 19:13 20:00 23:31 Temp 97.8 98.0 97.8 98.0 Pulse 89 92 Resp 18 18 B/P (MAP) 129/56 (80) 149/68 (95) Pulse Ox 94 93 97 O2 Delivery Nasal Cannula Nasal Cannula Nasal Cannula Nasal Cannula O2 Flow Rate 4.0 4.0 4.0 4.0 02/26/20 02/26/20 02/26/20 02/26/20 01:10 01:40 02:59 06:30 Temp 97.8 98.0 97.8 98.0 Pulse 95 95 Resp 20 18 20 20 B/P (MAP) 151/62 (91) 130/65 (86) Pulse Ox 97 97 97 97 O2 Delivery Nasal Cannula Nasal Cannula Nasal Cannula Nasal Cannula O2 Flow Rate 4.0 4.0 4.0 4.0 02/26/20 02/26/20 07:00 07:59 Temp 97.5 97.5 Pulse 88 Resp 20 B/P (MAP) 121/52 (75) Pulse Ox 97 97 O2 Delivery Nasal Cannula Nasal Cannula O2 Flow Rate 3.0 3.0 Intake and Output 02/25/20 02/25/20 02/26/20 15:00 23:00 07:00 Intake Total 200 ml 500 ml 3050 ml Balance 200 ml 500 ml 3050 ml Justicifation of Admission Dx: Justifications for Admission: Justification of Admission Dx: Yes Sepsis: Infection CHAYA RUBIO MD Feb 26, 2020 09:20
[2020-02-26] MEDS: ENOXAPARIN 40 MG/0.4 ML SYRINGE. SQ SCH (12:15)
--- NOTE | 2020-02-26 12:33 | PDOC ---
SUBJECTIVE ROS No complaints OBJECTIVE Vital Signs Vital Signs Date Time Temp Pulse Resp B/P (MAP) Pulse Ox O2 Delivery O2 Flow Rate FiO2 02/26/20 11:00 96.9 71 20 108/48 (68) 92 Nasal Cannula 3.0 96.9 I & 0 Intake and Output 02/26/20 07:00 Intake Total 3750 ml Balance 3750 ml Intake Oral 1700 ml IV Total 2050 ml # Voids 7 # Bowel Movements 2 PHYSICAL EXAM Physical Exam General alert oriented x3 no acute distress HEENT: Both pupils are round and reacting. No conjunctival lesion, no lesion in the mouth. NECK: Supple, no JVP, no lymphadenopathy. LUNGS: Clear. HEART: S1, S2 regular. ABDOMEN: Soft bowel sounds present mildly distended mild tenderness present on deep palpation EXTREMITIES: No edema, cyanosis. Dry skin SKIN: Unremarkable. NEUROLOGIC: No focal neurologic deficit. DIAGNOSIS/ASSESSMENT Assessment & Plan DEHYDRATION ESTER - IMPROVING-CR DOWN TO 1.1, STABLE LOW K-BETTER HYPERNATREMIA-IMPROVING, CLOSE TO NORMAL DIVERTICULAR ABSCESS PLAN SUPPORTIVE CARE PROCALAMINE ANTIBIOTICS PER ID COMMENT/RELEVANT DATA Meds Current Medications Medications (Trade) Dose Ordered Sig/Viola Start Time Stop Time Status Last Admin Dose Admin Albuterol Sulfate (Ventolin Neb Soln) 2.5 mg PRN Q4HRS PRN 02/20/20 13:00 Alprazolam (Xanax) 0.25 mg PRN Q8HRS PRN 02/26/20 05:00 02/26/20 05:13 0.25 MG Amino Acids/ Glycerin/ Electrolytes 1,000 ml @ 100 mls/hr Q10H 02/21/20 16:00 02/26/20 12:24 100 MLS/HR Aspirin (Aspirin Chewable) 81 mg DAILY 02/20/20 14:00 02/26/20 08:46 81 MG Budesonide (Pulmicort) 0.5 mg BID 02/20/20 21:00 02/26/20 07:58 0.5 MG Ceftriaxone Sodium (Rocephin) 1 gm Q24H 02/20/20 12:00 02/20/20 12:24 DC 02/20/20 11:52 1 GM Clonazepam (KlonoPIN) 0.5 mg DAILY 02/19/20 12:00 02/26/20 08:45 0.5 MG Clopidogrel Bisulfate (Plavix) 300 mg 1X ONCE 02/25/20 12:00 02/25/20 12:01 DC 02/25/20 12:49 300 MG Dextrose/Sodium Chloride 1,000 ml @ 125 mls/hr Q8H 02/24/20 06:45 02/26/20 06:42 DC 02/25/20 23:18 125 MLS/HR Enoxaparin Sodium (Lovenox 40mg Syringe) 40 mg Q24H 02/19/20 12:00 02/26/20 12:15 40 MG Fentanyl Citrate (Fentanyl 2ml Vial) 125 mcg 1X ONCE 02/25/20 10:15 02/25/20 10:21 DC 02/25/20 10:15 125 MCG Fish Oil (Fish Oil) 1,000 mg DAILY 02/20/20 14:00 02/26/20 08:45 1,000 MG Heparin Sodium (Porcine) (Heparin Sodium) 5,000 unit 1X ONCE 02/25/20 10:15 02/25/20 10:21 DC 02/25/20 10:15 5,000 UNIT Heparin Sodium/ Sodium Chloride (HEPARIN for ARTERIAL LINE FLUSH) 1,000 unit 1X ONCE 02/25/20 10:15 02/25/20 10:21 DC 02/25/20 10:15 1,000 UNIT Hydromorphone HCl (Dilaudid) 0.75 mg PRN Q4HRS PRN 02/21/20 13:30 02/22/20 04:35 0.75 MG Info (CONTRAST GIVEN -- Rx MONITORING) 1 each PRN DAILY PRN 02/25/20 10:30 02/27/20 10:29 Iodixanol (Visipaque 320) 40 ml 1X ONCE 02/25/20 10:15 02/25/20 10:22 DC 02/25/20 10:15 40 ML Iohexol (Omnipaque 300 Mg/ml) 75 ml 1X ONCE 02/19/20 10:30 02/19/20 10:31 DC 02/19/20 10:46 75 ML Iohexol (Omnipaque 350 Mg/ml) 90 ml 1X ONCE 02/22/20 12:15 02/22/20 12:16 DC 02/22/20 12:15 90 ML Lactobacillus Rhamnosus (Culturelle) 1 cap BID 02/20/20 10:15 02/26/20 08:45 1 CAP Lidocaine HCl (Buffered Lidocaine 1%) 3 ml 1X ONCE 02/25/20 10:15 02/25/20 10:22 DC 02/25/20 10:15 3 ML Metronidazole 100 ml @ 100 mls/hr 1X ONCE 02/19/20 11:30 02/19/20 12:29 DC 02/19/20 12:06 100 MLS/HR Midazolam HCl (Versed) 2.5 mg 1X ONCE 02/25/20 10:15 02/25/20 10:22 DC 02/25/20 10:15 2.5 MG Multivitamins (Thera M Plus) 1 tab DAILY 02/20/20 14:00 02/26/20 08:45 1 TAB Nicotine (Nicoderm Cq 7mg) 1 patch DAILY 02/19/20 15:15 02/26/20 08:46 1 PATCH Nicotine Polacrilex (Nicorette Gum) 1 each PRN Q1HR PRN 02/19/20 15:15 Ondansetron HCl (Zofran) 4 mg 1X ONCE 02/19/20 09:30 02/19/20 09:31 DC 02/19/20 09:49 4 MG Pantoprazole Sodium (PROTONIX VIAL for IV PUSH) 40 mg DAILYAC 02/21/20 12:30 02/25/20 09:22 DC 02/24/20 09:02 40 MG Pantoprazole Sodium (Protonix) 40 mg DAILYAC 02/25/20 10:00 02/26/20 08:45 40 MG Piperacillin Sod/ Tazobactam Sod 3.375 gm/Sodium Chloride 50 ml @ 100 mls/hr Q6HRS 02/20/20 18:00 02/26/20 12:13 100 MLS/HR Polyethylene Glycol (miraLAX PACKET) 17 gm DAILY 02/20/20 14:00 02/23/20 09:56 DC Potassium Chloride/Water 100 ml @ 100 mls/hr Q1H 02/23/20 11:30 02/23/20 13:29 DC 02/23/20 13:22 100 MLS/HR Sodium Chloride 38.5 meq/Sterile Water 1,009.625 ml @ 75 mls/hr [id number] 02/21/20 08:30 02/21/20 15:21 DC 02/21/20 08:54 75 MLS/HR Vancomycin HCl (Vancomycin Oral Solution) 125 mg [id number] 02/24/20 13:00 02/26/20 12:14 125 MG Lab Laboratory Tests Test 02/26/20 06:50 Sodium Level 146 mmol/L (136-145) Potassium Level 3.5 mmol/L (3.5-5.1) Chloride Level 108 mmol/L (98-107) Carbon Dioxide Level 35 mmol/L (21-32) Anion Gap 3 (6-14) Blood Urea Nitrogen 13 mg/dL (-20) Creatinine 1.1 mg/dL (0.6-1.0) Estimated GFR (Cockcroft-Gault) 48.0 Glucose Level 115 mg/dL (70-99) Calcium Level 7.9 mg/dL (8.5-10.1) Phosphorus Level 4.5 mg/dL (2.6-4.7) Magnesium Level 1.9 mg/dL (1.8-2.4) Results All relevant outside records, renal labs, imaging studies, telemetry/EKG's were reviewed. Justicifation of Admission Dx: Justifications for Admission: Justification of Admission Dx: Yes Sepsis: Infection SCOUT ALVARADO MD Feb 26, 2020 12:33
[2020-02-26] MEDS ORDERED: tiZANidine 4 MG TABLET. PO PRN (22:00)
[2020-02-27] MEDS: fentaNYL PF VIAL 100 MCG/2 ML VIAL IVP PRN (01:45)
[2020-02-27 03:05] VITALS: BP 119/57
--- NOTE | 2020-02-27 05:39 | NUR ---
The patient was helped to the bed side commode, at this time the patient was within sight of the nursing staff and was given the call light to alert the staff when done using the bathroom. The patient called and the GENERATION ENGINEERING TECHNOLOGIST went into the patient's room, the GENERATION ENGINEERING TECHNOLOGIST then left the room, closing the door, in order to grab the standing scale. When the GENERATION ENGINEERING TECHNOLOGIST returned to the patient's room with the standing scale the patient was sitting on the floor. When asked the patient states that she fell and did not sit herself on the floor. Patient denies any pain at this time. Patient states that she did hit her head on her bed although patient was not sitting close enough to the bed in order to hit her head. No abrasions were seen on the patient's head at this time. Patient's buttocks is not reddened or sore to touch at this time.
[2020-02-27] MEDS: PIPERACILLIN/TAZOBACTAM 3.375 GM in IV NORMAL SALINE 50ML 50 ML IV SCH ×4 (06:47→20:21)
--- NOTE | 2020-02-27 06:51 | PDOC ---
Infectious Disease Note Subjective: Subjective Patient without complaints Apparently patient fell yesterday and this morning She denies any pain Sitting upright in chair, somewhat confused at baseline no fevers/ n/v/abdominal pain Denies headache or dizziness or chest pain Vital Signs: Vital Signs Vital Signs Date Time Temp Pulse Resp B/P (MAP) Pulse Ox O2 Delivery O2 Flow Rate FiO2 02/27/20 03:05 97.5 87 22 119/57 (77) 93 Nasal Cannula 3.0 97.5 Physical Exam: PHYSICAL EXAM General alert awake female sitting in chair appears comfortable ,in no acute distress HEENT: Both pupils are round and reacting. No conjunctival lesion, no lesion in the mouth. NECK: Supple, no JVP, no lymphadenopathy. LUNGS: Clear. HEART: S1, S2 regular. ABDOMEN: Soft bowel sounds present mildly distended mild tenderness present on deep palpation EXTREMITIES: No edema, cyanosis. Dry skin SKIN: Unremarkable. NEUROLOGIC: No focal neurologic deficit. Medications: Inpatient Meds: Current Medications Medications (Trade) Dose Ordered Sig/Viola Start Time Stop Time Status Last Admin Dose Admin Albuterol Sulfate (Ventolin Neb Soln) 2.5 mg PRN Q4HRS PRN 02/20/20 13:00 Alprazolam (Xanax) 0.25 mg PRN Q8HRS PRN 02/26/20 05:00 02/26/20 05:13 0.25 MG Amino Acids/ Glycerin/ Electrolytes 1,000 ml @ 100 mls/hr Q10H 02/21/20 16:00 02/26/20 23:18 100 MLS/HR Aspirin (Aspirin Chewable) 81 mg DAILY 02/20/20 14:00 02/26/20 08:46 81 MG Budesonide (Pulmicort) 0.5 mg BID 02/20/20 21:00 02/26/20 19:48 0.5 MG Ceftriaxone Sodium (Rocephin) 1 gm Q24H 02/20/20 12:00 02/20/20 12:24 DC 02/20/20 11:52 1 GM Clonazepam (KlonoPIN) 0.5 mg DAILY 02/19/20 12:00 02/26/20 08:45 0.5 MG Clopidogrel Bisulfate (Plavix) 300 mg 1X ONCE 02/25/20 12:00 02/25/20 12:01 DC 02/25/20 12:49 300 MG Dextrose/Sodium Chloride 1,000 ml @ 125 mls/hr Q8H 02/24/20 06:45 02/26/20 06:42 DC 02/25/20 23:18 125 MLS/HR Enoxaparin Sodium (Lovenox 40mg Syringe) 40 mg Q24H 02/19/20 12:00 02/26/20 12:15 40 MG Fentanyl Citrate (Fentanyl 2ml Vial) 125 mcg 1X ONCE 02/25/20 10:15 02/25/20 10:21 DC 02/25/20 10:15 125 MCG Fish Oil (Fish Oil) 1,000 mg DAILY 02/20/20 14:00 02/26/20 08:45 1,000 MG Heparin Sodium (Porcine) (Heparin Sodium) 5,000 unit 1X ONCE 02/25/20 10:15 02/25/20 10:21 DC 02/25/20 10:15 5,000 UNIT Heparin Sodium/ Sodium Chloride (HEPARIN for ARTERIAL LINE FLUSH) 1,000 unit 1X ONCE 02/25/20 10:15 02/25/20 10:21 DC 02/25/20 10:15 1,000 UNIT Hydromorphone HCl (Dilaudid) 0.75 mg PRN Q4HRS PRN 02/21/20 13:30 02/22/20 04:35 0.75 MG Info (CONTRAST GIVEN -- Rx MONITORING) 1 each PRN DAILY PRN 02/25/20 10:30 02/27/20 10:29 Iodixanol (Visipaque 320) 40 ml 1X ONCE 02/25/20 10:15 02/25/20 10:22 DC 02/25/20 10:15 40 ML Iohexol (Omnipaque 300 Mg/ml) 75 ml 1X ONCE 02/19/20 10:30 02/19/20 10:31 DC 02/19/20 10:46 75 ML Iohexol (Omnipaque 350 Mg/ml) 90 ml 1X ONCE 02/22/20 12:15 02/22/20 12:16 DC 02/22/20 12:15 90 ML Lactobacillus Rhamnosus (Culturelle) 1 cap BID 02/20/20 10:15 02/26/20 20:59 1 CAP Lidocaine HCl (Buffered Lidocaine 1%) 3 ml 1X ONCE 02/25/20 10:15 02/25/20 10:22 DC 02/25/20 10:15 3 ML Metronidazole 100 ml @ 100 mls/hr 1X ONCE 02/19/20 11:30 02/19/20 12:29 DC 02/19/20 12:06 100 MLS/HR Midazolam HCl (Versed) 2.5 mg 1X ONCE 02/25/20 10:15 02/25/20 10:22 DC 02/25/20 10:15 2.5 MG Multivitamins (Thera M Plus) 1 tab DAILY 02/20/20 14:00 02/26/20 08:45 1 TAB Nicotine (Nicoderm Cq 7mg) 1 patch DAILY 02/19/20 15:15 02/26/20 08:46 1 PATCH Nicotine Polacrilex (Nicorette Gum) 1 each PRN Q1HR PRN 02/19/20 15:15 Ondansetron HCl (Zofran) 4 mg 1X ONCE 02/19/20 09:30 02/19/20 09:31 DC 02/19/20 09:49 4 MG Pantoprazole Sodium (PROTONIX VIAL for IV PUSH) 40 mg DAILYAC 02/21/20 12:30 02/25/20 09:22 DC 02/24/20 09:02 40 MG Pantoprazole Sodium (Protonix) 40 mg DAILYAC 02/25/20 10:00 02/26/20 08:45 40 MG Piperacillin Sod/ Tazobactam Sod 3.375 gm/Sodium Chloride 50 ml @ 100 mls/hr Q6HRS 02/20/20 18:00 02/27/20 06:47 100 MLS/HR Polyethylene Glycol (miraLAX PACKET) 17 gm DAILY 02/20/20 14:00 02/23/20 09:56 DC Potassium Chloride/Water 100 ml @ 100 mls/hr Q1H 02/23/20 11:30 02/23/20 13:29 DC 02/23/20 13:22 100 MLS/HR Sodium Chloride 38.5 meq/Sterile Water 1,009.625 ml @ 75 mls/hr [id number] 02/21/20 08:30 02/21/20 15:21 DC 02/21/20 08:54 75 MLS/HR Tizanidine HCl (Zanaflex) 4 mg 1X PRN 02/26/20 22:00 02/26/20 22:30 DC 02/26/20 22:14 4 MG Vancomycin HCl (Vancomycin Oral Solution) 125 mg [id number] 02/24/20 13:00 02/26/20 20:59 125 MG Objective: Assessment: 1. Diverticulitis with diverticular abscess.not amenable per IR for drainage GI panel negative, C. difficile positive no surgical intervention 2. Leukocytosis. Resolved 3. Obesity. 4. Chronic obstructive pulmonary disease. 5. Coronary artery disease. 6. Severe PAD status post angioplasty 7. Hypernatremia improving 8. 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 10. C. difficile positive 11. Hypernatremia 12. Severe protein calorie malnutrition Plan: Plan of Care Continue Zosyn for now Tolerating clear liquids well Continue p.o. vancomycin supportive care. Fall precaution Discussed with nursing staff ALISSA RAMIREZ MD Feb 27, 2020 06:51
[2020-02-27 07:00] VITALS: BP 103/50
[2020-02-27 07:10] LABS: CALCIUM 8.3 mg/dL (8.5-10.1); CREATININE 1.1 mg/dL (0.6-1.0); POTASSIUM 3.7 mmol/L (3.5-5.1)
[2020-02-27] MEDS: BUDESONIDE 0.5 MG/2 ML NEBU. NEB SCH ×2 (07:42→20:44)
[2020-02-27] MEDS: ASPIRIN CHEWABLE 81 MG TABLET. PO SCH (08:04)
[2020-02-27] MEDS: OMEGA-3 FATTY ACIDS/FISH OIL 1,000 MG CAPSULE. PO SCH (08:04)
[2020-02-27] MEDS: clonazePAM 0.5 MG TABLET PO SCH (08:06)
[2020-02-27] MEDS: CLOPIDOGREL BISULFATE 75 MG TABLET PO SCH (08:06)
[2020-02-27] MEDS: MULTIVITAMIN with MINERAL TABLET. PO SCH (08:06)
[2020-02-27] MEDS: PANTOPRAZOLE 40 MG TABLET.DR. PO SCH (08:06)
[2020-02-27] MEDS: VANCOMYCIN 125 MG/2.5 ML ORAL SOLUTION. PO SCH ×4 (08:06→20:20)
[2020-02-27] MEDS: LACTOBACILLUS RHAMNOSUS GG 1 CAPSULE. PO SCH ×2 (08:06→20:20)
[2020-02-27] MEDS: NICOTINE 7MG PATCH. TD SCH (08:06)
[2020-02-27] MEDS ORDERED: FURO20TA3 PO (09:27)
[2020-02-27] MEDS ORDERED: GABA300C18 PO (09:27)
--- NOTE | 2020-02-27 10:38 | PDOC ---
SURGICAL PROGRESS NOTE Subjective Patient states she is feeling great no complaints Vital Signs Vital Signs Date Time Temp Pulse Resp B/P (MAP) Pulse Ox O2 Delivery O2 Flow Rate FiO2 02/27/20 08:00 Nasal Cannula 4.0 02/27/20 07:43 97 02/27/20 07:00 96.9 74 22 103/50 (67) 96.9 I&O Intake and Output 02/27/20 07:00 Intake Total 1400 ml Output Total 1500 ml Balance -100 ml Intake Oral 1400 ml Output Urine Total 1500 ml # Voids 3 # Bowel Movements 2 PATIENT HAS A OKEEFE: No General: Alert, Oriented X3, Cooperative, No acute distress Abdomen: Normal bowel sounds, Soft, No tenderness Labs Laboratory Tests Test 02/26/20 06:50 02/27/20 06:48 Sodium Level 146 mmol/L (136-145) 145 mmol/L (136-145) Potassium Level 3.5 mmol/L (3.5-5.1) 3.7 mmol/L (3.5-5.1) Chloride Level 108 mmol/L (98-107) 108 mmol/L (98-107) Carbon Dioxide Level 35 mmol/L (21-32) 35 mmol/L (21-32) Anion Gap 3 (6-14) 2 (6-14) Blood Urea Nitrogen 13 mg/dL (7-20) 15 mg/dL (7-20) Creatinine 1.1 mg/dL (0.6-1.0) 1.1 mg/dL (0.6-1.0) Estimated GFR (Cockcroft-Gault) 48.0 48.0 Glucose Level 115 mg/dL (70-99) 106 mg/dL (70-99) Calcium Level 7.9 mg/dL (8.5-10.1) 8.3 mg/dL (8.5-10.1) Phosphorus Level 4.5 mg/dL (2.6-4.7) Magnesium Level 1.9 mg/dL (1.8-2.4) Laboratory Tests Test 02/27/20 06:48 Sodium Level 145 mmol/L (136-145) Potassium Level 3.7 mmol/L (3.5-5.1) Chloride Level 108 mmol/L (98-107) Carbon Dioxide Level 35 mmol/L (21-32) Anion Gap 2 (6-14) Blood Urea Nitrogen 15 mg/dL (7-20) Creatinine 1.1 mg/dL (0.6-1.0) Estimated GFR (Cockcroft-Gault) 48.0 Glucose Level 106 mg/dL (70-99) Calcium Level 8.3 mg/dL (8.5-10.1) Problem List Problems Medical Problems: (1) Abdominal aortic aneurysm (AAA) 3.0 cm to 5.0 cm in diameter in female Status: Acute (2) Acute diverticulitis Status: Acute Assessment/Plan Diverticulitis appears to be resolved No further surgical recommendations will sign off if general surgery expertise is needed please reconsult Justicifation of Admission Dx: Justifications for Admission: Justification of Admission Dx: Yes Sepsis: Infection JAZMIN CURRAN MD Feb 27, 2020 10:38
[2020-02-27] MEDS: AMINO AC 3%/ELECTROLYTE/GLYCER 1,000 ML IV SCH ×2 (10:43→21:04)
[2020-02-27 11:00] VITALS: BP 110/43
[2020-02-27] MEDS: ENOXAPARIN 40 MG/0.4 ML SYRINGE. SQ SCH (12:28)
--- NOTE | 2020-02-27 13:18 | PDOC ---
PROGRESS NOTES Chief Complaint Chief Complaint Impression: 1. Diverticulitis of the mid to distal sigmoid colon peridiverticular abscess measuring 3.4 x 3.1 cm. No definite fistula to the bladder, uterus or vagina is noted. There is gas identified within the vagina which is nonspecific. Close follow-up is recommended. peridiverticular abscess measuring 3.4 x 3.1 cm 2. Bilateral adrenal masses, indeterminate. Left adrenal mass measures 2.3 x 2.0 cm. Findings favor benign etiology given stability since 10/12/2013. 3. Infrarenal abdominal aortic aneurysm measuring 4.5 x 4.4 cm. Dense calcified and noncalcified atheromatous plaque is identified. Infrarenal abdominal aorta previously measured 2.8 x 2.6 cm on 10/12/2013 pvd Sepsis due to sigmoid diverticulitis resolved peridiverticular abscess measuring 3.4 x 3.1 cm Abdominal pain secondary to acute sigmoid diverticulitis COPD Tobacco abuse Acute electrolyte derangements Severe protein-caloric malnutrition SEVERE HYPERNATREMIA secondary to dehydration HYPOKALEMIA, 02/20 Right third, fourth, and fifth toe cyanosis Advanced peripheral arterial disease--patient's right lower extremity bypass graft is patent. She does have a high-grade stenosis at the distal anastomosis based on the CT angiogram. s/p angiography with the following results: Impression: 1. Moderate to high-grade stenosis distal bypass anastomosis extending of the [id number] popliteal artery treated with balloon angioplasty 2. Multiple high-grade stenoses of the right anterior tibial artery treated with balloon angioplasty. There is two-vessel runoff now with a patent anterior tibial artery, and small patent peroneal artery. 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 plan Follow urine output which seems improved, Patient electrlytes better, labs improved, still having diarrhea will replace electrolytes as needed Clear liquid diet. will advance as recommended by consultants will start Lasix due to peripheral edema due to iv fluid resuscitation Serial abdominal exams Continue procalamine until improved oral intake. surgical consult greatly appreciated Lovenox for DVT prophylaxis Full code Discussed with RN id consult GI FOLLOWING Continue Zosyn, General surgery following NEPHROLOGY CONSULT IV K as needed IR for drainage neither collection is amendable to percutaneous drainage due to overlying structures. No IR intervention is recommended at current. picc History of Present Illness History of Present Illness Still having diarrhea but seems improved, patient with no other complaints, not very hungry. Has fallen twice over the weekend. Patient seems to be having a cognitive impairment most likely secondary to her acute illness prolonged hospital stay. I have encouraged her to call the nursing staff in order to have help with ambulation to prevent further falls. No concerns voiced during my encounter Vitals Vitals Vital Signs Date Time Temp Pulse Resp B/P (MAP) Pulse Ox O2 Delivery O2 Flow Rate FiO2 02/27/20 11:00 96.5 65 22 110/43 (65) 96 Nasal Cannula 4.0 96.5 Physical Exam Physical Exam General alert awake female sitting in chair appears comfortable ,in no acute distress HEENT: Both pupils are round and reacting. No conjunctival lesion, no lesion in the mouth. NECK: Supple, no JVP, no lymphadenopathy. LUNGS: Clear. HEART: S1, S2 regular. ABDOMEN: Soft bowel sounds present mildly distended mild tenderness present on deep palpation EXTREMITIES: No edema, cyanosis. Dry skin SKIN: Unremarkable. NEUROLOGIC: No focal neurologic deficit. General: Alert, Oriented X3, Cooperative, No acute distress Heart: Regular rate Lungs: Clear, Other Abdomen: Normal bowel sounds, Soft, No tenderness Extremities: Other (Palpable bypass graft pulse in the right lower extremity at the level of the knee, intact dorsalis pedis Doppler signal on the right, monophasic posterior tibial Doppler signal on the left,) Skin: Other (Mild cyanosis of the plantar surface of the right second, third, f ourth, and fifth toes without tissue loss) Labs LABS Laboratory Tests Test 02/27/20 06:48 Sodium Level 145 mmol/L (136-145) Potassium Level 3.7 mmol/L (3.5-5.1) Chloride Level 108 mmol/L (98-107) Carbon Dioxide Level 35 mmol/L (21-32) Anion Gap 2 (6-14) Blood Urea Nitrogen 15 mg/dL (7-20) Creatinine 1.1 mg/dL (0.6-1.0) Estimated GFR (Cockcroft-Gault) 48.0 Glucose Level 106 mg/dL (70-99) Calcium Level 8.3 mg/dL (8.5-10.1) Assessment and Plan Assessmemt and Plan Problems Medical Problems: (1) Abdominal aortic aneurysm (AAA) 3.0 cm to 5.0 cm in diameter in female Status: Acute (2) Acute diverticulitis Status: Acute Comment Review of Relevant I have reviewed the following items mayra (where applicable) has been applied. Labs Laboratory Tests Test 02/26/20 06:50 02/27/20 06:48 Sodium Level 146 mmol/L (136-145) 145 mmol/L (136-145) Potassium Level 3.5 mmol/L (3.5-5.1) 3.7 mmol/L (3.5-5.1) Chloride Level 108 mmol/L (98-107) 108 mmol/L (98-107) Carbon Dioxide Level 35 mmol/L (21-32) 35 mmol/L (21-32) Anion Gap 3 (6-14) 2 (6-14) Blood Urea Nitrogen 13 mg/dL (7-20) 15 mg/dL (7-20) Creatinine 1.1 mg/dL (0.6-1.0) 1.1 mg/dL (0.6-1.0) Estimated GFR (Cockcroft-Gault) 48.0 48.0 Glucose Level 115 mg/dL (70-99) 106 mg/dL (70-99) Calcium Level 7.9 mg/dL (8.5-10.1) 8.3 mg/dL (8.5-10.1) Phosphorus Level 4.5 mg/dL (2.6-4.7) Magnesium Level 1.9 mg/dL (1.8-2.4) Laboratory Tests Test 02/27/20 06:48 Sodium Level 145 mmol/L (136-145) Potassium Level 3.7 mmol/L (3.5-5.1) Chloride Level 108 mmol/L (98-107) Carbon Dioxide Level 35 mmol/L (21-32) Anion Gap 2 (6-14) Blood Urea Nitrogen 15 mg/dL (7-20) Creatinine 1.1 mg/dL (0.6-1.0) Estimated GFR (Cockcroft-Gault) 48.0 Glucose Level 106 mg/dL (70-99) Calcium Level 8.3 mg/dL (8.5-10.1) Microbiology 02/21/20 Fecal Leukocyte Stain - Final, Complete 02/19/20 Urine Culture - Final, Complete 02/19/20 Blood Culture - Final, Complete NO GROWTH AFTER 5 DAYS Medications Current Medications Fentanyl Citrate (Fentanyl 2ml Vial) 50 mcg 1X ONCE IV Last administered on 02/19/20at 09:50; Start 02/19/20 at 09:30; Stop 02/19/20 at 09:31; Status DC Ondansetron HCl (Zofran) 4 mg 1X ONCE IV Last administered on 02/19/20at 09:49; Start 02/19/20 at 09:30; Stop 02/19/20 at 09:31; Status DC Sodium Chloride 1,000 ml @ 1,000 mls/hr 1X ONCE IV Last administered on 02/19/20at 09:48; Start 02/19/20 at 09:30; Stop 02/19/20 at 10:29; Status DC Iohexol (Omnipaque 300 Mg/ml) 75 ml 1X ONCE IV Last administered on 02/19/20at 10:46; Start 02/19/20 at 10:30; Stop 02/19/20 at 10:31; Status DC Info (CONTRAST GIVEN -- Rx MONITORING) 1 each PRN DAILY PRN MC SEE COMMENTS; Start 02/19/20 at 10:30; Stop 02/21/20 at 10:29; Status DC Ceftriaxone Sodium (Rocephin) 1 gm 1X ONCE IVP Last administered on 02/19/20at 11:14; Start 02/19/20 at 11:15; Stop 02/19/20 at 11:16; Status DC Ceftriaxone Sodium (Rocephin) 1 gm 1X ONCE IVP Last administered on 02/19/20at 12:01; Start 02/19/20 at 11:30; Stop 02/19/20 at 11:31; Status DC Metronidazole 100 ml @ 100 mls/hr Q8HRS IV Last administered on 02/20/20at 06:00; Start 02/19/20 at 22:00; Stop 02/20/20 at 12:24; Status DC Metronidazole 100 ml @ 100 mls/hr 1X ONCE IV Last administered on 02/19/20at 12:06; Start 02/19/20 at 11:30; Stop 02/19/20 at 12:29; Status DC Ceftriaxone Sodium (Rocephin) 1 gm Q24H IVP Last administered on 02/20/20 11:52; Start 02/20/20 at 12:00; Stop 02/20/20 at 12:24; Status DC Enoxaparin Sodium (Lovenox 40mg Syringe) 40 mg Q24H SQ Last administered on 02/27/20 12:28; Start 02/19/20 at 12:00 Sodium Chloride 1,000 ml @ 100 mls/hr 1X ONCE IV Last administered on 02/19/20at 11:45; Start 02/19/20 at 11:45; Stop 02/19/20 at 21:44; Status DC Clonazepam (KlonoPIN) 0.5 mg DAILY PO Last administered on 02/27/20 08:06; Start 02/19/20 at 12:00 Fentanyl Citrate (Fentanyl 2ml Vial) 50 mcg PRN Q2HR PRN IVP PAIN, 1ST CHOICE Last administered on 02/27/20 01:45; Start 02/19/20 at 14:00 Nicotine Polacrilex (Nicorette Gum) 1 each PRN Q1HR PRN BC SMOKING CESSATION; Start 02/19/20 at 15:15 Nicotine (Nicoderm Cq 7mg) 1 patch DAILY TD Last administered on 02/27/20 08:06; Start 02/19/20 at 15:15 Lactobacillus Rhamnosus (Culturelle) 1 cap BID PO Last administered on 08:06; Start 02/20/20 at 10:15 Piperacillin Sod/ Tazobactam Sod 3.375 gm/Sodium Chloride 50 ml @ 100 mls/hr Q6HRS IV Last administered on 02/27/20at 12:29; Start 02/20/20 at 18:00 Aspirin (Aspirin Chewable) 81 mg DAILY PO Last administered on 02/27/20 08:04; Start 02/20/20 at 14:00 Budesonide (Pulmicort) 0.5 mg BID NEB Last administered on 02/27/20 07:42; Start 02/20/20 at 21:00 Polyethylene Glycol (miraLAX PACKET) 17 gm DAILY PO ; Start 02/20/20 at 14:00; Stop 02/23/20 at 09:56; Status DC Multivitamins (Thera M Plus) 1 tab DAILY PO Last administered on 02/27/20at 08:06; Start 02/20/20 at 14:00 Fish Oil (Fish Oil) 1,000 mg DAILY PO Last administered on 02/27/20at 08:04; Start 02/20/20 at 14:00 Albuterol Sulfate (Ventolin Neb Soln) 2.5 mg PRN Q4HRS PRN NEB SHORTNESS OF BREATH; Start 02/20/20 at 13:00 Potassium Chloride/Water 100 ml @ 50 mls/hr 1X ONCE IV Last administered on 02/21/20at 08:05; Start 02/21/20 at 08:00; Stop 02/21/20 at 09:59; Status DC Potassium Chloride/Water 100 ml @ 100 mls/hr Q1H IV Last administered on 02/21/20at 11:34; Start 02/21/20 at 10:00; Stop 02/21/20 at 10:59; Status DC Sodium Chloride 38.5 meq/Sterile Water 1,009.625 ml @ 75 mls/hr [id number] IV Last administered on 02/21/20at 08:54; Start 02/21/20 at 08:30; Stop 02/21/20 at 15:21; Status DC Pantoprazole Sodium (PROTONIX VIAL for IV PUSH) 40 mg DAILYAC IVP Last administered on 02/24/20at 09:02; Start 02/21/20 at 12:30; Stop 02/25/20 at 09:22; Status DC Hydromorphone HCl (Dilaudid) 0.75 mg PRN Q4HRS PRN IVP PAIN, 2ND CHOICE Last administered on 02/22/20at 04:35; Start 02/21/20 at 13:30 Amino Acids/ Glycerin/ Electrolytes 1,000 ml @ 100 mls/hr Q10H IV Last administered on 02/27/20at 10:43; Start 02/21/20 at 16:00 Lidocaine HCl (Buffered Lidocaine 1%) 3 ml STK-MED ONCE .ROUTE ; Start 02/22/20 at 10:32; Stop 02/22/20 at 10:32; Status DC Lidocaine HCl (Buffered Lidocaine 1%) 3 ml 1X ONCE INJ Last administered on 02/22/20at 11:17; Start 02/22/20 at 11:15; Stop 02/22/20 at 11:16; Status DC Lidocaine HCl (Buffered Lidocaine 1%) 3 ml STK-MED ONCE .ROUTE ; Start 02/22/20 at 11:50; Stop 02/22/20 at 11:51; Status DC Iohexol (Omnipaque 350 Mg/ml) 90 ml 1X ONCE IV Last administered on 02/22/20at 12:15; Start 02/22/20 at 12:15; Stop 02/22/20 at 12:16; Status DC Info (CONTRAST GIVEN -- Rx MONITORING) 1 each PRN DAILY PRN MC SEE COMMENTS; Start 02/22/20 at 12:30; Stop 02/24/20 at 12:29; Status DC Potassium Chloride/Water 100 ml @ 100 mls/hr Q1H IV Last administered on 02/23/20at 13:22; Start 02/23/20 at 11:30; Stop 02/23/20 at 13:29; Status DC Dextrose/Sodium Chloride 1,000 ml @ 125 mls/hr Q8H IV Last administered on 02/25/20at 23:18; Start 02/24/20 at 06:45; Stop 02/26/20 at 06:42; Status DC Vancomycin HCl (Vancomycin Oral Solution) 125 mg [id number] PO Last administered on 02/27/20at 12:29; Start 02/24/20 at 13:00 Midazolam HCl (Versed) 2 mg STK-MED ONCE .ROUTE ; Start 02/25/20 at 08:01; Stop 02/25/20 at 08:02; Status DC Fentanyl Citrate (Fentanyl 2ml Vial) 100 mcg STK-MED ONCE .ROUTE ; Start 02/25/20 at 08:01; Stop 02/25/20 at 08:02; Status DC Heparin Sodium (Porcine) (Heparin Sodium) 10,000 unit STK-MED ONCE .ROUTE ; Start 02/25/20 at 08:01; Stop 02/25/20 at 08:02; Status DC Lidocaine HCl (Buffered Lidocaine 1%) 3 ml STK-MED ONCE .ROUTE ; Start 02/25/20 at 08:03; Stop 02/25/20 at 08:03; Status DC Iodixanol (Visipaque 320) 100 ml STK-MED ONCE .ROUTE ; Start 02/25/20 at 08:03; Stop 02/25/20 at 08:03; Status DC Heparin Sodium/ Sodium Chloride 1,500 ml @ As Directed STK-MED ONCE .ROUTE ; Start 02/25/20 at 08:03; Stop 02/25/20 at 08:04; Status DC Pantoprazole Sodium (Protonix) 40 mg DAILYAC PO Last administered on 02/27/20at 08:06; Start 02/25/20 at 10:00 Midazolam HCl (Versed) 2 mg STK-MED ONCE .ROUTE ; Start 02/25/20 at 09:50; Stop 02/25/20 at 09:51; Status DC Fentanyl Citrate (Fentanyl 2ml Vial) 100 mcg STK-MED ONCE .ROUTE ; Start 02/25/20 at 09:50; Stop 02/25/20 at 09:51; Status DC Heparin Sodium (Porcine) (Heparin Sodium) 5,000 unit 1X ONCE IART Last administered on 02/25/20at 10:15; Start 02/25/20 at 10:15; Stop 02/25/20 at 10:21; Status DC Heparin Sodium/ Sodium Chloride (HEPARIN for ARTERIAL LINE FLUSH) 1,000 unit 1X ONCE IART Last administered on 02/25/20at 10:15; Start 02/25/20 at 10:15; Stop 02/25/20 at 10:21; Status DC Lidocaine HCl (Buffered Lidocaine 1%) 3 ml 1X ONCE IJ Last administered on 02/25/20at 10:15; Start 02/25/20 at 10:15; Stop 02/25/20 at 10:22; Status DC Midazolam HCl (Versed) 2.5 mg 1X ONCE IV Last administered on 02/25/20at 10:15; Start 02/25/20 at 10:15; Stop 02/25/20 at 10:22; Status DC Fentanyl Citrate (Fentanyl 2ml Vial) 125 mcg 1X ONCE IV Last administered on 02/25/20at 10:15; Start 02/25/20 at 10:15; Stop 02/25/20 at 10:21; Status DC Iodixanol (Visipaque 320) 40 ml 1X ONCE IART Last administered on 02/25/20at 10:15; Start 02/25/20 at 10:15; Stop 02/25/20 at 10:22; Status DC Info (CONTRAST GIVEN -- Rx MONITORING) 1 each PRN DAILY PRN MC SEE COMMENTS; Start 02/25/20 at 10:30; Stop 02/27/20 at 10:29; Status DC Clopidogrel Bisulfate (Plavix) 75 mg [id number] PO Last administered on at 08:06; Start 02/26/20 at 08:00 Clopidogrel Bisulfate (Plavix) 300 mg 1X ONCE PO Last administered on 02/25/20at 12:49; Start 02/25/20 at 12:00; Stop 02/25/20 at 12:01; Status DC Alprazolam (Xanax) 0.25 mg PRN Q8HRS PRN PO ANXIETY / AGITATION Last administered on 02/26/20at 05:13; Start 02/26/20 at 05:00 Tizanidine HCl (Zanaflex) 4 mg 1X PRN PO MUSCLE SPASMS Last administered on 02/26/20at 22:14; Start 02/26/20 at 22:00; Stop 02/26/20 at 22:30; Status DC Gabapentin (Neurontin) 300 mg HS PO ; Start 02/27/20 at 21:00 Active Scripts Active Reported Furosemide 20 Mg Tablet 1 Tab PO DAILY PRN Gabapentin (Gabapentin) 300 Mg Capsule 300 Mg PO HS Miralax (Polyethylene Glycol 3350) 17 Gm Powd.pack 1 Packet PO DAILY 2 Days dissolve in water Fish Oil 1,000 mg Softgel ([place]-3/Dha/Epa/Fish Oil) 1,000 Mg Capsule 1,000 Mg PO DAILY Aspirin 81 Mg Tab.chew 1 Tab PO DAILY Daily Value (Multivitamin) 1 Each Tablet 1 Tab PO DAILY 30 Days Perforomist (Formoterol Fumarate) 20 Mcg/2 Ml Vial.neb 20 Mcg IH Pulmicort (Budesonide) 0.5 Mg/2 Ml Ampul.neb 1 Vial NEB BID Clonazepam (Clonazepam) 0.5 Mg Tablet 0.5 Mg PO DAILY Vitals/I & O Vital Sign - Last 24 Hours 02/26/20 02/26/20 02/26/20 02/26/20 15:00 19:35 19:50 20:00 Temp 97.1 98.5 97.1 98.5 Pulse 69 74 Resp 20 22 B/P (MAP) 107/50 (69) 99/46 (63) Pulse Ox 94 92 O2 Delivery Nasal Cannula Nasal Cannula Nasal Cannula Nasal Cannula O2 Flow Rate 3.0 3.0 3.0 3.0 02/26/20 02/27/20 02/27/20 02/27/20 22:46 01:45 02:15 03:05 Temp 98.9 97.5 98.9 97.5 Pulse 75 87 Resp 22 16 20 22 B/P (MAP) 116/73 (87) 119/57 (77) Pulse Ox 95 90 90 93 O2 Delivery Nasal Cannula Nasal Cannula Nasal Cannula Nasal Cannula O2 Flow Rate 3.5 3.5 3.5 3.0 02/27/20 02/27/20 02/27/20 02/27/20 07:00 07:43 08:00 11:00 Temp 96.9 96.5 96.9 96.5 Pulse 74 65 Resp 22 B/P (MAP) 103/50 (67) 110/43 (65) Pulse Ox 97 97 96 O2 Delivery Nasal Cannula Nasal Cannula Nasal Cannula Nasal Cannula O2 Flow Rate 4.0 4.0 4.0 4.0 Intake and Output 02/26/20 02/26/20 02/27/20 15:00 23:00 07:00 Intake Total 400 ml 400 ml 600 ml Output Total 400 ml 1100 ml Balance 400 ml 0 ml -500 ml Justicifation of Admission Dx: Justifications for Admission: Justification of Admission Dx: Yes Sepsis: Infection CHAYA RUBIO MD Feb 27, 2020 13:18
--- NOTE | 2020-02-27 13:27 | PDOC ---
SUBJECTIVE ROS stable OBJECTIVE Vital Signs Vital Signs Date Time Temp Pulse Resp B/P (MAP) Pulse Ox O2 Delivery O2 Flow Rate FiO2 02/27/20 11:00 96.5 65 22 110/43 (65) 96 Nasal Cannula 4.0 96.5 I & 0 Intake and Output 02/27/20 07:00 Intake Total 1400 ml Output Total 1500 ml Balance -100 ml Intake Oral 1400 ml Output Urine Total 1500 ml # Voids 3 # Bowel Movements 2 PHYSICAL EXAM Physical Exam General alert oriented x3 no acute distress HEENT: OM NECK: Supple, no JVP, no lymphadenopathy. LUNGS: Clear. HEART: S1, S2 regular. ABDOMEN: Soft EXTREMITIES: No edema, cyanosis. Dry skin SKIN: Unremarkable. NEUROLOGIC: No focal neurologic deficit. DIAGNOSIS/ASSESSMENT Assessment & Plan ESTER - Improved Cr 1.1, stable 2/2 Dehydration. Supportive cre, Avoid Nephrotoxins HyperNatremia - Resolved Diverticular Abscess Will sign off COMMENT/RELEVANT DATA Meds Current Medications Medications (Trade) Dose Ordered Sig/Viola Start Time Stop Time Status Last Admin Dose Admin Albuterol Sulfate (Ventolin Neb Soln) 2.5 mg PRN Q4HRS PRN 02/20/20 13:00 Alprazolam (Xanax) 0.25 mg PRN Q8HRS PRN 02/26/20 05:00 02/26/20 05:13 0.25 MG Amino Acids/ Glycerin/ Electrolytes 1,000 ml @ 100 mls/hr Q10H 02/21/20 16:00 02/27/20 10:43 100 MLS/HR Aspirin (Aspirin Chewable) 81 mg DAILY 02/20/20 14:00 02/27/20 08:04 81 MG Budesonide (Pulmicort) 0.5 mg BID 02/20/20 21:00 02/27/20 07:42 0.5 MG Ceftriaxone Sodium (Rocephin) 1 gm Q24H 02/20/20 12:00 02/20/20 12:24 DC 02/20/20 11:52 1 GM Clonazepam (KlonoPIN) 0.5 mg DAILY 02/19/20 12:00 02/27/20 08:06 0.5 MG Clopidogrel Bisulfate (Plavix) 300 mg 1X ONCE 02/25/20 12:00 02/25/20 12:01 DC 02/25/20 12:49 300 MG Dextrose/Sodium Chloride 1,000 ml @ 125 mls/hr Q8H 02/24/20 06:45 02/26/20 06:42 DC 02/25/20 23:18 125 MLS/HR Enoxaparin Sodium (Lovenox 40mg Syringe) 40 mg Q24H 02/19/20 12:00 02/27/20 12:28 40 MG Fentanyl Citrate (Fentanyl 2ml Vial) 125 mcg 1X ONCE 02/25/20 10:15 02/25/20 10:21 DC 02/25/20 10:15 125 MCG Fish Oil (Fish Oil) 1,000 mg DAILY 02/20/20 14:00 02/27/20 08:04 1,000 MG Furosemide (Lasix) 40 mg DAILY 02/27/20 14:00 Gabapentin (Neurontin) 300 mg HS 02/27/20 21:00 Heparin Sodium (Porcine) (Heparin Sodium) 5,000 unit 1X ONCE 02/25/20 10:15 02/25/20 10:21 DC 02/25/20 10:15 5,000 UNIT Heparin Sodium/ Sodium Chloride (HEPARIN for ARTERIAL LINE FLUSH) 1,000 unit 1X ONCE 02/25/20 10:15 02/25/20 10:21 DC 02/25/20 10:15 1,000 UNIT Hydromorphone HCl (Dilaudid) 0.75 mg PRN Q4HRS PRN 02/21/20 13:30 02/22/20 04:35 0.75 MG Info (CONTRAST GIVEN -- Rx MONITORING) 1 each PRN DAILY PRN 02/25/20 10:30 02/27/20 10:29 DC Iodixanol (Visipaque 320) 40 ml 1X ONCE 02/25/20 10:15 02/25/20 10:22 DC 02/25/20 10:15 40 ML Iohexol (Omnipaque 300 Mg/ml) 75 ml 1X ONCE 02/19/20 10:30 02/19/20 10:31 DC 02/19/20 10:46 75 ML Iohexol (Omnipaque 350 Mg/ml) 90 ml 1X ONCE 02/22/20 12:15 02/22/20 12:16 DC 02/22/20 12:15 90 ML Lactobacillus Rhamnosus (Culturelle) 1 cap BID 02/20/20 10:15 02/27/20 08:06 1 CAP Lidocaine HCl (Buffered Lidocaine 1%) 3 ml 1X ONCE 02/25/20 10:15 02/25/20 10:22 DC 02/25/20 10:15 3 ML Metronidazole 100 ml @ 100 mls/hr 1X ONCE 02/19/20 11:30 02/19/20 12:29 DC 02/19/20 12:06 100 MLS/HR Midazolam HCl (Versed) 2.5 mg 1X ONCE 02/25/20 10:15 02/25/20 10:22 DC 02/25/20 10:15 2.5 MG Multivitamins (Thera M Plus) 1 tab DAILY 02/20/20 14:00 02/27/20 08:06 1 TAB Nicotine (Nicoderm Cq 7mg) 1 patch DAILY 02/19/20 15:15 02/27/20 08:06 1 PATCH Nicotine Polacrilex (Nicorette Gum) 1 each PRN Q1HR PRN 02/19/20 15:15 Ondansetron HCl (Zofran) 4 mg 1X ONCE 02/19/20 09:30 02/19/20 09:31 DC 02/19/20 09:49 4 MG Pantoprazole Sodium (PROTONIX VIAL for IV PUSH) 40 mg DAILYAC 02/21/20 12:30 02/25/20 09:22 DC 02/24/20 09:02 40 MG Pantoprazole Sodium (Protonix) 40 mg DAILYAC 02/25/20 10:00 02/27/20 08:06 40 MG Piperacillin Sod/ Tazobactam Sod 3.375 gm/Sodium Chloride 50 ml @ 80 mls/hr Q6HRS 02/20/20 18:00 02/27/20 12:29 100 MLS/HR Polyethylene Glycol (miraLAX PACKET) 17 gm DAILY 02/20/20 14:00 02/23/20 09:56 DC Potassium Chloride/Water 100 ml @ 100 mls/hr Q1H 02/23/20 11:30 02/23/20 13:29 DC 02/23/20 13:22 100 MLS/HR Sodium Chloride 38.5 meq/Sterile Water 1,009.625 ml @ 75 mls/hr [id number] 02/21/20 08:30 02/21/20 15:21 DC 02/21/20 08:54 75 MLS/HR Tizanidine HCl (Zanaflex) 4 mg 1X PRN 02/26/20 22:00 02/26/20 22:30 DC 02/26/20 22:14 4 MG Vancomycin HCl (Vancomycin Oral Solution) 125 mg [id number] 02/24/20 13:00 02/27/20 12:29 125 MG Lab Laboratory Tests Test 02/27/20 06:48 Sodium Level 145 mmol/L (136-145) Potassium Level 3.7 mmol/L (3.5-5.1) Chloride Level 108 mmol/L (98-107) Carbon Dioxide Level 35 mmol/L (21-32) Anion Gap 2 (6-14) Blood Urea Nitrogen 15 mg/dL (-20) Creatinine 1.1 mg/dL (0.6-1.0) Estimated GFR (Cockcroft-Gault) 48.0 Glucose Level 106 mg/dL (70-99) Calcium Level 8.3 mg/dL (8.5-10.1) Results All relevant outside records, renal labs, imaging studies, telemetry/EKG's were reviewed. Justicifation of Admission Dx: Justifications for Admission: Justification of Admission Dx: Yes Sepsis: Infection SCOUT ALVARADO MD Feb 27, 2020 13:27
[2020-02-27] MEDS: FUROSEMIDE 40 MG/4 ML VIAL. IVP SCH (14:14)
[2020-02-27 15:00] VITALS: BP 94/56
[2020-02-27 19:35] VITALS: BP 110/42
[2020-02-27] MEDS: ALPRAZolam 0.25 MG TABLET PO PRN (20:20)
[2020-02-27] MEDS: GABAPENTIN 300 MG CAPSULE. PO SCH (20:20)
[2020-02-27 22:50] VITALS: BP 112/45
[2020-02-28] MEDS: fentaNYL PF VIAL 100 MCG/2 ML VIAL IVP PRN (03:37)
[2020-02-28 03:45] VITALS: BP 132/68
[2020-02-28] MEDS: PIPERACILLIN/TAZOBACTAM 3.375 GM in IV NORMAL SALINE 50ML 50 ML IV SCH ×4 (05:51→22:35)
[2020-02-28 07:00] VITALS: BP 120/53
[2020-02-28] MEDS: ASPIRIN CHEWABLE 81 MG TABLET. PO SCH (08:20)
[2020-02-28] MEDS: clonazePAM 0.5 MG TABLET PO SCH (08:20)
[2020-02-28] MEDS: NICOTINE 7MG PATCH. TD SCH (08:20)
[2020-02-28] MEDS: CLOPIDOGREL BISULFATE 75 MG TABLET PO SCH (08:20)
[2020-02-28] MEDS: OMEGA-3 FATTY ACIDS/FISH OIL 1,000 MG CAPSULE. PO SCH (08:20)
[2020-02-28] MEDS: LACTOBACILLUS RHAMNOSUS GG 1 CAPSULE. PO SCH ×2 (08:21→21:08)
[2020-02-28] MEDS: FUROSEMIDE 40 MG/4 ML VIAL. IVP SCH (08:21)
[2020-02-28] MEDS: MULTIVITAMIN with MINERAL TABLET. PO SCH (08:21)
[2020-02-28] MEDS: PANTOPRAZOLE 40 MG TABLET.DR. PO SCH (08:21)
[2020-02-28] MEDS: BUDESONIDE 0.5 MG/2 ML NEBU. NEB SCH ×2 (08:42→20:18)
[2020-02-28] MEDS: VANCOMYCIN 125 MG/2.5 ML ORAL SOLUTION. PO SCH ×4 (08:56→21:08)
--- NOTE | 2020-02-28 08:59 | PDOC ---
Infectious Disease Note Subjective Subjective Patient without complaints aside from mild cough that is improving Apparently patient fell yesterday and this morning She denies any pain Sitting upright in chair, somewhat confused at baseline no fevers/ n/v/abdominal pain Denies headache or dizziness or chest pain ROS ROS o/w neg Vital Sign Vital Signs Vital Signs Date Time Temp Pulse Resp B/P (MAP) Pulse Ox O2 Delivery O2 Flow Rate FiO2 02/28/20 08:43 93 Nasal Cannula 3.0 02/28/20 07:00 97.8 86 20 120/53 (75) 97.8 Physical Exam PHYSICAL EXAM General alert awake female sitting in chair appears comfortable ,in no acute distress HEENT: Both pupils are round and reacting. No conjunctival lesion, no lesion in the mouth. NECK: Supple, no JVP, no lymphadenopathy. LUNGS: Clear. HEART: S1, S2 regular. ABDOMEN: Soft bowel sounds present mildly distended. No tenderness present on deep palpation EXTREMITIES: No edema, cyanosis. Dry skin SKIN: Unremarkable. NEUROLOGIC: No focal neurologic deficit. Labs Micro Microbiology 02/21/20 Fecal Leukocyte Stain - Final, Complete 02/19/20 Urine Culture - Final, Complete 02/19/20 Blood Culture - Final, Complete NO GROWTH AFTER 5 DAYS Objective Assessment 1. Diverticulitis with diverticular abscess 3.4 X 3.1 .not amenable per IR for drainage GI panel negative, C. difficile positive no surgical intervention 2. Leukocytosis. Resolved 3. Obesity. 4. Chronic obstructive pulmonary disease. 5. Coronary artery disease. 6. Severe PAD status post angioplasty 02/24 right 7. Hypernatremia improving 8. 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 Anxiety disorder. 10. C. difficile positive - 02/20 11. Hypernatremia 12. Severe protein calorie malnutrition Plan Plan of Care Continue Zosyn for now Labs in am Needs repeat CT scan to assess abscess Tolerating clear liquids well Continue p.o. vancomycin Vascular following supportive care. Fall precaution - per primary Discussed with nursing staff POLI JIMENEZ MD Feb 28, 2020 08:59
[2020-02-28] MEDS ORDERED: IOHEXOL 240 MG/ML 50ML VIAL. PO ONE (10:15)
[2020-02-28 10:22] VITALS: BP 134/66
[2020-02-28] MEDS ORDERED: CONTRAST GIVEN. MC PRN (10:30)
--- NOTE | 2020-02-28 12:29 | PDOC ---
Renal-Progress Notes Subjective Notes Notes NO NEW COMPLAINTS History of Present Illness Hx of present illness STABLE Vitals Vitals Vital Signs Date Time Temp Pulse Resp B/P (MAP) Pulse Ox O2 Delivery O2 Flow Rate FiO2 02/28/20 10:22 97.6 90 20 134/66 (88) 90 Nasal Cannula 3.0 97.6 Weight Weight [ ] I.O. Intake and Output Intake and Output 02/28/20 07:00 Intake Total 3630 ml Output Total 3400 ml Balance 230 ml Intake Oral 2430 ml Other 1200 ml Output Urine Total 3400 ml # Voids 2 # Bowel Movements 2 Micro Micro Microbiology 02/21/20 Fecal Leukocyte Stain - Final, Complete 02/19/20 Urine Culture - Final, Complete 02/19/20 Blood Culture - Final, Complete NO GROWTH AFTER 5 DAYS Review of Systems Constitutional: yes: weakness, alert, oriented Ears/Nose/Throat: Yes: no symptom reported Eyes: Yes: no symptom reported Pulmonary: Yes no symptom reported Cardiovascular: Yes no symptom reported Gastrointestional: Yes: nausea Genitourinary: Yes: no symptom reported Musculoskeletal: Yes: muscle stiffness Skin: Yes no symptom reported Psychiatric/Neurological: Yes: no symptom reported Endocrine: Yes: no symptom reported Physical Exam General Appearance: no apparent distress Skin: warm Heart: S1S2 Abdomen: soft Genitourinary: bladder flat Neurology: alert Musculoskeletal: Osteoarthritis Assessment Assessment IMP DEHYDRATION ESTER - RESOLVED LOW K-RESOLVED HYPERNATREMIA-RESOLVED DIVERTICULAR ABSCESS PLAN WILL SIGN OFF PLEASE CALL IF NEEDED HERSON RODRIGUEZ MD Feb 28, 2020 12:29
[2020-02-28] MEDS ORDERED: CAPSAICIN 0.025% TOPICAL CREAM 60GM TUBE. TP PRN (12:30)
--- NOTE | 2020-02-28 12:40 | NUR ---
SS following up with discharge planning. SS reviewed pt chart and discussed with pt RN. Pt is currently requiring oxygen. PT/OT recommended fci unit. Pt currently on IV Zosyn and PPN. SS spoke with pt's daughter via phone and pt's daughter requesting that pt go to [facility], ; fax [phone]. SS requested COVID19 test from pt's RN for fci unit. SS contacted [facility] and discussed. SS was notified that [facility] is currently on an admissions hold due to COVID19. Caron reported that she would speak with administration and would notify SS in regards to acceptance decision. SS contacted pt's daughter and discussed other discharge plan is [facility] is unable to accept pt. Pt's daughter reported that she will not consider any other fci unit at this time as she does not want pt in senior care environment. Pt's daughter reported that she spoke with Teresa at [facility] and was notified that pt would be accepted. SS contacted Caron at [facility] and informed her of daughters report. SS phoned and faxed clinical to [facility]. SS will await further communication from [facility] and will continue to follow for discharge planning.
[2020-02-28] MEDS: ENOXAPARIN 40 MG/0.4 ML SYRINGE. SQ SCH (12:45)
[2020-02-28] MEDS: LIDOCAINE (700MG/PATCH) PATCH. TD SCH (12:54)
[2020-02-28 14:30] VITALS: BP 109/53
--- NOTE | 2020-02-28 15:05 | PDOC ---
[facility] [facility] PROGRESS NOTE Chief Complaint Chief Complaint Impression: 1. Diverticulitis of the mid to distal sigmoid colon peridiverticular abscess measuring 3.4 x 3.1 cm. No definite fistula to the bladder, uterus or vagina is noted. There is gas identified within the vagina which is nonspecific. Close follow-up is recommended. peridiverticular abscess measuring 3.4 x 3.1 cm 2. Bilateral adrenal masses, indeterminate. Left adrenal mass measures 2.3 x 2.0 cm. Findings favor benign etiology given stability since 10/12/2013. 3. Infrarenal abdominal aortic aneurysm measuring 4.5 x 4.4 cm. Dense calcified and noncalcified atheromatous plaque is identified. Infrarenal abdominal aorta previously measured 2.8 x 2.6 cm on 10/12/2013 pvd Sepsis due to sigmoid diverticulitis resolved peridiverticular abscess measuring 3.4 x 3.1 cm Abdominal pain secondary to acute sigmoid diverticulitis COPD Tobacco abuse Acute electrolyte derangements Severe protein-caloric malnutrition SEVERE HYPERNATREMIA secondary to dehydration HYPOKALEMIA, 02/20 Right third, fourth, and fifth toe cyanosis Advanced peripheral arterial disease--patient's right lower extremity bypass graft is patent. She does have a high-grade stenosis at the distal anastomosis based on the CT angiogram. s/p angiography with the following results: Impression: 1. Moderate to high-grade stenosis distal bypass anastomosis extending of the [id number] popliteal artery treated with balloon angioplasty 2. Multiple high-grade stenoses of the right anterior tibial artery treated with balloon angioplasty. There is two-vessel runoff now with a patent anterior tibial artery, and small patent peroneal artery. 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 plan Discontinued IV fentanyl and switch to IV Dilaudid as needed P.o. oxycodone every 6 for pain. Started Ambien for sleep Lidocaine patch or test basin cream as needed for neuropathic pain Pending repeat CT abdomen pelvis to reassess for abscess Continue to follow urine output A.m. labs We will advance diet to soft Serial abdominal exams Continue procalamine until improved oral intake. surgical consult currently signed off Nephrology currently signed off Lovenox for DVT prophylaxis Full code Discussed with RN id consult GI FOLLOWING Continue Zosyn, IV K as needed IR for drainage neither collection is amendable to percutaneous drainage due to overlying structures. No IR intervention is recommended at current. picc Disposition: We will discuss with case management for possible transfer to a swing bed at [facility]. History of Present Illness History of Present Illness 02/28/2020 Patient seen and examined bedside today. She is tolerating clear liquid diet. She has had nonbloody bowel movements. She continues to have some neuropathic leg pain Vitals/I&O Vitals/I&O: Vital Signs Date Time Temp Pulse Resp B/P (MAP) Pulse Ox O2 Delivery O2 Flow Rate FiO2 02/28/20 14:30 97.8 79 20 109/53 (71) 91 Nasal Cannula 3.0 97.8 I & O 02/27/20 02/27/20 02/28/20 15:00 23:00 07:00 Intake Total 550 ml 380 ml 2700 ml Output Total 350 ml 900 ml 2150 ml Balance 200 ml -520 ml 550 ml Physical Exam Physical Exam: General alert awake female sitting in chair appears comfortable ,in no acute distress HEENT: Both pupils are round and reacting. No conjunctival lesion, no lesion in the mouth. NECK: Supple, no JVP, no lymphadenopathy. LUNGS: Clear. HEART: S1, S2 regular. ABDOMEN: Soft bowel sounds present mildly distended. No tenderness present on deep palpation EXTREMITIES: No edema, cyanosis. Dry skin SKIN: Unremarkable. NEUROLOGIC: No focal neurologic deficit. General: Alert, Oriented X3, Cooperative, No acute distress Heart: Regular rate Lungs: Clear, Other Abdomen: Normal bowel sounds, Soft, No tenderness Extremities: Other (Palpable bypass graft pulse in the right lower extremity at the level of the knee, intact dorsalis pedis Doppler signal on the right, monophasic posterior tibial Doppler signal on the left,) Skin: Other (Mild cyanosis of the plantar surface of the right second, third, fourth, and fifth toes without tissue loss) Review of Systems Review of Systems: CONSTITUIONAL: Denies weight loss, fever and chills. HEENT: Denies changes in vision and hearing. RESPIRATORY: Denies SOB and cough. CV: Denies palpitations and CP. GI: Denies abdominal pain, nausea, vomiting and diarrhea. : Denies dysuria and urinary frequency. MSK: Denies myalgia and joint pain. SKIN: Denies rash and pruritus. NEUROLOGICAL: Denies headache and syncope. PSYCHIATRIC: Denies recent changes in mood. Denies anxiety and depression. Assessment and Plan Assessmemt and Plan Problems Medical Problems: (1) Abdominal aortic aneurysm (AAA) 3.0 cm to 5.0 cm in diameter in female Status: Acute (2) Acute diverticulitis Status: Acute Comment Review of Relevant I have reviewed the following items mayra (where applicable) has been applied. Medications: Current Medications Medications (Trade) Dose Ordered Sig/Viola Route PRN Reason Start Time Stop Time Status Last Admin Dose Admin Gabapentin (Neurontin) 300 mg HS PO 02/27/20 21:00 02/27/20 20:20 Iohexol (Omnipaque 240 Mg/ml) 30 ml 1X ONCE PO 02/28/20 10:15 02/28/20 10:21 DC 02/28/20 11:23 Lidocaine (Lidoderm) 1 patch DAILY TD 02/28/20 13:00 02/28/20 12:54 Justicifation of Admission Dx: Justifications for Admission: Justification of Admission Dx: Yes Sepsis: Infection ANA POZO MD Feb 28, 2020 15:05
--- NOTE | 2020-02-28 17:00 | PDOC ---
G I PROGRESS NOTE Reason for Follow-up Diverticulitis Subjective Pain persists Physical Exam Lungs decreased BS CV S1 S2 ABD +BS, soft, +LLQ tenderness to palpation Review of Relevant I have reviewed the following items mayra (where applicable) has been applied. Labs Laboratory Tests Test 02/27/20 06:48 Sodium Level 145 mmol/L (136-145) Potassium Level 3.7 mmol/L (3.5-5.1) Chloride Level 108 mmol/L (98-107) Carbon Dioxide Level 35 mmol/L (21-32) Anion Gap 2 (6-14) Blood Urea Nitrogen 15 mg/dL (-20) Creatinine 1.1 mg/dL (0.6-1.0) Estimated GFR (Cockcroft-Gault) 48.0 Glucose Level 106 mg/dL (70-99) Calcium Level 8.3 mg/dL (8.5-10.1) Microbiology 02/21/20 Fecal Leukocyte Stain - Final, Complete 02/19/20 Urine Culture - Final, Complete 02/19/20 Blood Culture - Final, Complete NO GROWTH AFTER 5 DAYS Medications Current Medications Fentanyl Citrate (Fentanyl 2ml Vial) 50 mcg 1X ONCE IV Last administered on 02/19/20at 09:50; Start 02/19/20 at 09:30; Stop 02/19/20 at 09:31; Status DC Ondansetron HCl (Zofran) 4 mg 1X ONCE IV Last administered on 02/19/20at 09:49; Start 02/19/20 at 09:30; Stop 02/19/20 at 09:31; Status DC Sodium Chloride 1,000 ml @ 1,000 mls/hr 1X ONCE IV Last administered on 02/19/20at 09:48; Start 02/19/20 at 09:30; Stop 02/19/20 at 10:29; Status DC Iohexol (Omnipaque 300 Mg/ml) 75 ml 1X ONCE IV Last administered on 02/19/20at 10:46; Start 02/19/20 at 10:30; Stop 02/19/20 at 10:31; Status DC Info (CONTRAST GIVEN -- Rx MONITORING) 1 each PRN DAILY PRN MC SEE COMMENTS; Start 02/19/20 at 10:30; Stop 02/21/20 at 10:29; Status DC Ceftriaxone Sodium (Rocephin) 1 gm 1X ONCE IVP Last administered on 02/19/20at 11:14; Start 02/19/20 at 11:15; Stop 02/19/20 at 11:16; Status DC Ceftriaxone Sodium (Rocephin) 1 gm 1X ONCE IVP Last administered on 02/19/20at 12:01; Start 02/19/20 at 11:30; Stop 02/19/20 at 11:31; Status DC Metronidazole 100 ml @ 100 mls/hr Q8HRS IV Last administered on 02/20/20at 06:00; Start 02/19/20 at 22:00; Stop 02/20/20 at 12:24; Status DC Metronidazole 100 ml @ 100 mls/hr 1X ONCE IV Last administered on 02/19/20at 12:06; Start 02/19/20 at 11:30; Stop 02/19/20 at 12:29; Status DC Ceftriaxone Sodium (Rocephin) 1 gm Q24H IVP Last administered on 02/20/20at 11:52; Start 02/20/20 at 12:00; Stop 02/20/20 at 12:24; Status DC Enoxaparin Sodium (Lovenox 40mg Syringe) 40 mg Q24H SQ Last administered on 02/28/20at 12:45; Start 02/19/20 at 12:00 Sodium Chloride 1,000 ml @ 100 mls/hr 1X ONCE IV Last administered on 02/19/20at 11:45; Start 02/19/20 at 11:45; Stop 02/19/20 at 21:44; Status DC Clonazepam (KlonoPIN) 0.5 mg DAILY PO Last administered on 02/28/20at 08:20; Start 02/19/20 at 12:00 Fentanyl Citrate (Fentanyl 2ml Vial) 50 mcg PRN Q2HR PRN IVP PAIN, 1ST CHOICE Last administered on 02/28/20at 03:37; Start 02/19/20 at 14:00 Nicotine Polacrilex (Nicorette Gum) 1 each PRN Q1HR PRN BC SMOKING CESSATION; Start 02/19/20 at 15:15 Nicotine (Nicoderm Cq 7mg) 1 patch DAILY TD Last administered on 02/28/20at 08:20; Start 02/19/20 at 15:15 Lactobacillus Rhamnosus (Culturelle) 1 cap BID PO Last administered on 02/28/20 08:21; Start 02/20/20 at 10:15 Piperacillin Sod/ Tazobactam Sod 3.375 gm/Sodium Chloride 50 ml @ 80 mls/hr Q6HRS IV Last administered on 02/28/20 12:44; Start 02/20/20 at 18:00 Aspirin (Aspirin Chewable) 81 mg DAILY PO Last administered on 02/28/20 08:20; Start 02/20/20 at 14:00 Budesonide (Pulmicort) 0.5 mg BID NEB Last administered on 02/28/20 08:42; Start 02/20/20 at 21:00 Polyethylene Glycol (miraLAX PACKET) 17 gm DAILY PO ; Start 02/20/20 at 14:00; Stop 02/23/20 at 09:56; Status DC Multivitamins (Thera M Plus) 1 tab DAILY PO Last administered on 02/28/20 08:21; Start 02/20/20 at 14:00 Fish Oil (Fish Oil) 1,000 mg DAILY PO Last administered on 02/28/20 08:20; Start 02/20/20 at 14:00 Albuterol Sulfate (Ventolin Neb Soln) 2.5 mg PRN Q4HRS PRN NEB SHORTNESS OF BREATH; Start 02/20/20 at 13:00 Potassium Chloride/Water 100 ml @ 50 mls/hr 1X ONCE IV Last administered on 02/21/20 08:05; Start 02/21/20 at 08:00; Stop 02/21/20 at 09:59; Status DC Potassium Chloride/Water 100 ml @ 100 mls/hr Q1H IV Last administered on 02/21/20at 11:34; Start 02/21/20 at 10:00; Stop 02/21/20 at 10:59; Status DC Sodium Chloride 38.5 meq/Sterile Water 1,009.625 ml @ 75 mls/hr [id number] IV Last administered on 02/21/20at 08:54; Start 02/21/20 at 08:30; Stop 02/21/20 at 15:2 1; Status DC Pantoprazole Sodium (PROTONIX VIAL for IV PUSH) 40 mg DAILYAC IVP Last administered on 02/24/20 09:02; Start 02/21/20 at 12:30; Stop 02/25/20 at 09:22; Status DC Hydromorphone HCl (Dilaudid) 0.75 mg PRN Q4HRS PRN IVP PAIN, 2ND CHOICE Last administered on 02/22/20at 04:35; Start 02/21/20 at 13:30 Amino Acids/ Glycerin/ Electrolytes 1,000 ml @ 100 mls/hr Q10H IV Last administered on 02/27/20at 21:04; Start 02/21/20 at 16:00; Stop 02/28/20 at 12:30; Status DC Lidocaine HCl (Buffered Lidocaine 1%) 3 ml STK-MED ONCE .ROUTE ; Start 02/22/20 at 10:32; Stop 02/22/20 at 10:32; Status DC Lidocaine HCl (Buffered Lidocaine 1%) 3 ml 1X ONCE INJ Last administered on 02/22/20at 11:17; Start 02/22/20 at 11:15; Stop 02/22/20 at 11:16; Status DC Lidocaine HCl (Buffered Lidocaine 1%) 3 ml STK-MED ONCE .ROUTE ; Start 02/22/20 at 11:50; Stop 02/22/20 at 11:51; Status DC Iohexol (Omnipaque 350 Mg/ml) 90 ml 1X ONCE IV Last administered on 02/22/20at 12:15; Start 02/22/20 at 12:15; Stop 02/22/20 at 12:16; Status DC Info (CONTRAST GIVEN -- Rx MONITORING) 1 each PRN DAILY PRN MC SEE COMMENTS; Start 02/22/20 at 12:30; Stop 02/24/20 at 12:29; Status DC Potassium Chloride/Water 100 ml @ 100 mls/hr Q1H IV Last administered on 02/23/20at 13:22; Start 02/23/20 at 11:30; Stop 02/23/20 at 13:29; Status DC Dextrose/Sodium Chloride 1,000 ml @ 125 mls/hr Q8H IV Last administered on 02/25/20at 23:18; Start 02/24/20 at 06:45; Stop 02/26/20 at 06:42; Status DC Vancomycin HCl (Vancomycin Oral Solution) 125 mg [id number] PO Last administered on 02/28/20at 12:54; Start 02/24/20 at 13:00 Midazolam HCl (Versed) 2 mg STK-MED ONCE .ROUTE ; Start 02/25/20 at 08:01; Stop 02/25/20 at 08:02; Status DC Fentanyl Citrate (Fentanyl 2ml Vial) 100 mcg STK-MED ONCE .ROUTE ; Start 02/25/20 at 08:01; Stop 02/25/20 at 08:02; Status DC Heparin Sodium (Porcine) (Heparin Sodium) 10,000 unit STK-MED ONCE .ROUTE ; Start 02/25/20 at 08:01; Stop 02/25/20 at 08:02; Status DC Lidocaine HCl (Buffered Lidocaine 1%) 3 ml STK-MED ONCE .ROUTE ; Start 02/25/20 at 08:03; Stop 02/25/20 at 08:03; Status DC Iodixanol (Visipaque 320) 100 ml STK-MED ONCE .ROUTE ; Start 02/25/20 at 08:03; Stop 02/25/20 at 08:03; Status DC Heparin Sodium/ Sodium Chloride 1,500 ml @ As Directed STK-MED ONCE .ROUTE ; Start 02/25/20 at 08:03; Stop 02/25/20 at 08:04; Status DC Pantoprazole Sodium (Protonix) 40 mg DAILYAC PO Last administered on 02/28/20at 08:21; Start 02/25/20 at 10:00 Midazolam HCl (Versed) 2 mg STK-MED ONCE .ROUTE ; Start 02/25/20 at 09:50; Stop 02/25/20 at 09:51; Status DC Fentanyl Citrate (Fentanyl 2ml Vial) 100 mcg STK-MED ONCE .ROUTE ; Start 02/25/20 at 09:50; Stop 02/25/20 at 09:51; Status DC Heparin Sodium (Porcine) (Heparin Sodium) 5,000 unit 1X ONCE IART Last administered on 02/25/20at 10:15; Start 02/25/20 at 10:15; Stop 02/25/20 at 10:21; Status DC Heparin Sodium/ Sodium Chloride (HEPARIN for ARTERIAL LINE FLUSH) 1,000 unit 1X ONCE IART Last administered on 02/25/20at 10:15; Start 02/25/20 at 10:15; Stop 02/25/20 at 10:21; Status DC Lidocaine HCl (Buffered Lidocaine 1%) 3 ml 1X ONCE IJ Last administered on 02/25/20at 10:15; Start 02/25/20 at 10:15; Stop 02/25/20 at 10:22; Status DC Midazolam HCl (Versed) 2.5 mg 1X ONCE IV Last administered on 02/25/20at 10:15; Start 02/25/20 at 10:15; Stop 02/25/20 at 10:22; Status DC Fentanyl Citrate (Fentanyl 2ml Vial) 125 mcg 1X ONCE IV Last administered on 02/25/20at 10:15; Start 02/25/20 at 10:15; Stop 02/25/20 at 10:21; Status DC Iodixanol (Visipaque 320) 40 ml 1X ONCE IART Last administered on 02/25/20at 1 0:15; Start 02/25/20 at 10:15; Stop 02/25/20 at 10:22; Status DC Info (CONTRAST GIVEN -- Rx MONITORING) 1 each PRN DAILY PRN MC SEE COMMENTS; Start 02/25/20 at 10:30; Stop 02/27/20 at 10:29; Status DC Clopidogrel Bisulfate (Plavix) 75 mg DAILYWBKFT PO Last administered on 02/28/20at 08:20; Start 02/26/20 at 08:00 Clopidogrel Bisulfate (Plavix) 300 mg 1X ONCE PO Last administered on 02/25/20at 12:49; Start 02/25/20 at 12:00; Stop 02/25/20 at 12:01; Status DC Alprazolam (Xanax) 0.25 mg PRN Q8HRS PRN PO ANXIETY / AGITATION Last administered on 02/27/20at 20:20; Start 02/26/20 at 05:00 Tizanidine HCl (Zanaflex) 4 mg 1X PRN PO MUSCLE SPASMS Last administered on 02/26/20at 22:14; Start 02/26/20 at 22:00; Stop 02/26/20 at 22:30; Status DC Gabapentin (Neurontin) 300 mg HS PO Last administered on 02/27/20at 20:20; Start 02/27/20 at 21:00 Furosemide (Lasix) 40 mg DAILY IVP Last administered on 02/28/20at 08:21; Start 02/27/20 at 14:00 Iohexol (Omnipaque 240 Mg/ml) 30 ml 1X ONCE PO Last administered on 02/28/20at 11:23; Start 02/28/20 at 10:15; Stop 02/28/20 at 10:21; Status DC Info (CONTRAST GIVEN -- Rx MONITORING) 1 each PRN DAILY PRN MC SEE COMMENTS; Start 02/28/20 at 10:30; Stop 03/01/20 at 10:29 Oxycodone/ Acetaminophen (Percocet 5/325) 1 tab PRN Q6HRS PRN PO PAIN; Start 02/28/20 at 12:30 Zolpidem Tartrate (Ambien) 5 mg PRN QHS PRN PO INSOMNIA; Start 02/28/20 at 12:30 Lidocaine (Lidoderm) 1 patch DAILY TD Last administered on 02/28/20at 12:54; Start 02/28/20 at 13:00 Miscellaneous (Lidoderm Patch Removal) 1 ea QHS MC ; Start 02/28/20 at 21:00 Capsaicin (Zostrix) 1 sue PRN TID PRN TP peripheral pain; Start 02/28/20 at 12:30 Active Scripts Active Reported Furosemide 20 Mg Tablet 1 Tab PO DAILY PRN Gabapentin (Gabapentin) 300 Mg Capsule 300 Mg PO HS Miralax (Polyethylene Glycol 3350) 17 Gm Powd.pack 1 Packet PO DAILY 2 Days dissolve in water Fish Oil 1,000 mg Softgel ([place]-3/Dha/Epa/Fish Oil) 1,000 Mg Capsule 1,000 Mg PO DAILY Aspirin 81 Mg Tab.chew 1 Tab PO DAILY Daily Value (Multivitamin) 1 Each Tablet 1 Tab PO DAILY 30 Days Perforomist (Formoterol Fumarate) 20 Mcg/2 Ml Vial.neb 20 Mcg IH Pulmicort (Budesonide) 0.5 Mg/2 Ml Ampul.neb 1 Vial NEB BID Clonazepam (Clonazepam) 0.5 Mg Tablet 0.5 Mg PO DAILY Vitals/I & O Vital Sign - Last 24 Hours 02/27/20 02/27/20 02/27/20 02/27/20 19:35 20:00 20:50 22:50 Temp 97.7 98.1 97.7 98.1 Pulse 82 82 Resp 20 20 B/P (MAP) 110/42 (64) 112/45 (67) Pulse Ox 92 93 92 O2 Delivery Nasal Cannula Nasal Cannula Nasal Cannula Nasal Cannula O2 Flow Rate 3.0 3.0 4.0 3.0 02/28/20 02/28/20 02/28/20 02/28/20 03:37 03:45 04:07 07:00 Temp 98.1 97.8 98.1 97.8 Pulse 97 86 Resp 18 22 20 20 B/P (MAP) 132/68 (89) 120/53 (75) Pulse Ox 92 91 91 93 O2 Delivery Nasal Cannula Nasal Cannula Nasal Cannula Nasal Cannula O2 Flow Rate 3.0 3.0 3.0 3.0 02/28/20 02/28/20 02/28/20 02/28/20 07:30 08:43 10:22 14:30 Temp 97.6 97.8 97.6 97.8 Pulse 90 79 Resp 20 20 B/P (MAP) 134/66 (88) 109/53 (71) Pulse Ox 93 90 91 O2 Delivery Nasal Cannula Nasal Cannula Nasal Cannula Nasal Cannula O2 Flow Rate 3.0 3.0 3.0 3.0 Intake and Output 02/27/20 02/27/20 02/28/20 15:00 23:00 07:00 Intake Total 550 ml 380 ml 2700 ml Output Total 350 ml 900 ml 2150 ml Balance 200 ml -520 ml 550 ml Problem List Problems Medical Problems: (1) Abdominal aortic aneurysm (AAA) 3.0 cm to 5.0 cm in diameter in female Status: Acute (2) Acute diverticulitis Status: Acute Assessment LLQ pain- with PVD/AAA and diverticlitis with abscess, interval CT results pending, possible colo-vesical fistula, CPM Justicifation of Admission Dx: Justifications for Admission: Justification of Admission Dx: Yes Sepsis: Infection LE BRYANT MD Feb 28, 2020 17:00
--- NOTE | 2020-02-28 17:46 | RAD ---
PQRS Compliance Statement: One or more of the following individualized dose reduction techniques were utilized for this examination: 1. Automated exposure control 2. Adjustment of the mA and/or kV according to patient size 3. Use of iterative reconstruction technique CT ABD PEL W/ORAL CONTRST ONLY Clinical Indication: Reason: f/u diverticular disease ? abscsess. Comparison: CT angiogram abdominal aorta and runoff February 22, 2020. TECHNIQUE: Helical CT imaging of the abdomen and pelvis is performed without IV contrast. Oral contrast is administered. Findings: There is small bilateral pleural effusions, new from prior study. There are new consolidations in the posterior lower lobes bilaterally. Trace pericardial fluid. Coronary artery disease. Cardiac size upper limits of normal. Left lung calcified granuloma. The liver, gallbladder, spleen, pancreas, and right adrenal gland are normal. Stable left adrenal nodule. Atherosclerotic and aneurysmal infrarenal abdominal aorta. There is mild left hydroureteronephrosis. There is no ureteral calculus. There is no right hydronephrosis. Stomach unremarkable. No small bowel obstruction. The appendix is normal. There are colonic diverticula. Inflammation adjacent to the sigmoid colon is similar to prior study. The fluid and air collection superior to the uterus is slightly smaller measuring approximately 1.8 x 2.2 cm, image 70. Air in the urinary bladder is again seen raising possibility of colovesical fistula. Atrophic uterus. Grade 1/2 anterolisthesis of L5 on S1. Mild grade 1 retrolisthesis of L4 on L5. IMPRESSION: 1. Small diverticular abscess in between the uterus and the urinary bladder left of midline is smaller. Air in the urinary bladder again may be due to colovesical fistula. 2. There is new mild left hydroureteronephrosis. There is no ureteral calculus. The distal left ureter courses near inflammation in the pelvis. 3. There are new small bilateral pleural effusions. 4. There are new consolidations in the posterior lower lobes bilaterally that may be atelectasis or pneumonia. Electronically signed by: Filiberto Hopkins MD (02/28/2020 5:43 PM) [id number]
[2020-02-28 18:52] VITALS: BP 110/40
[2020-02-28] MEDS: PATCH REMOVAL. MC SCH (21:00)
[2020-02-28] MEDS: GABAPENTIN 300 MG CAPSULE. PO SCH (21:08)
[2020-02-28] MEDS: ZOLPIDEM 5 MG TABLET. PO PRN (22:35)
[2020-02-28 23:00] VITALS: BP 119/49
[2020-02-29 03:00] VITALS: BP 127/62
[2020-02-29] MEDS: PIPERACILLIN/TAZOBACTAM 3.375 GM in IV NORMAL SALINE 50ML 50 ML IV SCH ×4 (05:44→23:39)
[2020-02-29 06:25] LABS: BASO % 1 % (0-3); EOS % 0 % (0-3); HEMOGLOBIN 9.7 g/dL (12.0-15.5); LYMPH # 0.9 x10^3/uL (1.0-4.8); LYMPH % 13 % (24-48); MEAN CORPUSCULAR HEMOGLOBIN 28 pg (25-35); MEAN CORPUSCULAR HGB CONC 32 g/dL (31-37); MEAN CORPUSCULAR VOLUME 85 fL (79-100); MONO # 0.5 x10^3/uL (0.0-1.1); MONO % 7 % (0-9); NEUT # 5.8 x10^3/uL (1.8-7.7); NEUT % 80 % (31-73); PLATELET COUNT 158 x10^3/uL (140-400); RED BLOOD COUNT 3.52 x10^6/uL (3.50-5.40); RED CELL DISTRIBUTION WIDTH 15.7 % (11.5-14.5); WHITE BLOOD COUNT 7.3 x10^3/uL (4.0-11.0)
[2020-02-29 07:00] VITALS: BP 121/50
[2020-02-29 07:29] LABS: CALCIUM 8.3 mg/dL (8.5-10.1); CREATININE 1.3 mg/dL (0.6-1.0); GFR 39.6; POTASSIUM 3.1 mmol/L (3.5-5.1)
[2020-02-29] MEDS: BUDESONIDE 0.5 MG/2 ML NEBU. NEB SCH ×2 (07:57→20:23)
--- NOTE | 2020-02-29 08:28 | PDOC ---
Infectious Disease Note Subjective Subjective Had a good breakfast She denies any pain Sitting upright on commode no fevers/ n/v/abdominal pain Denies headache or dizziness or chest pain Vital Sign Vital Signs Vital Signs Date Time Temp Pulse Resp B/P (MAP) Pulse Ox O2 Delivery O2 Flow Rate FiO2 02/29/20 08:00 Nasal Cannula 4.0 02/29/20 07:00 98.0 77 18 121/50 (73) 94 98.0 Physical Exam PHYSICAL EXAM General alert awake female sitting on Commode, appears comfortable, in no acute distress. looks well HEENT: Both pupils are round and reacting. No conjunctival lesion, no lesion in the mouth. NECK: Supple, no JVP, no lymphadenopathy. LUNGS: Clear. HEART: S1, S2 regular. ABDOMEN: Soft bowel sounds present mildly distended. No tenderness present on deep palpation EXTREMITIES: No edema, cyanosis. Dry skin SKIN: Unremarkable. NEUROLOGIC: No focal neurologic deficit. Labs Lab Laboratory Tests Test 02/29/20 06:05 02/29/20 06:48 White Blood Count 7.3 x10^3/uL (4.0-11.0) Red Blood Count 3.52 x10^6/uL (3.50-5.40) Hemoglobin 9.7 g/dL (12.0-15.5) Hematocrit 30.0 % (36.0-47.0) Mean Corpuscular Volume 85 fL (79-100) Mean Corpuscular Hemoglobin 28 pg (25-35) Mean Corpuscular Hemoglobin Concent 32 g/dL (31-37) Red Cell Distribution Width 15.7 % (11.5-14.5) Platelet Count 158 x10^3/uL (140-400) Neutrophils (%) (Auto) 80 % (31-73) Lymphocytes (%) (Auto) 13 % (24-48) Monocytes (%) (Auto) 7 % (0-9) Eosinophils (%) (Auto) 0 % (0-3) Basophils (%) (Auto) 1 % (0-3) Neutrophils # (Auto) 5.8 x10^3/uL (1.8-7.7) Lymphocytes # (Auto) 0.9 x10^3/uL (1.0-4.8) Monocytes # (Auto) 0.5 x10^3/uL (0.0-1.1) Eosinophils # (Auto) 0.0 x10^3/uL (0.0-0.7) Basophils # (Auto) 0.0 x10^3/uL (0.0-0.2) Sodium Level 147 mmol/L (136-145) Potassium Level 3.1 mmol/L (3.5-5.1) Chloride Level 106 mmol/L (98-107) Carbon Dioxide Level 38 mmol/L (21-32) Anion Gap 3 (6-14) Blood Urea Nitrogen 14 mg/dL (7-20) Creatinine 1.3 mg/dL (0.6-1.0) Estimated GFR (Cockcroft-Gault) 39.6 Glucose Level 92 mg/dL (70-99) Calcium Level 8.3 mg/dL (8.5-10.1) Micro CT IMPRESSION: 1. Small diverticular abscess in between the uterus and the urinary bladder left of midline is smaller. Air in the urinary bladder again may be due to colovesical fistula. 2. There is new mild left hydroureteronephrosis. There is no ureteral calculus. The distal left ureter courses near inflammation in the pelvis. 3. There are new small bilateral pleural effusions. 4. There are new consolidations in the posterior lower lobes bilaterally that may be atelectasis or pneumonia. Microbiology 02/21/20 Fecal Leukocyte Stain - Final, Complete 02/19/20 Urine Culture - Final, Complete 02/19/20 Blood Culture - Final, Complete NO GROWTH AFTER 5 DAYS Objective Assessment 1. Diverticulitis with diverticular abscess 3.4 X 3.1 02/18 not amenable per IR for drainage. - better on CT 02/27 1.8 by 2.2 cm. GI panel negative, C. difficile positive no surgical intervention 2. Leukocytosis. Resolved 3. ? CV fistula 4. ESTER - ? Left hydroureter 6. Severe PAD status post angioplasty 02/24 right 7. Hypernatremia improving 8. 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 Anxiety disorder. 10. C. difficile positive - 02/20 11. Hypernatremia 12. Severe protein calorie malnutrition 13. Chronic obstructive pulmonary disease. 5. Coronary artery disease. Plan Plan of Care Continue Zosyn for now Await Surgical f/u re ? CVesicular fistula Await renal f/u with ? L hydro Labs in am Tolerating po Continue p.o. vancomycin Vascular following supportive care. Fall precaution - per primary Discussed with nursing staff POLI JIMENEZ MD Feb 29, 2020 08:28
[2020-02-29] MEDS: CLOPIDOGREL BISULFATE 75 MG TABLET PO SCH (09:27)
[2020-02-29] MEDS: NICOTINE 7MG PATCH. TD SCH (09:27)
[2020-02-29] MEDS: LACTOBACILLUS RHAMNOSUS GG 1 CAPSULE. PO SCH ×2 (09:27→21:05)
[2020-02-29] MEDS: ASPIRIN CHEWABLE 81 MG TABLET. PO SCH (09:27)
[2020-02-29] MEDS: PANTOPRAZOLE 40 MG TABLET.DR. PO SCH (09:27)
[2020-02-29] MEDS: MULTIVITAMIN with MINERAL TABLET. PO SCH (09:27)
[2020-02-29] MEDS: OMEGA-3 FATTY ACIDS/FISH OIL 1,000 MG CAPSULE. PO SCH (09:27)
[2020-02-29] MEDS: clonazePAM 0.5 MG TABLET PO SCH (09:27)
[2020-02-29] MEDS: oxyCODONE/APAP 5/325 1 TAB TABLET PO PRN ×2 (09:28→21:05)
[2020-02-29] MEDS: LIDOCAINE (700MG/PATCH) PATCH. TD SCH (09:28)
[2020-02-29] MEDS: FUROSEMIDE 40 MG/4 ML VIAL. IVP SCH (09:30)
[2020-02-29] MEDS: VANCOMYCIN 125 MG/2.5 ML ORAL SOLUTION. PO SCH ×4 (09:40→21:05)
[2020-02-29 10:37] VITALS: BP 122/52
--- NOTE | 2020-02-29 11:35 | NUR ---
SS following up with discharge planning. SS reviewed pt chart and discussed with pt RN. Pt is currently requiring oxygen. Pt on IV Lasix and IV Zosyn. COVID19 test pending. SS received notification that pt is accepted at [facility], ; fax [phone], pending COVID19 test result. SS will continue to follow for discharge planning.
[2020-02-29] MEDS: ENOXAPARIN 40 MG/0.4 ML SYRINGE. SQ SCH (12:20)
--- NOTE | 2020-02-29 13:22 | PDOC ---
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 Labs Laboratory Tests Test 02/28/20 10:10 02/29/20 06:05 02/29/20 06:48 Coronavirus (PCR) Not detected (Not Detected) White Blood Count 7.3 x10^3/uL (4.0-11.0) Red Blood Count 3.52 x10^6/uL (3.50-5.40) Hemoglobin 9.7 g/dL (12.0-15.5) Hematocrit 30.0 % (36.0-47.0) Mean Corpuscular Volume 85 fL (79-100) Mean Corpuscular Hemoglobin 28 pg (25-35) Mean Corpuscular Hemoglobin Concent 32 g/dL (31-37) Red Cell Distribution Width 15.7 % (11.5-14.5) Platelet Count 158 x10^3/uL (140-400) Neutrophils (%) (Auto) 80 % (31-73) Lymphocytes (%) (Auto) 13 % (24-48) Monocytes (%) (Auto) 7 % (0-9) Eosinophils (%) (Auto) 0 % (0-3) Basophils (%) (Auto) 1 % (0-3) Neutrophils # (Auto) 5.8 x10^3/uL (1.8-7.7) Lymphocytes # (Auto) 0.9 x10^3/uL (1.0-4.8) Monocytes # (Auto) 0.5 x10^3/uL (0.0-1.1) Eosinophils # (Auto) 0.0 x10^3/uL (0.0-0.7) Basophils # (Auto) 0.0 x10^3/uL (0.0-0.2) Sodium Level 147 mmol/L (136-145) Potassium Level 3.1 mmol/L (3.5-5.1) Chloride Level 106 mmol/L (98-107) Carbon Dioxide Level 38 mmol/L (21-32) Anion Gap 3 (6-14) Blood Urea Nitrogen 14 mg/dL (7-20) Creatinine 1.3 mg/dL (0.6-1.0) Estimated GFR (Cockcroft-Gault) 39.6 Glucose Level 92 mg/dL (70-99) Calcium Level 8.3 mg/dL (8.5-10.1) Laboratory Tests Test 02/29/20 06:05 02/29/20 06:48 White Blood Count 7.3 x10^3/uL (4.0-11.0) Red Blood Count 3.52 x10^6/uL (3.50-5.40) Hemoglobin 9.7 g/dL (12.0-15.5) Hematocrit 30.0 % (36.0-47.0) Mean Corpuscular Volume 85 fL (79-100) Mean Corpuscular Hemoglobin 28 pg (25-35) Mean Corpuscular Hemoglobin Concent 32 g/dL (31-37) Red Cell Distribution Width 15.7 % (11.5-14.5) Platelet Count 158 x10^3/uL (140-400) Neutrophils (%) (Auto) 80 % (31-73) Lymphocytes (%) (Auto) 13 % (24-48) Monocytes (%) (Auto) 7 % (0-9) Eosinophils (%) (Auto) 0 % (0-3) Basophils (%) (Auto) 1 % (0-3) Neutrophils # (Auto) 5.8 x10^3/uL (1.8-7.7) Lymphocytes # (Auto) 0.9 x10^3/uL (1.0-4.8) Monocytes # (Auto) 0.5 x10^3/uL (0.0-1.1) Eosinophils # (Auto) 0.0 x10^3/uL (0.0-0.7) Basophils # (Auto) 0.0 x10^3/uL (0.0-0.2) Sodium Level 147 mmol/L (136-145) Potassium Level 3.1 mmol/L (3.5-5.1) Chloride Level 106 mmol/L (98-107) Carbon Dioxide Level 38 mmol/L (21-32) Anion Gap 3 (6-14) Blood Urea Nitrogen 14 mg/dL (7-20) Creatinine 1.3 mg/dL (0.6-1.0) Estimated GFR (Cockcroft-Gault) 39.6 Glucose Level 92 mg/dL (70-99) Calcium Level 8.3 mg/dL (8.5-10.1) Microbiology 02/21/20 Fecal Leukocyte Stain - Final, Complete 02/19/20 Urine Culture - Final, Complete 02/19/20 Blood Culture - Final, Complete NO GROWTH AFTER 5 DAYS Medications Current Medications Fentanyl Citrate (Fentanyl 2ml Vial) 50 mcg 1X ONCE IV Last administered on 02/19/20at 09:50; Start 02/19/20 at 09:30; Stop 02/19/20 at 09:31; Status DC Ondansetron HCl (Zofran) 4 mg 1X ONCE IV Last administered on 02/19/20at 09:49; Start 02/19/20 at 09:30; Stop 02/19/20 at 09:31; Status DC Sodium Chloride 1,000 ml @ 1,000 mls/hr 1X ONCE IV Last administered on 02/18at 09:48; Start 02/19/20 at 09:30; Stop 02/19/20 at 10:29; Status DC Iohexol (Omnipaque 300 Mg/ml) 75 ml 1X ONCE IV Last administered on 02/19/20at 10:46; Start 02/19/20 at 10:30; Stop 02/19/20 at 10:31; Status DC Info (CONTRAST GIVEN -- Rx MONITORING) 1 each PRN DAILY PRN MC SEE COMMENTS; Start 02/19/20 at 10:30; Stop 02/21/20 at 10:29; Status DC Ceftriaxone Sodium (Rocephin) 1 gm 1X ONCE IVP Last administered on 02/19/20at 11:14; Start 02/19/20 at 11:15; Stop 02/19/20 at 11:16; Status DC Ceftriaxone Sodium (Rocephin) 1 gm 1X ONCE IVP Last administered on 02/19/20at 12:01; Start 02/19/20 at 11:30; Stop 02/19/20 at 11:31; Status DC Metronidazole 100 ml @ 100 mls/hr Q8HRS IV Last administered on 02/20/20at 06:00; Start 02/19/20 at 22:00; Stop 02/20/20 at 12:24; Status DC Metronidazole 100 ml @ 100 mls/hr 1X ONCE IV Last administered on 02/19/20 12:06; Start 02/19/20 at 11:30; Stop 02/19/20 at 12:29; Status DC Ceftriaxone Sodium (Rocephin) 1 gm Q24H IVP Last administered on 02/20/20 11:52; Start 02/20/20 at 12:00; Stop 02/20/20 at 12:24; Status DC Enoxaparin Sodium (Lovenox 40mg Syringe) 40 mg Q24H SQ Last administered on 02/29/20 12:20; Start 02/19/20 at 12:00 Sodium Chloride 1,000 ml @ 100 mls/hr 1X ONCE IV Last administered on 11:45; Start 02/19/20 at 11:45; Stop 02/19/20 at 21:44; Status DC Clonazepam (KlonoPIN) 0.5 mg DAILY PO Last administered on 02/29/20 09:27; Start 02/19/20 at 12:00 Fentanyl Citrate (Fentanyl 2ml Vial) 50 mcg PRN Q2HR PRN IVP PAIN, 1ST CHOICE Last administered on 02/28/20 03:37; Start 02/19/20 at 14:00 Nicotine Polacrilex (Nicorette Gum) 1 each PRN Q1HR PRN BC SMOKING CESSATION; Start 02/19/20 at 15:15 Nicotine (Nicoderm Cq 7mg) 1 patch DAILY TD Last administered on 02/29/20 09:27; Start 02/19/20 at 15:15 Lactobacillus Rhamnosus (Culturelle) 1 cap BID PO Last administered on 02/29/20 09:27; Start 02/20/20 at 10:15 Piperacillin Sod/ Tazobactam Sod 3.375 gm/Sodium Chloride 50 ml @ 80 mls/hr Q6HRS IV Last administered on 02/29/20 12:20; Start 02/20/20 at 18:00 Aspirin (Aspirin Chewable) 81 mg DAILY PO Last administered on 02/29/20 09:27; Start 02/20/20 at 14:00 Budesonide (Pulmicort) 0.5 mg BID NEB Last administered on 02/29/20 07:57; Start 02/20/20 at 21:00 Polyethylene Glycol (miraLAX PACKET) 17 gm DAILY PO ; Start 02/20/20 at 14:00; Stop 02/23/20 at 09:56; Status DC Multivitamins (Thera M Plus) 1 tab DAILY PO Last administered on 02/29/20at 09:27; Start 02/20/20 at 14:00 Fish Oil (Fish Oil) 1,000 mg DAILY PO Last administered on 02/29/20at 09:27; Start 02/20/20 at 14:00 Albuterol Sulfate (Ventolin Neb Soln) 2.5 mg PRN Q4HRS PRN NEB SHORTNESS OF BREATH; Start 02/20/20 at 13:00 Potassium Chloride/Water 100 ml @ 50 mls/hr 1X ONCE IV Last administered on 02/21/20at 08:05; Start 02/21/20 at 08:00; Stop 02/21/20 at 09:59; Status DC Potassium Chloride/Water 100 ml @ 100 mls/hr Q1H IV Last administered on 02/21/20at 11:34; Start 02/21/20 at 10:00; Stop 02/21/20 at 10:59; Status DC Sodium Chloride 38.5 meq/Sterile Water 1,009.625 ml @ 75 mls/hr [id number] IV Last administered on 02/21/20at 08:54; Start 02/21/20 at 08:30; Stop 02/21/20 at 15:21; Status DC Pantoprazole Sodium (PROTONIX VIAL for IV PUSH) 40 mg DAILYAC IVP Last administered on 02/24/20at 09:02; Start 02/21/20 at 12:30; Stop 02/25/20 at 09:22; Status DC Hydromorphone HCl (Dilaudid) 0.75 mg PRN Q4HRS PRN IVP PAIN, 2ND CHOICE Last administered on 02/22/20at 04:35; Start 02/21/20 at 13:30 Amino Acids/ Glycerin/ Electrolytes 1,000 ml @ 100 mls/hr Q10H IV Last administered on 02/27/20at 21:04; Start 02/21/20 at 16:00; Stop 02/28/20 at 12:30; Status DC Lidocaine HCl (Buffered Lidocaine 1%) 3 ml STK-MED ONCE .ROUTE ; Start 02/22/20 at 10:32; Stop 02/22/20 at 10:32; Status DC Lidocaine HCl (Buffered Lidocaine 1%) 3 ml 1X ONCE INJ Last administered on 02/22/20at 11:17; Start 02/22/20 at 11:15; Stop 02/22/20 at 11:16; Status DC Lidocaine HCl (Buffered Lidocaine 1%) 3 ml STK-MED ONCE .ROUTE ; Start 02/22/20 at 11:50; Stop 02/22/20 at 11:51; Status DC Iohexol (Omnipaque 350 Mg/ml) 90 ml 1X ONCE IV Last administered on 02/22/20at 12:15; Start 02/22/20 at 12:15; Stop 02/22/20 at 12:16; Status DC Info (CONTRAST GIVEN -- Rx MONITORING) 1 each PRN DAILY PRN MC SEE COMMENTS; Start 02/22/20 at 12:30; Stop 02/24/20 at 12:29; Status DC Potassium Chloride/Water 100 ml @ 100 mls/hr Q1H IV Last administered on 02/23/20at 13:22; Start 02/23/20 at 11:30; Stop 02/23/20 at 13:29; Status DC Dextrose/Sodium Chloride 1,000 ml @ 125 mls/hr Q8H IV Last administered on 02/25/20at 23:18; Start 02/24/20 at 06:45; Stop 02/26/20 at 06:42; Status DC Vancomycin HCl (Vancomycin Oral Solution) 125 mg [id number] PO Last administered on 02/29/20at 12:27; Start 02/24/20 at 13:00 Midazolam HCl (Versed) 2 mg STK-MED ONCE .ROUTE ; Start 02/25/20 at 08:01; Stop 02/25/20 at 08:02; Status DC Fentanyl Citrate (Fentanyl 2ml Vial) 100 mcg STK-MED ONCE .ROUTE ; Start 02/25/20 at 08:01; Stop 02/25/20 at 08:02; Status DC Heparin Sodium (Porcine) (Heparin Sodium) 10,000 unit STK-MED ONCE .ROUTE ; Start 02/25/20 at 08:01; Stop 02/25/20 at 08:02; Status DC Lidocaine HCl (Buffered Lidocaine 1%) 3 ml STK-MED ONCE .ROUTE ; Start 02/25/20 at 08:03; Stop 02/25/20 at 08:03; Status DC Iodixanol (Visipaque 320) 100 ml STK-MED ONCE .ROUTE ; Start 02/25/20 at 08:03; Stop 02/25/20 at 08:03; Status DC Heparin Sodium/ Sodium Chloride 1,500 ml @ As Directed STK-MED ONCE .ROUTE ; Start 02/25/20 at 08:03; Stop 02/25/20 at 08:04; Status DC Pantoprazole Sodium (Protonix) 40 mg DAILYAC PO Last administered on 02/29/20at 09:27; Start 02/25/20 at 10:00 Midazolam HCl (Versed) 2 mg STK-MED ONCE .ROUTE ; Start 02/25/20 at 09:50; Stop 02/25/20 at 09:51; Status DC Fentanyl Citrate (Fentanyl 2ml Vial) 100 mcg STK-MED ONCE .ROUTE ; Start 02/25/20 at 09:50; Stop 02/25/20 at 09:51; Status DC Heparin Sodium (Porcine) (Heparin Sodium) 5,000 unit 1X ONCE IART Last administered on 02/25/20at 10:15; Start 02/25/20 at 10:15; Stop 02/25/20 at 10:21; Status DC Heparin Sodium/ Sodium Chloride (HEPARIN for ARTERIAL LINE FLUSH) 1,000 unit 1X ONCE IART Last administered on 02/25/20at 10:15; Start 02/25/20 at 10:15; Stop 02/25/20 at 10:21; Status DC Lidocaine HCl (Buffered Lidocaine 1%) 3 ml 1X ONCE IJ Last administered on 02/25/20at 10:15; Start 02/25/20 at 10:15; Stop 02/25/20 at 10:22; Status DC Midazolam HCl (Versed) 2.5 mg 1X ONCE IV Last administered on 02/25/20at 10:15; Start 02/25/20 at 10:15; Stop 02/25/20 at 10:22; Status DC Fentanyl Citrate (Fentanyl 2ml Vial) 125 mcg 1X ONCE IV Last administered on 02/25/20at 10:15; Start 02/25/20 at 10:15; Stop 02/25/20 at 10:21; Status DC Iodixanol (Visipaque 320) 40 ml 1X ONCE IART Last administered on 02/25/20at 10:15; Start 02/25/20 at 10:15; Stop 02/25/20 at 10:22; Status DC Info (CONTRAST GIVEN -- Rx MONITORING) 1 each PRN DAILY PRN MC SEE COMMENTS; Start 02/25/20 at 10:30; Stop 02/27/20 at 10:29; Status DC Clopidogrel Bisulfate (Plavix) 75 mg DAILYWBKFT PO Last administered on 02/29/20at 09:27; Start 02/26/20 at 08:00 Clopidogrel Bisulfate (Plavix) 300 mg 1X ONCE PO Last administered on 02/25/20at 12:49; Start 02/25/20 at 12:00; Stop 02/25/20 at 12:01; Status DC Alprazolam (Xanax) 0.25 mg PRN Q8HRS PRN PO ANXIETY / AGITATION Last admin istered on 02/27/20at 20:20; Start 02/26/20 at 05:00 Tizanidine HCl (Zanaflex) 4 mg 1X PRN PO MUSCLE SPASMS Last administered on 02/26/20at 22:14; Start 02/26/20 at 22:00; Stop 02/26/20 at 22:30; Status DC Gabapentin (Neurontin) 300 mg HS PO Last administered on 02/28/20at 21:08; Start 02/27/20 at 21:00 Furosemide (Lasix) 40 mg DAILY IVP Last administered on 02/29/20at 09:30; Start 02/27/20 at 14:00 Iohexol (Omnipaque 240 Mg/ml) 30 ml 1X ONCE PO Last administered on 02/28/20at 11:23; Start 02/28/20 at 10:15; Stop 02/28/20 at 10:21; Status DC Info (CONTRAST GIVEN -- Rx MONITORING) 1 each PRN DAILY PRN MC SEE COMMENTS; Start 02/28/20 at 10:30; Stop 03/01/20 at 10:29 Oxycodone/ Acetaminophen (Percocet 5/325) 1 tab PRN Q6HRS PRN PO PAIN Last administered on 02/29/20at 09:28; Start 02/28/20 at 12:30 Zolpidem Tartrate (Ambien) 5 mg PRN QHS PRN PO INSOMNIA Last administered on 02/28/20at 22:35; Start 02/28/20 at 12:30 Lidocaine (Lidoderm) 1 patch DAILY TD Last administered on 02/29/20at 09:28; Start 02/28/20 at 13:00 Miscellaneous (Lidoderm Patch Removal) 1 ea QHS MC Last administered on 02/28/20at 21:00; Start 02/28/20 at 21:00 Capsaicin (Zostrix) 1 sue PRN TID PRN TP peripheral pain; Start 02/28/20 at 12:30 Active Scripts Active Reported Furosemide 20 Mg Tablet 1 Tab PO DAILY PRN Gabapentin (Gabapentin) 300 Mg Capsule 300 Mg PO HS Miralax (Polyethylene Glycol 3350) 17 Gm Powd.pack 1 Packet PO DAILY 2 Days dissolve in water Fish Oil 1,000 mg Softgel ([place]-3/Dha/Epa/Fish Oil) 1,000 Mg Capsule 1,000 Mg PO DAILY Aspirin 81 Mg Tab.chew 1 Tab PO DAILY Daily Value (Multivitamin) 1 Each Tablet 1 Tab PO DAILY 30 Days Perforomist (Formoterol Fumarate) 20 Mcg/2 Ml Vial.neb 20 Mcg IH Pulmicort (Budesonide) 0.5 Mg/2 Ml Ampul.neb 1 Vial NEB BID Clonazepam (Clonazepam) 0.5 Mg Tablet 0.5 Mg PO DAILY Vitals/I & O Vital Sign - Last 24 Hours 02/28/20 02/28/20 02/28/20 02/28/20 14:30 18:52 20:05 20:20 Temp 97.8 99.0 97.8 99.0 Pulse 79 84 Resp 20 18 B/P (MAP) 109/53 (71) 110/40 (63) Pulse Ox 91 92 88 O2 Delivery Nasal Cannula Nasal Cannula Room Air Nasal Cannula O2 Flow Rate 3.0 3.0 3.0 02/28/20 02/29/20 02/29/20 02/29/20 23:00 03:00 07:00 08:00 Temp 97.6 99.4 98.0 97.6 99.4 98.0 Pulse 81 78 77 Resp 16 16 18 B/P (MAP) 119/49 (72) 127/62 (83) 121/50 (73) Pulse Ox 93 94 94 O2 Delivery Nasal Cannula Nasal Cannula O2 Flow Rate 3.0 3.0 02/29/20 02/29/20 02/29/20 02/29/20 08:00 09:28 10:28 10:37 Temp 97.5 97.5 Pulse 72 Resp 16 B/P (MAP) 122/52 (75) Pulse Ox 94 O2 Delivery Nasal Cannula Nasal Cannula Room Air Nasal Cannula O2 Flow Rate 4.0 4.0 3.0 Intake and Output 02/28/20 02/28/20 02/29/20 15:00 23:00 07:00 Intake Total 700 ml 800 ml 240 ml Output Total 2800 ml 600 ml 1500 ml Balance -2100 ml 200 ml -1260 ml Problem List Problems Medical Problems: (1) Abdominal aortic aneurysm (AAA) 3.0 cm to 5.0 cm in diameter in female Status: Acute (2) Acute diverticulitis Status: Acute Assessment LLQ pain- with diverticular abscess and possible fistula, continue with antibiotics, combined surgery/urologic intervention may be needed, possible t ransfer for this , [facility] Justicifation of Admission Dx: Justifications for Admission: Justification of Admission Dx: Yes Sepsis: Infection LE BRYANT MD Feb 29, 2020 13:22
--- NOTE | 2020-02-29 13:38 | PDOC ---
[facility] PROGRESS NOTE Chief Complaint Chief Complaint Acute diverticulitis diverticulitis of the mid to distal sigmoid colon concern for colovesicular fistula from repeat CT abdomen pelvis on 727 peridiverticular abscess measuring 3.4 x 3.1 cm. Bilateral adrenal masses, indeterminate. Left adrenal mass measures 2.3 x 2.0 cm. Findings favor benign etiology given stability since 10/12/2013. Infrarenal abdominal aortic aneurysm measuring 4.5 x 4.4 cm. Peripheral vascular disease status post angioplasty Sepsis due to sigmoid diverticulitis resolved COPD Tobacco abuse Acute electrolyte derangements Severe protein-caloric malnutrition SEVERE HYPERNATREMIA secondary to dehydration Right third, fourth, and fifth toe cyanosis Advanced peripheral arterial disease--patient's right lower extremity bypass graft is patent. She does have a high-grade stenosis at the distal anastomosis based on the CT angiogram. s/p angiography with the following results: Impression: 1. Moderate to high-grade stenosis distal bypass anastomosis extending of the [id number] popliteal artery treated with balloon angioplasty 2. Multiple high-grade stenoses of the right anterior tibial artery treated with balloon angioplasty. There is two-vessel runoff now with a patent anterior tibial artery, and small patent peroneal artery. 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 plan Discontinued IV fentanyl and switch to IV Dilaudid as needed P.o. oxycodone every 6 for pain. Started Ambien for sleep Lidocaine patch or test basin cream as needed for neuropathic pain Continue to follow urine output A.m. labs We will keep patient on clear liquid diet Serial abdominal exams Continue procalamine until improved oral intake. Lovenox for DVT prophylaxis Full code Discussed with RN id consult GI FOLLOWING Continue Zosyn, IV K as needed IR for drainage neither collection is amendable to percutaneous drainage due to overlying structures. No IR intervention is recommended at current. picc Disposition: Pending transfer to [facility] History of Present Illness History of Present Illness 02/28/2020 Patient seen and examined bedside today. She is tolerating clear liquid diet. She has had nonbloody bowel movements. She continues to have some neuropathic leg pain Vitals/I&O Vitals/I&O: Vital Signs Date Time Temp Pulse Resp B/P (MAP) Pulse Ox O2 Delivery O2 Flow Rate FiO2 02/29/20 10:37 97.5 72 16 122/52 (75) 94 Nasal Cannula 3.0 97.5 I & O 02/28/20 02/28/20 02/29/20 15:00 23:00 07:00 Intake Total 700 ml 800 ml 240 ml Output Total 2800 ml 600 ml 1500 ml Balance -2100 ml 200 ml -1260 ml Physical Exam Physical Exam: General alert awake female sitting on Commode, appears comfortable, in no acute distress. looks well HEENT: Both pupils are round and reacting. No conjunctival lesion, no lesion in the mouth. NECK: Supple, no JVP, no lymphadenopathy. LUNGS: Clear. HEART: S1, S2 regular. ABDOMEN: Soft bowel sounds present mildly distended. No tenderness present on deep palpation EXTREMITIES: No edema, cyanosis. Dry skin SKIN: Unremarkable. NEUROLOGIC: No focal neurologic deficit. General: Alert, Oriented X3, Cooperative, No acute distress Heart: Regular rate Lungs: Clear, Other Abdomen: Normal bowel sounds, Soft, No tenderness Extremities: Other (Palpable bypass graft pulse in the right lower extremity at the level of the knee, intact dorsalis pedis Doppler signal on the right, monophasic posterior tibial Doppler signal on the left,) Skin: Other (Mild cyanosis of the plantar surface of the right second, third, fourth, and fifth toes without tissue loss) Labs Labs: All labs, images, and reports were reviewed by me personally Laboratory Tests Test 02/29/20 06:05 02/29/20 06:48 White Blood Count 7.3 x10^3/uL (4.0-11.0) Red Blood Count 3.52 x10^6/uL (3.50-5.40) Hemoglobin 9.7 g/dL (12.0-15.5) Hematocrit 30.0 % (36.0-47.0) Mean Corpuscular Volume 85 fL (79-100) Mean Corpuscular Hemoglobin 28 pg (25-35) Mean Corpuscular Hemoglobin Concent 32 g/dL (31-37) Red Cell Distribution Width 15.7 % (11.5-14.5) Platelet Count 158 x10^3/uL (140-400) Neutrophils (%) (Auto) 80 % (31-73) Lymphocytes (%) (Auto) 13 % (24-48) Monocytes (%) (Auto) 7 % (0-9) Eosinophils (%) (Auto) 0 % (0-3) Basophils (%) (Auto) 1 % (0-3) Neutrophils # (Auto) 5.8 x10^3/uL (1.8-7.7) Lymphocytes # (Auto) 0.9 x10^3/uL (1.0-4.8) Monocytes # (Auto) 0.5 x10^3/uL (0.0-1.1) Eosinophils # (Auto) 0.0 x10^3/uL (0.0-0.7) Basophils # (Auto) 0.0 x10^3/uL (0.0-0.2) Sodium Level 147 mmol/L (136-145) Potassium Level 3.1 mmol/L (3.5-5.1) Chloride Level 106 mmol/L (98-107) Carbon Dioxide Level 38 mmol/L (21-32) Anion Gap 3 (6-14) Blood Urea Nitrogen 14 mg/dL (7-20) Creatinine 1.3 mg/dL (0.6-1.0) Estimated GFR (Cockcroft-Gault) 39.6 Glucose Level 92 mg/dL (70-99) Calcium Level 8.3 mg/dL (8.5-10.1) Assessment and Plan Assessmemt and Plan Problems Medical Problems: (1) Abdominal aortic aneurysm (AAA) 3.0 cm to 5.0 cm in diameter in female Status: Acute (2) Acute diverticulitis Status: Acute Comment Review of Relevant I have reviewed the following items mayra (where applicable) has been applied. Medications: Current Medications Medications (Trade) Dose Ordered Sig/Viola Route PRN Reason Start Time Stop Time Status Last Admin Dose Admin Miscellaneous (Lidoderm Patch Removal) 1 ea [facility] 02/28/20 21:00 02/28/20 21:00 Justicifation of Admission Dx: Justifications for Admission: Justification of Admission Dx: Yes Sepsis: Infection ANA POZO MD Feb 29, 2020 13:38
[2020-02-29 14:55] VITALS: BP 110/47
[2020-02-29] MEDS: POTASSIUM CHLORIDE 20MEQ 100 ML IV SCH ×4 (16:58→21:46)
[2020-02-29 19:55] VITALS: BP 115/47
[2020-02-29] MEDS: ZOLPIDEM 5 MG TABLET. PO PRN (21:05)
[2020-02-29] MEDS: GABAPENTIN 300 MG CAPSULE. PO SCH (21:05)
[2020-02-29] MEDS: PATCH REMOVAL. MC SCH (21:24)
[2020-02-29 22:58] VITALS: BP 132/60
[2020-03-01 03:25] VITALS: BP 112/50
[2020-03-01] MEDS: oxyCODONE/APAP 5/325 1 TAB TABLET PO PRN (05:27)
[2020-03-01] MEDS: PIPERACILLIN/TAZOBACTAM 3.375 GM in IV NORMAL SALINE 50ML 50 ML IV SCH ×2 (05:28→12:55)
[2020-03-01 06:05] LABS: CALCIUM 8.3 mg/dL (8.5-10.1); CREATININE 1.2 mg/dL (0.6-1.0); GFR 43.4; POTASSIUM 3.8 mmol/L (3.5-5.1)
[2020-03-01 07:00] VITALS: BP 116/43
[2020-03-01] MEDS: BUDESONIDE 0.5 MG/2 ML NEBU. NEB SCH (07:40)
--- NOTE | 2020-03-01 07:40 | PDOC ---
Infectious Disease Note Subjective Subjective No gross loose stools She denies any pain Breathing well no fevers/ n/v/abdominal pain Denies headache or dizziness or chest pain Vital Sign Vital Signs Vital Signs Date Time Temp Pulse Resp B/P (MAP) Pulse Ox O2 Delivery O2 Flow Rate FiO2 03/01/20 07:00 98.0 81 18 116/43 (67) 93 Nasal Cannula 4.0 98.0 Physical Exam PHYSICAL EXAM General alert awake female sitting in chair and appears comfortable, in no acute distress. looks well HEENT: Both pupils are round and reacting. No conjunctival lesion, no lesion in the mouth. NECK: Supple, no JVP, no lymphadenopathy. LUNGS: Clear. HEART: S1, S2 regular. ABDOMEN: Soft bowel sounds present mildly distended. No tenderness present on deep palpation EXTREMITIES: No edema, cyanosis. Dry skin SKIN: Unremarkable. NEUROLOGIC: No focal neurologic deficit. Labs Lab Laboratory Tests Test 03/01/20 05:30 Sodium Level 145 mmol/L (136-145) Potassium Level 3.8 mmol/L (3.5-5.1) Chloride Level 103 mmol/L (98-107) Carbon Dioxide Level 41 mmol/L (21-32) Anion Gap 1 (6-14) Blood Urea Nitrogen 9 mg/dL (7-20) Creatinine 1.2 mg/dL (0.6-1.0) Estimated GFR (Cockcroft-Gault) 43.4 Glucose Level 88 mg/dL (70-99) Calcium Level 8.3 mg/dL (8.5-10.1) Micro CT IMPRESSION: 1. Small diverticular abscess in between the uterus and the urinary bladder left of midline is smaller. Air in the urinary bladder again may be due to colovesical fistula. 2. There is new mild left hydroureteronephrosis. There is no ureteral calculus. The distal left ureter courses near inflammation in the pelvis. 3. There are new small bilateral pleural effusions. 4. There are new consolidations in the posterior lower lobes bilaterally that may be atelectasis or pneumonia. Microbiology 02/21/20 Fecal Leukocyte Stain - Final, Complete 02/19/20 Urine Culture - Final, Complete 02/19/20 Blood Culture - Final, Complete NO GROWTH AFTER 5 DAYS Objective Assessment 1. Diverticulitis with diverticular abscess 3.4 X 3.1 02/18 not amenable per IR for drainage. - better on CT 02/27 1.8 by 2.2 cm. GI panel negative, C. difficile positive no surgical intervention 2. Leukocytosis. Resolved 3. ? CV fistula 4. ESTER - ? Left hydroureter - some better 6. Severe PAD status post angioplasty 02/24 right 7. Hypernatremia improving 8. 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 Anxiety disorder. 10. C. difficile positive - 02/20 11. Hypernatremia 12. Severe protein calorie malnutrition 13. Chronic obstructive pulmonary disease. 5. Coronary artery disease. Plan Plan of Care Reconsulted Surgical - "ok to discharge, recommend completing PO abx course per ID; FU with General Surgery in 2-3 weeks, and will need appointment with Urology ([facility] Ying or [facility] are options); Following Urology evaluation (including cystoscopy), patient may ultimately require surgical resection with combined Surgery/Urology" Reconsulted renal f/u with ? L hydro ? need for Urology eval sooner Continue Zosyn for now await Renal eval. If no need for transfer to other [facility] for urology can change to po Augmentin 875 mg po BID through 03/11 Will need po Vanc through 03/[address] week of 03/06 to re-eval fluid collection Can F/u ID office in 1 to 2 weeks [phone] Continue p.o. vancomycin Vascular following supportive care. Fall precaution - per primary Discussed with nursing staff POLI JIMENEZ MD Mar 01, 2020 07:40
--- NOTE | 2020-03-01 08:00 | PDOC ---
PROGRESS NOTES Subjective Subjective feels well, no pain Objective Objective Vital Signs Date Time Temp Pulse Resp B/P (MAP) Pulse Ox O2 Delivery O2 Flow Rate FiO2 03/01/20 07:40 93 Nasal Cannula 4.0 03/01/20 07:00 98.0 81 18 116/43 (67) 98.0 Intake and Output 03/01/20 07:00 Intake Total 3140 ml Output Total 3250 ml Balance -110 ml Intake Oral 3140 ml Output Urine Total 3250 ml # Voids 3 # Bowel Movements 2 Physical Exam Abdomen: Soft, No tenderness Heart: Regular rate Extremities: No clubbing, No cyanosis General: Alert, Oriented X3 Lungs: Clear to auscultation Neuro: Normal speech Assessment Assessment Problems Medical Problems: (1) Abdominal aortic aneurysm (AAA) 3.0 cm to 5.0 cm in diameter in female Status: Acute (2) Acute diverticulitis Status: Acute Plan Plan of Care Clinically improved; 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 Comment Review of Relevant I have reviewed the following items mayra (where applicable) has been applied. Labs Laboratory Tests Test 02/28/20 10:10 02/29/20 06:05 02/29/20 06:48 03/01/20 05:30 Coronavirus (PCR) Not detected (Not Detected) White Blood Count 7.3 x10^3/uL (4.0-11.0) Red Blood Count 3.52 x10^6/uL (3.50-5.40) Hemoglobin 9.7 g/dL (12.0-15.5) Hematocrit 30.0 % (36.0-47.0) Mean Corpuscular Volume 85 fL (79-100) Mean Corpuscular Hemoglobin 28 pg (25-35) Mean Corpuscular Hemoglobin Concent 32 g/dL (31-37) Red Cell Distribution Width 15.7 % (11.5-14.5) Platelet Count 158 x10^3/uL (140-400) Neutrophils (%) (Auto) 80 % (31-73) Lymphocytes (%) (Auto) 13 % (24-48) Monocytes (%) (Auto) 7 % (0-9) Eosinophils (%) (Auto) 0 % (0-3) Basophils (%) (Auto) 1 % (0-3) Neutrophils # (Auto) 5.8 x10^3/uL (1.8-7.7) Lymphocytes # (Auto) 0.9 x10^3/uL (1.0-4.8) Monocytes # (Auto) 0.5 x10^3/uL (0.0-1.1) Eosinophils # (Auto) 0.0 x10^3/uL (0.0-0.7) Basophils # (Auto) 0.0 x10^3/uL (0.0-0.2) Sodium Level 147 mmol/L (136-145) 145 mmol/L (136-145) Potassium Level 3.1 mmol/L (3.5-5.1) 3.8 mmol/L (3.5-5.1) Chloride Level 106 mmol/L (98-107) 103 mmol/L (98-107) Carbon Dioxide Level 38 mmol/L (21-32) 41 mmol/L (21-32) Anion Gap 3 (6-14) 1 (6-14) Blood Urea Nitrogen 14 mg/dL (7-20) 9 mg/dL (7-20) Creatinine 1.3 mg/dL (0.6-1.0) 1.2 mg/dL (0.6-1.0) Estimated GFR (Cockcroft-Gault) 39.6 43.4 Glucose Level 92 mg/dL (70-99) 88 mg/dL (70-99) Calcium Level 8.3 mg/dL (8.5-10.1) 8.3 mg/dL (8.5-10.1) Laboratory Tests Test 03/01/20 05:30 Sodium Level 145 mmol/L (136-145) Potassium Level 3.8 mmol/L (3.5-5.1) Chloride Level 103 mmol/L (98-107) Carbon Dioxide Level 41 mmol/L (21-32) Anion Gap 1 (6-14) Blood Urea Nitrogen 9 mg/dL (7-20) Creatinine 1.2 mg/dL (0.6-1.0) Estimated GFR (Cockcroft-Gault) 43.4 Glucose Level 88 mg/dL (70-99) Calcium Level 8.3 mg/dL (8.5-10.1) Microbiology 02/21/20 Fecal Leukocyte Stain - Final, Complete 02/19/20 Urine Culture - Final, Complete 02/19/20 Blood Culture - Final, Complete NO GROWTH AFTER 5 DAYS Medications Current Medications Fentanyl Citrate (Fentanyl 2ml Vial) 50 mcg 1X ONCE IV Last administered on 02/19/20at 09:50; Start 02/19/20 at 09:30; Stop 02/19/20 at 09:31; Status DC Ondansetron HCl (Zofran) 4 mg 1X ONCE IV Last administered on 02/19/20at 09:49; Start 02/19/20 at 09:30; Stop 02/19/20 at 09:31; Status DC Sodium Chloride 1,000 ml @ 1,000 mls/hr 1X ONCE IV Last administered on 02/19/20at 09:48; Start 02/19/20 at 09:30; Stop 02/19/20 at 10:29; Status DC Iohexol (Omnipaque 300 Mg/ml) 75 ml 1X ONCE IV Last administered on 02/19/20at 10:46; Start 02/19/20 at 10:30; Stop 02/19/20 at 10:31; Status DC Info (CONTRAST GIVEN -- Rx MONITORING) 1 each PRN DAILY PRN MC SEE COMMENTS; Start 02/19/20 at 10:30; Stop 02/21/20 at 10:29; Status DC Ceftriaxone Sodium (Rocephin) 1 gm 1X ONCE IVP Last administered on 02/19/20at 11:14; Start 02/19/20 at 11:15; Stop 02/19/20 at 11:16; Status DC Ceftriaxone Sodium (Rocephin) 1 gm 1X ONCE IVP Last administered on 02/19/20at 12:01; Start 02/19/20 at 11:30; Stop 02/19/20 at 11:31; Status DC Metronidazole 100 ml @ 100 mls/hr Q8HRS IV Last administered on 02/20/20at 06:00; Start 02/19/20 at 22:00; Stop 02/20/20 at 12:24; Status DC Metronidazole 100 ml @ 100 mls/hr 1X ONCE IV Last administered on 02/19/20 12:06; Start 02/19/20 at 11:30; Stop 02/19/20 at 12:29; Status DC Ceftriaxone Sodium (Rocephin) 1 gm Q24H IVP Last administered on 02/20/20 11:52; Start 02/20/20 at 12:00; Stop 02/20/20 at 12:24; Status DC Enoxaparin Sodium (Lovenox 40mg Syringe) 40 mg Q24H SQ Last administered on 02/29/20 12:20; Start 02/19/20 at 12:00 Sodium Chloride 1,000 ml @ 100 mls/hr 1X ONCE IV Last administered on 02/19/20at 11:45; Start 02/19/20 at 11:45; Stop 02/19/20 at 21:44; Status DC Clonazepam (KlonoPIN) 0.5 mg DAILY PO Last administered on 02/29/20at 09:27; Start 02/19/20 at 12:00 Fentanyl Citrate (Fentanyl 2ml Vial) 50 mcg PRN Q2HR PRN IVP PAIN, 1ST CHOICE Last administered on 02/28/20at 03:37; Start 02/19/20 at 14:00 Nicotine Polacrilex (Nicorette Gum) 1 each PRN Q1HR PRN BC SMOKING CESSATION; Start 02/19/20 at 15:15 Nicotine (Nicoderm Cq 7mg) 1 patch DAILY TD Last administered on 02/29/20 09:27; Start 02/19/20 at 15:15 Lactobacillus Rhamnosus (Culturelle) 1 cap BID PO Last administered on 02/29/20at 21:05; Start 02/20/20 at 10:15 Piperacillin Sod/ Tazobactam Sod 3.375 gm/Sodium Chloride 50 ml @ 80 mls/hr Q6HRS IV Last administered on 03/01/20 05:28; Start 02/20/20 at 18:00 Aspirin (Aspirin Chewable) 81 mg DAILY PO Last administered on 02/29/20 09:27; Start 02/20/20 at 14:00 Budesonide (Pulmicort) 0.5 mg BID NEB Last administered on 03/01/20 07:40; Start 02/20/20 at 21:00 Polyethylene Glycol (miraLAX PACKET) 17 gm DAILY PO ; Start 02/20/20 at 14:00; Stop 02/23/20 at 09:56; Status DC Multivitamins (Thera M Plus) 1 tab DAILY PO Last administered on 02/29/20at 09:27; Start 02/20/20 at 14:00 Fish Oil (Fish Oil) 1,000 mg DAILY PO Last administered on 02/29/20at 09:27; Start 02/20/20 at 14:00 Albuterol Sulfate (Ventolin Neb Soln) 2.5 mg PRN Q4HRS PRN NEB SHORTNESS OF BREATH; Start 02/20/20 at 13:00 Potassium Chloride/Water 100 ml @ 50 mls/hr 1X ONCE IV Last administered on 02/21/20at 08:05; Start 02/21/20 at 08:00; Stop 02/21/20 at 09:59; Status DC Potassium Chloride/Water 100 ml @ 100 mls/hr Q1H IV Last administered on 02/20at 11:34; Start 02/21/20 at 10:00; Stop 02/21/20 at 10:59; Status DC Sodium Chloride 38.5 meq/Sterile Water 1,009.625 ml @ 75 mls/hr [id number] IV Last administered on 02/21/20at 08:54; Start 02/21/20 at 08:30; Stop 02/21/20 at 15:21; Status DC Pantoprazole Sodium (PROTONIX VIAL for IV PUSH) 40 mg DAILYAC IVP Last administered on 02/24/20at 09:02; Start 02/21/20 at 12:30; Stop 02/25/20 at 09:22; Status DC Hydromorphone HCl (Dilaudid) 0.75 mg PRN Q4HRS PRN IVP PAIN, 2ND CHOICE Last administered on 02/22/20at 04:35; Start 02/21/20 at 13:30 Amino Acids/ Glycerin/ Electrolytes 1,000 ml @ 100 mls/hr Q10H IV Last administered on 02/27/20at 21:04; Start 02/21/20 at 16:00; Stop 02/28/20 at 12:30; Status DC Lidocaine HCl (Buffered Lidocaine 1%) 3 ml STK-MED ONCE .ROUTE ; Start 02/22/20 at 10:32; Stop 02/22/20 at 10:32; Status DC Lidocaine HCl (Buffered Lidocaine 1%) 3 ml 1X ONCE INJ Last administered on 02/22/20at 11:17; Start 02/22/20 at 11:15; Stop 02/22/20 at 11:16; Status DC Lidocaine HCl (Buffered Lidocaine 1%) 3 ml STK-MED ONCE .ROUTE ; Start 02/22/20 at 11:50; Stop 02/22/20 at 11:51; Status DC Iohexol (Omnipaque 350 Mg/ml) 90 ml 1X ONCE IV Last administered on 02/22/20at 12:15; Start 02/22/20 at 12:15; Stop 02/22/20 at 12:16; Status DC Info (CONTRAST GIVEN -- Rx MONITORING) 1 each PRN DAILY PRN MC SEE COMMENTS; Start 02/22/20 at 12:30; Stop 02/24/20 at 12:29; Status DC Potassium Chloride/Water 100 ml @ 100 mls/hr Q1H IV Last administered on 02/23/20at 13:22; Start 02/23/20 at 11:30; Stop 02/23/20 at 13:29; Status DC Dextrose/Sodium Chloride 1,000 ml @ 125 mls/hr Q8H IV Last administered on 02/25/20at 23:18; Start 02/24/20 at 06:45; Stop 02/26/20 at 06:42; Status DC Vancomycin HCl (Vancomycin Oral Solution) 125 mg [id number] PO Last administered on 02/29/20at 21:05; Start 02/24/20 at 13:00 Midazolam HCl (Versed) 2 mg STK-MED ONCE .ROUTE ; Start 02/25/20 at 08:01; Stop 02/25/20 at 08:02; Status DC Fentanyl Citrate (Fentanyl 2ml Vial) 100 mcg STK-MED ONCE .ROUTE ; Start 02/25/20 at 08:01; Stop 02/25/20 at 08:02; Status DC Heparin Sodium (Porcine) (Heparin Sodium) 10,000 unit STK-MED ONCE .ROUTE ; Start 02/25/20 at 08:01; Stop 02/25/20 at 08:02; Status DC Lidocaine HCl (Buffered Lidocaine 1%) 3 ml STK-MED ONCE .ROUTE ; Start 02/25/20 at 08:03; Stop 02/25/20 at 08:03; Status DC Iodixanol (Visipaque 320) 100 ml STK-MED ONCE .ROUTE ; Start 02/25/20 at 08:03; Stop 02/25/20 at 08:03; Status DC Heparin Sodium/ Sodium Chloride 1,500 ml @ As Directed STK-MED ONCE .ROUTE ; Start 02/25/20 at 08:03; Stop 02/25/20 at 08:04; Status DC Pantoprazole Sodium (Protonix) 40 mg DAILYAC PO Last administered on 02/29/20at 09:27; Start 02/25/20 at 10:00 Midazolam HCl (Versed) 2 mg STK-MED ONCE .ROUTE ; Start 02/25/20 at 09:50; Stop 02/25/20 at 09:51; Status DC Fentanyl Citrate (Fentanyl 2ml Vial) 100 mcg STK-MED ONCE .ROUTE ; Start 02/25/20 at 09:50; Stop 02/25/20 at 09:51; Status DC Heparin Sodium (Porcine) (Heparin Sodium) 5,000 unit 1X ONCE IART Last administered on 02/25/20at 10:15; Start 02/25/20 at 10:15; Stop 02/25/20 at 10:21; Status DC Heparin Sodium/ Sodium Chloride (HEPARIN for ARTERIAL LINE FLUSH) 1,000 unit 1X ONCE IART Last administered on 02/25/20at 10:15; Start 02/25/20 at 10:15; Stop 02/25/20 at 10:21; Status DC Lidocaine HCl (Buffered Lidocaine 1%) 3 ml 1X ONCE IJ Last administered on 02/25/20at 10:15; Start 02/25/20 at 10:15; Stop 02/25/20 at 10:22; Status DC Midazolam HCl (Versed) 2.5 mg 1X ONCE IV Last administered on 02/25/20at 10:15; Start 02/25/20 at 10:15; Stop 02/25/20 at 10:22; Status DC Fentanyl Citrate (Fentanyl 2ml Vial) 125 mcg 1X ONCE IV Last administered on 02/25/20at 10:15; Start 02/25/20 at 10:15; Stop 02/25/20 at 10:21; Status DC Iodixanol (Visipaque 320) 40 ml 1X ONCE IART Last administered on 02/25/20at 10:15; Start 02/25/20 at 10:15; Stop 02/25/20 at 10:22; Status DC Info (CONTRAST GIVEN -- Rx MONITORING) 1 each PRN DAILY PRN MC SEE COMMENTS; Start 02/25/20 at 10:30; Stop 02/27/20 at 10:29; Status DC Clopidogrel Bisulfate (Plavix) 75 mg [id number] PO Last administered on at 09:27; Start 02/26/20 at 08:00 Clopidogrel Bisulfate (Plavix) 300 mg 1X ONCE PO Last administered on 02/25/20at 12:49; Start 02/25/20 at 12:00; Stop 02/25/20 at 12:01; Status DC Alprazolam (Xanax) 0.25 mg PRN Q8HRS PRN PO ANXIETY / AGITATION Last administered on 02/27/20at 20:20; Start 02/26/20 at 05:00 Tizanidine HCl (Zanaflex) 4 mg 1X PRN PO MUSCLE SPASMS Last administered on 02/26/20at 22:14; Start 02/26/20 at 22:00; Stop 02/26/20 at 22:30; Status DC Gabapentin (Neurontin) 300 mg HS PO Last administered on 02/29/20at 21:05; Start 02/27/20 at 21:00 Furosemide (Lasix) 40 mg DAILY IVP Last administered on 02/29/20at 09:30; Start 02/27/20 at 14:00 Iohexol (Omnipaque 240 Mg/ml) 30 ml 1X ONCE PO Last administered on 02/28/20at 11:23; Start 02/28/20 at 10:15; Stop 02/28/20 at 10:21; Status DC Info (CONTRAST GIVEN -- Rx MONITORING) 1 each PRN DAILY PRN MC SEE COMMENTS; Start 02/28/20 at 10:30; Stop 03/01/20 at 10:29 Oxycodone/ Acetaminophen (Percocet 5/325) 1 tab PRN Q6HRS PRN PO PAIN Last administered on 03/01/20at 05:27; Start 02/28/20 at 12:30 Zolpidem Tartrate (Ambien) 5 mg PRN QHS PRN PO INSOMNIA Last administered on at 21:05; Start 02/28/20 at 12:30 Lidocaine (Lidoderm) 1 patch DAILY TD Last administered on 02/29/20at 09:28; Start 02/28/20 at 13:00 Miscellaneous (Lidoderm Patch Removal) 1 ea QHS MC Last administered on 02/29/20at 21:24; Start 02/28/20 at 21:00 Capsaicin (Zostrix) 1 sue PRN TID PRN TP peripheral pain; Start 02/28/20 at 12:30 Potassium Chloride/Water 100 ml @ 100 mls/hr Q1H IV Last administered on 02/29/20at 19:10; Start 02/29/20 at 16:30; Stop 02/29/20 at 18:29; Status DC Potassium Chloride/Water 100 ml @ 100 mls/hr Q1H IV Last administered on 02/29/20at 21:46; Start 02/29/20 at 21:00; Stop 02/29/20 at 22:59; Status DC Active Scripts Active Reported Furosemide 20 Mg Tablet 1 Tab PO DAILY PRN Gabapentin (Gabapentin) 300 Mg Capsule 300 Mg PO HS Miralax (Polyethylene Glycol 3350) 17 Gm Powd.pack 1 Packet PO DAILY 2 Days dissolve in water Fish Oil 1,000 mg Softgel ([place]everly-3/Dha/Epa/Fish Oil) 1,000 Mg Capsule 1,000 Mg PO DAILY Aspirin 81 Mg Tab.chew 1 Tab PO DAILY Daily Value (Multivitamin) 1 Each Tablet 1 Tab PO DAILY 30 Days Perforomist (Formoterol Fumarate) 20 Mcg/2 Ml Vial.neb 20 Mcg IH Pulmicort (Budesonide) 0.5 Mg/2 Ml Ampul.neb 1 Vial NEB BID Clonazepam (Clonazepam) 0.5 Mg Tablet 0.5 Mg PO DAILY Vitals/I & O Vital Sign - Last 24 Hours 02/29/20 02/29/20 02/29/20 02/29/20 08:00 08:00 09:28 10:28 O2 Delivery Nasal Cannula Nasal Cannula Nasal Cannula Room Air O2 Flow Rate 3.0 4.0 4.0 02/29/20 02/29/20 02/29/20 02/29/20 10:37 14:55 19:55 20:10 Temp 97.5 97.9 98.1 97.5 97.9 98.1 Pulse 72 79 72 Resp 16 16 16 B/P (MAP) 122/52 (75) 110/47 (68) 115/47 (69) Pulse Ox 94 93 94 O2 Delivery Nasal Cannula Nasal Cannula Nasal Cannula Nasal Cannula O2 Flow Rate 3.0 3.0 4.0 3.0 02/29/20 02/29/20 03/01/20 03/01/20 20:26 22:58 03:25 07:00 Temp 98.5 97.6 98.0 98.5 97.6 98.0 Pulse 88 85 81 Resp 16 18 18 B/P (MAP) 132/60 (84) 112/50 (70) 116/43 (67) Pulse Ox 97 93 92 93 O2 Delivery Nasal Cannula Nasal Cannula Nasal Cannula Nasal Cannula O2 Flow Rate 4.0 4.0 4.0 4.0 03/01/20 07:40 Pulse Ox 93 O2 Delivery Nasal Cannula O2 Flow Rate 4.0 Intake and Output 02/29/20 02/29/20 03/01/20 15:00 23:00 07:00 Intake Total 940 ml 1500 ml 700 ml Output Total 1000 ml 1600 ml 650 ml Balance -60 ml -100 ml 50 ml Justicifation of Admission Dx: Justifications for Admission: Justification of Admission Dx: Yes Sepsis: Infection LE GUALLPA MD Mar 01, 2020 08:00
--- NOTE | 2020-03-01 09:25 | PDOC ---
G I PROGRESS NOTE Reason for Follow-up Diverticulitis/LLQ abd pain Subjective Feeling better Physical Exam Lungs decreased BS CV S1 S2 ABD +BS, soft, minimal LLQ tenderness to palpation Review of Relevant I have reviewed the following items mayra (where applicable) has been applied. Labs Laboratory Tests Test 02/28/20 10:10 02/29/20 06:05 02/29/20 06:48 03/01/20 05:30 Coronavirus (PCR) Not detected (Not Detected) White Blood Count 7.3 x10^3/uL (4.0-11.0) Red Blood Count 3.52 x10^6/uL (3.50-5.40) Hemoglobin 9.7 g/dL (12.0-15.5) Hematocrit 30.0 % (36.0-47.0) Mean Corpuscular Volume 85 fL (79-100) Mean Corpuscular Hemoglobin 28 pg (25-35) Mean Corpuscular Hemoglobin Concent 32 g/dL (31-37) Red Cell Distribution Width 15.7 % (11.5-14.5) Platelet Count 158 x10^3/uL (140-400) Neutrophils (%) (Auto) 80 % (31-73) Lymphocytes (%) (Auto) 13 % (24-48) Monocytes (%) (Auto) 7 % (0-9) Eosinophils (%) (Auto) 0 % (0-3) Basophils (%) (Auto) 1 % (0-3) Neutrophils # (Auto) 5.8 x10^3/uL (1.8-7.7) Lymphocytes # (Auto) 0.9 x10^3/uL (1.0-4.8) Monocytes # (Auto) 0.5 x10^3/uL (0.0-1.1) Eosinophils # (Auto) 0.0 x10^3/uL (0.0-0.7) Basophils # (Auto) 0.0 x10^3/uL (0.0-0.2) Sodium Level 147 mmol/L (136-145) 145 mmol/L (136-145) Potassium Level 3.1 mmol/L (3.5-5.1) 3.8 mmol/L (3.5-5.1) Chloride Level 106 mmol/L (98-107) 103 mmol/L (98-107) Carbon Dioxide Level 38 mmol/L (21-32) 41 mmol/L (21-32) Anion Gap 3 (6-14) 1 (6-14) Blood Urea Nitrogen 14 mg/dL (7-20) 9 mg/dL (7-20) Creatinine 1.3 mg/dL (0.6-1.0) 1.2 mg/dL (0.6-1.0) Estimated GFR (Cockcroft-Gault) 39.6 43.4 Glucose Level 92 mg/dL (70-99) 88 mg/dL (70-99) Calcium Level 8.3 mg/dL (8.5-10.1) 8.3 mg/dL (8.5-10.1) Laboratory Tests Test 03/01/20 05:30 Sodium Level 145 mmol/L (136-145) Potassium Level 3.8 mmol/L (3.5-5.1) Chloride Level 103 mmol/L (98-107) Carbon Dioxide Level 41 mmol/L (21-32) Anion Gap 1 (6-14) Blood Urea Nitrogen 9 mg/dL (7-20) Creatinine 1.2 mg/dL (0.6-1.0) Estimated GFR (Cockcroft-Gault) 43.4 Glucose Level 88 mg/dL (70-99) Calcium Level 8.3 mg/dL (8.5-10.1) Microbiology 02/21/20 Fecal Leukocyte Stain - Final, Complete 02/19/20 Urine Culture - Final, Complete 02/19/20 Blood Culture - Final, Complete NO GROWTH AFTER 5 DAYS Medications Current Medications Fentanyl Citrate (Fentanyl 2ml Vial) 50 mcg 1X ONCE IV Last administered on 02/19/20at 09:50; Start 02/19/20 at 09:30; Stop 02/19/20 at 09:31; Status DC Ondansetron HCl (Zofran) 4 mg 1X ONCE IV Last administered on 02/19/20at 09:49; Start 02/19/20 at 09:30; Stop 02/19/20 at 09:31; Status DC Sodium Chloride 1,000 ml @ 1,000 mls/hr 1X ONCE IV Last administered on 02/19/20at 09:48; Start 02/19/20 at 09:30; Stop 02/19/20 at 10:29; Status DC Iohexol (Omnipaque 300 Mg/ml) 75 ml 1X ONCE IV Last administered on 02/19/20at 10:46; Start 02/19/20 at 10:30; Stop 02/19/20 at 10:31; Status DC Info (CONTRAST GIVEN -- Rx MONITORING) 1 each PRN DAILY PRN MC SEE COMMENTS; Start 02/19/20 at 10:30; Stop 02/21/20 at 10:29; Status DC Ceftriaxone Sodium (Rocephin) 1 gm 1X ONCE IVP Last administered on 02/19/20at 11:14; Start 02/19/20 at 11:15; Stop 02/19/20 at 11:16; Status DC Ceftriaxone Sodium (Rocephin) 1 gm 1X ONCE IVP Last administered on 02/19/20at 12:01; Start 02/19/20 at 11:30; Stop 02/19/20 at 11:31; Status DC Metronidazole 100 ml @ 100 mls/hr Q8HRS IV Last administered on 02/20/20at 06:00; Start 02/19/20 at 22:00; Stop 02/20/20 at 12:24; Status DC Metronidazole 100 ml @ 100 mls/hr 1X ONCE IV Last administered on 02/19/20at 12:06; Start 02/19/20 at 11:30; Stop 02/19/20 at 12:29; Status DC Ceftriaxone Sodium (Rocephin) 1 gm Q24H IVP Last administered on 02/20/20at 11:52; Start 02/20/20 at 12:00; Stop 02/20/20 at 12:24; Status DC Enoxaparin Sodium (Lovenox 40mg Syringe) 40 mg Q24H SQ Last administered on 02/29/20at 12:20; Start 02/19/20 at 12:00 Sodium Chloride 1,000 ml @ 100 mls/hr 1X ONCE IV Last administered on 02/19/20at 11:45; Start 02/19/20 at 11:45; Stop 02/19/20 at 21:44; Status DC Clonazepam (KlonoPIN) 0.5 mg DAILY PO Last administered on 02/29/20at 09:27; Start 02/19/20 at 12:00 Fentanyl Citrate (Fentanyl 2ml Vial) 50 mcg PRN Q2HR PRN IVP PAIN, 1ST CHOICE Last administered on 02/28/20 03:37; Start 02/19/20 at 14:00 Nicotine Polacrilex (Nicorette Gum) 1 each PRN Q1HR PRN BC SMOKING CESSATION; Start 02/19/20 at 15:15 Nicotine (Nicoderm Cq 7mg) 1 patch DAILY TD Last administered on 02/29/20 09:27; Start 02/19/20 at 15:15 Lactobacillus Rhamnosus (Culturelle) 1 cap BID PO Last administered on 02/29/20 21:05; Start 02/20/20 at 10:15 Piperacillin Sod/ Tazobactam Sod 3.375 gm/Sodium Chloride 50 ml @ 80 mls/hr Q6HRS IV Last administered on 03/01/20 05:28; Start 02/20/20 at 18:00 Aspirin (Aspirin Chewable) 81 mg DAILY PO Last administered on 02/29/20 09:27; Start 02/20/20 at 14:00 Budesonide (Pulmicort) 0.5 mg BID NEB Last administered on 03/01/20 07:40; Start 02/20/20 at 21:00 Polyethylene Glycol (miraLAX PACKET) 17 gm DAILY PO ; Start 02/20/20 at 14:00; Stop 02/23/20 at 09:56; Status DC Multivitamins (Thera M Plus) 1 tab DAILY PO Last administered on 02/29/20 09:27; Start 02/20/20 at 14:00 Fish Oil (Fish Oil) 1,000 mg DAILY PO Last administered on 02/29/20 09:27; Start 02/20/20 at 14:00 Albuterol Sulfate (Ventolin Neb Soln) 2.5 mg PRN Q4HRS PRN NEB SHORTNESS OF BREATH; Start 02/20/20 at 13:00 Potassium Chloride/Water 100 ml @ 50 mls/hr 1X ONCE IV Last administered on 02/21/20 08:05; Start 02/21/20 at 08:00; Stop 02/21/20 at 09:59; Status DC Potassium Chloride/Water 100 ml @ 100 mls/hr Q1H IV Last administered on 02/21/20at 11:34; Start 02/21/20 at 10:00; Stop 02/21/20 at 10:59; Status DC Sodium Chloride 38.5 meq/Sterile Water 1,009.625 ml @ 75 mls/hr [id number] IV Last administered on 02/21/20at 08:54; Start 02/21/20 at 08:30; Stop 02/21/20 at 15:21; Status DC Pantoprazole Sodium (PROTONIX VIAL for IV PUSH) 40 mg DAILYAC IVP Last administered on 02/24/20at 09:02; Start 02/21/20 at 12:30; Stop 02/25/20 at 09: 22; Status DC Hydromorphone HCl (Dilaudid) 0.75 mg PRN Q4HRS PRN IVP PAIN, 2ND CHOICE Last administered on 02/22/20at 04:35; Start 02/21/20 at 13:30 Amino Acids/ Glycerin/ Electrolytes 1,000 ml @ 100 mls/hr Q10H IV Last administered on 02/27/20at 21:04; Start 02/21/20 at 16:00; Stop 02/28/20 at 12:30; Status DC Lidocaine HCl (Buffered Lidocaine 1%) 3 ml STK-MED ONCE .ROUTE ; Start 02/22/20 at 10:32; Stop 02/22/20 at 10:32; Status DC Lidocaine HCl (Buffered Lidocaine 1%) 3 ml 1X ONCE INJ Last administered on 02/22/20at 11:17; Start 02/22/20 at 11:15; Stop 02/22/20 at 11:16; Status DC Lidocaine HCl (Buffered Lidocaine 1%) 3 ml STK-MED ONCE .ROUTE ; Start 02/22/20 at 11:50; Stop 02/22/20 at 11:51; Status DC Iohexol (Omnipaque 350 Mg/ml) 90 ml 1X ONCE IV Last administered on 02/22/20at 12:15; Start 02/22/20 at 12:15; Stop 02/22/20 at 12:16; Status DC Info (CONTRAST GIVEN -- Rx MONITORING) 1 each PRN DAILY PRN MC SEE COMMENTS; Start 02/22/20 at 12:30; Stop 02/24/20 at 12:29; Status DC Potassium Chloride/Water 100 ml @ 100 mls/hr Q1H IV Last administered on 02/23/20at 13:22; Start 02/23/20 at 11:30; Stop 02/23/20 at 13:29; Status DC Dextrose/Sodium Chloride 1,000 ml @ 125 mls/hr Q8H IV Last administered on 02/25/20at 23:18; Start 02/24/20 at 06:45; Stop 02/26/20 at 06:42; Status DC Vancomycin HCl (Vancomycin Oral Solution) 125 mg [id number] PO Last administered on 02/29/20at 21:05; Start 02/24/20 at 13:00 Midazolam HCl (Versed) 2 mg STK-MED ONCE .ROUTE ; Start 02/25/20 at 08:01; Stop 02/25/20 at 08:02; Status DC Fentanyl Citrate (Fentanyl 2ml Vial) 100 mcg STK-MED ONCE .ROUTE ; Start 02/25/20 at 08:01; Stop 02/25/20 at 08:02; Status DC Heparin Sodium (Porcine) (Heparin Sodium) 10,000 unit STK-MED ONCE .ROUTE ; Start 02/25/20 at 08:01; Stop 02/25/20 at 08:02; Status DC Lidocaine HCl (Buffered Lidocaine 1%) 3 ml STK-MED ONCE .ROUTE ; Start 02/25/20 at 08:03; Stop 02/25/20 at 08:03; Status DC Iodixanol (Visipaque 320) 100 ml STK-MED ONCE .ROUTE ; Start 02/25/20 at 08:03; Stop 02/25/20 at 08:03; Status DC Heparin Sodium/ Sodium Chloride 1,500 ml @ As Directed STK-MED ONCE .ROUTE ; Start 02/25/20 at 08:03; Stop 02/25/20 at 08:04; Status DC Pantoprazole Sodium (Protonix) 40 mg DAILYAC PO Last administered on 02/29/20at 09:27; Start 02/25/20 at 10:00 Midazolam HCl (Versed) 2 mg STK-MED ONCE .ROUTE ; Start 02/25/20 at 09:50; Stop 02/25/20 at 09:51; Status DC Fentanyl Citrate (Fentanyl 2ml Vial) 100 mcg STK-MED ONCE .ROUTE ; Start 02/25/20 at 09:50; Stop 02/25/20 at 09:51; Status DC Heparin Sodium (Porcine) (Heparin Sodium) 5,000 unit 1X ONCE IART Last administered on 02/25/20at 10:15; Start 02/25/20 at 10:15; Stop 02/25/20 at 10:21; Status DC Heparin Sodium/ Sodium Chloride (HEPARIN for ARTERIAL LINE FLUSH) 1,000 unit 1X ONCE IART Last administered on 02/25/20at 10:15; Start 02/25/20 at 10:15; Stop 02/25/20 at 10:21; Status DC Lidocaine HCl (Buffered Lidocaine 1%) 3 ml 1X ONCE IJ Last administered on 02/25/20at 10:15; Start 02/25/20 at 10:15; Stop 02/25/20 at 10:22; Status DC Midazolam HCl (Versed) 2.5 mg 1X ONCE IV Last administered on 02/25/20at 10:15; Start 02/25/20 at 10:15; Stop 02/25/20 at 10:22; Status DC Fentanyl Citrate (Fentanyl 2ml Vial) 125 mcg 1X ONCE IV Last administered on 02/25/20at 10:15; Start 02/25/20 at 10:15; Stop 02/25/20 at 10:21; Status DC Iodixanol (Visipaque 320) 40 ml 1X ONCE IART Last administered on 02/25/20at 10:15; Start 02/25/20 at 10:15; Stop 02/25/20 at 10:22; Status DC Info (CONTRAST GIVEN -- Rx MONITORING) 1 each PRN DAILY PRN MC SEE COMMENTS; Start 02/25/20 at 10:30; Stop 02/27/20 at 10:29; Status DC Clopidogrel Bisulfate (Plavix) 75 mg DAILYWBKFT PO Last administered on 02/29/20at 09:27; Start 02/26/20 at 08:00 Clopidogrel Bisulfate (Plavix) 300 mg 1X ONCE PO Last administered on 02/25/20at 12:49; Start 02/25/20 at 12:00; Stop 02/25/20 at 12:01; Status DC Alprazolam (Xanax) 0.25 mg PRN Q8HRS PRN PO ANXIETY / AGITATION Last administered on 02/27/20at 20:20; Start 02/26/20 at 05:00 Tizanidine HCl (Zanaflex) 4 mg 1X PRN PO MUSCLE SPASMS Last administered on 02/26/20at 22:14; Start 02/26/20 at 22:00; Stop 02/26/20 at 22:30; Status DC Gabapentin (Neurontin) 300 mg HS PO Last administered on 02/29/20at 21:05; Start 02/27/20 at 21:00 Furosemide (Lasix) 40 mg DAILY IVP Last administered on 02/29/20at 09:30; Start 02/27/20 at 14:00 Iohexol (Omnipaque 240 Mg/ml) 30 ml 1X ONCE PO Last administered on 02/28/20at 11:23; Start 02/28/20 at 10:15; Stop 02/28/20 at 10:21; Status DC Info (CONTRAST GIVEN -- Rx MONITORING) 1 each PRN DAILY PRN MC SEE COMMENTS; Start 02/28/20 at 10:30; Stop 03/01/20 at 10:29 Oxycodone/ Acetaminophen (Percocet 5/325) 1 tab PRN Q6HRS PRN PO PAIN Last administered on 03/01/20at 05:27; Start 02/28/20 at 12:30 Zolpidem Tartrate (Ambien) 5 mg PRN QHS PRN PO INSOMNIA Last administered on 02/29/20at 21:05; Start 02/28/20 at 12:30 Lidocaine (Lidoderm) 1 patch DAILY TD Last administered on 02/29/20at 09:28; Start 02/28/20 at 13:00 Miscellaneous (Lidoderm Patch Removal) 1 ea QHS MC Last administered on 02/29/20at 21:24; Start 02/28/20 at 21:00 Capsaicin (Zostrix) 1 sue PRN TID PRN TP peripheral pain; Start 02/28/20 at 12:30 Potassium Chloride/Water 100 ml @ 100 mls/hr Q1H IV Last administered on 02/29/20at 19:10; Start 02/29/20 at 16:30; Stop 02/29/20 at 18:29; Status DC Potassium Chloride/Water 100 ml @ 100 mls/hr Q1H IV Last administered on 02/29/20at 21:46; Start 02/29/20 at 21:00; Stop 02/29/20 at 22:59; Status DC Active Scripts Active Reported Furosemide 20 Mg Tablet 1 Tab PO DAILY PRN Gabapentin (Gabapentin) 300 Mg Capsule 300 Mg PO HS Miralax (Polyethylene Glycol 3350) 17 Gm Powd.pack 1 Packet PO DAILY 2 Days dissolve in water Fish Oil 1,000 mg Softgel ([place]-3/Dha/Epa/Fish Oil) 1,000 Mg Capsule 1,000 Mg PO DAILY Aspirin 81 Mg Tab.chew 1 Tab PO DAILY Daily Value (Multivitamin) 1 Each Tablet 1 Tab PO DAILY 30 Days Perforomist (Formoterol Fumarate) 20 Mcg/2 Ml Vial.neb 20 Mcg IH Pulmicort (Budesonide) 0.5 Mg/2 Ml Ampul.neb 1 Vial NEB BID Clonazepam (Clonazepam) 0.5 Mg Tablet 0.5 Mg PO DAILY Vitals/I & O Vital Sign - Last 24 Hours 02/29/20 02/29/20 02/29/20 02/29/20 09:28 10:28 10:37 14:55 Temp 97.5 97.9 97.5 97.9 Pulse 72 79 Resp 16 16 B/P (MAP) 122/52 (75) 110/47 (68) Pulse Ox 94 93 O2 Delivery Nasal Cannula Room Air Nasal Cannula Nasal Cannula O2 Flow Rate 4.0 3.0 3.0 02/29/20 02/29/20 02/29/20 02/29/20 19:55 20:10 20:26 22:58 Temp 98.1 98.5 98.1 98.5 Pulse 72 88 Resp 16 16 B/P (MAP) 115/47 (69) 132/60 (84) Pulse Ox 94 97 93 O2 Delivery Nasal Cannula Nasal Cannula Nasal Cannula Nasal Cannula O2 Flow Rate 4.0 3.0 4.0 4.0 03/01/20 03/01/20 03/01/20 03:25 07:00 07:40 Temp 97.6 98.0 97.6 98.0 Pulse 85 81 Resp 18 18 B/P (MAP) 112/50 (70) 116/43 (67) Pulse Ox 92 93 93 O2 Delivery Nasal Cannula Nasal Cannula Nasal Cannula O2 Flow Rate 4.0 4.0 4.0 Intake and Output 02/29/20 02/29/20 03/01/20 15:00 23:00 07:00 Intake Total 940 ml 1500 ml 700 ml Output Total 1000 ml 1600 ml 650 ml Balance -60 ml -100 ml 50 ml Problem List Problems Medical Problems: (1) Abdominal aortic aneurysm (AAA) 3.0 cm to 5.0 cm in diameter in female Status: Acute (2) Acute diverticulitis Status: Acute Assessment 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 CPM Justicifation of Admission Dx: Justifications for Admission: Justification of Admission Dx: Yes Sepsis: Infection LE BRYANT MD Mar 01, 2020 09:25
[2020-03-01] MEDS: NICOTINE 7MG PATCH. TD SCH (09:42)
[2020-03-01] MEDS: LIDOCAINE (700MG/PATCH) PATCH. TD SCH (09:43)
[2020-03-01] MEDS: clonazePAM 0.5 MG TABLET PO SCH (09:43)
[2020-03-01] MEDS: OMEGA-3 FATTY ACIDS/FISH OIL 1,000 MG CAPSULE. PO SCH (09:43)
[2020-03-01] MEDS: ASPIRIN CHEWABLE 81 MG TABLET. PO SCH (09:43)
[2020-03-01] MEDS: PANTOPRAZOLE 40 MG TABLET.DR. PO SCH (09:44)
[2020-03-01] MEDS: CLOPIDOGREL BISULFATE 75 MG TABLET PO SCH (09:44)
[2020-03-01] MEDS: VANCOMYCIN 125 MG/2.5 ML ORAL SOLUTION. PO SCH ×2 (09:44→12:55)
[2020-03-01] MEDS: LACTOBACILLUS RHAMNOSUS GG 1 CAPSULE. PO SCH (09:44)
[2020-03-01] MEDS: MULTIVITAMIN with MINERAL TABLET. PO SCH (09:44)
[2020-03-01] MEDS: FUROSEMIDE 40 MG/4 ML VIAL. IVP SCH (09:46)
--- NOTE | 2020-03-01 10:34 | PDOC ---
Renal-Progress Notes Subjective Notes Notes NO NEW COMPLAINTS History of Present Illness Hx of present illness STABLE Vitals Vitals Vital Signs Date Time Temp Pulse Resp B/P (MAP) Pulse Ox O2 Delivery O2 Flow Rate FiO2 03/01/20 07:40 93 Nasal Cannula 4.0 03/01/20 07:00 98.0 81 18 116/43 (67) 98.0 Weight Weight [ ] I.O. Intake and Output Intake and Output 03/01/20 07:00 Intake Total 3140 ml Output Total 3250 ml Balance -110 ml Intake Oral 3140 ml Output Urine Total 3250 ml # Voids 3 # Bowel Movements 2 Labs Labs Laboratory Tests Test 03/01/20 05:30 Sodium Level 145 mmol/L (136-145) Potassium Level 3.8 mmol/L (3.5-5.1) Chloride Level 103 mmol/L (98-107) Carbon Dioxide Level 41 mmol/L (21-32) Anion Gap 1 (6-14) Blood Urea Nitrogen 9 mg/dL (7-20) Creatinine 1.2 mg/dL (0.6-1.0) Estimated GFR (Cockcroft-Gault) 43.4 Glucose Level 88 mg/dL (70-99) Calcium Level 8.3 mg/dL (8.5-10.1) Micro Micro Microbiology 02/21/20 Fecal Leukocyte Stain - Final, Complete 02/19/20 Urine Culture - Final, Complete 02/19/20 Blood Culture - Final, Complete NO GROWTH AFTER 5 DAYS Review of Systems Constitutional: yes: weakness, alert, oriented Ears/Nose/Throat: Yes: no symptom reported Eyes: Yes: no symptom reported Pulmonary: Yes no symptom reported Cardiovascular: Yes no symptom reported Gastrointestional: Yes: nausea Genitourinary: Yes: no symptom reported Musculoskeletal: Yes: muscle stiffness Skin: Yes no symptom reported Psychiatric/Neurological: Yes: no symptom reported Endocrine: Yes: no symptom reported Physical Exam General Appearance: no apparent distress Skin: warm Heart: S1S2 Abdomen: soft Genitourinary: bladder flat Neurology: alert Musculoskeletal: Osteoarthritis Assessment Assessment IMP DEHYDRATION ESTER - RESOLVED LOW K-RESOLVED HYPERNATREMIA-RESOLVED DIVERTICULAR ABSCESS 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
[2020-03-01 11:00] VITALS: BP 111/49
--- NOTE | 2020-03-01 11:38 | NUR ---
SS following up with discharge planning. SS reviewed pt chart and discussed with pt RN. Pt accepted at [facility], ; fax [phone]. SS currently awaiting discharge orders. Pt will need outpatient Urology appt at [facility], ; fax [phone]. SS phoned and faxed clinical and request for outpatient appt to [facility] Urology. Pt's RN notified. SS will continue to follow for discharge planning.
--- NOTE | 2020-03-01 12:21 | SNU/HH DC ---
DISCHARGE ORDERS DISCHARGE INFORMATION: FINAL DIAGNOSIS Problems Medical Problems: (1) Abdominal aortic aneurysm (AAA) 3.0 cm to 5.0 cm in diameter in female Status: Acute (2) Acute diverticulitis Status: Acute CONDITION ON DISCHARGE: Stable CODE STATUS: Code Status: Full ASSISTED: SNF STAY <30 DAYS: Yes POST DISCHARGE ORDERS: ACTIVITY ORDERS: Activity as tolerated WEIGHT BEARING STATUS: As tolerated DIET AFTER DISCHARGE: Regular CHECKS AFTER DISCHARGE: CHECKS AFTER DISCHARGE: Check blood press - daily FOLLOW-UP: PHYSICIAN FOLLOW-UP: General surgery ADDITIONAL FOLLOW-UP: Urology LAB ORDERS FOR FOLLOW-UP: CBC and BMP TREATMENT/EQUIPMENT ORDERS: RESPIRATORY EQUIPMENT NEEDED: Oxygen Physical Therapy For: Evalulation/Treatment Occupational Therapy For: Evaluation/Treatment DISCHARGE MEDICATIONS: Home Meds Reported Medications Furosemide (FUROSEMIDE) 20 Mg Tablet, 1 TAB PO DAILY PRN for prn, #90 TAB 1 Refill 02/27/20 Gabapentin (GABAPENTIN ) 300 Mg Capsule, 300 MG PO HS for NEUROGENIC PAIN, CAP 02/27/20 Polyethylene Glycol 3350 (MIRALAX) 17 Gm Powd.pack, 1 PACKET PO DAILY for constipation for 2 Days, #2 PACKET 0 Refills dissolve in water 02/19/20 [place]-3/Dha/Epa/Fish Oil (Fish Oil 1,000 mg Softgel) 1,000 Mg Capsule, 1000 MG PO DAILY for supplement, CAP 02/19/20 Aspirin (ASPIRIN) 81 Mg Tab.chew, 1 TAB PO DAILY for heart, #30 TAB 3 Refills 02/19/20 Multivitamin (DAILY VALUE) 1 Each Tablet, 1 TAB PO DAILY for supplement for 30 Days, #30 TAB 0 Refills 02/19/20 Formoterol Fumarate (PERFOROMIST) 20 Mcg/2 Ml Vial.neb, 20 MCG IH 11/18/14 Budesonide (PULMICORT) 0.5 Mg/2 Ml Ampul.neb, 1 VIAL NEB BID, #60 VIAL 3 Refills 11/18/14 Clonazepam (CLONAZEPAM ) 0.5 Mg Tablet, 0.5 MG PO DAILY, TAB 11/11/14 ANA POZO MD Mar 01, 2020 12:20
[2020-03-01] MEDS: ENOXAPARIN 40 MG/0.4 ML SYRINGE. SQ SCH (12:56)
--- NOTE | 2020-03-01 13:02 | NUR ---
SS following up with discharge planning. Discharge orders for [facility], ; fax [phone], received. SS phoned and faxed discharge orders to [facility]. Pt will discharge today and go to [facility] at 1500 via [facility] transportation, . Pt, pt's RN, and pt's daughter, Lisbeth, notified.
--- NOTE | 2020-03-01 14:57 | NUR ---
Discharge Note: ANDREW GARCIA MARTY Discharge instructions and discharge home medications reviewed with Other facility and a copy given. All questions have been answered and understanding verbalized. The following instructions and handouts were given: follow up information, PICC line to remain, nurse to nurse report, med orders in packet Discontinued lines and drains: PICC line intact. Patient discharged to [facility] with [facility] via wheelchair van
--- NOTE | 2020-03-01 15:01 | PDOC3 ---
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 Bilateral adrenal masses, indeterminate. Left adrenal mass measures 2.3 x 2.0 cm. Findings favor benign etiology given stability since 10/12/2013. Infrarenal abdominal aortic aneurysm measuring 4.5 x 4.4 cm. Peripheral vascular disease status post angioplasty Sepsis due to sigmoid diverticulitis resolved COPD Tobacco abuse Severe protein-caloric malnutrition Consults: Consults: Gastroenterology Vascular surgery General surgery Infectious disease Procedures: Procedures: 1.Right lower extremity angiography 2. Angioplasty of the right anterior tibial artery 3. Angioplasty of the popliteal artery, and at the anastomosis of the right lower extremity femoropopliteal bypass graft Hospital Course: Hospital Course: 79-year-old female with past medical history of COPD, diverticulitis, longtime smoker who presents to the ED with 10-day worsening of her abdominal pain. Patient states that the abdominal pain is all over 10 out of 10, aching in quality, originally started about a month and a half ago but has worsened in the last 10 days. The pain radiates all over her abdomen. She states that she does have bowel movements every day and does not have any extreme straining. Denies fevers, chills, chest pain, shortness of breath, diarrhea, bloody stools, dysuria. Patient states that she has had history of diverticulitis in the past. Patient was admitted for further care with IV antibiotics for her acute diverticulitis. Patient was being followed by infectious disease services and GI and surgery. There was concerns for abscess that potentially needed drainage however there was also some air being shown in the bladder that was concerning for colovesicular fistula. Patient was evaluate by surgery and deemed that patient is nonsurgical at this time. After completing antibiotic course they recommended a combined urological and surgical case in the future that would require surgical resection. Patient's hospital course was complicated by pain in her right lower extremity in which there was cyanotic appearing toes and claudication symptoms. Patient was evaluated by vascular surgery and she underwent angiogram with angioplasty of her lower extremity bypass on the right leg, which has shown stenosis at the anastomotic site. Her post procedure physical exam was negative for any ischemic reperfusion injury. Patient will be transferred to [facility] at the request of her daughter who works there. The rest of her hospital course was uneventful. Physical exam at time of discharge: General: Alert, Oriented X3, Cooperative, No acute distress Heart: Regular rate Lungs: Clear, Other Abdomen: Normal bowel sounds, Soft, No tenderness Extremities: Other (Palpable bypass graft pulse in the right lower extremity at the level of the knee, intact dorsalis pedis Doppler signal on the right, monophasic posterior tibial Doppler signal on the left,) Disposition: Disposition/Orders: D/C to Another Facility Activity: Activity: Resume previous activity Diet: Diet: Cardiac Medications: Home Meds Reported Medications Furosemide (FUROSEMIDE) 20 Mg Tablet, 1 TAB PO DAILY PRN for prn, #90 TAB 1 Refill 02/27/20 Gabapentin (GABAPENTIN ) 300 Mg Capsule, 300 MG PO HS for NEUROGENIC PAIN, CAP 02/27/20 Polyethylene Glycol 3350 (MIRALAX) 17 Gm Powd.pack, 1 PACKET PO DAILY for constipation for 2 Days, #2 PACKET 0 Refills dissolve in water 02/19/20 Terry-3/Dha/Epa/Fish Oil (Fish Oil 1,000 mg Softgel) 1,000 Mg Capsule, 1000 MG PO DAILY for supplement, CAP 02/19/20 Aspirin (ASPIRIN) 81 Mg Tab.chew, 1 TAB PO DAILY for heart, #30 TAB 3 Refills 02/19/20 Multivitamin (DAILY VALUE) 1 Each Tablet, 1 TAB PO DAILY for supplement for 30 Days, #30 TAB 0 Refills 02/19/20 Formoterol Fumarate (PERFOROMIST) 20 Mcg/2 Ml Vial.neb, 20 MCG IH 11/18/14 Budesonide (PULMICORT) 0.5 Mg/2 Ml Ampul.neb, 1 VIAL NEB BID, #60 VIAL 3 Refills 11/18/14 Clonazepam (CLONAZEPAM ) 0.5 Mg Tablet, 0.5 MG PO DAILY, TAB 11/11/14 Scheduled Aspirin (Aspirin), 1 TAB PO DAILY, (Reported) Budesonide (Pulmicort), 1 VIAL NEB BID, (Reported) Clonazepam (Clonazepam ), 0.5 MG PO DAILY, (Reported) Gabapentin (Gabapentin ), 300 MG PO HS, (Reported) Multivitamin (Daily Value), 1 TAB PO DAILY, (Reported) Terry-3/Dha/Epa/Fish Oil (Fish Oil 1,000 mg Softgel), 1,000 MG PO DAILY, (Reported) Polyethylene Glycol 3350 (Miralax), 1 PACKET PO DAILY, (Reported) Scheduled PRN Furosemide (Furosemide), 1 TAB PO DAILY PRN for prn, (Reported) Miscellaneous Medications Formoterol Fumarate (Perforomist), 20 MCG IH, (Reported) Total Time: Total Time: Total time spent was 45 minutes in preparing scripts, discharge planning with SWI and RN and preparing this discharge summary Justicifation of Admission Dx: Justifications for Admission: Justification of Admission Dx: Yes Sepsis: Infection ANA POZO MD Mar 01, 2020 15:01
== END 2020-03-01 15:05 | DRG 853 ==
LOC: ER 08:42 → 2 SOUTH 11:48 → ED HOLD 11:51 → 2 SOUTH 14:56
PROVIDERS: ADMIT Internal Medicine; ATTEND Internal Medicine
PROC: 02HV33Z Insertion of Infusion Device into Superior Vena Cava, Percutaneous Approach (ICD-10-PCS; 2020-02-22)
PROC: B5181ZA Fluoroscopy of Superior Vena Cava using Low Osmolar Contrast, Guidance (ICD-10-PCS; 2020-02-22)
PROC: B548ZZA Ultrasonography of Superior Vena Cava, Guidance (ICD-10-PCS; 2020-02-22)
PROC: 047P3ZZ Dilation of Right Anterior Tibial Artery, Percutaneous Approach (ICD-10-PCS; principal; 2020-02-25)
PROC: 047M3ZZ Dilation of Right Popliteal Artery, Percutaneous Approach (ICD-10-PCS; 2020-02-25)
DX: A41.9 Sepsis, unspecified organism (principal); E43 Unspecified severe protein-calorie malnutrition; K57.20 Diverticulitis of large intestine with perforation and abscess without bleeding; A04.72 Enterocolitis due to Clostridium difficile, not specified as recurrent; E87.0 Hyperosmolality and hypernatremia; N13.30 Unspecified hydronephrosis; N17.9 Acute kidney failure, unspecified; N32.1 Vesicointestinal fistula; D64.9 Anemia, unspecified; E11.51 Type 2 diabetes mellitus with diabetic peripheral angiopathy without gangrene; E27.8 Other specified disorders of adrenal gland; E66.9 Obesity, unspecified; E86.0 Dehydration; E87.6 Hypokalemia; F17.210 Nicotine dependence, cigarettes, uncomplicated; F41.9 Anxiety disorder, unspecified; I11.0 Hypertensive heart disease with heart failure; I25.10 Atherosclerotic heart disease of native coronary artery without angina pectoris; I50.9 Heart failure, unspecified; I71.4 Abdominal aortic aneurysm, without rupture; I72.3 Aneurysm of iliac artery; J43.9 Emphysema, unspecified; R29.6 Repeated falls; Z20.828 Contact with and (suspected) exposure to other viral communicable diseases; K21.9 Gastro-esophageal reflux disease without esophagitis; M10.9 Gout, unspecified; F32.9 Major depressive disorder, single episode, unspecified; M19.90 Unspecified osteoarthritis, unspecified site; Z82.49 Family history of ischemic heart disease and other diseases of the circulatory system; Z83.3 Family history of diabetes mellitus; Z98.62 Peripheral vascular angioplasty status; Z68.29 Body mass index [BMI] 29.0-29.9, adult; Z79.899 Other long term (current) drug therapy
CPT/HCPCS: 36415; 36573; 37228; 71045; 74176; 74177; 75635; 75710; 76937; 77001; 80048; 80053; 81001; 82607; 83540; 83550; 83605; 83690; 83735; 84100; 84484; 85007; 85025; 85610; 85730; 87040; 87086; 87205; 87493; 87505; 93005; 94640; 94760; 96361; 96365; 96375; 96376; 99152; 99153; C1725; C1751; C1760; C1769; C1892; C1894; C9113; G0269; J0696; J1170; J1644; J1650; J1940; J2250; J2405; J2543; J3010; J3480; J3490; J7030; J7042; Q9966; Q9967; 97110-GP; 97530-GO; 97530-GP; 97535-GO; 99285-25; G0378; J7626; U0003-CS